=== PATIENT | male | born 1945 | race Caucasian/White ===

== ENCOUNTER → 2016-06-18 | Day surgery (SDC) | payer BC, MEDICARE, OTHER ==
[2016-05-22 08:33] VITALS: BMI 21.0
[~2016-06-18] VITALS: Ht 177.8 cm; Wt 65.9 kg
[~2016-06-18] MED LIST: ALBU0.08 INH; AMLO10TA2 PO; ASPI81TA28 PO; BCTROWC; BUSP5TAB59 PO; CARV6.252 PO; CHOL100010 PO; CYAN100074 INJ; FLUT0.0529 NAE; HYDC25 PO; LIDOCAINE HCL 2% 2 ML VIAL (20MG/ML) ONE; MIDAZOLAM HCL 1 MG/ML 2ML VIAL ONE; MULT-845 PO; OMEP20CA9 PO; OXGN; PHENYLEPHRINE 100MCG/ML 5ML SYR ONE; POTA20TA11 PO; PROPOFOL IV EMULSION 10 MG/ML 20 ML VIAL IV ONE; SODIUM CHLORIDE 0.9% 500ML 500 ML IV ONE; SYMIN INH; VNTHFA/IN INH; WLLSR/150 PO
[2016-06-18 09:02] VITALS: Ht 177.8 cm; Wt 65.9 kg
[2016-06-18 09:22] VITALS: TEMP 37
--- NOTE | 2016-06-18 09:45 | Endo History and Physical ---
History & Physical Date of Service: Jun 18, 2016. Chief Complaint: hx of polyps, tubular adenoma of colon Referring Physician: Dr. Arias History of Present Illness 70 yo CM who presents for colonoscopy secondary to history of colon polyps. Past Medical History Male Genitourinary Prob., Gastrointestinal Disorder, Anxiety, Heart Disease, Hypertension, COPD Past Surgical History Hx Cardiac Surgery: No Hx Internal Defibrillator: No Hx Pacemaker: No Hx Post-Op Nausea and Vomiting: No Hx Cancer Surgery: No Hx Orthopedic: Yes (RIGHT KNEE SURGERY) Hx Urinary Tract Surgery: No Family History None Social History Smoking Status: Former Smoker Hx Substance Use: No Hx Alcohol Use: Yes (QUIT 20 YEARS AGO) Allergies Coded Allergies: Animal Dander (Verified Allergy, Mild, CONGESTION, STUFFINESS, SNEEZING, ) Paroxetine (Verified Allergy, Mild, RASH, 05/22/16) Uncoded Allergies: ANTIBIOTI (Allergy, Unknown, NAUSEA/HOT FLASHES, 06/04/15) PATIENT SAYS HE IS ALLERGIC TO AN ANTIBIOTIC THAT HE WAS PRESCRIBED FOR A CHEST INFECTION BUT HAS NO IDEA THE NAME OF IT Current Medications Reported Home Medications Medications Dose Route/Sig Max Daily Dose Days Date Category Dose Instructions Oxygen Gas 3 Liters NA CONTINOUS 05/22/16 Reported Buspirone Hcl 5 Mg Tab 1 Tab PO BID 05/22/16 Reported Ventolin Hfa (Albuterol) 200 Puffs/86032 Mcg Aers 2-4 Puffs INH Q6H PRN 05/22/16 Reported Coreg (Carvedilol) 6.25 Mg Tab 6.25 Mg PO BID 05/22/16 Reported Vitamin Deficiency Inject (Cyanocobalamin) 1,000 Mcg/Ml Kit 1 Ml INJ MONTHLY 05/22/16 Reported Symbicort 160-4.5 Mcg/Act (Budesonide/Formoterol Fumarate) 60 Puffs/Inhaler Aero 2 Puffs INH BID 05/22/16 Reported Aspirin Ec (Aspirin) 81 Mg Tab 81 Mg PO QAM 10/11/15 Reported Vitamin D (Cholecalciferol) 1,000 Inter.unit Tab 1,000 Inter.unit PO QAM 10/31/14 Reported Bactroban 2% (Mupirocin) Oint UD 04/17/14 Reported APPLY A GENEROUS AMOUNT OF OINMENT 2-3 TIMES A DAY DIRECTED Flonase (Fluticasone Propionate (Nasal)) 50 Mcg/Act Spr 2 Sprays KAITLIN DAILY 04/17/14 Reported Centrum Silver Adult 50+ (Multiple Vitamins W/ Minerals) 1 Tab Tab 1 Tab PO QAM 04/17/14 Reported Proventil 0.083% 2.5MG/3ML (Albuterol Sulfate) Nebu 2.5 Mg INH Q4 04/17/14 Reported Potassium Chloride Cr (Potassium Chloride Microencaps) 20 Meq Tab 10 Meq PO QAM 01/26/14 Reported Prilosec (Omeprazole) 20 Mg Cap 20-40 Mg PO QAM 01/26/14 Reported Wellbutrin Sr (Bupropion Hcl) 150 Mg Tabcr 150 Mg PO QAM 01/26/14 Reported Norvasc (Amlodipine Besylate) 10 Mg Tab 10 Mg PO QAM 01/26/14 Reported Hctz * (Hydrochlorothiazide) 25 Mg Tab 25 Mg PO QAM 06/08/06 Reported Vital Signs Weight (Kilograms): 65.91 Height (Feet): 5 Height (Inches): 10 Date Time Temp Pulse Resp B/P Pulse Ox O2 Delivery O2 Flow Rate FiO2 06/18/16 09:22 37 82 20 129/74 100 Nasal Cannula 3 Physical Exam General Appearance: WD/WN, no apparent distress Respiratory/Chest: Auscultation: breath sounds normal Cardiovascular: Heart Auscultation: RRR Abdomen: Bowel Sounds: normal Inspection & Palpation: soft, non-distended, no tenderness, guarding & rebound Assessment and Plan Assessment: 70 yo CM who presents for colonoscopy secondary to history of colon polyps. Plan: Proceed with colonoscopy.
--- NOTE | 2016-06-18 10:26 | GI REPORT ---
Procedure Date: 06/18/2016 9:38 AM Procedure: Colonoscopy Indications: High risk colon cancer surveillance: Personal history of colonic polyps Medicines: Monitored Anesthesia Care Complications: No immediate complications. Estimated Blood Loss: Estimated blood loss: none. Procedure: Pre-Anesthesia Assessment: - Prior to the procedure, a History and Physical was performed, and patient medications and allergies were reviewed. The patient's tolerance of previous anesthesia was also reviewed. The risks and benefits of the procedure and the sedation options and risks were discussed with the patient. All questions were answered, and informed consent was obtained. Prior Anticoagulants: The patient has taken aspirin, last dose was 1 day prior to procedure. ASA Grade Assessment: IV - A patient with severe systemic disease that is a constant threat to life. After reviewing the risks and benefits, the patient was deemed in satisfactory condition to undergo the procedure. After I obtained informed consent, the scope was passed under direct vision. Throughout the procedure, the patient's blood pressure, pulse, and oxygen saturations were monitored continuously. The On-site loaner was introduced through the anus and advanced to the ileocolonic anastomosis. The colonoscopy was performed without difficulty. The patient tolerated the procedure well. The quality of the bowel preparation was good. The terminal ileum and the rectum were photographed. Findings: A 15 mm polyp was found in the ascending colon. The polyp was pedunculated. The polyp was removed with a hot snare. Resection and retrieval were complete. To prevent bleeding after the polypectomy, one hemostatic clip was successfully placed. There was no bleeding at the end of the procedure. Four sessile polyps were found in the transverse colon. The polyps were 5 to 8 mm in size. These polyps were removed with a hot snare. Resection and retrieval were complete. Impression: - One 15 mm polyp in the ascending colon, removed with a hot snare. Resected and retrieved. Clip was placed. - Four 5 to 8 mm polyps in the transverse colon, removed with a hot snare. Resected and retrieved. Recommendation: - Resume previous diet. - Continue present medications. - Repeat colonoscopy for surveillance based on pathology results. - Return to primary care physician as previously scheduled. Dilip Huizar DO 06/18/2016 10:26:16 AM This report has been signed electronically. Note Initiated On: 06/18/2016 9:38 AM I attest to the content of the Intraoperative Record and orders documented therein, exceptions below
--- NOTE | 2016-06-18 10:27 | Discharge Instructions ---
Endoscopy Patient Instructions Date / Procedure(s) Performed Jun 18, 2016. Colonoscopy Allergy Information Coded Allergies: Animal Dander (Verified Allergy, Mild, CONGESTION, STUFFINESS, SNEEZING, ) Paroxetine (Verified Allergy, Mild, RASH, 05/22/16) Uncoded Allergies: ANTIBIOTI (Allergy, Unknown, NAUSEA/HOT FLASHES, 06/04/15) PATIENT SAYS HE IS ALLERGIC TO AN ANTIBIOTIC THAT HE WAS PRESCRIBED FOR A CHEST INFECTION BUT HAS NO IDEA THE NAME OF IT Discharge Date / Findings Jun 18, 2016. Colon polyps Medication Instructions OK to resume all medications today as prescribed Reported Home Medications Medications Dose Route/Sig Max Daily Dose Days Date Category Dose Instructions Oxygen Gas 3 Liters NA CONTINOUS 05/22/16 Reported Buspirone Hcl 5 Mg Tab 1 Tab PO BID 05/22/16 Reported Ventolin Hfa (Albuterol) 200 Puffs/34269 Mcg Aers 2-4 Puffs INH Q6H PRN 05/22/16 Reported Coreg (Carvedilol) 6.25 Mg Tab 6.25 Mg PO BID 05/22/16 Reported Vitamin Deficiency Inject (Cyanocobalamin) 1,000 Mcg/Ml Kit 1 Ml INJ MONTHLY 05/22/16 Reported Symbicort 160-4.5 Mcg/Act (Budesonide/Formoterol Fumarate) 60 Puffs/Inhaler Aero 2 Puffs INH BID 05/22/16 Reported Aspirin Ec (Aspirin) 81 Mg Tab 81 Mg PO QAM 10/11/15 Reported Vitamin D (Cholecalciferol) 1,000 Inter.unit Tab 1,000 Inter.unit PO QAM 10/31/14 Reported Bactroban 2% (Mupirocin) Oint UD 04/17/14 Reported APPLY A GENEROUS AMOUNT OF OINMENT 2-3 TIMES A DAY DIRECTED Flonase (Fluticasone Propionate (Nasal)) 50 Mcg/Act Spr 2 Sprays KAITLIN DAILY 04/17/14 Reported Centrum Silver Adult 50+ (Multiple Vitamins W/ Minerals) 1 Tab Tab 1 Tab PO QAM 04/17/14 Reported Proventil 0.083% 2.5MG/3ML (Albuterol Sulfate) Nebu 2.5 Mg INH Q4 04/17/14 Reported Potassium Chloride Cr (Potassium Chloride Microencaps) 20 Meq Tab 10 Meq PO QAM 01/26/14 Reported Prilosec (Omeprazole) 20 Mg Cap 20-40 Mg PO QAM 01/26/14 Reported Wellbutrin Sr (Bupropion Hcl) 150 Mg Tabcr 150 Mg PO QAM 01/26/14 Reported Norvasc (Amlodipine Besylate) 10 Mg Tab 10 Mg PO QAM 01/26/14 Reported Hctz * (Hydrochlorothiazide) 25 Mg Tab 25 Mg PO QAM 06/08/06 Reported Provider Instructions Activity Restrictions - No exercising or heavy lifting for 24 hours. - Do not drink alcohol the day of the procedure. - Do not drive a car or operate machinery until the day after the procedure. - Do not make any important decisions or sign important papers in 24 hours after the procedure. Following Day: - Return to full activity which may include returning to work/school. Diet Start your diet with liquids and light foods (jello, soup, juice, toast). Then eat your usual diet if not nauseated. Treatment For Common After Affects For mild abdominal pain, bloating, or excessive gas: - Rest - Eat lightly - Lie on right side Follow-Up Information Follow-up with Dr. Arias as scheduled Anesthesia Information What You Should Know You have had a procedure that required some medicine to reduce anxiety and discomfort. This treatment is called moderate sedation. After receiving the treatment, you may be sleepy, but you will be able to breathe on your own. The effects of the treatment may last for several hours. Follow these instructions along with Activity/Diet recommendations noted above: * Do NOT do anything where dizziness or clumsiness would be dangerous. * Rest quietly at home today, then you can be up and about tomorrow. * Have a responsible person stay with you the rest of today. * You may have had an I.V. today. If so, you may take the dressing off later today. Recommendations Call your doctor if: * Trouble breathing * Continuous vomiting for more than 24 hours * Temperature above 101 degrees * Severe abdominal pain or bloating * Pain not relieved by pain medicine ordered * There is increased drainage or redness from any incision * A large amount of rectal bleeding greater than 2-3 tablespoons. (If you had a polyp/s removed or have hemorrhoids, a small amount of blood - from the rectum is to be expected.) * You have any unanswered questions or concerns. IN THE EVENT OF A SERIOUS EMERGENCY, GO TO THE NEAREST EMERGENCY ROOM Your discharge instructions were prepared by provider Dilip Huizar. Patient Instructions Signature Page Maxwell Ferrara Patient (or Guardian) Signature/Date: I have read and understand the instructions given to me by my caregivers. Caregiver/RN/Doctor Signature/Date: The above-named patient and/or guardian has received patient instructions on this date. + Original Patient Signature Page (only) stays with chart. Please make copy for patient.
[2016-06-18 10:45] VITALS: BP 124/71; PULSE 86; O2SAT 100
--- NOTE | 2016-06-18 10:47 | Anesthesiology Progress Note ---
Anesthesia Post Op Note Date & Time Jun 18, 2016 at 10:47 Vital Signs Pain Intensity: 0 Vital Signs Past 12 Hours Date Time Temp Pulse Resp B/P Pulse Ox O2 Delivery O2 Flow Rate FiO2 06/18/16 10:35 81 18 121/67 99 Nasal Cannula 3 06/18/16 10:25 81 16 98/48 100 Nasal Cannula 3 06/18/16 09:22 37 82 20 129/74 100 Nasal Cannula 3 Notes Mental Status: alert / awake / arousable, participated in evaluation Pt Amnestic to Procedure: Yes Nausea / Vomiting: adequately controlled Pain: adequately controlled Airway Patency, RR, SpO2: stable & adequate BP & HR: stable & adequate Hydration State: stable & adequate Anesthetic Complications: no major complications apparent
== END | disposition home or self-care (01) ==
LOC: C.GI 08:27
PROVIDERS: ATTEND Internal Medicine
DX: Z12.11 Encounter for screening for malignant neoplasm of colon (principal); D12.2 Benign neoplasm of ascending colon; D12.3 Benign neoplasm of transverse colon; K63.89 Other specified diseases of intestine; I10 Essential (primary) hypertension; J44.9 Chronic obstructive pulmonary disease, unspecified; Z87.891 Personal history of nicotine dependence

== ENCOUNTER 2018-07-18 13:26 | Inpatient (IN) ==
[2018-07-18] MEDS ORDERED: SODIUM CHLORIDE 0.9% 1000ML 500 ML IV ONE (13:58)
[2018-07-18] MEDS ORDERED: MoRPHine SULFATE 4 MG/ML 1 ML CARP\\VIAL IV STA (13:58)
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
[2018-07-18 14:42] LABS: Basophils # (auto) 0.02 K/uL (0-0.2); Basophils % (auto) 0.2 %; Eosinophils # (auto) 0.05 K/uL (0-0.5); Eosinophils % (auto) 0.5 %; Hematocrit (blood only) 38.8 % (42-52); Hemoglobin 12.4 g/dL (14.0-18.0); Immature Granulocytes # (auto) 0.01 K/uL (0.00-0.02); Immature Granulocytes % (auto) 0.1 %; Lymphocytes # (auto) 0.85 K/uL (1.2-3.4); Lymphocytes % (auto) 9.1 %; Mean Corpuscular Volume 89.4 fL (80-100); Mean Platelet Volume 9.6 fL (7.4-10.4); Monocytes # (auto) 0.98 K/uL (0.11-0.59); Monocytes % (auto) 10.5 %; Neutrophils # (auto) 7.43 K/uL (1.4-6.5); Neutrophils % (auto) 79.6 %; Platelet Count 352 K/uL (130-400); RDW Coefficient of Variation 14.5 % (11.5-14.5); RDW Standard Deviation 47.7 fL (36.4-46.3); Red Blood Count 4.34 M/uL (4.7-6.1); White Blood Count 9.34 K/uL (4.8-10.8)
[2018-07-18 14:54] LABS: Prothrombin Time 10.2 Seconds (9.0-12.0)
[2018-07-18 14:58] LABS: Alanine Aminotransferase 19 U/L (12-78); Albumin Level 2.7 gm/dl (3.4-5.0); Aspartate Aminotransferase 14 U/L (15-37); BUN Creatinine Ratio 14.7 (10-20); Blood Urea Nitrogen 9 mg/dl (7-18); Calcium 9.5 mg/dl (8.5-10.1); Carbon Dioxide 35 mmol/L (21-32); Chloride 101 mmol/L (98-107); Creatinine Clr Calc Pharmacy 90.9 ml/min; Est GFR (African American) 115.7; Est GFR (Non-African American) 99.8; Glucose 97 mg/dl (70-99); Potassium 3.7 mmol/L (3.5-5.1); Sodium 142 mmol/L (136-145)
[2018-07-18 15:03] LABS: Albumin Globulin Ratio 0.6 (0.9-2); Alkaline Phosphatase 165 U/L (45-117); Bilirubin,Total 0.3 mg/dl (0.2-1); Globulin 4.3 gm/dl (2.5-4.0); Troponin I < 0.015 ng/ml (0-0.045)
[2018-07-18] MEDS ORDERED: IOVERSOL 100ml IV PRN (15:35)
[2018-07-18 16:01] LABS: Appearance Urine Clear (Clear); Bacteria Urine Automated Negative (Negative); Bilirubin Urine Negative (Negative); Blood Urine 1+ (Negative); Cast Urine Automated 0 /lpf (0-5); Color Urine Yellow; Glucose Urine UA Negative (Negative); Ketones Urine Trace (Negative); Leukocyte Esterase Urine Trace (Negative); Nitrite Urine Negative (Negative); Protein Urine Negative (Negative); Specific Gravity Urine 1.016 (1.000-1.030); Urobilinogen Urine Negative (Negative); pH Urine 6.5 (4.5-7.5)
--- NOTE | 2018-07-18 16:11 | CT Scan Report ---
ABDOMEN AND PELVIS CT WITH IV CONTRAST CT DOSE: 326.14 mGy.cm HISTORY: Acute right lower quadrant abdominal pain with history of prior multiple surgeries. RLQ french n, h/o bowel obstruction and partial colect TECHNIQUE: Multiaxial CT images of the abdomen and pelvis were performed following the use of intrave nous contrast. A dose lowering technique was utilized adhering to the principles of ALARA. COMPARISON STUDY: Chest radiograph of same day, CT abdomen and pelvis 08/15/2015 FINDINGS: Chronic changes with volume loss and calcifications about the left hemithorax. Compensatory hyperinfl ation of the right lung. There are scattered tree-in-bud nodules noted about the right lung base. Emp hysema. No pneumatosis or pneumoperitoneum. Imaged inferior cardiac chambers are unremarkable with co ronary arterial calcifications noted. Cholelithiasis with gallstones noted extending into the gallbladder neck region. There is moderate in trahepatic and extrahepatic biliary ductal dilation which appears new from prior study. The common bi le duct measures up to 1.6 cm transversely. No obstructing biliary calculus or lesion identified. The pancreatic duct appears normal in caliber. Mild generalized pancreatic atrophy. There is mild coloni c wall thickening with pericholecystic edema. Liver is otherwise unremarkable. There is a 7 mm hypode nse lesion noted about the superior spleen which is new from prior, however statistically benign. Adr enal glands are unremarkable. The right kidney and ureter are unremarkable. There multiple large calculi noted about the left kidne y which includes a 1.9 x 1.2 cm left renal calculus. Mild dilation of the left renal pelvis with asso ciated urothelial thickening of the pelvis and proximal left ureter. The left proximal ureter is mild ly dilated. No obstructing distal ureteral calculus identified. Moderate bladder distention with mild prostamegaly. Extensive calcification of the abdominal aorta and proximal branches. No aneurysm. Mil dly prominent pericaval and periportal lymph nodes are present. Trace free pelvic fluid. Colonic diverticulosis without acute diverticulitis. Moderate formed stool t hroughout the colon is suggestive of constipation. Layering hyperdense material noted within several loops of bowel. Postoperative changes from prior partial small bowel resection. The right hemicolon i s mildly distended and fluid-filled. There is mild fluid distention noted about the enteroenteric carlton stomosis about the left midabdomen on image 364 series 3 without significant proximal dilation. There is a single loop of mildly dilated small bowel air-fluid level about the central abdomen measuring u p to 3.4 cm transversely. Additionally there are a few mildly prominent loops of air and fluid-filled small bowel about the central abdomen. Several fluid-filled loops of small bowel are noted. Postoper ative changes of the ventral abdominal wall. Pattern is nonobstructive. Bones appear to be intact. Degenerative changes of the spine, pelvis and h ips. Anterior endplate compression deformities at T12 and L1 without retropulsion, unchanged from com parison. IMPRESSION: 1. Cholelithiasis with mild gallbladder wall thickening and pericholecystic edema. Correlate clinical ly to exclude acute cholecystitis. 2. Moderate intrahepatic and extrahepatic biliary ductal dilation without obstructing biliary stone o r lesion. Correlate with LFTs to exclude obstructive process. 3. Extensive left nephrolithiasis includes a 1.9 cm calculus of the left renal pelvis. Additionally, there is mild pelviectasis with associated urothelial thickening about the renal collecting system an d proximal left ureter. Chronic with urinalysis to exclude pyelitis/ureteritis. 4. There are several air and fluid-filled loops of both small and large bowel with a few mildly dilat ed loops of small bowel suggesting enteritis with diarrheal illness. No high-grade small bowel obstru ction. A low-grade small bowel obstruction is considered less likely. Follow-up recommended. 5. Trace free fluid about the dependent pelvis. 6. Colonic diverticulosis without acute diverticulitis. 7. Additional findings as above. Electronically signed by: Leodan Barger M.D. 07/18/2018 4:08 PM
[2018-07-18] MEDS ORDERED: ALBUT/IPRATROP 3MG/0.5MG NEB 3 ML VIAL NEB STA (16:13)
--- NOTE | 2018-07-18 17:18 | Ultrasound Report ---
US gallbladder HISTORY: 72 years-old Male possible kyara acute right upper quadrant abdominal pain COMPARISON: CT abdomen and pelvis of same day TECHNIQUE: Multiple real-time sonographic images of the abdominal right upper quadrant were obtained assessing grayscale appearance and color flow FINDINGS: The pancreas is obscured by bowel gas. Moderate intrahepatic and extrahepatic biliary ductal dilation redemonstrated. Cyst versus biliary ductal dilation of the left hepatic lobe, 6 mm. No evidence of c irrhosis. Hepatopedal flow noted within the main portal vein. Trace right pleural effusion. Distended gallbladder with sludge and cholelithiasis. Gallbladder wall is thickened, 4 mm. Trace daphney cholecystic fluid. Sonographic Bentley sign reported as positive. Common bile duct measures up to 1.6 cm transversely. No choledocholithiasis identified. Imaged right kidney is unremarkable without hydronephrosis. IMPRESSION: 1. Cholelithiasis with sonographic findings compatible with acute cholecystitis. Surgical consultatio n recommended. 2. Moderate intrahepatic and extrahepatic biliary ductal dilation without choledocholithiasis or obst ructing biliary lesion identified on this exam. 3. Trace right pleural effusion. The above report was generated using voice recognition software. It may contain grammatical, syntax o r spelling errors. Electronically signed by: Leodan Barger M.D. 07/18/2018 5:17 PM
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
[2018-07-18] MEDS ORDERED: ONDANSETRON INJ 2 MG/ML 2 ML VIAL IV PRN (18:36)
[2018-07-18] MEDS ORDERED: MoRPHine SULFATE 2 MG/ML CARP IV PRN (18:36)
[2018-07-18] MEDS ORDERED: PIPERACILL/TAZOBAC CONSULT ACTIVE PRN (18:36)
--- NOTE | 2018-07-18 18:46 | Surgery Consultation ---
Date of Consultation July 18, 2018 Assessment & Plan (1) Abdominal pain: Most recent labwork, ED course, provider notes, imaging reviewed. Discussed patient's history and physical with Dr. Solorzano. Patient to be admitted to Med/Surg floor by Hospitalist service. Start IV abx- recommend IV Cipro and IV Flagyl. No emergent surgical intervention indicated. Repeat CBC, LFTs in AM. Patient NPO after midnight. Dr. Solorzano will discussed treatment plan with patient and patient's family. Patient is a higher than average surgical risk. Possibility that cholecystectomy would need to be done as an open procedure if cholecystectomy becomes needed during this hospital stay. History of Present Illness Reason for Consultation: Acute Cholecystitis Attending Physician: Clint Pappas DO History of Present Illness 72-year-old male with past medical history significant for GERD, aortic stenosis, Vit D and Vit B-12 deficiency, cardiomyopathy, HTN, COPD, s/p Pneumonectomy (approximately ) s/p Ex Lap with Resection of Ileum/Cecum due to internal herniation and necrotic bowel (May, with Dr. Marcelino Amaro), bowel obstruction x2 following bowel surgery, history of malabsorption. Patient presented to [facility] this afternoon for evaluation of right lower quadrant abdominal pain that began Thursday evening. He states that the pain is present with movement, especially with coughing. If he lays still and does not move, the pain does subside. He denies nausea or vomiting. Reports that he has never had this type of pain before. States that prior to the pain starting he had dinner- sardines and pork chops. He denies previous post-prandial pain. He denies fever or chills. Patient is on 3L of home oxygen. ED course- Bloodwork: WBC 9.34; Tot Bili 0.3; AST 14; ALT 19; Alk Phos 165; Albumin 2.7; Lipase 42 Most recent vital signs BP 120/69; Pulse 89; Resp 18; Temp 36.7; O2 98% on 3L NC. Imaging: CT abdomen/pelvis with IV contrast- IMPRESSION: 1. Cholelithiasis with mild gallbladder wall thickening and pericholecystic edema. Correlate clinically to exclude acute cholecystitis. 2. Moderate intrahepatic and extrahepatic biliary ductal dilation without obstructing biliary stone or lesion. Correlate with LFTs to exclude obstructive process. 3. Extensive left nephrolithiasis includes a 1.9 cm calculus of the left renal pelvis. Additionally, there is mild pelviectasis with associated urothelial thickening about the renal collecting system and proximal left ureter. Chronic with urinalysis to exclude pyelitis/ureteritis. 4. There are several air and fluid-filled loops of both small and large bowel with a few mildly dilated loops of small bowel suggesting enteritis with diarrheal illness. No high-grade small bowel obstruction. A low-grade small bowel obstruction is considered less likely. Follow-up recommended. 5. Trace free fluid about the dependent pelvis. 6. Colonic diverticulosis without acute diverticulitis. Ultrasound of GB reveals 1. Cholelithiasis with sonographic findings compatible with acute cholecystitis. Surgical consultation recommended. 2. Moderate intrahepatic and extrahepatic biliary ductal dilation without choledocholithiasis or obstructing biliary lesion identified on this exam. 3. Trace right pleural effusion. Allergies Allergy/AdvReac Type Severity Reaction Status Date / Time animal dander Allergy Mild CONGESTION, Verified 07/18/18 14:46 STUFFINESS, SNEEZING paroxetine Allergy Mild RASH Verified 07/18/18 14:46 ANTIBIOTI Allergy Unknown NAUSEA/HOT Uncoded 07/18/18 14:46 FLASHES Home Medications Home Medications Medication Instructions Recorded Confirmed Type albuterol sulfate 2 puff INHALATION QID 07/18/18 07/18/18 History amlodipine 10 mg PO DAILY 07/18/18 07/18/18 History aspirin [Aspirin Low Dose] 81 mg PO DAILY 07/18/18 07/18/18 History budesonide-formoterol [Symbicort] 2 puff INHALATION BID 07/18/18 07/18/18 History bupropion HCl 150 mg PO QAM 07/18/18 07/18/18 History buspirone 7.5 mg PO BID 07/18/18 07/18/18 History cholecalciferol (vitamin D3) 1,000 unit PO DAILY 07/18/18 07/18/18 History [Vitamin D3] fluticasone propionate 2 spray INTRANASAL DAILY 07/18/18 07/18/18 History guaifenesin 200 mg PO Q6H 07/18/18 07/18/18 History hydrochlorothiazide 25 mg PO DAILY 07/18/18 07/18/18 History hydrocodone-acetaminophen 1 tab PO DIRECTED PRN 07/18/18 07/18/18 History ipratropium-albuterol [Combivent 1 puff INHALATION QID 07/18/18 07/18/18 History Respimat] isosorbide mononitrate 30 mg PO DAILY 07/18/18 07/18/18 History magnesium 250 mg PO DAILY 07/18/18 07/18/18 History ansdebpkljut-twmr-okvxc acid 1 tab PO DAILY 07/18/18 07/18/18 History [Centrum] mupirocin 1 applic TOPICAL BID 07/18/18 07/18/18 History omeprazole 40 mg PO DAILY 07/18/18 07/18/18 History potassium chloride [Klor-Con] 20 meq PO DAILY 07/18/18 07/18/18 History psyllium husk [Fiber-Caps 0.52 g PO DAILY 07/18/18 07/18/18 History (psyllium husk)] Patient History Medical History Hx of malignant neoplasm of colon BPH (benign prostatic hyperplasia) GERD (gastroesophageal reflux disease) Vitamin D deficiency Vitamin B12 deficiency Aortic stenosis Bicuspid aortic valve Cardiomyopathy COPD (chronic obstructive pulmonary disease) (Chronic) Hypertension (Chronic) Surgical History Hx of pneumonectomy Left Social History Preferred Language: Uzbek Communication Ability: Effective 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 Eyes: + anicteric sclerae Respiratory: + cough; no respiratory distress Gastrointestinal (Abdomen): Inspection/Auscultation: abdomen not distended Percussion/Palpation: + abdomen tender (right lower quadrant- area marked with an X during examination. ) and abdomen soft Healed midline scar. Results & Data Vital Signs (Past 12 Hours) Vital Signs Temp Pulse Pulse Resp BP BP Pulse Ox 07/18/18 18:07 89 18 120/69 98 07/18/18 16:07 93 H 18 130/66 99 07/18/18 14:30 18 110/64 99 07/18/18 14:11 96 07/18/18 13:31 36.7 C 65 18 128/71 97 (1) Abdominal pain Abdominal location: right lower quadrant Qualified Code(s): R10.31 - Right lower quadrant pain
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
[2018-07-18] MEDS: NSS + 20MEQ KCL 20 MEQ/1,000 ML BAG IV SCH (19:31)
[2018-07-18] MEDS ORDERED: PIPERACILLIN/TAZOBACTAM 3.375 GM in DEXTROSE 5% 100 ML IV ONE (20:00)
[2018-07-18] MEDS: MUPIROCIN 2% OINT 22 GM TUBE TOP SCH (20:37)
[2018-07-18] MEDS: BUSPIRONE HCL 7.5 MG TAB PO SCH (20:40)
[2018-07-18] MEDS: BUDESONIDE/FORMOTEROL FUMARATE 160/4.5 60 PUFFS/INHALER INH SCH (20:41)
[2018-07-18] MEDS: ALBUTEROL HFA 8 GM INHALER INH SCH (20:43)
[2018-07-18] MEDS: IPRATROPIUM BROMIDE/ALBUTEROL respimat INH INH SCH (20:46)
[2018-07-18] MEDS: MoRPHine SULFATE 4 MG/ML 1 ML CARP\\VIAL IV PRN (21:42)
[2018-07-18] MEDS: HEPARIN SOD 5,000 UNIT/0.5 ML VIAL SQ SCH (21:46)
[2018-07-18] MEDS ORDERED: ALUMINUM/MAGNESIUM SUSP 30 ML UDC PO STA (22:47)
[2018-07-18] MEDS: MoRPHine SULFATE 2 MG/ML CARP IV PRN (23:34)
[2018-07-19] MEDS: LEVALBUTEROL HCL 0.63 MG/3 ML NEB NEB SCH ×2 (01:23→07:19)
[2018-07-19] MEDS: IPRATROPIUM BROMIDE NEB SOLN 0.02% 2.5 ML VIAL INH SCH ×2 (01:23→07:20)
[2018-07-19] MEDS: PIPERACILLIN/TAZOBACTAM 3.375 GM in DEXTROSE 5% 100 ML IV SCH ×2 (01:53→09:49)
[2018-07-19] MEDS: MoRPHine SULFATE 2 MG/ML CARP IV PRN ×2 (02:00→05:40)
[2018-07-19] MEDS ORDERED: XOPENEX/ATROVENT 0.63mg/0.5MG NEB COMBO NEB SCH (02:00)
[2018-07-19] MEDS: HEPARIN SOD 5,000 UNIT/0.5 ML VIAL SQ SCH ×2 (05:39→13:36)
--- NOTE | 2018-07-19 06:12 | Progress Note ---
Date of Service July 19, 2018 Subjective RN called around 23:44 regarding patient having significant abdominal pain Chart reviewed Pt evaluated: reported significant RLQ abdominal pain, pain in same location as admission, denies RUQ abdominal pain Exam: active BS, RLQ severe TTP, No RUQ TTP, no rebound tenderness Case discussed with Dr. Boyce Given hx of ischemic bowel lactate and amylase ordered which were wnl Pain location unchanged from admission and despite concern for acute cholecystitis pt having RLQ abdominal pain not RUQ abdominal pain Plan was to re-scan abdomen pt if continues to have severe uncontrolled pain Spoke to nurse around 2am - reported pain improved with ordered morphine pain r egimen and pt more comfortable Results & Data Vital Signs (Past 12 Hours) Vital Signs Temp Pulse Pulse Resp BP BP Pulse Ox 07/19/18 01:20 90 18 96 07/18/18 23:39 37.1 C 93 H 14 151/77 H 100 07/18/18 18:30 37.0 C 98 H 22 133/76 98 Resident Activity Tracking Resident Involvement: Resident Care Provided Care Provided: Adult Hospital Medicine
[2018-07-19 06:57] LABS: Basophils # (auto) 0.03 K/uL (0-0.2); Basophils % (auto) 0.4 %; Eosinophils # (auto) 0.06 K/uL (0-0.5); Eosinophils % (auto) 0.8 %; Hematocrit (blood only) 34.4 % (42-52); Hemoglobin 10.9 g/dL (14.0-18.0); Immature Granulocytes # (auto) 0.02 K/uL (0.00-0.02); Immature Granulocytes % (auto) 0.3 %; Lymphocytes # (auto) 0.53 K/uL (1.2-3.4); Lymphocytes % (auto) 7.1 %; Mean Corpuscular Hgb Conc 31.7 g/dL (32-36); Mean Corpuscular Volume 88.9 fL (80-100); Mean Platelet Volume 9.5 fL (7.4-10.4); Monocytes # (auto) 1.11 K/uL (0.11-0.59); Monocytes % (auto) 14.8 %; Neutrophils # (auto) 5.73 K/uL (1.4-6.5); Neutrophils % (auto) 76.6 %; Platelet Count 314 K/uL (130-400); RDW Coefficient of Variation 14.6 % (11.5-14.5); RDW Standard Deviation 47.5 fL (36.4-46.3); Red Blood Count 3.87 M/uL (4.7-6.1); White Blood Count 7.48 K/uL (4.8-10.8)
[2018-07-19] MEDS: IPRATROPIUM BROMIDE/ALBUTEROL respimat INH INH SCH ×2 (07:20→12:51)
[2018-07-19 07:29] LABS: Albumin Level 2.3 gm/dl (3.4-5.0); BUN Creatinine Ratio 12.8 (10-20); Bilirubin Direct 0.1 mg/dl (0-0.2); Calcium 8.7 mg/dl (8.5-10.1); Creatinine Clr Calc Pharmacy 102.3 ml/min; Est GFR (African American) 121.5; Est GFR (Non-African American) 104.8; Potassium 3.4 mmol/L (3.5-5.1)
[2018-07-19 07:32] LABS: Albumin Globulin Ratio 0.6 (0.9-2); Bilirubin,Total 0.4 mg/dl (0.2-1); Globulin 3.8 gm/dl (2.5-4.0); Total Protein 6.1 gm/dl (6.4-8.2)
[2018-07-19] MEDS: NSS + 20MEQ KCL 20 MEQ/1,000 ML BAG IV SCH (07:53)
[2018-07-19] MEDS: MUPIROCIN 2% OINT 22 GM TUBE TOP SCH (07:53)
[2018-07-19] MEDS: BUSPIRONE HCL 7.5 MG TAB PO SCH (07:57)
[2018-07-19] MEDS: FLUTICASONE PROPIONATE NA SPR 16 GM BTL SCH ×2 (07:57→14:10)
[2018-07-19] MEDS: BUDESONIDE/FORMOTEROL FUMARATE 160/4.5 60 PUFFS/INHALER INH SCH (07:58)
[2018-07-19] MEDS: ALBUTEROL HFA 8 GM INHALER INH SCH (07:59)
[2018-07-19] MEDS: MoRPHine SULFATE 4 MG/ML 1 ML CARP\\VIAL IV PRN ×2 (08:41→14:45)
--- NOTE | 2018-07-19 08:42 | Surgery Progress Note ---
Date of Service July 19, 2018 Assessment & Plan (1) Acute cholecystitis: pain is low but ct and US both confirm cholecystitis. he only has 4 feet of small bowel left . this coupled with his Oxygen dependent COPD makes him a high surgical risk. He would need an open subcostal incision most likely which would not help his respiratory issues and likely advanced adhesions could risk the small amount of remaining bowel. Rec trial of npo/antibiotics vs IR Perc kyara tube. Will obtain HIDA to to verify cholecystitis prior to transfer for kyara tube. D/w Dr. Pappas. Subjective pt feeling better than yesterday but still having tenderness/discomfort in RLQ. no nausea Physical Exam Physical Exam: alert. nad abd: soft. +tenderness in RLQ. +guarding. Results & Data Vital Signs (Past 12 Hours) Vital Signs Temp Pulse Pulse Pulse Resp BP Pulse Ox 07/19/18 07:45 36.9 C 87 19 132/68 99 07/19/18 07:20 91 H 18 97 07/19/18 01:20 90 18 96 07/18/18 23:39 37.1 C 93 H 14 151/77 H 100
[2018-07-19] MEDS ORDERED: PANTOprazole 40 MG TAB PO SCH (09:00)
[2018-07-19] MEDS ORDERED: AMLODIPINE BESYLATE 5 MG TAB PO SCH (09:00)
[2018-07-19] MEDS ORDERED: POTASSIUM CHLORIDE 20 MEQ TABCR PO SCH (09:00)
[2018-07-19] MEDS ORDERED: BuPROPion XL 150 MG TABCR PO SCH (09:00)
[2018-07-19] MEDS ORDERED: ISOSORBIDE MONO EXTENDED REL 30 MG TABCR PO SCH (09:00)
[2018-07-19] MEDS ORDERED: MAGNESIUM OXIDE 400 MG TAB PO SCH (09:00)
[2018-07-19] MEDS ORDERED: POTASSIUM CHLORIDE PWD 20 MEQ PACK PO SCH (09:00)
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
[2018-07-19] MEDS ORDERED: LEVALBUTEROL HCL 0.63 MG/3 ML NEB NEB PRN (11:30)
[2018-07-19] MEDS ORDERED: IPRATROPIUM BROMIDE NEB SOLN 0.02% 2.5 ML VIAL INH PRN (11:30)
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
[2018-07-19] MEDS ORDERED: SINCALIDE 1.2 MCG in 0.9 % SODIUM CHLORIDE 100 ML IV SCH (14:00)
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
--- NOTE | 2018-07-21 11:57 | Coding Query ---
BMI To promote full compliance with coding requirements relating to patient care, physician participation is requested in all cases of proposal coordinator uncertainty. Please assist us with the question(s) below: Please place an X within the parenthesis (x). If other, please document: BMI 18.6 was documented in this record for this patient. If the BMI is significant, please check the box that provides a more specific associated diagnosis: ( ) Overweight/Obese ( ) Obesity ( ) Morbid obesity ( ) Obesity Hypoventilation Syndrome (OHS) (x ) Heathy weight, not significant ( ) Underweight/Thin ( ) Other, please specify Thank you Merary SANTILLAN
== END 2018-07-19 15:25 | disposition short-term general hospital (02) | DRG 445 ==
LOC: ED 13:26 → 3E 17:51

== ENCOUNTER 2018-09-10 13:43 | Inpatient (IN) ==
[2018-09-10] MEDS ORDERED: SODIUM CHLORIDE 0.9% 1000ML 1,000 ML IV ONE (14:13)
[2018-09-10 15:03] LABS: Basophils # (auto) 0.02 K/uL (0-0.2); Basophils % (auto) 0.1 %; Eosinophils # (auto) 0.04 K/uL (0-0.5); Eosinophils % (auto) 0.2 %; Hematocrit (blood only) 37.3 % (42-52); Hemoglobin 11.4 g/dL (14.0-18.0); Immature Granulocytes # (auto) 0.04 K/uL (0.00-0.02); Immature Granulocytes % (auto) 0.2 %; Lymphocytes # (auto) 1.19 K/uL (1.2-3.4); Lymphocytes % (auto) 6.4 %; Mean Corpuscular Hgb Conc 30.6 g/dL (32-36); Mean Corpuscular Volume 87.8 fL (80-100); Mean Platelet Volume 9.6 fL (7.4-10.4); Monocytes # (auto) 0.92 K/uL (0.11-0.59); Neutrophils # (auto) 16.36 K/uL (1.4-6.5); Neutrophils % (auto) 88.1 %; Platelet Count 360 K/uL (130-400); RDW Standard Deviation 48.1 fL (36.4-46.3); Red Blood Count 4.25 M/uL (4.7-6.1); White Blood Count 18.57 K/uL (4.8-10.8)
[2018-09-10 15:05] LABS: Base Excess VBG 8.6 mEq/L; Oxygen Saturation VBG 64.3 %; pH VBG 7.41 (7.36-7.41)
[2018-09-10 15:15] LABS: Partial Thromboplastin Time 27.9 Seconds (21.0-31.0); Prothrombin Time 9.9 Seconds (9.0-12.0)
[2018-09-10] MEDS ORDERED: OPTIRAY 320 125ml IV PRN (15:20)
[2018-09-10 15:29] LABS: Alanine Aminotransferase 15 U/L (12-78); Albumin Level 2.5 gm/dl (3.4-5.0); Aspartate Aminotransferase 10 U/L (15-37); BUN Creatinine Ratio 17.2 (10-20); Blood Urea Nitrogen 11 mg/dl (7-18); C Reactive Protein 6.31 mg/dl (0-0.29); Calcium 9.4 mg/dl (8.5-10.1); Carbon Dioxide 36 mmol/L (21-32); Chloride 99 mmol/L (98-107); Creatinine Clr Calc Pharmacy 85.3 ml/min; Est GFR (African American) 114.2; Est GFR (Non-African American) 98.6; Glucose 101 mg/dl (70-99); Potassium 3.5 mmol/L (3.5-5.1); Sodium 140 mmol/L (136-145)
--- NOTE | 2018-09-10 15:31 | CT Scan Report ---
CT abd pelvis IV con only CT DOSE: 555.50 mGy.cm HISTORY: Pain. Nausea. RUQ pain TECHNIQUE: Multiaxial CT images of the abdomen and pelvis were performed following the use of intrave nous contrast. A dose lowering technique was utilized adhering to the principles of ALARA. COMPARISON STUDY: 07/18/2018 FINDINGS: Right lung bases are remarkable for focal linear atelectatic change versus the less likely possibility of nodular change. Liver enhances uniformly. There has been an interval cholecystectomy. Biliary ductal prominence is slightly diminished. Pancreas is uniform. The right kidney is considered negative for hydronephrosis. Left kidney demonstrates multiple calcifi cations within the left renal pelvis. Largest calcification measures 1.4 cm. Postoperative changes are noted in the right lower quadrant. Several minimally distended loops of sma ll bowel as well as colon demonstrating a considerable amount of fluid. This consistent with that of a nonspecific enteritis. Several small calcifications posterior aspect of the bladder to right. Inguinal regions are unremarka ble. The colonic bowel pattern again is considered nonobstructive. IMPRESSION: 1. Generalized small bowel as well as colonic ileus. 2. Possible nonspecific enteritis is considered. 3. Stable left renal nephrocalcinosis with no evidence for an obstructing urinary tract calculus. 4. Several small calcifications posterior aspect of the bladder on the right. 5. Interval cholecystectomy. Decreased prominence of the biliary ductal system compared to the prior study.. 6. Small nodular density versus atelectasis right base best seen image 31. A close 3-4 month follow-u p is suggested The above report was generated using voice recognition software. It may contain grammatical, syntax or spelling errors. Electronically signed by: Jonathan Bronson M.D. 09/10/2018 3:30 PM
[2018-09-10 15:34] LABS: Albumin Globulin Ratio 0.5 (0.9-2); Alkaline Phosphatase 153 U/L (45-117); Bilirubin,Total 0.3 mg/dl (0.2-1); Globulin 4.6 gm/dl (2.5-4.0); Total Protein 7.1 gm/dl (6.4-8.2); Troponin I < 0.015 ng/ml (0-0.045)
[2018-09-10] MEDS ORDERED: PIPERACILL/TAZOBAC CONSULT ACTIVE PRN ×2 (15:41→18:28)
[2018-09-10] MEDS ORDERED: PIPERACILLIN/TAZOBACTAM 4.5 GM/120 ML BAG IV ONE (15:41)
--- NOTE | 2018-09-10 15:52 | CT Scan Report ---
CT ANGIOGRAPHY OF THE CHEST, PULMONARY EMBOLUS PROTOCOL CLINICAL HISTORY: Severe shortness of breath and chest pain. COMPARISON STUDY: Chest CT August 25, 2013 and chest radiograph September 10, 2018. TECHNIQUE: Following IV administration of 118 mL of Optiray-320, helical axial images of the chest we re obtained utilizing the pulmonary embolus protocol. Maximal intensity projections and sagittal and coronal reformats were viewed on an independent 3D workstation. IV contrast was administered withou t complication. Automated exposure control was utilized for the study. A dose lowering technique wa s utilized adhering to the principles of ALARA. FINDINGS: No pulmonary emboli are identified. There are postoperative findings consistent with a lef t pneumonectomy. There has been interval development of an air-fluid level within the left pneumonect evangelist cavity since chest CT of August 25, 2013. Note is made of a fistula at the level of the left bronchi al stump. There is no right pleural effusion. Numerous BBs project over the left hemithorax. There is moderate emphysema within the right lung. There are are tree-in-bud nodules within the right lung wi th additional irregular opacities, including a 1.4 cm nodular irregular right lower lobe opacity on i mage 70 of 356. Old left chest wall deformity is noted. The heart is mildly enlarged. There is no per icardial effusion. There is mild dilatation of the ascending aorta. There is extensive coronary arter y calcification. Left renal calculi are better depicted on the CT of the abdomen and pelvis. IMPRESSION: 1. No pulmonary emboli identified. 2. 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 3. Tree-in-bud and irregular nodular opacities within the right lung which suggest an infectious proc ess or aspiration. Multiple irregular nodular opacities, including a 1.4 cm right lower lobe opacity. These are likely infectious/inflammatory however a chest CT in 3 months to ensure resolution is ludwin mmended. 4. Moderate right lung emphysema. Electronically signed by: Rodrick Moses M.D. 09/10/2018 3:51 PM
[2018-09-10 16:00] LABS: Appearance Urine Clear (Clear); Bacteria Urine Automated Negative (Negative); Bilirubin Urine Negative (Negative); Color Urine Yellow; Glucose Urine UA Negative (Negative); Ketones Urine Negative (Negative); Leukocyte Esterase Urine Negative (Negative); Nitrite Urine Negative (Negative); Protein Urine Negative (Negative); Specific Gravity Urine 1.034 (1.000-1.030); Urobilinogen Urine Negative (Negative); pH Urine 7.5 (4.5-7.5)
[2018-09-10] MEDS ORDERED: ALBUT/IPRATROP 3MG/0.5MG NEB 3 ML VIAL NEB STA (16:14)
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
[2018-09-10] MEDS ORDERED: ONDANSETRON INJ 2 MG/ML 2 ML VIAL IV PRN (18:28)
[2018-09-10] MEDS ORDERED: ALUMINUM/MAGNESIUM SUSP 30 ML UDC PO PRN (18:28)
[2018-09-10] MEDS ORDERED: ACETAMINOPHEN 325 MG TAB PO PRN (18:28)
[2018-09-10] MEDS: ARFORMOTEROL TART 15MCG/2ML VIAL INH SCH (19:00)
[2018-09-10] MEDS: BUDESONIDE 0.5 MG/2 ML VIAL (PULMICORT) NEB SCH (19:00)
[2018-09-10] MEDS: methylPREDNISolone 40 MG in SYRINGE 0 ML IV SCH (19:59)
[2018-09-10] MEDS: ENOXAPARIN INJ 40 MG/0.4 ML SYR SQ SCH (19:59)
[2018-09-10] MEDS: HYDROCODONE/ACETAMINOPHEN 10/325 TAB PO PRN (20:47)
[2018-09-10] MEDS: DICLOFENAC SOD 1% GEL 100 GM TUBE EXT SCH (23:01)
[2018-09-10] MEDS: PIPERACILLIN/TAZOBACTAM 3.375 GM in DEXTROSE 5% 100 ML IV SCH (23:01)
[2018-09-11] MEDS: methylPREDNISolone 40 MG in SYRINGE 0 ML IV SCH ×3 (03:02→18:08)
[2018-09-11] MEDS: PIPERACILLIN/TAZOBACTAM 3.375 GM in DEXTROSE 5% 100 ML IV SCH ×3 (06:07→22:24)
[2018-09-11 06:25] LABS: Basophils # (auto) 0.01 K/uL (0-0.2); Basophils % (auto) 0.1 %; Hematocrit (blood only) 34.6 % (42-52); Hemoglobin 10.8 g/dL (14.0-18.0); Immature Granulocytes # (auto) 0.04 K/uL (0.00-0.02); Immature Granulocytes % (auto) 0.3 %; Lymphocytes # (auto) 0.34 K/uL (1.2-3.4); Lymphocytes % (auto) 2.7 %; Mean Corpuscular Hgb Conc 31.2 g/dL (32-36); Mean Corpuscular Volume 86.9 fL (80-100); Mean Platelet Volume 9.6 fL (7.4-10.4); Monocytes # (auto) 0.06 K/uL (0.11-0.59); Monocytes % (auto) 0.5 %; Neutrophils # (auto) 12.29 K/uL (1.4-6.5); Neutrophils % (auto) 96.4 %; Platelet Count 320 K/uL (130-400); RDW Coefficient of Variation 14.9 % (11.5-14.5); RDW Standard Deviation 47.8 fL (36.4-46.3); Red Blood Count 3.98 M/uL (4.7-6.1); White Blood Count 12.74 K/uL (4.8-10.8)
[2018-09-11 06:55] LABS: BUN Creatinine Ratio 15.6 (10-20); Calcium 9.1 mg/dl (8.5-10.1); Creatinine Clr Calc Pharmacy 90.3 ml/min; Est GFR (African American) 119.7; Est GFR (Non-African American) 103.3; Potassium 3.6 mmol/L (3.5-5.1)
[2018-09-11] MEDS: ARFORMOTEROL TART 15MCG/2ML VIAL INH SCH ×2 (07:18→19:10)
[2018-09-11] MEDS: BUDESONIDE 0.5 MG/2 ML VIAL (PULMICORT) NEB SCH ×2 (07:18→19:10)
[2018-09-11] MEDS: HYDROCODONE/ACETAMINOPHEN 10/325 TAB PO PRN ×3 (09:08→20:00)
[2018-09-11] MEDS: ISOSORBIDE MONO EXTENDED REL 30 MG TABCR PO SCH (09:09)
[2018-09-11] MEDS: hydroCHLOROthiazide 25 MG TAB PO SCH (09:09)
[2018-09-11] MEDS: AMLODIPINE BESYLATE 5 MG TAB PO SCH (09:09)
[2018-09-11] MEDS: MAGNESIUM OXIDE 400 MG TAB PO SCH (09:09)
[2018-09-11] MEDS: PANTOprazole 40 MG TAB PO SCH (09:10)
[2018-09-11] MEDS: ASPIRIN 81 MG ECTAB PO SCH (09:10)
[2018-09-11] MEDS: CHOLECALCIFEROL 1,000 UNITS TAB PO SCH (09:10)
[2018-09-11] MEDS: BuPROPion XL 150 MG TABCR PO SCH (09:10)
[2018-09-11] MEDS: POTASSIUM CHLORIDE PWD 20 MEQ PACK PO SCH (09:10)
[2018-09-11] MEDS: CEROVITE ADV FORMULA TAB PO SCH (09:10)
[2018-09-11] MEDS: DICLOFENAC SOD 1% GEL 100 GM TUBE EXT SCH ×3 (12:29→20:57)
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
[2018-09-11] MEDS: ENOXAPARIN INJ 40 MG/0.4 ML SYR SQ SCH (20:57)
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
[2018-09-12] MEDS: HYDROCODONE/ACETAMINOPHEN 10/325 TAB PO PRN ×3 (02:40→22:00)
[2018-09-12] MEDS: methylPREDNISolone 40 MG in SYRINGE 0 ML IV SCH ×3 (02:40→18:17)
[2018-09-12] MEDS: PIPERACILLIN/TAZOBACTAM 3.375 GM in DEXTROSE 5% 100 ML IV SCH ×3 (06:05→21:51)
[2018-09-12 06:41] LABS: Hemoglobin 10.3 g/dL (14.0-18.0); Immature Granulocytes # (auto) 0.03 K/uL (0.00-0.02); Immature Granulocytes % (auto) 0.3 %; Lymphocytes # (auto) 0.38 K/uL (1.2-3.4); Lymphocytes % (auto) 3.4 %; Mean Corpuscular Hgb Conc 31.2 g/dL (32-36); Mean Corpuscular Volume 86.6 fL (80-100); Mean Platelet Volume 9.8 fL (7.4-10.4); Monocytes # (auto) 0.42 K/uL (0.11-0.59); Monocytes % (auto) 3.8 %; Neutrophils # (auto) 10.29 K/uL (1.4-6.5); Neutrophils % (auto) 92.5 %; Platelet Count 351 K/uL (130-400); RDW Coefficient of Variation 15.4 % (11.5-14.5); RDW Standard Deviation 48.8 fL (36.4-46.3); Red Blood Count 3.81 M/uL (4.7-6.1); White Blood Count 11.12 K/uL (4.8-10.8)
[2018-09-12] MEDS: BUDESONIDE 0.5 MG/2 ML VIAL (PULMICORT) NEB SCH ×2 (07:04→18:44)
[2018-09-12] MEDS: ARFORMOTEROL TART 15MCG/2ML VIAL INH SCH ×2 (07:04→18:44)
[2018-09-12 07:10] LABS: BUN Creatinine Ratio 29.9 (10-20); Calcium 9.5 mg/dl (8.5-10.1); Creatinine Clr Calc Pharmacy 89.5 ml/min; Est GFR (African American) 118.9; Est GFR (Non-African American) 102.6; Potassium 3.4 mmol/L (3.5-5.1)
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
[2018-09-12] MEDS: hydroCHLOROthiazide 25 MG TAB PO SCH (09:24)
[2018-09-12] MEDS: ASPIRIN 81 MG ECTAB PO SCH (09:24)
[2018-09-12] MEDS: POTASSIUM CHLORIDE PWD 20 MEQ PACK PO SCH (09:25)
[2018-09-12] MEDS: ISOSORBIDE MONO EXTENDED REL 30 MG TABCR PO SCH (09:25)
[2018-09-12] MEDS: CEROVITE ADV FORMULA TAB PO SCH (09:25)
[2018-09-12] MEDS: MAGNESIUM OXIDE 400 MG TAB PO SCH (09:25)
[2018-09-12] MEDS: AMLODIPINE BESYLATE 5 MG TAB PO SCH (09:26)
[2018-09-12] MEDS: BuPROPion XL 150 MG TABCR PO SCH (09:26)
[2018-09-12] MEDS: PANTOprazole 40 MG TAB PO SCH (09:26)
[2018-09-12] MEDS: CHOLECALCIFEROL 1,000 UNITS TAB PO SCH (09:26)
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
[2018-09-12] MEDS: DICLOFENAC SOD 1% GEL 100 GM TUBE EXT SCH ×4 (09:29→20:42)
[2018-09-12] MEDS: POTASSIUM CHLORIDE 20 MEQ TABCR PO SCH (10:27)
--- NOTE | 2018-09-12 10:43 | Progress Note ---
DATE: 09/12/2018 PULMONARY MEDICINE PROGRESS NOTE Chart reviewed, patient examined, assessment. SUBJECTIVE: The patient was sitting up having breakfast. He is quite anxious about future plans. Sputum is minimal. I spoke with Dr. Pettit yesterday. It is interesting since June, there has been a change in his radiograph with now air-fluid level involving that left hemithorax, which could only mean a probable bronchopleural fistula involving the left mainstem bronchus. It may very well be a suture or staple that has eroded through from his previous pneumonectomy and from the bronchial stump or could be a neoplasm. The plan was patient will require an Eloesser flap and I agree with Dr. Pettit that attempts in the past on other patients with similar issues for trying to occlude the area of fistula with devices have been uniformly unhelpful.Concommitant drainage of the remaining fluid on the ipsilateral side of the BP fistula will reqire drainageas well. I will schedule patient for bronchoscopy tomorrow to evaluate the anatomy and brush or biopsy if carcinoma is present. When I mentioned the possibility of carcinoma, patient became extremely agitated and upset. Apparently there is a meeting scheduled this morning with the family coming and which I will try to attend, with Dr. Pettit and if not able to do so, then we will speak to the family members later on. JACQUE
--- NOTE | 2018-09-12 12:13 | Progress Note ---
DATE: 09/12/2018 Mr. Ferrara was seen with his 2 children and other family members today. We had a long talk about the bronchoscopy, Dr. Tamez will perform in the morning. We had a long discussion about this. I do not feel that a malignancy is likely; however, he definitely needs a bronchoscopy. 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 I will be quite interested to see the results of the bronchoscopy tomorrow. I tentatively have him scheduled for a left Eloesser flap on 09/14/2018.
[2018-09-13] MEDS: LEVALBUTEROL HCL 1.25 MG/3 ML NEB NEB PRN (03:02)
[2018-09-13] MEDS: methylPREDNISolone 40 MG in SYRINGE 0 ML IV SCH ×3 (03:37→20:46)
[2018-09-13] MEDS: PIPERACILLIN/TAZOBACTAM 3.375 GM in DEXTROSE 5% 100 ML IV SCH ×3 (05:51→23:25)
[2018-09-13 06:22] LABS: Hematocrit (blood only) 33.6 % (42-52); Hemoglobin 10.5 g/dL (14.0-18.0); Immature Granulocytes # (auto) 0.03 K/uL (0.00-0.02); Immature Granulocytes % (auto) 0.2 %; Lymphocytes # (auto) 0.34 K/uL (1.2-3.4); Lymphocytes % (auto) 2.6 %; Mean Corpuscular Hgb Conc 31.3 g/dL (32-36); Mean Corpuscular Volume 88.7 fL (80-100); Mean Platelet Volume 9.6 fL (7.4-10.4); Monocytes # (auto) 0.78 K/uL (0.11-0.59); Neutrophils # (auto) 11.83 K/uL (1.4-6.5); Neutrophils % (auto) 91.2 %; Platelet Count 361 K/uL (130-400); RDW Coefficient of Variation 15.4 % (11.5-14.5); RDW Standard Deviation 49.5 fL (36.4-46.3); Red Blood Count 3.79 M/uL (4.7-6.1); White Blood Count 12.98 K/uL (4.8-10.8)
[2018-09-13 06:54] LABS: BUN Creatinine Ratio 30.3 (10-20); Calcium 8.9 mg/dl (8.5-10.1); Creatinine Clr Calc Pharmacy 78.6 ml/min; Est GFR (African American) 112.1; Est GFR (Non-African American) 96.8; Potassium 3.5 mmol/L (3.5-5.1)
[2018-09-13] MEDS: BUDESONIDE 0.5 MG/2 ML VIAL (PULMICORT) NEB SCH (07:11)
[2018-09-13] MEDS: ARFORMOTEROL TART 15MCG/2ML VIAL INH SCH ×2 (07:11→19:15)
--- NOTE | 2018-09-13 07:45 | History & Physical Bridge Note ---
Date of Service September 13, 2018 History & Physical Bridge Note I have examined the patient, reviewed the History & Physical and in the interval since the performance of the History & Physical I have noted the following changes of clinical significance: no changes noted
--- NOTE | 2018-09-13 07:46 | Pre Anesthesia Assessment ---
Date of Service September 13, 2018 Pre Sedation Assessment Vital Signs Temp Pulse Pulse Resp BP Pulse Ox 09/13/18 07:40 36.6 C 90 17 121/76 98 09/13/18 07:11 103 H 18 96 09/13/18 04:00 36.5 C 97 H 18 124/68 98 09/13/18 03:06 100 H 16 98 09/12/18 23:43 36.6 C 109 H 18 121/80 97 09/12/18 19:25 36.6 C 114 H 20 122/82 97 09/12/18 18:47 108 H 16 98 09/12/18 15:26 100 H 09/12/18 15:25 36.6 C 108 H 16 117/71 97 09/12/18 11:50 36.7 C 103 H 18 128/78 97 09/12/18 10:56 92 H 09/12/18 08:02 36.8 C 111 H 18 132/82 96 Cardiovascular RRR, no murmur, no edema + peripheral pulses normal Respiratory normal respiratory effort, lungs clear to auscultation Pre-Sedation Airway Assessment Smoking Status: Former smoker Hx Sleep Apnea: No Hx Difficult Intubation: No Short, Thick Neck: No Thyromental Distance: > or= 3.5 Finger Breadths Oral Cavity: + WNL Mallampati Class: II ASA: ASA3 Procedure Planning Contraindications for Sedation: none Current Medications Reviewed: Yes Notes The planned sedation has been discussed with the patient. Informed Consent was obtained. I have identified the patient, determined the appropriateness of se dation and have assessed the patient immediately prior to the procedure. All medicine(s) and interventions are by my order.
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
[2018-09-13] MEDS: AMLODIPINE BESYLATE 5 MG TAB PO SCH (08:00)
[2018-09-13] MEDS: ISOSORBIDE MONO EXTENDED REL 30 MG TABCR PO SCH (08:00)
[2018-09-13] MEDS: POTASSIUM CHLORIDE 20 MEQ TABCR PO SCH (08:01)
[2018-09-13] MEDS: BuPROPion XL 150 MG TABCR PO SCH (08:01)
[2018-09-13] MEDS: CEROVITE ADV FORMULA TAB PO SCH (08:01)
[2018-09-13] MEDS: hydroCHLOROthiazide 25 MG TAB PO SCH (08:01)
[2018-09-13] MEDS: CHOLECALCIFEROL 1,000 UNITS TAB PO SCH (08:01)
[2018-09-13] MEDS: MAGNESIUM OXIDE 400 MG TAB PO SCH (08:01)
[2018-09-13] MEDS: PANTOprazole 40 MG TAB PO SCH (08:01)
[2018-09-13] MEDS: ASPIRIN 81 MG ECTAB PO SCH (08:01)
[2018-09-13] MEDS: DICLOFENAC SOD 1% GEL 100 GM TUBE EXT SCH ×4 (08:02→20:46)
[2018-09-13] MEDS: HYDROCODONE/ACETAMINOPHEN 10/325 TAB PO PRN ×2 (08:05→18:49)
--- NOTE | 2018-09-13 08:50 | Anesthesiology Consultation ---
Date of Service September 13, 2018 Assessment & Plan Chart Review Chart Review: Acceptable Risk for Surgery and Patient NOT seen in Pre Admission Testing Consults Requested none ASA ASA4 Proposed Anesthesia Anesthesia Type: General Anesthesia Line Insertion: Arterial line History Surgery Operation Date: 09/13/18 10:00 Proposed Procedures p Bronchoscopy Radiology - Jose Cruz Tamez MD Operation Date: 09/14/18 13:00 Proposed Procedures p Eloesser Flap Left - Jose Antonio Pettit MD, FACS Height/Weight Height: 5 ft 10 in Weight: 55 kg Allergies Allergy/AdvReac Type Severity Reaction Status Date / Time animal dander Allergy Mild CONGESTION, Verified 09/10/18 17:32 STUFFINESS, SNEEZING paroxetine Allergy Mild RASH Verified 09/10/18 17:32 fluconazole [From Diflucan] AdvReac Intermediate Dizziness Verified 09/10/18 17:32 Medications Home Medications Medication Instructions Recorded Confirmed Last Taken Centrum 1 tab PO DAILY 07/18/18 09/10/18 09/10/18 06:00 Combivent Respimat 1 puff INHALATION BID 07/18/18 09/10/18 09/10/18 06:00 Symbicort 2 puff INHALATION BID 07/18/18 09/10/18 09/10/18 06:00 amlodipine 10 mg PO DAILY 07/18/18 09/10/18 09/10/18 06:00 aspirin [Aspirin Low Dose] 81 mg PO DAILY 07/18/18 09/10/18 09/10/18 06:00 bupropion HCl 150 mg PO QAM 07/18/18 09/10/18 09/10/18 06:00 buspirone 7.5 mg PO BID 07/18/18 09/10/18 09/10/18 06:00 cholecalciferol (vitamin D3) 1,000 unit PO DAILY 07/18/18 09/10/18 09/10/18 06:00 [Vitamin D3] fluticasone propionate 2 spray INTRANASAL DAILY 07/18/18 09/10/18 07/17/18 guaifenesin 200 mg PO Q6H 07/18/18 09/10/18 09/10/18 11:00 hydrochlorothiazide 25 mg PO DAILY 07/18/18 09/10/18 09/10/18 06:00 hydrocodone-acetaminophen 1 tab PO DIRECTED PRN 07/18/18 09/10/18 09/10/18 11:00 isosorbide mononitrate 30 mg PO DAILY 07/18/18 09/10/18 09/10/18 06:00 magnesium 250 mg PO DAILY 07/18/18 09/10/18 09/10/18 06:00 mupirocin 1 applic TOPICAL BID 07/18/18 09/10/18 09/10/18 06:00 omeprazole 40 mg PO DAILY 07/18/18 09/10/18 09/10/18 06:00 potassium chloride [Klor-Con] 20 meq PO DAILY 07/18/18 09/10/18 09/10/18 06:00 psyllium husk [Fiber-Caps 0.52 g PO DAILY 07/18/18 09/10/18 07/17/18 (psyllium husk)] albuterol sulfate HFA 90 2 puff INHALATION QID PRN #18 gm 08/30/18 09/10/18 09/10/18 11:00 mcg/actuation aerosol inhaler albuterol sulfate 0 mg INHALATION Q4 09/10/18 09/10/18 09/10/18 11:00 Active Medications Generic Name Dose Route Start Last Admin Trade Name Freq PRN Reason Stop Dose Admin Hydrocodone Bitart/Acetaminophen 1 tab 09/10/18 20:28 09/13/18 08:05 [place] 10/325 PO 09/24/18 20:27 1 tab Q6H PRN Administration Pain Amlodipine Besylate 10 mg 09/11/18 09:00 09/13/18 08:00 Norvasc PO 10/11/18 08:59 10 mg DAILY JOANN Administration Arformoterol Tartrate 15 mcg 09/10/18 20:00 09/13/18 07:11 Brovana Neb INH 10/10/18 19:59 15 mcg BIDR JOANN Administration Aspirin 81 mg 09/11/18 09:00 09/13/18 08:01 Ecotrin Ectab PO 10/11/18 08:59 81 mg DAILY JOANN Administration Budesonide 0.5 mg 09/10/18 20:00 09/13/18 07:11 Pulmicort Respules NEB 10/10/18 19:59 0.5 mg BIDR JOANN Administration Bupropion HCl 150 mg 09/11/18 09:00 09/13/18 08:01 Wellbutrin-Xl PO 10/11/18 08:59 150 mg QAM JOANN Administration Diclofenac Sodium 1 appln 09/11/18 09:00 09/13/18 08:02 Voltaren 1% Top EXT 10/11/18 08:59 1 appln QID JOANN Administration Hydrochlorothiazide 25 mg 09/11/18 09:00 09/13/18 08:01 Hctz PO 10/11/18 08:59 25 mg DAILY JOANN Administration Piperacillin Sod/Tazobactam 115 mls @ 28.75 mls/hr 09/10/18 22:00 09/13/18 0 5:51 Sod 3.375 gm/ Dextrose IV 09/17/18 21:59 28.8 mls/hr Q8H JOANN Administration Protocol Methylprednisolone 40 mg/ 0.64 mls @ 1.5 mls/min 09/13/18 08:00 09/13/18 08:00 Syringe IV 10/13/18 07:59 1.5 mls/min Q12H JOANN Administration Ioversol 118 ml 09/10/18 15:20 09/10/18 15:21 Optiray 320 125ml IV 09/14/18 15:19 118 ml ONCE PRN Administration Interaction Checking Isosorbide Mononitrate 30 mg 09/11/18 09:00 09/13/18 08:00 Imdur Extended Rel PO 10/11/18 08:59 30 mg DAILY JOANN Administration Levalbuterol HCl 1.25 mg 09/12/18 08:52 09/13/18 03:02 Xopenex 1.25mg/3ml Neb NEB 10/12/18 13:59 1.25 mg Q6R PRN Administration Shortness Of Breath Or Wheezing Magnesium Oxide 400 mg 09/11/18 09:00 09/13/18 08:01 Mag-Ox PO 10/11/18 08:59 400 mg DAILY JOANN Administration Multivitamins/Minerals 1 tab 09/11/18 09:00 09/13/18 08:01 Multivitamin W/ Minerals Tab PO 10/11/18 08:59 1 tab DAILY JOANN Administration Pantoprazole Sodium 40 mg 09/11/18 09:00 09/13/18 08:01 Protonix PO 10/11/18 08:59 40 mg DAILY JOANN Administration Potassium Chloride 20 meq 09/12/18 10:00 09/13/18 08:01 Klor-Con M20 PO 10/12/18 09:59 20 meq DAILY JOANN Administration Vitamin D 1,000 units 09/11/18 09:00 09/13/18 08:01 Vitamin D3 PO 10/11/18 08:59 1,000 units DAILY JOANN Administration Past Medical History Medical History Hypertension (Chronic) Chronic respiratory failure (Chronic) Pneumonia (Acute) Bronchopleural fistula (Acute) COPD exacerbation (Acute) Hx of malignant neoplasm of colon BPH (benign prostatic hyperplasia) GERD (gastroesophageal reflux disease) Vitamin D deficiency Vitamin B12 deficiency Aortic stenosis Bicuspid aortic valve Cardiomyopathy COPD (chronic obstructive pulmonary disease) (Chronic) Hypertension (Chronic) Exercise / Class Metabolic Activity III < 4 Walking/Shop/Light housework Past Family History Family History Other No significant family history Past Surgical History Surgical History Hx of pneumonectomy Left Past Anesthesia History No Hx of Anesthesia Complications and No Family Hx of Anesthesia Complications History of PONV No Hx of PONV and No Hx of Motion Sickness Social History Smoking Status: Former smoker Hx Alcohol Use: No Hx Substance Use: No Physical Exam Vital Signs Last Vital Signs Temp 36.6 C 09/13/18 07:40 Pulse 90 09/13/18 07:40 Resp 17 09/13/18 07:40 BP 121/76 09/13/18 07:40 Pulse Ox 98 09/13/18 07:40 Testing Laboratory Results 09/13/18 05:51 09/13/18 05:51 PT 9.9 Seconds (9.0-12.0) 09/10/18 14:43 INR 1.0 (0.9-1.1) 09/10/18 14:43 APTT 27.9 Seconds (21.0-31.0) 09/10/18 14:43 Urine Color Yellow 09/10/18 13:46 Urine Appearance Clear (Clear) 09/10/18 13:46 Urine pH 7.5 (4.5-7.5) 09/10/18 13:46 Ur Specific [place] 1.034 (1.000-1.030) H 09/10/18 13:46 Urine Protein Negative (Negative) 09/10/18 13:46 Urine Glucose (UA) Negative (Negative) 09/10/18 13:46 Urine Ketones Negative (Negative) 09/10/18 13:46 Urine Nitrite Negative (Negative) 09/10/18 13:46 Ur Leukocyte Esterase Negative (Negative) 09/10/18 13:46 Urine WBC (Auto) 5-10 /hpf (0-5) H 09/10/18 13:46 Urine RBC (Auto) >30 /hpf (0-4) H 09/10/18 13:46 U Hyaline Cast (Auto) 1-5 /lpf (0-5) 09/10/18 13:46 U Epithel Cells (Auto) 10-20 /lpf (0-5) H 09/10/18 13:46 Urine Bacteria (Auto) Negative (Negative) 09/10/18 13:46 09/10/18 14:35 Aerobic Blood Culture - Preliminary Blood No growth in Aerobic bottle after 48 hours. Anaerobic Blood Culture - Preliminary No growth in Anaerobic bottle after 48 hours. 09/10/18 14:44 Aerobic Blood Culture - Preliminary Blood No growth in Aerobic bottle after 48 hours. Anaerobic Blood Culture - Preliminary No growth in Anaerobic bottle after 48 hours. Electrocardiogram Date: 09/10/18 Findings: + ST @ (at 103;LAD,LAFB;IRBBB) Chest X-Ray Date: 09/10/18 post pneumonectomy changes on left w/secondary volume loss;small amount of air w/in left pneumonectomy space;right lung clear Echocardiogram Date: 05/21/17 EF: 50-55 LV Function: normal RWMA: + none Other Findings: + LVH Valvular Disease: + (mild ;CHECO-1.5 cm sq.) and + MR (mild) mild TR;borderline pulmonary HTN
--- NOTE | 2018-09-13 11:17 | Progress Note ---
DATE: 09/13/2018 PULMONARY MEDICINE PROGRESS NOTE TIME: 0900 hours. Assessment and plan. SUBJECTIVE: The patient was evaluated prior to bringing him downstairs to the bronchoscopy suite for bronchoscopic evaluation. The patient had coughed up some blood this morning that looked like blood streaking in the mucus and now tells me that for the past several months he has had similar episodes. He sounded more congested although his vital signs were stable. OBJECTIVE: VITAL SIGNS: Blood pressure was 121/76, pulse 90 and regular, respiratory rate 17, temperature 36.6, O2 sat 98% on 3 liters. SKIN: Without lesion. HEENT: Atraumatic. LUNGS: Coarse wheezes were audible throughout the right posterior lung field. CARDIAC: Sinus tachycardia. No S3. ABDOMEN: Soft, scaphoid. EXTREMITIES: No pedal edema, clubbing, cyanosis. NEUROLOGICAL: Intact. Review of the CT scanning of his chest really does not show a discernible mass at the bronchial stump, although there is some thickening on the posterior wall when compared to previous films which could represent a neoplasm. He also has an opacity at the right lower lobe and I felt the plan for him to undergo bronchoscopy today to visualize the anatomy and make sure we are not dealing with a neoplasm at the bronchial stump was prudent, but after consideration, I spoke with Dr. Pettit and the patient and I felt that the bronchoscopy should be done tomorrow in the OR with him intubated and with good control of the airway to evaluate the tracheobronchial tree, obtain additional culture, as well as check to see if a neoplastic process had indeed eroded through the bronchial stump. I believe patient will still require an Eloesser flap with drainage of that left hemithorax, but I thought it best that both the bronchoscopic evaluation and the surgical procedure be done in the OR under a more controlled environment. Dr. Pettit agreed and I informed the patient. JACQUE
[2018-09-13] MEDS ORDERED: METOPROLOL TARTRATE 1 MG/ML VIAL IV PRN (17:07)
--- NOTE | 2018-09-13 18:57 | Progress Note ---
DATE: 09/13/2018 Mr. Ferrara was seen today. He is ambulating in the hallway. He is a bit tachycardic at times getting up as high as 140, but currently in a sinus tachycardia about 110. He is wheezing a bit more and I discussed this case with Dr. Tamez as well as anesthesia. We have him scheduled for an Eloesser flap tomorrow as well as performing the bronchoscopy. We may also do an endobronchial ultrasound to make sure there is not a lymph node involvement; we will do a rapid onsite evaluation. The patient tells me he has had some mild hemoptysis for several months, which started before his cholecystectomy and gallbladder issues. He states he has found to be a little worse since he has been here in the hospital. I am a bit concerned about him continuing to contaminate his right lung. We are going to offer him a bronchoscopy tomorrow with an endobronchial ultrasound, would also do the Eloesser flap as I think this is going to be required even if he has a malignancy as he is a setup for pneumonia in an immunocompromised state and we will need to make sure that his right lung stays free of contamination from the left pleural cavity.
[2018-09-13] MEDS: METOPROLOL TARTRATE 25 MG TAB PO SCH (20:47)
[2018-09-14] MEDS: LEVALBUTEROL HCL 1.25 MG/3 ML NEB NEB PRN (01:29)
[2018-09-14] MEDS: HYDROCODONE/ACETAMINOPHEN 10/325 TAB PO PRN ×2 (01:52→08:05)
[2018-09-14] MEDS: PIPERACILLIN/TAZOBACTAM 3.375 GM in DEXTROSE 5% 100 ML IV SCH ×3 (06:03→20:34)
[2018-09-14] MEDS: ARFORMOTEROL TART 15MCG/2ML VIAL INH SCH ×2 (06:53→19:00)
[2018-09-14] MEDS: methylPREDNISolone 40 MG in SYRINGE 0 ML IV SCH ×2 (08:00→20:34)
[2018-09-14] MEDS: METOPROLOL TARTRATE 25 MG TAB PO SCH ×2 (08:00→20:35)
[2018-09-14] MEDS: PANTOprazole 40 MG TAB PO SCH (08:01)
[2018-09-14] MEDS: ISOSORBIDE MONO EXTENDED REL 30 MG TABCR PO SCH (08:01)
[2018-09-14] MEDS: POTASSIUM CHLORIDE 20 MEQ TABCR PO SCH (08:01)
[2018-09-14] MEDS: MAGNESIUM OXIDE 400 MG TAB PO SCH (08:01)
[2018-09-14] MEDS: AMLODIPINE BESYLATE 5 MG TAB PO SCH (08:01)
[2018-09-14] MEDS: CEROVITE ADV FORMULA TAB PO SCH (08:01)
[2018-09-14] MEDS: CHOLECALCIFEROL 1,000 UNITS TAB PO SCH (08:01)
[2018-09-14] MEDS: DICLOFENAC SOD 1% GEL 100 GM TUBE EXT SCH ×4 (08:02→20:35)
[2018-09-14] MEDS: ASPIRIN 81 MG ECTAB PO SCH (08:02)
[2018-09-14] MEDS: BuPROPion XL 150 MG TABCR PO SCH (08:02)
[2018-09-14] MEDS: hydroCHLOROthiazide 25 MG TAB PO SCH (08:02)
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
--- NOTE | 2018-09-14 08:33 | History & Physical Bridge Note ---
Date of Service September 14, 2018 History & Physical Bridge Note I have examined the patient, reviewed the History & Physical and in the interval since the performance of the History & Physical I have noted the following changes of clinical significance: no changes noted
[2018-09-14] MEDS: ALBUT/IPRATROP 3MG/0.5MG NEB 3 ML VIAL NEB SCH ×4 (11:03→23:05)
[2018-09-14] MEDS ORDERED: fentaNYL citrate 100 MCG/2 ML VIAL ONE (11:11)
[2018-09-14] MEDS ORDERED: MIDAZOLAM HCL 1 MG/ML 2ML VIAL ONE (11:11)
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
[2018-09-14] MEDS ORDERED: ONDANSETRON INJ 2 MG/ML 2 ML VIAL IV PRN (12:28)
[2018-09-14] MEDS ORDERED: LABETALOL HCL IV 5 MG/ML 20ML IV PRN (12:28)
[2018-09-14] MEDS ORDERED: ePHEDrine sulfate 50 MG/ML AMP IV PRN (12:28)
[2018-09-14] MEDS ORDERED: PHENYLEPHRINE 100MCG/ML 5ML SYR IV PRN (12:28)
[2018-09-14] MEDS ORDERED: MEPERIDINE HCL 25 MG/ML CARP IV PRN (12:28)
[2018-09-14] MEDS ORDERED: ATROPINE SULFATE 0.1 MG/ML 10ML SYR IV PRN (12:28)
[2018-09-14] MEDS ORDERED: DEXAMETHASONE SOD INJ 4 MG/ML VIAL ONE (13:10)
[2018-09-14] MEDS ORDERED: LIDOCAINE HCL 2% 2 ML VIAL/AMP(20MG/ML) INFIL ONE (13:16)
[2018-09-14] MEDS ORDERED: ONDANSETRON INJ 2 MG/ML 2 ML VIAL ONE (13:16)
[2018-09-14] MEDS ORDERED: ROCURONIUM BROMIDE 10 MG/ML 5 ML VIAL ONE (13:16)
[2018-09-14] MEDS ORDERED: PROPOFOL IV EMULSION 10 MG/ML 20 ML VIAL IV ONE (13:16)
[2018-09-14] MEDS ORDERED: CLINDAMYCIN PHOS 300 MG/2 ML VIAL ONE ×2 (13:18)
[2018-09-14] MEDS ORDERED: GENTAMICIN SULFATE 40 MG/ML 2 ML VIAL ONE (13:21)
[2018-09-14] MEDS ORDERED: VANCOMYCIN HCL 1000MG/20ML VIAL ONE (13:21)
[2018-09-14] MEDS ORDERED: GLYCOPYRROLATE 0.2 MG/ML VIAL ONE (13:24)
[2018-09-14] MEDS ORDERED: NEOSTIGMINE METHYLSULFATE 5 MG/5 ML SYR ONE (13:24)
[2018-09-14] MEDS ORDERED: SODIUM CHLORIDE 0.9% PF 50 ML VIAL ONE (13:29)
[2018-09-14] MEDS ORDERED: BUPIVACAINE 0.5 % 5 MG/1 ML MPF 30ML VIAL ONE (13:30)
[2018-09-14] MEDS ORDERED: BUPIVACAINE LIPOSOME 1.3% 266 MG/20 ML VIAL ONE (13:30)
[2018-09-14] MEDS ORDERED: PHENYLEPHRINE HCL 10 MG/ML VIAL ONE (14:12)
--- NOTE | 2018-09-14 15:31 | Post Operative Brief Note ---
Immediate Post Op Note v1 Date of Surgery September 14, 2018 Pre & Post Diagnosis Operation Date: 09/13/18 10:00 <No data on this case meets the specified criteria> Operation Date: 09/14/18 13:00 Pre-Op Diagnosis: bronchopleural fistula to his postpneumonectomy cavity Post-Op Diagnosis: bronchopleural fistula to his postpneumonectomy cavity Procedure Operation Date: 09/13/18 10:00 <No data on this case meets the specified criteria> Operation Date: 09/14/18 13:00 Actual Procedures p Eloesser Flap Left(Left) - Jose Antonio Pettit MD, FACS s Endobronchial Ultrasound(Not Applicable) - Jose Antonio Pettit MD, FACS s Bronchoscopy(Not Applicable) - Jose Antonio Pettit MD, FACS Surgeon Jose Antonio Pettit MD, FACS [employer] [facility]OL[place], [place] [facility] Estimated Blood Loss 100 Findings Consistent with Post-Op Diagnosis
[2018-09-14] MEDS ORDERED: METOCLOPRAMIDE HCL INJ 5 MG/ML 2 ML VIAL IV ONE (15:55)
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
[2018-09-14] MEDS: fentaNYL citrate 100 MCG/2 ML VIAL IV PRN ×4 (16:13→16:28)
--- NOTE | 2018-09-14 16:48 | Anesthesiology Progress Note ---
Date of Service September 14, 2018 Anesthesia Post Procedure Vital Signs Vital Signs: Temp Pulse Pulse Resp BP BP Pulse Ox 09/14/18 16:45 36.2 C L 91 H 18 122/72 99 09/14/18 16:35 95 H 18 135/80 99 09/14/18 16:25 96 H 18 131/81 99 09/14/18 16:15 95 H 18 127/73 98 09/14/18 16:05 96 H 18 132/73 100 09/14/18 15:56 36.2 C L 93 H 18 128/70 100 09/14/18 12:27 36.7 C 82 20 101/70 97 09/14/18 11:03 78 18 98 09/14/18 11:01 36.6 C 76 22 89/68 L 98 09/14/18 06:58 36.7 C 92 H 20 130/83 99 09/14/18 06:53 86 18 98 09/14/18 04:00 36.7 C 83 18 136/83 99 09/14/18 01:29 86 18 97 09/13/18 23:21 36.4 C L 75 18 109/76 98 09/13/18 19:16 90 16 98 09/13/18 19:11 36.5 C 82 16 129/81 96 Pain Intensity Medial Back: Pain Intensity: 3 Transfer of Care Handoff Completed per policy Notes Mental Status: alert / awake / arousable Patient Amnestic to Procedure: Yes Nausea / Vomiting: adequately controlled Pain: adequately controlled Airway Patency, RR, SpO2: stable & adequate BP & HR: stable & adequate Hydration State: stable & adequate Anesthetic Complications: no major complications apparent and Pt Satisfied with anesthetic care
[2018-09-14] MEDS: HYDROmorphone INJ 1 MG/ML SYRINGE IV PRN ×4 (16:50→17:05)
[2018-09-14] MEDS ORDERED: MoRPHine SULFATE 2 MG/ML CARP IV PRN (17:49)
[2018-09-14] MEDS: D5W AND 1/2NSS 1,000 ML IV SCH (18:09)
[2018-09-14] MEDS: ACETAMINOPHEN 1,000 MG/100 ML VIAL IV SCH (18:35)
[2018-09-14] MEDS: METOCLOPRAMIDE HCL INJ 5 MG/ML 2 ML VIAL IV SCH (18:35)
[2018-09-14] MEDS: QUETIAPINE FUMARATE 25 MG TABLET PO SCH (20:34)
[2018-09-14] MEDS: DOCUSATE SODIUM 100 MG CAP PO SCH (20:34)
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
[2018-09-15] MEDS: METOCLOPRAMIDE HCL INJ 5 MG/ML 2 ML VIAL IV SCH ×2 (02:30→11:11)
[2018-09-15] MEDS: ACETAMINOPHEN 1,000 MG/100 ML VIAL IV SCH ×3 (03:00→17:56)
[2018-09-15] MEDS: ALBUT/IPRATROP 3MG/0.5MG NEB 3 ML VIAL NEB SCH ×6 (03:28→23:03)
[2018-09-15] MEDS: PIPERACILLIN/TAZOBACTAM 3.375 GM in DEXTROSE 5% 100 ML IV SCH ×3 (05:54→21:07)
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
[2018-09-15] MEDS: ARFORMOTEROL TART 15MCG/2ML VIAL INH SCH ×2 (07:09→18:51)
[2018-09-15 07:26] LABS: Hematocrit (blood only) 33.3 % (42-52); Hemoglobin 10.4 g/dL (14.0-18.0); Mean Corpuscular Hgb Conc 31.2 g/dL (32-36); Mean Corpuscular Volume 88.8 fL (80-100); Mean Platelet Volume 9.1 fL (7.4-10.4); Platelet Count 299 K/uL (130-400); RDW Coefficient of Variation 15.3 % (11.5-14.5); RDW Standard Deviation 49.3 fL (36.4-46.3); Red Blood Count 3.75 M/uL (4.7-6.1); White Blood Count 21.19 K/uL (4.8-10.8)
[2018-09-15 08:01] LABS: BUN Creatinine Ratio 25.9 (10-20); Calcium 9.1 mg/dl (8.5-10.1); Creatinine Clr Calc Pharmacy 77.6 ml/min; Est GFR (African American) 112.1; Est GFR (Non-African American) 96.8; Potassium 2.9 mmol/L (3.5-5.1)
--- NOTE | 2018-09-15 08:14 | Anesthesiology Progress Note ---
Date of Service September 15, 2018 Anesthesia Post Procedure Vital Signs Vital Signs: Temp Pulse Pulse Pulse Pulse Resp BP 09/15/18 07:56 36.5 C 102 H 20 109/67 09/15/18 07:10 82 16 09/15/18 03:28 87 16 09/15/18 03:14 36.4 C L 77 19 09/14/18 23:36 74 09/14/18 23:22 36.5 C 88 19 114/67 09/14/18 23:05 79 16 09/14/18 19:39 36.6 C 99 H 20 125/81 09/14/18 19:00 103 H 18 09/14/18 17:49 36.6 C 100 H 100 H 100 H 20 126/82 09/14/18 17:23 36.2 C L 09/14/18 17:15 36.2 C L 93 H 16 09/14/18 17:05 94 H 16 09/14/18 16:55 96 H 18 09/14/18 16:45 36.2 C L 91 H 18 09/14/18 16:35 95 H 18 09/14/18 16:25 96 H 18 09/14/18 16:15 95 H 18 09/14/18 16:05 96 H 18 09/14/18 15:56 36.2 C L 93 H 18 09/14/18 12:27 36.7 C 82 20 101/70 09/14/18 11:03 78 18 09/14/18 11:01 36.6 C 76 22 89/68 L BP Pulse Ox 09/15/18 07:56 97 09/15/18 07:10 98 09/15/18 03:28 98 09/15/18 03:14 126/77 99 09/14/18 23:36 09/14/18 23:22 98 09/14/18 23:05 98 09/14/18 19:39 99 09/14/18 19:00 97 09/14/18 17:49 99 09/14/18 17:23 09/14/18 17:15 135/76 100 09/14/18 17:05 134/73 100 09/14/18 16:55 132/71 100 09/14/18 16:45 122/72 99 09/14/18 16:35 135/80 99 09/14/18 16:25 131/81 99 09/14/18 16:15 127/73 98 09/14/18 16:05 132/73 100 09/14/18 15:56 128/70 100 09/14/18 12:27 97 09/14/18 11:03 98 09/14/18 11:01 98 Pain Intensity Medial Back: Pain Intensity: 3 Notes Mental Status: alert / awake / arousable and participated in evaluation Patient Amnestic to Procedure: Yes Nausea / Vomiting: adequately controlled Pain: adequately controlled Airway Patency, RR, SpO2: stable & adequate BP & HR: stable & adequate Hydration State: stable & adequate Anesthetic Complications: no major complications apparent
[2018-09-15] MEDS: methylPREDNISolone 40 MG in SYRINGE 0 ML IV SCH ×2 (08:18→19:57)
[2018-09-15] MEDS: ASPIRIN 81 MG ECTAB PO SCH (08:19)
[2018-09-15] MEDS: POTASSIUM CHLORIDE 20 MEQ TABCR PO SCH ×3 (08:19→19:58)
[2018-09-15] MEDS: BuPROPion XL 150 MG TABCR PO SCH (08:19)
[2018-09-15] MEDS: METOPROLOL TARTRATE 25 MG TAB PO SCH ×2 (08:20→19:58)
[2018-09-15] MEDS: DOCUSATE SODIUM 100 MG CAP PO SCH ×2 (08:20→19:56)
[2018-09-15] MEDS: ISOSORBIDE MONO EXTENDED REL 30 MG TABCR PO SCH (08:20)
[2018-09-15] MEDS: MAGNESIUM OXIDE 400 MG TAB PO SCH (08:21)
[2018-09-15] MEDS: CEROVITE ADV FORMULA TAB PO SCH (08:21)
[2018-09-15] MEDS: hydroCHLOROthiazide 25 MG TAB PO SCH (08:21)
[2018-09-15] MEDS: PANTOprazole 40 MG TAB PO SCH (08:21)
[2018-09-15] MEDS: CHOLECALCIFEROL 1,000 UNITS TAB PO SCH (08:22)
[2018-09-15] MEDS: AMLODIPINE BESYLATE 5 MG TAB PO SCH (08:22)
[2018-09-15] MEDS: DICLOFENAC SOD 1% GEL 100 GM TUBE EXT SCH ×4 (08:23→19:57)
[2018-09-15] MEDS: D5W AND 1/2NSS 1,000 ML IV SCH ×2 (08:26→17:58)
[2018-09-15] MEDS ORDERED: MAGNESIUM SULFATE / D5W 1 GM/100 ML BAG IV ONE (09:00)
[2018-09-15] MEDS ORDERED: POTASSIUM CHLORIDE 10 MEQ / 100ML WTR IV SCH (09:15)
[2018-09-15] MEDS: OXYCODONE HCL IR 5 MG TAB (IMMEDIATE RELEASE) PO PRN ×2 (09:38→19:56)
[2018-09-15] MEDS: POTASSIUM CHLORIDE / WTR 10 MEQ/100 ML PLCT IV SCH ×3 (11:04→13:10)
[2018-09-15] MEDS ORDERED: COUGH DROP (SUGAR FREE) LOZ 24 LOZ/1 BOX BUCCAL ONE (11:09)
--- NOTE | 2018-09-15 12:28 | Progress Note ---
DATE: 09/15/2018 Mr. Ferrara was seen today on 09/15/2018 one day after we did an Eloesser flap on the left. I inspected that the wound is very clean. His antibiotic beads are in place. His cough is just about resolved. He feels "fine." He is not having much pain from this. I removed the Kerlix and under sterile conditions soaked another Kerlix with sterile saline and wrung it dry and then packed it, packed down into the wound again. There was some bleeding from the surgery, it is not surprising, was not very much. It should be noted that the purpose of the Kerlix now is to absorb any fluid to keep it from contaminating his airway. I will be very curious to see how this looks in the next several days. I discussed this with Dr. Dominguez. I believe this patient can be discharged home and have home care changed his dressing on a daily basis. My feeling is we will probably bring him back to close him in the not too distant future. I will be seeing him back regularly in the office.
[2018-09-15] MEDS: QUETIAPINE FUMARATE 25 MG TABLET PO SCH (19:58)
[2018-09-16] MEDS: OXYCODONE HCL IR 5 MG TAB (IMMEDIATE RELEASE) PO PRN (03:17)
[2018-09-16] MEDS: D5W AND 1/2NSS 1,000 ML IV SCH (03:17)
[2018-09-16] MEDS: ACETAMINOPHEN 1,000 MG/100 ML VIAL IV SCH (03:46)
[2018-09-16] MEDS: ALBUT/IPRATROP 3MG/0.5MG NEB 3 ML VIAL NEB SCH ×3 (04:01→11:13)
[2018-09-16] MEDS: PIPERACILLIN/TAZOBACTAM 3.375 GM in DEXTROSE 5% 100 ML IV SCH (05:57)
[2018-09-16] MEDS: ARFORMOTEROL TART 15MCG/2ML VIAL INH SCH (07:07)
[2018-09-16 07:10] LABS: BUN Creatinine Ratio 15.6 (10-20); Calcium 8.7 mg/dl (8.5-10.1); Creatinine Clr Calc Pharmacy 82.5 ml/min; Est GFR (Non-African American) 99.2; Magnesium 2.2 mg/dl (1.8-2.4); Potassium 3.4 mmol/L (3.5-5.1)
[2018-09-16] MEDS: PANTOprazole 40 MG TAB PO SCH (08:47)
[2018-09-16] MEDS: DOCUSATE SODIUM 100 MG CAP PO SCH (08:47)
[2018-09-16] MEDS: methylPREDNISolone 40 MG in SYRINGE 0 ML IV SCH (08:47)
[2018-09-16] MEDS: METOPROLOL TARTRATE 25 MG TAB PO SCH (08:48)
[2018-09-16] MEDS: ISOSORBIDE MONO EXTENDED REL 30 MG TABCR PO SCH (08:48)
[2018-09-16] MEDS: CHOLECALCIFEROL 1,000 UNITS TAB PO SCH (08:49)
[2018-09-16] MEDS: POTASSIUM CHLORIDE 20 MEQ TABCR PO SCH (08:49)
[2018-09-16] MEDS: AMLODIPINE BESYLATE 5 MG TAB PO SCH (08:49)
[2018-09-16] MEDS: hydroCHLOROthiazide 25 MG TAB PO SCH (08:50)
[2018-09-16] MEDS: CEROVITE ADV FORMULA TAB PO SCH (08:50)
[2018-09-16] MEDS: MAGNESIUM OXIDE 400 MG TAB PO SCH (08:50)
[2018-09-16] MEDS: DICLOFENAC SOD 1% GEL 100 GM TUBE EXT SCH (08:51)
[2018-09-16] MEDS: ASPIRIN 81 MG ECTAB PO SCH (08:51)
[2018-09-16] MEDS: BuPROPion XL 150 MG TABCR PO SCH (08:51)
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
[2018-09-18] MEDS ORDERED: POTASSIUM CHLORIDE 20 MEQ TABCR PO SCH (09:00)
== END 2018-09-16 11:37 | disposition home health service (06) | DRG 163 ==
LOC: ED 13:43 → 2E 17:25 → SUATTDRO 17:25 → 2E 17:50

== ENCOUNTER 2018-09-30 05:33 | Inpatient (IN) ==
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
[2018-09-30] MEDS ORDERED: LR 15ML/HR IV SCH (06:00)
--- NOTE | 2018-09-30 06:07 | History & Physical Bridge Note ---
Date of Service September 30, 2018 History & Physical Bridge Note I have examined the patient, reviewed the History & Physical and in the interval since the performance of the History & Physical I have noted the following changes of clinical significance: no changes noted
[2018-09-30] MEDS ORDERED: ROCURONIUM BROMIDE 10 MG/ML 5 ML VIAL ONE (06:38)
[2018-09-30] MEDS ORDERED: PROPOFOL IV EMULSION 10 MG/ML 20 ML VIAL IV ONE (06:38)
[2018-09-30] MEDS ORDERED: fentaNYL citrate 100 MCG/2 ML VIAL ONE (06:38)
[2018-09-30] MEDS ORDERED: DEXAMETHASONE SOD INJ 4 MG/ML VIAL ONE (06:38)
[2018-09-30] MEDS ORDERED: LIDOCAINE HCL 2% 2 ML VIAL/AMP(20MG/ML) INFIL ONE (06:38)
[2018-09-30] MEDS ORDERED: ONDANSETRON INJ 2 MG/ML 2 ML VIAL ONE ×2 (06:38→19:14)
[2018-09-30] MEDS ORDERED: BUPIVACAINE 0.5 % 5 MG/1 ML MPF 30ML VIAL ONE (07:12)
[2018-09-30] MEDS ORDERED: SODIUM CHLORIDE 0.9% PF 50 ML VIAL ONE (07:13)
[2018-09-30] MEDS ORDERED: BUPIVACAINE LIPOSOME 1.3% 266 MG/20 ML VIAL ONE (07:13)
[2018-09-30] MEDS ORDERED: ALBUTEROL HFA INHALER 8.5 GM ONE (07:22)
[2018-09-30] MEDS ORDERED: ACETIC ACID 0.25% IRRIG SOLN 1000 ML PLCT IR SCH (08:00)
[2018-09-30] MEDS ORDERED: ONDANSETRON INJ 2 MG/ML 2 ML VIAL IV PRN ×2 (08:53→19:09)
[2018-09-30] MEDS ORDERED: ATROPINE SULFATE 0.1 MG/ML 10ML SYR IV PRN (08:53)
[2018-09-30] MEDS ORDERED: ALBUTEROL 0.083% NEBU SOLN 3 ML VIAL INH PRN (08:54)
[2018-09-30] MEDS ORDERED: GLYCOPYRROLATE 0.2 MG/ML VIAL ONE ×2 (08:59)
[2018-09-30] MEDS ORDERED: NEOSTIGMINE METHYLSULFATE 5 MG/5 ML SYR ONE (08:59)
[2018-09-30] MEDS ORDERED: HYDROmorphone INJ 1 MG/ML SYRINGE ONE (09:19)
[2018-09-30] MEDS: HYDROmorphone INJ 1 MG/ML SYRINGE IV PRN ×6 (09:19→09:47)
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
--- NOTE | 2018-09-30 10:04 | Anesthesiology Progress Note ---
Date of Service September 30, 2018 Anesthesia Post Procedure Vital Signs Vital Signs: Temp Pulse Pulse Resp BP Pulse Ox 09/30/18 10:00 36.9 C 96 H 16 121/59 L 96 09/30/18 09:50 90 16 107/56 L 96 09/30/18 09:40 91 H 16 115/59 L 98 09/30/18 09:30 96 H 20 130/69 98 09/30/18 09:20 100 H 20 132/72 98 09/30/18 09:10 104 H 16 123/69 100 09/30/18 09:08 100 H 16 99 09/30/18 09:00 36.5 C 93 H 20 133/79 99 09/30/18 06:21 37.2 C 105 H 22 125/77 99 Pain Intensity Left Chest: Pain Intensity: 4 Transfer of Care Handoff Completed per policy Notes Mental Status: alert / awake / arousable Patient Amnestic to Procedure: Yes Nausea / Vomiting: adequately controlled Pain: adequately controlled Airway Patency, RR, SpO2: stable & adequate BP & HR: stable & adequate Hydration State: stable & adequate Anesthetic Complications: no major complications apparent
[2018-09-30] MEDS ORDERED: ALBUTEROL HFA 8 GM INHALER INH PRN (10:22)
[2018-09-30] MEDS: MoRPHine SULFATE 2 MG/ML CARP IV PRN ×5 (10:58→23:39)
[2018-09-30] MEDS: D5W AND 1/2NSS 1,000 ML IV SCH ×2 (10:59→23:39)
[2018-09-30] MEDS: BuPROPion SR 150 MG TABCR PO SCH (11:51)
[2018-09-30] MEDS: hydroCHLOROthiazide 25 MG TAB PO SCH (11:51)
[2018-09-30] MEDS: POTASSIUM CHLORIDE 20 MEQ TABCR PO SCH (11:51)
[2018-09-30] MEDS: CEROVITE ADV FORMULA TAB PO SCH (11:51)
[2018-09-30] MEDS: AMLODIPINE BESYLATE 5 MG TAB PO SCH (11:51)
[2018-09-30] MEDS: ASPIRIN 81 MG ECTAB PO SCH (11:51)
[2018-09-30] MEDS: MAGNESIUM OXIDE 400 MG TAB PO SCH (11:51)
[2018-09-30] MEDS: CARVEDILOL 6.25 MG TAB PO SCH ×2 (11:52→21:48)
[2018-09-30] MEDS: ENOXAPARIN INJ 30 MG/0.3 ML SYR SQ SCH (11:52)
[2018-09-30] MEDS: BUSPIRONE HCL 7.5 MG TAB PO SCH ×2 (11:52→21:48)
[2018-09-30] MEDS: ALBUTEROL 0.083% NEBU SOLN 3 ML VIAL INH PRN ×2 (15:40→23:34)
[2018-09-30] MEDS ORDERED: LORazepam 0.5 MG TAB PO PRN (21:39)
--- NOTE | 2018-10-01 01:24 | Operative Report ---
DATE OF OPERATION: 09/30/2018 PREOPERATIVE DIAGNOSIS: Left bronchopleural fistula status post pneumonectomy. POSTOPERATIVE DIAGNOSIS: Left bronchopleural fistula status post pneumonectomy. PROCEDURE: 1. Fiberoptic bronchoscopy with suctioning of scant amount of sputum from both bronchial trees. 2. Pierpont biopsies of the fistula. SURGEON: Jose Antonio Pettit MD. ANESTHESIA: General anesthesia with endotracheal intubation. INDICATION FOR PROCEDURE AND FINDINGS: The patient was brought to the operating room in preparation for his Eloesser flap revision. We placed an #8 endotracheal tube and using the fiberoptic scope, I went through this after appropriate timeout had been called and prophylactic antibiotics given. Going down he had scant amount of yellow sputum in the right bronchus intermedius, I suctioned all this clean and used some saline, but this cleared immediately. He had a bit more on the left side, but this suctioned easily and irrigated easily. I could see the fistula, but it was definitely better. I then used a brush and went down 3 separate times through the fistula into the cavity and took brushings. These were sent to the lab. We had no bleeding from this. He tolerated it well. We then turned him into a right lateral decubitus position for his Eloesser flap revision. I attest to the content of the Intraoperative Record and any orders documented therein. Any exception s are noted below.
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
[2018-10-01] MEDS ORDERED: CLINDAMYCIN 600 MG/54 ML BAG IV SCH (06:00)
[2018-10-01] MEDS: MoRPHine SULFATE 2 MG/ML CARP IV PRN ×2 (06:41→11:05)
[2018-10-01 06:45] LABS: Basophils # (auto) 0.01 K/uL (0-0.2); Basophils % (auto) 0.1 %; Eosinophils # (auto) 0.03 K/uL (0-0.5); Eosinophils % (auto) 0.2 %; Hematocrit (blood only) 30.6 % (42-52); Hemoglobin 9.3 g/dL (14.0-18.0); Immature Granulocytes # (auto) 0.05 K/uL (0.00-0.02); Immature Granulocytes % (auto) 0.3 %; Lymphocytes # (auto) 0.41 K/uL (1.2-3.4); Lymphocytes % (auto) 2.5 %; Mean Corpuscular Hgb Conc 30.4 g/dL (32-36); Mean Corpuscular Volume 87.7 fL (80-100); Mean Platelet Volume 9.2 fL (7.4-10.4); Monocytes # (auto) 1.62 K/uL (0.11-0.59); Neutrophils # (auto) 14.12 K/uL (1.4-6.5); Neutrophils % (auto) 86.9 %; Platelet Count 457 K/uL (130-400); RDW Coefficient of Variation 14.6 % (11.5-14.5); RDW Standard Deviation 46.7 fL (36.4-46.3); Red Blood Count 3.49 M/uL (4.7-6.1); White Blood Count 16.24 K/uL (4.8-10.8)
[2018-10-01] MEDS: ALBUTEROL 0.083% NEBU SOLN 3 ML VIAL INH PRN ×2 (06:58→11:07)
[2018-10-01 07:02] LABS: Albumin Level 1.8 gm/dl (3.4-5.0); BUN Creatinine Ratio 15.9 (10-20); Calcium 8.5 mg/dl (8.5-10.1); Creatinine Clr Calc Pharmacy 90.4 ml/min; Est GFR (African American) 120.6; Potassium 3.5 mmol/L (3.5-5.1)
[2018-10-01 07:08] LABS: Prealbumin 10.5 mg/dl (20-40)
[2018-10-01] MEDS: OXYCODONE HCL SOLN 5 MG/5 ML UDC PO PRN ×2 (07:56→12:55)
[2018-10-01] MEDS: AMLODIPINE BESYLATE 5 MG TAB PO SCH (08:58)
[2018-10-01] MEDS: CEROVITE ADV FORMULA TAB PO SCH (08:58)
[2018-10-01] MEDS: hydroCHLOROthiazide 25 MG TAB PO SCH (08:58)
[2018-10-01] MEDS: BuPROPion SR 150 MG TABCR PO SCH (08:59)
[2018-10-01] MEDS: MAGNESIUM OXIDE 400 MG TAB PO SCH (08:59)
[2018-10-01] MEDS: POTASSIUM CHLORIDE 20 MEQ TABCR PO SCH (08:59)
[2018-10-01] MEDS: ASPIRIN 81 MG ECTAB PO SCH (08:59)
[2018-10-01] MEDS: BUSPIRONE HCL 7.5 MG TAB PO SCH (08:59)
[2018-10-01] MEDS: CARVEDILOL 6.25 MG TAB PO SCH (09:00)
[2018-10-01] MEDS: ENOXAPARIN INJ 30 MG/0.3 ML SYR SQ SCH (11:09)
[2018-10-01] MEDS: D5W AND 1/2NSS 1,000 ML IV SCH (11:55)
--- NOTE | 2018-10-01 14:38 | Anesthesiology Progress Note ---
Date of Service October 01, 2018 Anesthesia Post Procedure Vital Signs Vital Signs: Temp Pulse Pulse Resp BP BP Pulse Ox 10/01/18 12:26 36.9 C 93 H 95 H 18 112/70 110/69 99 10/01/18 11:07 95 H 18 99 10/01/18 07:30 36.9 C 93 H 20 112/70 100 10/01/18 07:00 91 H 18 98 10/01/18 04:44 37.1 C 78 17 110/69 99 09/30/18 23:32 98 H 20 97 09/30/18 23:21 37.4 C 103 H 14 107/51 L 98 09/30/18 15:42 107 H 22 98 09/30/18 15:12 37.1 C 16 129/77 96 Notes Mental Status: alert / awake / arousable Patient Amnestic to Procedure: Yes Nausea / Vomiting: adequately controlled Pain: adequately controlled Airway Patency, RR, SpO2: stable & adequate BP & HR: stable & adequate Hydration State: stable & adequate Anesthetic Complications: no major complications apparent and Pt Satisfied with anesthetic care
--- NOTE | 2018-10-02 01:52 | Discharge Summary ---
Mr. Ferrara was seen today on 10/01/2018. Yesterday, I revised his Eloesser flap, making it a bit larger and also cleaned out the area quite nicely. He also had obvious pseudomonas which we not only cultured out, but also had a green musty odor. We used 0.25% acetic acid with Kerlix and the wound has no odor today. I think it looks very good. We repacked him today. His pain is acceptable. His cough persists, but we really did not see much in the way of purulent sputum at the time of our bronchoscopy. I am a bit concerned about the findings on pathology. Dr. Mana Ferrer from pathology feels that there may be some atypia and dysplasia. I am concerned about that, but we will see how he looks in the future. I am quite pleased with how much commercial or institutional cleaner the wound base is and I think with the enlargement of the flap, it is going to be easier for the home care nurses to perform the dressing changes. I am very unhappy with hie prealbumin and albumin, which are very low. Protein supplementation will be very important for healing of this fistula and wound. I will see him back in a week. JACQUE
== END 2018-10-01 13:54 | disposition home health service (06) | DRG 168 ==
LOC: ASU 05:33 → 3W 08:56

== ENCOUNTER 2018-10-11 21:50 | Inpatient (IN) ==
[2018-10-11] MEDS ORDERED: ONDANSETRON INJ 2 MG/ML 2 ML VIAL IV STA (21:59)
[2018-10-11] MEDS ORDERED: MoRPHine SULFATE 4 MG/ML 1 ML CARP\\VIAL IV PRN (21:59)
[2018-10-11] MEDS ORDERED: SODIUM CHLORIDE 0.9% 500 ML IV SCH (22:00)
[2018-10-11 22:27] LABS: Basophils # (auto) 0.02 K/uL (0-0.2); Basophils % (auto) 0.1 %; Eosinophils # (auto) 0.17 K/uL (0-0.5); Eosinophils % (auto) 1.3 %; Hematocrit (blood only) 33.3 % (42-52); Hemoglobin 10.3 g/dL (14.0-18.0); Immature Granulocytes # (auto) 0.07 K/uL (0.00-0.02); Immature Granulocytes % (auto) 0.5 %; Lymphocytes # (auto) 1.04 K/uL (1.2-3.4); Lymphocytes % (auto) 7.7 %; Mean Corpuscular Hgb Conc 30.9 g/dL (32-36); Mean Corpuscular Volume 87.2 fL (80-100); Mean Platelet Volume 8.4 fL (7.4-10.4); Monocytes # (auto) 1.82 K/uL (0.11-0.59); Monocytes % (auto) 13.4 %; Neutrophils # (auto) 10.44 K/uL (1.4-6.5); Platelet Count 904 K/uL (130-400); RDW Coefficient of Variation 15.1 % (11.5-14.5); RDW Standard Deviation 48.6 fL (36.4-46.3); Red Blood Count 3.82 M/uL (4.7-6.1); White Blood Count 13.56 K/uL (4.8-10.8)
[2018-10-11 22:34] LABS: Partial Thromboplastin Time 28.2 Seconds (21.0-31.0); Prothrombin Time 10.3 Seconds (9.0-12.0)
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
[2018-10-11 22:40] LABS: Albumin Level 1.9 gm/dl (3.4-5.0); BUN Creatinine Ratio 27.1 (10-20); Blood Urea Nitrogen 16 mg/dl (7-18); Carbon Dioxide 37 mmol/L (21-32); Chloride 97 mmol/L (98-107); Creatinine Clr Calc Pharmacy 82.4 ml/min; Est GFR (African American) 118.9; Est GFR (Non-African American) 102.6; Glucose 120 mg/dl (70-99); Potassium 3.2 mmol/L (3.5-5.1); Sodium 139 mmol/L (136-145)
[2018-10-11 22:45] LABS: Alanine Aminotransferase 16 U/L (12-78); Albumin Globulin Ratio 0.4 (0.9-2); Alkaline Phosphatase 168 U/L (45-117); Aspartate Aminotransferase 10 U/L (15-37); Bilirubin,Total 0.2 mg/dl (0.2-1); Total Protein 6.9 gm/dl (6.4-8.2); Troponin I < 0.015 ng/ml (0-0.045)
--- NOTE | 2018-10-11 23:32 | Emergency Department Note ---
Entered by Rosa Hayes acting as a scribe for Jose Cruz Agrawal DO History of Present Illness General Chief complaint: Chest Pain Stated complaint: CHEST PAIN Time Seen by Provider: 10/12/18 01:20 Source: patient Mode of arrival: ambulatory Limitations: no limitations History of Present Illness Onset (ago): hour(s) 4 Location: chest Pain Consistency: + other (episode ) Maximum Pain Intensity: 8 Quality: + sharp Relieved By: not by medication (oxycodone ) Associated symptoms: + cough and + headaches; no nausea/vomiting The patient is a year old who presents to the ED with complaints of an episode of chest pain that began 4 hours before arrival. The patient states that he feels sharp chest pain that doubles him over. The patient states that he coughs but it is not productive. He reports that he has a headache. He states that he had an empyema infection around the lungs recently and saw Dr. Pettit for drainage. He reports that he is no longer on antibiotics. The patient states that he takes oxycodone and he took it last 1 hour ago. The patient denies nausea and vomiting. Home Medications Home Medications Medication Instructions Recorded Confirmed Type Centrum 1 tab PO DAILY 07/18/18 10/11/18 History amlodipine 10 mg PO QAM 07/18/18 10/11/18 History aspirin [Aspirin Low Dose] 81 mg PO QAM 07/18/18 10/11/18 History buspirone 7.5 mg PO BID 07/18/18 10/11/18 History fluticasone propionate 2 spray INTRANASAL DAILY 07/18/18 10/11/18 History hydrochlorothiazide 25 mg PO DAILY 07/18/18 10/11/18 History magnesium 250 mg PO DAILY 07/18/18 10/11/18 History mupirocin 1 applic TOPICAL BID 07/18/18 10/11/18 History albuterol sulfate 2.5 mg INHALATION Q4H PRN 09/10/18 10/11/18 History Breo Ellipta 1 inh INHALATION DAILY 09/27/18 10/11/18 History albuterol sulfate 2 puff INHALATION QID PRN 09/27/18 10/11/18 History bupropion HCl [Wellbutrin SR] 150 mg PO DAILY 09/27/18 10/11/18 History carvedilol 6.25 mg PO BID 09/27/18 10/11/18 History cholecalciferol (vitamin D3) 1,000 unit PO DAILY 09/27/18 10/11/18 History [Vitamin D3] cyanocobalamin (vitamin B-12) 1,000 mcg SUBCUT MONTHLY 09/27/18 10/11/18 History potassium chloride 20 meq PO DAILY 09/27/18 10/11/18 History ondansetron 4 mg PO Q8H PRN 10/11/18 10/11/18 History Allergies Allergy/AdvReac Type Severity Reaction Status Date / Time vancomycin Allergy Severe Anaphylaxis Verified 10/12/18 09:17 animal dander Allergy Mild CONGESTION, Verified 09/30/18 06:14 STUFFINESS, SNEEZING paroxetine Allergy Mild RASH Verified 09/30/18 06:14 fluconazole [From Diflucan] AdvReac Intermediate Dizziness Verified 09/30/18 06:14 amoxicillin AdvReac Rash Verified 09/30/18 07:06 Past Med/Surg History Medical History Primary pulmonary hypertension (Acute) Malabsorption syndrome (Acute) Incisional hernia (Acute) Dilated aortic root (Acute) COPD with emphysema (Acute) Severe, on 3L O2 continuous. Admitted to [facility] 09/10-09/16 with exacerbation + pneumonia. 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 L Eloesser flap/EBUS/bronch by Dr. Pettit 09/14. Treated with IV ABX and discharged on Augmention On home oxygen therapy 3L VIA NC CONT. Osteoarthritis Surgical History History of abdominal surgery "TWISTED BOWEL/NECROTIC BOWEL REPAIR" History of bronchoscopy History of cholecystectomy History of colonoscopy History of colonoscopy with polypectomy History of endoscopic sinus surgery History of herniorrhaphy History of lung surgery LEFT LOBECTOMY History of resection of small bowel History of tooth extraction Family History Mother Breast cancer Cancer Hypertension Social History Preferred Language: Kiswahili Communication Ability: Effective Gaming Associate Required: No Beliefs That Will Affect Care: None marital status: Current Living Situation: Alone Current Living Situation Comment: one story house alone Other Information That Helps Us Care for You: No Feels Safe at Home: Yes Safety Concerns: Feels Safe At This Time Smoking Status: Former smoker Tobacco Type: cigarettes Second Hand Exposure: No Hx Alcohol Use: No Hx Substance Use: No Review of Systems See HPI for pertinent positives & negatives. and A total of 10 systems reviewed and were otherwise negative Physical Exam Vital Signs Vital Signs - 24 hr 10/11/18 23:50 10/11/18 23:56 Pulse Rate [Apical] 88 97 H Respiratory Rate 16 20 Respiratory Effort / Characteristics Non-Labored Spontaneous Blood Pressure [Right Arm] 120/67 Blood Pressure Mean [Right Arm] 84 Pulse Oximetry 98 95 Oxygen Delivery Method Nasal Cannula Nasal Cannula Oxygen Flow Rate 2 3 GENERAL: The patient is awake and alert. He is very cachectic appearing. He is somewhat anxious and appears uncomfortable. EYES: The conjunctivae are clear. The pupils are round and reactive. EARS, NOSE, MOUTH AND THROAT: The nose is without any evidence of any deformity. Mucous membranes are moist tongue is midline NECK: The neck is nontender and supple. RESPIRATORY: Diminished breath sounds are noted in the entire left lung field. There are rales at the right base. There was mild conversational dyspnea alexandro reciated. CARDIOVASCULAR: Tachycardic rate with regular rhythm was noted. There is no definite murmur. GASTROINTESTINAL: The abdomen is soft. Bowel sounds are present in all quadrants. Abdomen is nontender BACK: No midline tenderness or or step-off noted range of motion in flexion extension as well as rotation no signs of muscle spasm noted MUSCULOSKELETAL/EXTREMITIES: There is no evidence of gross deformity full range of motion is noted in the hips and shoulders SKIN: There is no obvious evidence of any rash. No significant pedal edema was noted. Skin was cool and pale. NEUROLOGIC: Patient is awake alert and oriented x3. Course 2157: Past medical records reviewed. The patient was evaluated in room B6. A complete history and physical exam was performed. 2300: I discussed the patients case with Shiraz Milner. He agreed with my decision that the patient should be admitted. 2310: I discussed the patients case with Shiraz Cruz. He agreed to admit the patient for further management. Consultations Consultation #1: I discussed the patients case with Shiraz Milner. He agreed with my decision that the patient should be admitted. Time: 23:00 Consultation #2: I discussed the patients case with Shiraz Cruz. He agreed to admit the patient for further management. Time: 23:10 Administered Medications Acetaminophen (Tylenol) 650 mg PO Q4H PRN PRN Reason: Pain or Fever Stop: 11/11/18 02:17 Last Admin: 10/12/18 20:08 Dose: 650 mg Documented by: [id number] Admin: 10/12/18 12:04 Dose: 650 mg Documented by: [id number] Albuterol (Duoneb) 3 ml NEB QIDR [facility] Stop: 11/11/18 07:59 Last Admin: 10/12/18 19:07 Dose: 3 ml Documented by: [id number] Admin: 10/12/18 15:29 Dose: 3 ml Documented by: [id number] Admin: 10/12/18 11:22 Dose: 3 ml Documented by: [id number] Admin: 10/12/18 07:04 Dose: 3 ml Documented by: [id number] Amlodipine Besylate (Norvasc) 10 mg PO QAM [facility] Stop: 11/11/18 08:59 Last Admin: 10/12/18 08:13 Dose: 10 mg Documented by: [id number] Aspirin (Ecotrin Ectab) 81 mg PO QAM [facility] Stop: 11/11/18 08:59 Last Admin: 10/12/18 08:13 Dose: 81 mg Documented by: [id number] Bupropion HCl (Wellbutrin-Sr) 150 mg PO DAILY [facility] Stop: 11/11/18 08:59 Last Admin: 10/12/18 08:13 Dose: 150 mg Documented by: [id number] Buspirone HCl (Buspar) 7.5 mg PO BID [facility] Stop: 11/11/18 02:17 Last Admin: 10/12/18 08:12 Dose: 7.5 mg Documented by: [id number] Admin: 10/12/18 04:54 Dose: Not Given Documented by: [id number] Carvedilol (Coreg) 6.25 mg PO BID JOANN Stop: 11/11/18 02:17 Last Admin: 10/12/18 20:09 Dose: 6.25 mg Documented by: [id number] Admin: 10/12/18 08:13 Dose: 6.25 mg Documented by: [id number] Admin: 10/12/18 04:54 Dose: Not Given Documented by: [id number] Guaifenesin (Mucinex) 600 mg PO Q12 JOANN Stop: 11/11/18 08:59 Last Admin: 10/12/18 20:10 Dose: 600 mg Documented by: [id number] Admin: 10/12/18 08:12 Dose: 600 mg Documented by: [id number] Hydrochlorothiazide (Hctz) 25 mg PO DAILY JOANN Stop: 11/11/18 08:59 Last Admin: 10/12/18 08:12 Dose: 25 mg Documented by: [id number] Cefepime HCl 2,000 mg/ Syringe 20 mls @ 5 mls/min IV Q8H JOANN; Protocol Stop: 10/19/18 09:59 Last Admin: 10/12/18 18:27 Dose: 5 mls/min Documented by: [id number] Admin: 10/12/18 11:06 Dose: 5 mls/min Documented by: [id number] Linezolid (Zyvox) 600 mg in 300 mls @ 200 mls/hr IV Q12H JOANN Stop: 10/19/18 10:59 Last Infusion: 10/12/18 13:07 Dose: 0 mls/hr Documented by: [id number] Admin: 10/12/18 11:07 Dose: 200 mls/hr Documented by: [id number] Potassium Chloride/Sodium Chloride (Normal Saline W/20 Meq Kcl) 20 meq in 1,000 mls @ 80 mls/hr IV .[id number] JOANN Stop: 11/11/18 10:44 Last Admin: 10/12/18 12:23 Dose: 80 mls/hr Documented by: [id number] Magnesium Oxide (Mag-Ox) 400 mg PO DAILY JOANN Stop: 11/11/18 08:59 Last Admin: 10/12/18 08:12 Dose: 400 mg Documented by: [id number] Miscellaneous (Order Awaiting Action) 1 ea N/A QS JOANN Stop: 11/11/18 07:59 Last Admin: 10/12/18 15:33 Dose: Not Given Documented by: [id number] Admin: 10/12/18 08:14 Dose: Not Given Documented by: [id number] Multivitamins/Minerals (Multivitamin W/ Minerals Tab) 1 tab PO DAILY JOANN Stop: 11/11/18 08:59 Last Admin: 10/12/18 08:12 Dose: 1 tab Documented by: [id number] Mupirocin (Bactroban 2%) 1 appln EXT BID JOANN Stop: 11/11/18 08:59 Last Admin: 10/12/18 20:10 Dose: 1 appln Documented by: [id number] Admin: 10/12/18 08:21 Dose: 1 appln Documented by: [id number] Potassium Chloride (Klor-Con M20) 20 meq PO DAILY JOANN Stop: 11/11/18 08:59 Last Admin: 10/12/18 08:13 Dose: 20 meq Documented by: [id number] Vitamin D (Vitamin D3) 1,000 units PO DAILY JOANN Stop: 11/11/18 08:59 Last Admin: 10/12/18 08:13 Dose: 1,000 units Documented by: [id number] Discontinued Medications Albuterol (Duoneb) 3 ml NEB NOW STA Stop: 10/11/18 23:36 Last Admin: 10/11/18 23:56 Dose: 3 ml Documented by: [id number] Diphenhydramine HCl (Benadryl) Confirm Administered Dose 50 mg .ROUTE .STK-MED ONE Stop: 10/12/18 01:15 Last Admin: 10/12/18 01:17 Dose: 25 mg Documented by: [id number] Sodium Chloride (Nss) 500 mls @ 999 mls/hr IV .Q31M JOANN Stop: 10/11/18 22:30 Last Infusion: 10/11/18 22:54 Dose: 0 mls/hr Documented by: [id number] Admin: 10/11/18 22:18 Dose: 999 mls/hr Documented by: [id number] Cefepime HCl (Maxipime) 2,000 mg in 20 mls @ 5 mls/min IV NOW STA; Protocol Stop: 10/11/18 23:41 Last Admin: 10/12/18 00:56 Dose: 5 mls/min Documented by: [id number] Sodium Chloride (Nss 1000ml) 500 mls @ 999 mls/hr IV .Q31M ONE Stop: 10/12/18 00:08 Last Infusion: 10/12/18 02:05 Dose: 0 mls/hr Documented by: [id number] Admin: 10/12/18 01:34 Dose: 999 mls/hr Documented by: [id number] Vancomycin HCl 1,000 mg/ (Sodium Chloride) 520 mls @ 200 mls/hr IV NOW ONE; Protocol Stop: 10/12/18 02:13 Last Infusion: 10/12/18 07:34 Dose: 0 mls/hr Documented by: [id number] Admin: 10/12/18 01:10 Dose: 200 mls/hr Documented by: [id number] Aztreonam 1,000 mg/ Dextrose 110 mls @ 100 mls/hr IV Q8H JOANN; Protocol Stop: 10/19/18 07:59 Last Infusion: 10/12/18 09:11 Dose: 0 mls/hr Documented by: [id number] Admin: 10/12/18 08:21 Dose: 100 mls/hr Documented by: [id number] Morphine Sulfate (Morphine Sulfate) 4 mg IV Q15M PRN PRN Reason: Pain Stop: 10/25/18 21:58 Last Admin: 10/11/18 22:19 Dose: 4 mg Documented by: [id number] Ondansetron HCl (Zofran) 4 mg IV NOW STA Stop: 10/11/18 22:00 Last Admin: 10/11/18 22:18 Dose: 4 mg Documented by: [id number] Medical Decision Making Differential Diagnosis Differential diagnosis: Etiologies such as shingles, musculoskeletal pain, pericarditis, myocarditis, cardiac ischemia, pericardial tamponade, pneumonia, pneumothorax, pleural effusion, hemothorax, pleurisy, aortic pathology, pulmonary embolism, intra- abdominal process, as well as others were considered. Medical Records Attestation: I reviewed the patient's medical records. Home Medications Current Medication List: was personally reviewed by me Laboratory Data Attestation: I reviewed the patient's lab results. Result diagrams: 10/12/18 08:05 10/12/18 08:05 Lab Results 10/11/18 10/11/18 10/11/18 Range/Units 22:00 22:00 22:21 WBC 13.56 H (4.8-10.8) K/uL RBC 3.82 L (4.7-6.1) M/uL Hgb 10.3 L (14.0-18.0) g/dL Hct 33.3 L (42-52) % MCV 87.2 (80-100) fL MCH 27.0 (25-34) pg MCHC 30.9 L (32-36) g/dL RDW Std Deviation 48.6 H (36.4-46.3) fL RDW Coeff of Eric 15.1 H (11.5-14.5) % Plt Count 904 H (130-400) K/uL MPV 8.4 (7.4-10.4) fL Immature Gran % (Auto) 0.5 % Neut % (Auto) 77.0 % Lymph % (Auto) 7.7 % Cloud % (Auto) 13.4 % Eos % (Auto) 1.3 % Baso % (Auto) 0.1 % Immature Gran # (Auto) 0.07 H (0.00-0.02) K/uL Neut # (Auto) 10.44 H (1.4-6.5) K/uL Lymph # (Auto) 1.04 L (1.2-3.4) K/uL Cloud # (Auto) 1.82 H (0.11-0.59) K/uL Eos # (Auto) 0.17 (0-0.5) K/uL Baso # (Auto) 0.02 (0-0.2) K/uL PT 10.3 (9.0-12.0) Seconds INR 1.0 (0.9-1.1) APTT 28.2 (21.0-31.0) Seconds PTT Ratio 1.0 Sodium 139 (136-145) mmol/L Potassium 3.2 L (3.5-5.1) mmol/L Chloride 97 L (98-107) mmol/L Carbon Dioxide 37 H (21-32) mmol/L Anion Gap 5.0 (3-11) BUN 16 (7-18) mg/dl Creatinine 0.59 L (0.6-1.4) mg/dl Est Cr Clr Drug Dosing 82.4 ml/min Est GFR ( Amer) 118.9 Est GFR (Non-Af Amer) 102.6 BUN/Creatinine Ratio 27.1 H (10-20) Glucose 120 H (70-99) mg/dl Calcium 9.0 (8.5-10.1) mg/dl Total Bilirubin 0.2 (0.2-1) mg/dl AST 10 L (15-37) U/L ALT 16 (12-78) U/L Alkaline Phosphatase 168 H (45-117) U/L Troponin I < 0.015 (0-0.045) ng/ml Total Protein 6.9 (6.4-8.2) gm/dl Albumin 1.9 L (3.4-5.0) gm/dl Globulin 5.0 H (2.5-4.0) gm/dl Albumin/Globulin Ratio 0.4 L (0.9-2) Lipase 44 L (73-393) U/L Imaging Data Radiologist's Impression: Radiology results as stated below per my review and the radiologist's interpretation: XR chest 1V portable HISTORY: Atypical Chest Pain COMPARISON: Chest 09/30/2018. 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 This remains unchanged. No change in the hyperexpanded right lung. No right-sided pneumothorax or right pleural effusions. The heart is stable in size. Small focal density within the right medial lung base which is new from the prior study. IMPRESSION: 1. A new small focal density within the right medial lung base. This could represent atelectasis or developing pneumonia. One-month chest x-ray follow-up recommended to ensure resolution. 2. 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 Electronically signed by: Guero Tapia M.D. 10/11/2018 10:33 PM ECG Data Attestation: I personally reviewed and interpreted this ECG as follows: Indication: chest pain Rate (beats per minute): 107 Rhythm: other (wandering atrial pacemaker) Findings: + PAC, + Q waves (lateral Q-wave inversions ) and + T-wave inversion (lateral) Comparison ECG Date: from (09/10/2018) Change: no significant change Blood Pressure Blood Pressure Findings: Normal blood pressure Blood Pressure Disposition: did not require urgent referral MDM Narrative The patient is a 72-year-old male who presented to the emergency department with left-sided chest pain. The patient has a history of an empyema that was evacuated by the thoracic surgeon. Patient presents emergency department today because of chest pain. The patient did not have a fever but there was a question where of pneumonia on chest x-ray. I discussed the patient's laboratory and radiographic studies with him. He was treated with pain medication in the emergency department. I also discussed his case with the on- call [facility] hospitalist as well as his primary thoracic surgeon. I will defer any antibiotic regimen to the inpatient team after discussion the patient was felt to be a good candidate for inpatient observation as his pain level is very significant and his course has been complicated with infection in the past. I discussed this plan with the patient and he was agreeable. Impression & Plan Chest pain, Pneumonia, Thrombocytopenia Discharge Plan Visit Data *Final* Discharge Date/Time: 10/12/18 01:43 Chief Complaint: Chest Pain Stated Complaint: CHEST PAIN ED Provider: Emma Lewis Discharge Problem: Chest pain, Pneumonia, Thrombocytopenia Patient Disposition: Admitted As Inpatient Discharge Instructions Interventions: ED Discharge Assessment Last Done: 10/12/18 01:43 Discharge Problem: Chest pain Qualifiers: Chest pain type: unspecified Qualified Code(s): R07.9 - Chest pain, unspecified Pneumonia Qualifiers: Pneumonia type: due to unspecified organism Laterality: unspecified laterality Lung location: unspecified part of lung Qualified Code(s): J18.9 - Pneumonia, unspecified organism The scribe's documentation has been prepared under my direction and personally reviewed by me in its entirety. I confirm that the note above accurately reflects all work, treatment, procedures, and medical decision making performed by me.
[2018-10-11] MEDS ORDERED: ALBUT/IPRATROP 3MG/0.5MG NEB 3 ML VIAL NEB STA (23:35)
[2018-10-11] MEDS ORDERED: VANCOMYCIN HCL 1,000 MG in SODIUM CHLORIDE 0.9% 500 ML IV ONE (23:38)
[2018-10-11] MEDS ORDERED: VANCOMYCIN CONSULT ACTIVE PRN (23:38)
[2018-10-11] MEDS ORDERED: SODIUM CHLORIDE 0.9% 1000ML 500 ML IV ONE (23:38)
[2018-10-11] MEDS ORDERED: CEFEPIME 2,000 MG/20 ML VIAL IV STA (23:38)
[2018-10-12] MEDS ORDERED: DiphenhydrAMINE HCL 50 MG/ML VIAL ONE (01:14)
--- NOTE | 2018-10-12 01:23 | Emergency Department Note ---
ED Visit Note Nursing staff called me to this patient's room for emergent evaluation of an allergic reaction. The patient was being prepared to move to his inpatient bed and was receiving vancomycin when he began to experience shortness of breath. The vancomycin was stopped. The admitting doctor was notified. The patient also described difficulty swallowing and a sore throat. The vancomycin have been running for approximately 10 minutes. He describes having a very similar event when taking oral antibiotics at home a couple of months ago. He could not remember the name of the antibiotic. I ordered 25 mg of IV Benadryl and an EKG. The EKG was unchanged except it was slightly more tachycardic. On physical exam, the patient had no wheezing in his lungs. He was not stridorous. He had no obvious rash or hives. His oropharynx was unremarkable and his uvula was of normal size. The patient appeared quite anxious. I spent some time talking to him coaxing him to slow his breathing. His heart rate came down to 109 prior to me leaving the room and he felt much better. . : Chest pain Qualifiers: Chest pain type: unspecified Qualified Code(s): R07.9 - Chest pain, unspecified Pneumonia Qualifiers: Pneumonia type: due to unspecified organism Laterality: unspecified laterality Lung location: unspecified part of lung Qualified Code(s): J18.9 - Pneumonia, unspecified organism
[2018-10-12] MEDS ORDERED: VANCOMYCIN CONSULT ACTIVE PRN (02:18)
[2018-10-12] MEDS ORDERED: POLYETHYLENE (MIRALAX) 17 GM PACK PO PRN (02:18)
[2018-10-12] MEDS ORDERED: ALUMINUM/MAGNESIUM SUSP 30 ML UDC PO PRN (02:18)
[2018-10-12] MEDS ORDERED: NITROGLYCERIN SL 0.4 MG/TAB TAB SL PRN (02:18)
[2018-10-12] MEDS ORDERED: ONDANSETRON 4 MG OD TAB PO PRN (02:18)
[2018-10-12] MEDS ORDERED: ONDANSETRON INJ 2 MG/ML 2 ML VIAL IV PRN (02:18)
[2018-10-12] MEDS ORDERED: MAGNESIUM HYDROXIDE SUSP 30 ML UDC PO PRN (02:18)
--- NOTE | 2018-10-12 04:45 | History & Physical Report ---
Date of Service October 12, 2018 Assessment & Plan (1) Pneumonia: Pneumonia/intermittent sharp left-sided chest pain- Status post surgical drainage of empyema in left lung with the development of recent sharp intermittent pain. New right middle lobe infiltrate on x-ray. Patient developed an allergic reaction to vancomycin as noted by ED staff and this was discontinued. He is also allergic to penicillins. Place on Zyvox IV and aztreonam IV. Duonebs every 4 hours while awake and every 2 hours when necessary. Guaifenesin extended release 600 mg p.o. twice daily. Sputum Gram stain and culture Consult thoracic surgery Dr. Pettit. Consult infectious disease Dr. Martinez. Present on Admission?: Yes (2) Chest pain: See above Present on Admission?: Yes (3) Thrombocythemia: Platelets have increased from 457 on 10/01/2018, to 904 on admission labs today. We will ask hematology their opinion regarding treatment with agents such as hydroxyurea. Repeat laboratories in a.m. Of note, the problem list has thrombocytopenia listed incorrectly as entered by the ED. Present on Admission?: Yes (4) COPD (chronic obstructive pulmonary disease): See above. Present on Admission?: Yes (5) Hypertension: Continue carvedilol and amlodipine with hold parameters. Hold hydrochlorothiazide. Present on Admission?: Yes History of Present Illness Chief Complaint: The patient presents to the emergency department with complaint of periodic severe left-sided chest pain over his recent surgical site. Primary Care Provider: Brown Arias MD The patient is a 72-year-old male who had recently been admitted from 09/10-09/16 for a left lung empyema, for which he underwent surgical drainage by Dr. Pettit. He reports that beginning 4 hours prior to arrival, he has developed severe stabbing chest pain over this area. He has a cough that is nonproductive, but feels like it should be productive. He has been taking oxycodone periodically for the pain. His work-up in the emergency department included a chest x-ray, which showed a new right middle lobe infiltrate. While in the emergency department, he was receiving vancomycin, and was noted by ED staff she had developed a allergic reaction to the vancomycin. Allergies Allergy/AdvReac Type Severity Reaction Status Date / Time animal dander Allergy Mild CONGESTION, Verified 09/30/18 06:14 STUFFINESS, SNEEZING paroxetine Allergy Mild RASH Verified 09/30/18 06:14 fluconazole [From Diflucan] AdvReac Intermediate Dizziness Verified 09/30/18 06:14 amoxicillin AdvReac Rash Verified 09/30/18 07:06 Home Medications Home Medications Medication Instructions Recorded Confirmed Type Centrum 1 tab PO DAILY 07/18/18 10/11/18 History amlodipine 10 mg PO QAM 07/18/18 10/11/18 History aspirin [Aspirin Low Dose] 81 mg PO QAM 07/18/18 10/11/18 History buspirone 7.5 mg PO BID 07/18/18 10/11/18 History fluticasone propionate 2 spray INTRANASAL DAILY 07/18/18 10/11/18 History hydrochlorothiazide 25 mg PO DAILY 07/18/18 10/11/18 History magnesium 250 mg PO DAILY 07/18/18 10/11/18 History mupirocin 1 applic TOPICAL BID 07/18/18 10/11/18 History albuterol sulfate 2.5 mg INHALATION Q4H PRN 09/10/18 10/11/18 History Breo Ellipta 1 inh INHALATION DAILY 09/27/18 10/11/18 History albuterol sulfate 2 puff INHALATION QID PRN 09/27/18 10/11/18 History bupropion HCl [Wellbutrin SR] 150 mg PO DAILY 09/27/18 10/11/18 History carvedilol 6.25 mg PO BID 09/27/18 10/11/18 History cholecalciferol (vitamin D3) 1,000 unit PO DAILY 09/27/18 10/11/18 History [Vitamin D3] cyanocobalamin (vitamin B-12) 1,000 mcg SUBCUT MONTHLY 09/27/18 10/11/18 History potassium chloride 20 meq PO DAILY 09/27/18 10/11/18 History ondansetron 4 mg PO Q8H PRN 10/11/18 10/11/18 History Past Med/Surg History Medical History Primary pulmonary hypertension (Acute) Malabsorption syndrome (Acute) Incisional hernia (Acute) Dilated aortic root (Acute) COPD with emphysema (Acute) Severe, on 3L O2 continuous. Admitted to [facility] 09/10-09/16 with exacerbation + pneumonia. 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 L Eloesser flap/EBUS/bronch by Dr. Pettit 09/14. Treated with IV ABX and discharged on Augmention On home oxygen therapy 3L VIA NC CONT. Osteoarthritis Surgical History History of abdominal surgery "TWISTED BOWEL/NECROTIC BOWEL REPAIR" History of bronchoscopy History of cholecystectomy History of colonoscopy History of colonoscopy with polypectomy History of endoscopic sinus surgery History of herniorrhaphy History of lung surgery LEFT LOBECTOMY History of resection of small bowel History of tooth extraction Family History Mother Breast cancer Cancer Hypertension Social History Preferred Language: Occitan Communication Ability: Effective Supervisor Of Communications Required: No Beliefs That Will Affect Care: None marital status: Current Living Situation: Alone Current Living Situation Comment: one story house alone Other Information That Helps Us Care for You: No Feels Safe at Home: Yes Safety Concerns: Feels Safe At This Time Smoking Status: Former smoker Tobacco Type: cigarettes Second Hand Exposure: No Hx Alcohol Use: No Hx Substance Use: No Review of Systems Review of Systems: The patient denies palpitations, lower extremity swelling, sore throat, fevers, chills, sweats, nausea, vomiting, diarrhea , constipation, abdominal pain, pelvic pain, blood in urine or stool, dysuria, urinary frequency or urgency, lightheadedness, dizziness, headache, memory loss, loss of consciousness, rash, abnormal bruising or bleeding, imbalance, focal or generalized weakness, numbness or tingling in arms or legs, generalized arthralgias or myalgias, neck pain, or night sweats. The review of systems is otherwise negative other than for that already noted above, and at least 10 systems have been reviewed. Physical Exam Physical Exam: The patient is awake, alert and oriented 3, normocephalic and atraumatic, lying in bed and in no acute distress. During the examination, the patient had an episode of severe left-sided chest pain, under his axilla, of duration 1 minute, where he gripped his side and winced. HEENT--PERRL, EOMI, mucous membranes and oropharynx normal. Neck--supple. No JVD. No bruits. Thyroid normal, trachea midline, no adenopathy. Heart--normal S1 and S2. No murmurs, rubs or gallops. Lungs--diminished throughout Abdomen--normal bowel sounds and soft. Nontender. Nondistended. Extremities--no cyanosis or clubbing. No edema. There are good distal pulses b/l. Dermatologic--normal skin turgor, normal color, no abnormal lymph nodes, no rash. Neurologic--cranial nerves II through XII grossly intact. Rheumatologic--normal range of motion. Psychiatric--normal affect. Results & Data Vital Signs (Past 12 Hours) Vital Signs Temp Pulse Pulse Resp BP BP Pulse Ox 10/12/18 02:05 98.2 F 109 H 20 139/72 97 10/11/18 23:56 97 H 20 95 10/11/18 23:50 88 16 120/67 98 10/11/18 21:59 98 10/11/18 21:52 98.1 F 119 H 23 138/84 96 Laboratory Results Laboratory Results WBC 13.56 K/uL (4.8-10.8) H 10/11/18 22:21 RBC 3.82 M/uL (4.7-6.1) L 10/11/18 22:21 Hgb 10.3 g/dL (14.0-18.0) L 10/11/18 22:21 Hct 33.3 % (42-52) L 10/11/18 22:21 MCV 87.2 fL (80-100) 10/11/18 22:21 MCH 27.0 pg (25-34) 10/11/18 22:21 MCHC 30.9 g/dL (32-36) L 10/11/18 22:21 RDW Std Deviation 48.6 fL (36.4-46.3) H 10/11/18 22:21 RDW Coeff of Eric 15.1 % (11.5-14.5) H 10/11/18 22:21 Plt Count 904 K/uL (130-400) H 10/11/18 22:21 MPV 8.4 fL (7.4-10.4) 10/11/18 22:21 Immature Gran % (Auto) 0.5 % 10/11/18 22:21 Neut % (Auto) 77.0 % 10/11/18 22:21 Lymph % (Auto) 7.7 % 10/11/18 22:21 [place] % (Auto) 13.4 % 10/11/18 22:21 Eos % (Auto) 1.3 % 10/11/18 22:21 Baso % (Auto) 0.1 % 10/11/18: Immature Gran # (Auto) 0.07 K/uL (0.00-0.02) H 10/11/18 22:21 Neut # (Auto) 10.44 K/uL (1.4-6.5) H 10/11/18 22:21 Lymph # (Auto) 1.04 K/uL (1.2-3.4) L 10/11/18 22:21 [place] # (Auto) 1.82 K/uL (0.11-0.59) H 10/11/18 22:21 Eos # (Auto) 0.17 K/uL (0-0.5) 10/11/18 22:21 Baso # (Auto) 0.02 K/uL (0-0.2) 10/11/18 22:21 PT 10.3 Seconds (9.0-12.0) 10/11/18 22:00 INR 1.0 (0.9-1.1) 10/11/18 22:00 APTT 28.2 Seconds (21.0-31.0) 10/11/18 22:00 PTT Ratio 1.0 10/11/18 22:00 Sodium 139 mmol/L (136-145) 10/11/18 22:00 Potassium 3.2 mmol/L (3.5-5.1) L 10/11/18 22:00 Chloride 97 mmol/L (98-107) L 10/11/18 22:00 Carbon Dioxide 37 mmol/L (21-32) H 10/11/18 22:00 Anion Gap 5.0 (3-11) 10/11/18 22:00 BUN 16 mg/dl (7-18) 10/11/18 22:00 Creatinine 0.59 mg/dl (0.6-1.4) L 10/11/18 22:00 Est Cr Clr Drug Dosing 82.4 ml/min 10/11/18 22:00 Est GFR ( Amer) 118.9 10/11/18 22:00 Est GFR (Non-Af Amer) 102.6 10/11/18 22:00 BUN/Creatinine Ratio 27.1 (10-20) H 10/11/18 22:00 Glucose 120 mg/dl (70-99) H 10/11/18 22:00 Calcium 9.0 mg/dl (8.5-10.1) 10/11/18 22:00 Total Bilirubin 0.2 mg/dl (0.2-1) 10/11/18 22:00 AST 10 U/L (15-37) L 10/11/18 22:00 ALT 16 U/L (12-78) 10/11/18 22:00 Alkaline Phosphatase 168 U/L (45-117) H 10/11/18 22:00 Troponin I < 0.015 ng/ml (0-0.045) 10/11/18 22:00 Total Protein 6.9 gm/dl (6.4-8.2) 10/11/18 22:00 Albumin 1.9 gm/dl (3.4-5.0) L 10/11/18 22:00 Globulin 5.0 gm/dl (2.5-4.0) H 10/11/18 22:00 Albumin/Globulin Ratio 0.4 (0.9-2) L 10/11/18 22:00 Lipase 44 U/L (73-393) L 10/11/18 22:00 Diagnostic Findings [facility], [place] [phone] XRay Report Patient: SANDOVAL DAMON Date: 10/11/18 MR#: [id number]: [address] Acct ID:[id number]: Date: [address] Zip: [place] [id number] Age: 72Location: ED Sex: M Room/Bed: Att Phy: Diagnosis: CHEST PAIN Ximena Phy: Brown Arias, MDService Date: 10/11/18 Fam Phy: Interpreting Phy: Guero Tapia MD Admit Phy: Ordering Phy: Jose Cruz Agrawal DO cc: ~ XR chest 1V portable HISTORY: Atypical Chest Pain COMPARISON: Chest 09/30/2018. 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 This remains unchanged. No change in the hyperexpanded right lung. No right-sided pneumothorax or right pleural effusions. The heart is stable in size. Small focal density within the right medial lung base which is new from the prior study. IMPRESSION: 1. A new small focal density within the right medial lung base. This could represent atelectasis or developing pneumonia. One-month chest x-ray follow-up recommended to ensure resolution. 2. 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 Electronically signed by: Guero Tapia M.D. 10/11/2018 10:33 PM Dictated: 10/11/182230 Transcribed: 10/11/18 223 Code Status & VTE Plan Code Status Full code VTE Prophylaxis Plan VTE Prophylaxis will be ordered: Yes PG Care Time/CCT Total # of Minutes Spent Total Time Spent with Patient: Total time spent is greater than 50% in coordination of care (as documented) at patient's floor/unit and/or counseling patient: (1) Pneumonia Laterality: unspecified laterality Lung location: unspecified part of lung Pneumonia type: due to unspecified organism Qualified Code(s): J18.9 - Pneumonia, unspecified organism
[2018-10-12] MEDS: BUSPIRONE HCL 7.5 MG TAB PO SCH ×2 (04:54→08:12)
[2018-10-12] MEDS: CARVEDILOL 6.25 MG TAB PO SCH ×3 (04:54→20:09)
[2018-10-12] MEDS: ALBUT/IPRATROP 3MG/0.5MG NEB 3 ML VIAL NEB SCH ×4 (07:04→19:07)
[2018-10-12] MEDS ORDERED: AZTREONAM 1,000 MG in DEXTROSE 5% 100 ML IV SCH (08:00)
[2018-10-12] MEDS: hydroCHLOROthiazide 25 MG TAB PO SCH (08:12)
[2018-10-12] MEDS: guaiFENesin 600 MG TABCR PO SCH ×2 (08:12→20:10)
[2018-10-12] MEDS: MAGNESIUM OXIDE 400 MG TAB PO SCH (08:12)
[2018-10-12] MEDS: CEROVITE ADV FORMULA TAB PO SCH (08:12)
[2018-10-12] MEDS: ASPIRIN 81 MG ECTAB PO SCH (08:13)
[2018-10-12] MEDS: CHOLECALCIFEROL 1,000 UNITS TAB PO SCH (08:13)
[2018-10-12] MEDS: POTASSIUM CHLORIDE 20 MEQ TABCR PO SCH (08:13)
[2018-10-12] MEDS: AMLODIPINE BESYLATE 5 MG TAB PO SCH (08:13)
[2018-10-12] MEDS: MUPIROCIN 2% OINT 22 GM TUBE EXT SCH ×2 (08:21→20:10)
[2018-10-12 08:25] LABS: Hematocrit (blood only) 31.3 % (42-52); Hemoglobin 9.5 g/dL (14.0-18.0); Mean Corpuscular Hgb Conc 30.4 g/dL (32-36); Mean Corpuscular Volume 87.7 fL (80-100); Mean Platelet Volume 8.6 fL (7.4-10.4); Platelet Count 1031 K/uL (130-400); RDW Coefficient of Variation 15.1 % (11.5-14.5); RDW Standard Deviation 48.7 fL (36.4-46.3); Red Blood Count 3.57 M/uL (4.7-6.1); White Blood Count 14.64 K/uL (4.8-10.8)
[2018-10-12 08:46] LABS: Alanine Aminotransferase 14 U/L (12-78); Albumin Level 1.8 gm/dl (3.4-5.0); Aspartate Aminotransferase 11 U/L (15-37); BUN Creatinine Ratio 24.6 (10-20); Blood Urea Nitrogen 14 mg/dl (7-18); Calcium 8.5 mg/dl (8.5-10.1); Carbon Dioxide 38 mmol/L (21-32); Chloride 96 mmol/L (98-107); Creatinine Clr Calc Pharmacy 84.1 ml/min; Est GFR (African American) 119.7; Est GFR (Non-African American) 103.3; Glucose 107 mg/dl (70-99); Potassium 3.6 mmol/L (3.5-5.1); Sodium 139 mmol/L (136-145)
[2018-10-12 08:47] LABS: Basophils # (auto) 0.02 K/uL (0-0.2); Basophils % (auto) 0.1 %; Eosinophils # (auto) 0.09 K/uL (0-0.5); Eosinophils % (auto) 0.6 %; Immature Granulocytes # (auto) 0.05 K/uL (0.00-0.02); Immature Granulocytes % (auto) 0.3 %; Lymphocytes # (auto) 0.91 K/uL (1.2-3.4); Lymphocytes % (auto) 6.2 %; Monocytes # (auto) 1.69 K/uL (0.11-0.59); Monocytes % (auto) 11.5 %; Neutrophils # (auto) 11.88 K/uL (1.4-6.5); Neutrophils % (auto) 81.3 %
[2018-10-12 08:51] LABS: Albumin Globulin Ratio 0.4 (0.9-2); Alkaline Phosphatase 160 U/L (45-117); Bilirubin,Total 0.2 mg/dl (0.2-1); Globulin 4.7 gm/dl (2.5-4.0); Total Protein 6.5 gm/dl (6.4-8.2); Troponin I < 0.015 ng/ml (0-0.045)
[2018-10-12] MEDS ORDERED: BuPROPion SR 150 MG TABCR PO SCH (09:00)
[2018-10-12] MEDS ORDERED: LINEZOLID 600 MG/300 ML D5W IV SCH (09:00)
[2018-10-12] MEDS: CEFEPIME 2,000 MG in SYRINGE 7.5 ML IV SCH ×2 (11:06→18:27)
[2018-10-12] MEDS: LINEZOLID 600 MG/300 ML BAG IV SCH ×2 (11:07→22:55)
--- NOTE | 2018-10-12 11:22 | Infectious Disease Consult ---
Date of Consultation October 12, 2018 Assessment & Plan (1) Pneumonia: Patient with possible new right-sided pneumonia, although all his symptoms are related to his left side. For now, would continue present antibiotics pending further culture results. Await reevaluation by Dr. Pettit. Will follow. History of Present Illness Reason for Consultation: Left empyema, new right middle lobe infiltrate, reaction to vancomycin, Zyvox and aztreonam. Attending Physician: Clint Pappas DO History of Present Illness 72-year-old male with history of COPD, hypertension, BPH, primary pulmonary hypertension who was hospitalized last month with left-sided empyema ultimately requiring surgical drainage. Cultures at that time grew pseudomonas aeruginosa. Treated successfully with antibiotics and discharged, but over the last several days developed progressively worsening left-sided chest pain, worse with any movement, associated with cough without hemoptysis or significant sputum production. No reported fever or chills. Came to the emergency department where he was found to have possible new right-sided pneumonia. He was given vancomycin but developed acute reaction and this was discontinued. Now being treated with Zyvox and aztreonam. Cultures are pending. Still complaining of left-sided chest pain, denies any right-sided pain or symptoms. Allergies Allergy/AdvReac Type Severity Reaction Status Date / Time vancomycin Allergy Severe Anaphylaxis Verified 10/12/18 09:17 animal dander Allergy Mild CONGESTION, Verified 09/30/18 06:14 STUFFINESS, SNEEZING paroxetine Allergy Mild RASH Verified 09/30/18 06:14 fluconazole [From Diflucan] AdvReac Intermediate Dizziness Verified 09/30/18 06:14 amoxicillin AdvReac Rash Verified 09/30/18 07:06 Home Medications Home Medications Medication Instructions Recorded Confirmed Type Centrum 1 tab PO DAILY 07/18/18 10/11/18 History amlodipine 10 mg PO QAM 07/18/18 10/11/18 History aspirin [Aspirin Low Dose] 81 mg PO QAM 07/18/18 10/11/18 History buspirone 7.5 mg PO BID 07/18/18 10/11/18 History fluticasone propionate 2 spray INTRANASAL DAILY 07/18/18 10/11/18 History hydrochlorothiazide 25 mg PO DAILY 07/18/18 10/11/18 History magnesium 250 mg PO DAILY 07/18/18 10/11/18 History mupirocin 1 applic TOPICAL BID 07/18/18 10/11/18 History albuterol sulfate 2.5 mg INHALATION Q4H PRN 09/10/18 10/11/18 History Breo Ellipta 1 inh INHALATION DAILY 09/27/18 10/11/18 History albuterol sulfate 2 puff INHALATION QID PRN 09/27/18 10/11/18 History bupropion HCl [Wellbutrin SR] 150 mg PO DAILY 09/27/18 10/11/18 History carvedilol 6.25 mg PO BID 09/27/18 10/11/18 History cholecalciferol (vitamin D3) 1,000 unit PO DAILY 09/27/18 10/11/18 History [Vitamin D3] cyanocobalamin (vitamin B-12) 1,000 mcg SUBCUT MONTHLY 09/27/18 10/11/18 History potassium chloride 20 meq PO DAILY 09/27/18 10/11/18 History ondansetron 4 mg PO Q8H PRN 10/11/18 10/11/18 History Patient History Medical History Primary pulmonary hypertension (Acute) Malabsorption syndrome (Acute) Incisional hernia (Acute) Dilated aortic root (Acute) COPD with emphysema (Acute) Severe, on 3L O2 continuous. Admitted to [facility] 09/10-09/16 with exacerbation + pneumonia. 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 L Eloesser flap/EBUS/bronch by Dr. Pettit 09/14. Treated with IV ABX and discharged on Augmention On home oxygen therapy 3L VIA NC CONT. Osteoarthritis Surgical History History of abdominal surgery "TWISTED BOWEL/NECROTIC BOWEL REPAIR" History of bronchoscopy History of cholecystectomy History of colonoscopy History of colonoscopy with polypectomy History of endoscopic sinus surgery History of herniorrhaphy History of lung surgery LEFT LOBECTOMY History of resection of small bowel History of tooth extraction Family History Mother Breast cancer Cancer Hypertension Social History Preferred Language: S[place] Communication Ability: Effective Black Pickler Required: No Beliefs That Will Affect Care: None marital status: Current Living Situation: Alone Current Living Situation Comment: one story house alone Other Information That Helps Us Care for You: No Feels Safe at Home: Yes Safety Concerns: Feels Safe At This Time Smoking Status: Former smoker Tobacco Type: cigarettes Second Hand Exposure: No Hx Alcohol Use: No Hx Substance Use: No Review of Systems Review of Systems: All systems reviewed & are unremarkable except as noted in HPI & below Physical Exam Constitutional: WD/WN, vitals as above comfortable; no acute distress Eyes: PERRL, conjunctivae normal, anicteric sclerae ENMT: external ear and nose normal, oropharynx normal Neck: trachea midline, no thyromegaly neck nontender Respiratory: normal respiratory effort and + dullness to percussion (Left base); does not use accessory muscles Auscultation: + diminished lung sounds (Left-sided) and + crackles (Right-sided) Cardiovascular: Rate/Rhythm: regular rate and regular rhythm Heart Sounds: normal S1 and normal S2; no gallop, no murmur and no cardiac rub Vessels: normal peripheral pulses; no JVD Gastrointestinal (Abdomen): normal bowel sounds, soft, nontender, no hepatosplenomegaly Musculoskeletal: no cyanosis or clubbing, extremities motor strength 5/5 Spine: thoracic spine normal to inspection and lumbar spine normal to inspection; no cervical spinal tenderness Skin: no rashes, warm and dry normal turgor Neurologic: patellar DTR's 2+ bilat, sensation intact no focal motor deficits Psychiatric: A+Ox3, euthymic affect Orientation: cooperative Lymphatic: no cervical or axillary lymphadenopathy no inguinal lymphadenopathy Results & Data Vital Signs (Past 12 Hours) Vital Signs Temp Pulse Pulse Resp BP Pulse Ox 10/12/18 09:31 97 H 10/12/18 07:12 36.9 C 92 H 18 121/74 98 10/12/18 07:04 104 H 18 94 10/12/18 04:00 36.7 C 98 H 18 137/80 99 10/12/18 02:05 36.8 C 109 H 20 139/72 97 10/11/18 23:56 97 H 20 95 10/11/18 23:50 88 16 120/67 98 Laboratory Results Short CBC 10/11/18 10/12/18 Range/Units 22:21 08:05 WBC 13.56 H 14.64 H (4.8-10.8) K/uL Hgb 10.3 L 9.5 L (14.0-18.0) g/dL Hct 33.3 L 31.3 L (42-52) % Plt Count 904 H 1031 H* (130-400) K/uL BMP 10/11/18 10/12/18 22:00 08:05 Sodium 139 139 Potassium 3.2 L 3.6 Chloride 97 L 96 L Carbon Dioxide 37 H 38 H BUN 16 14 Creatinine 0.59 L 0.58 L Glucose 120 H 107 H Calcium 9.0 8.5 Cardiac Enzymes 10/11/18 10/12/18 Range/Units 22:00 08:05 Troponin I < 0.015 < 0.015 (0-0.045) ng/ml Liver Function 10/11/18 10/12/18 Range/Units 22:00 08:05 Total Bilirubin 0.2 0.2 (0.2-1) mg/dl AST 10 L 11 L (15-37) U/L ALT 16 14 (12-78) U/L Alkaline Phosphatase 168 H 160 H (45-117) U/L Albumin 1.9 L 1.8 L (3.4-5.0) gm/dl Diagnostic Findings XR chest 1V portable HISTORY: Atypical Chest Pain COMPARISON: Chest 09/30/2018. 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 This remains unchanged. No change in the hyperexpanded right lung. No right-sided pneumothorax or right pleural effusions. The heart is stable in size. Small focal density within the right medial lung base which is new from the prior study. IMPRESSION: 1. A new small focal density within the right medial lung base. This could represent atelectasis or developing pneumonia. One-month chest x-ray follow-up recommended to ensure resolution. 2. 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 Electronically signed by: Guero Tapia M.D. 10/11/2018 10:33 PM Dictated: 10/11/18 2231 (1) Pneumonia Laterality: unspecified laterality Lung location: unspecified part of lung Pneumonia type: due to unspecified organism Qualified Code(s): J18.9 - Pneumonia, unspecified organism
[2018-10-12] MEDS ORDERED: VANCOMYCIN HCL 750 MG in SODIUM CHLORIDE 0.9% 250 ML IV SCH (12:00)
[2018-10-12] MEDS: ACETAMINOPHEN 325 MG TAB PO PRN ×2 (12:04→20:08)
--- NOTE | 2018-10-12 12:20 | History & Physical Bridge Note ---
Date of Service October 12, 2018 History & Physical Bridge Note I have examined the patient, reviewed the History & Physical and in the interval since the performance of the History & Physical I have noted the following changes of clinical significance: patient doing reasonably well, breathing better, no left sided chest pain admitted to cough, poor appetite, never had fever or chills or sweats admits to difficulty swallowing, throat constantly dry, chokes/coughs when swallowing discussed case with Dr. Pettit, he will see for dressing change reviewed labs, Plts up to 1000, will ask hematology to see, routine consult discussed abx with pharmacy, will continue Linezolid and change Aztreonam to Cefepime hold Well butrin due to interaction with Linezolid Plan: - pneumonia: cover with Linezolid and Cefepime, Dr. Martinez consulted get speech/swallow evaluation due to coughing, difficulty swallowing start on NSS + 20 KCl at 80cc/hr - thrombocytosis: consult hematology for recs - s/p thoracotomy for empyema on left side, consult Dr. Pettit for dressing change - severe protein malnutrition: poor appetite, albumin 1.8 continue to encourage PO intake
[2018-10-12] MEDS: NSS + 20MEQ KCL 20 MEQ/1,000 ML BAG IV SCH ×2 (12:23→22:55)
--- NOTE | 2018-10-13 00:17 | Consultation Report ---
DATE OF CONSULTATION: 10/12/2018 REASON FOR CONSULTATION: Followup of left Eloesser flap. HISTORY OF PRESENT ILLNESS: A 72-year-old male who had a pneumonectomy secondary to trauma 30 years ago and developed a bronchopleural fistula. I performed an Eloesser flap and take him back into the operating room twice to keep this clean. He has pseudomonas growing out of this. We will change him over to / acetic acid dressing. This has helped the obvious smelling and it cleaned the wound up and he still has a small hole in the bronchus. In addition, he is presented with signs and symptoms of an upper respiratory infection on the right side. For this reason, I was asked to see him after he was admitted. I inspected his wound, it is not cleaning up as well as I would like and the skin around it is excoriated quite a bit from the moisture and the tape. I discussed this with our wound care team and we are going to protect the skin. His saturation is 99%. We are going to have to do something different with Mr. Ferrara. I am not happy with the way the wound looks with our dressing changes. It is simply not cleaning up. Some of this has to do with his malnutrition. We may have to consider enteral feeds. MTDD
[2018-10-13] MEDS: ALBUT/IPRATROP 3MG/0.5MG NEB 3 ML VIAL NEB SCH ×7 (03:00→23:39)
[2018-10-13] MEDS: CEFEPIME 2,000 MG in SYRINGE 7.5 ML IV SCH ×3 (03:07→18:38)
[2018-10-13 06:15] LABS: Basophilic Stippling 1+; Basophils # (auto) 0.02 K/uL (0-0.2); Basophils % (auto) 0.2 %; Eosinophils # (auto) 0.13 K/uL (0-0.5); Eosinophils % (auto) 1.2 %; Hematocrit (blood only) 25.7 % (42-52); Hemoglobin 7.8 g/dL (14.0-18.0); Hypochromasia Present; Immature Granulocytes # (auto) 0.05 K/uL (0.00-0.02); Immature Granulocytes % (auto) 0.5 %; Lymphocytes # (auto) 0.53 K/uL (1.2-3.4); Lymphocytes % (auto) 5.1 %; Mean Corpuscular Hgb Conc 30.4 g/dL (32-36); Mean Corpuscular Volume 85.7 fL (80-100); Mean Platelet Volume 8.6 fL (7.4-10.4); Monocytes # (auto) 1.12 K/uL (0.11-0.59); Monocytes % (auto) 10.7 %; Neutrophils # (auto) 8.62 K/uL (1.4-6.5); Neutrophils % (auto) 82.3 %; Platelet Count 730 K/uL (130-400); RDW Coefficient of Variation 15.2 % (11.5-14.5); RDW Standard Deviation 47.9 fL (36.4-46.3); White Blood Count 10.47 K/uL (4.8-10.8)
[2018-10-13 06:20] LABS: BUN Creatinine Ratio 26.2 (10-20); Creatinine Clr Calc Pharmacy 120.5 ml/min; Est GFR (African American) 138.1; Est GFR (Non-African American) 119.1; Potassium 3.9 mmol/L (3.5-5.1)
[2018-10-13] MEDS ORDERED: ACETIC ACID 0.25% IRRIG SOLN 1000 ML PLCT IR SCH (08:00)
[2018-10-13] MEDS ORDERED: ALBUT/IPRATROP 3MG/0.5MG NEB 3 ML VIAL NEB SCH (08:00)
[2018-10-13] MEDS: hydroCHLOROthiazide 25 MG TAB PO SCH (08:26)
[2018-10-13] MEDS: ASPIRIN 81 MG ECTAB PO SCH (08:26)
[2018-10-13] MEDS: MAGNESIUM OXIDE 400 MG TAB PO SCH (08:26)
[2018-10-13] MEDS: CARVEDILOL 6.25 MG TAB PO SCH ×2 (08:26→20:48)
[2018-10-13] MEDS: CEROVITE ADV FORMULA TAB PO SCH (08:26)
[2018-10-13] MEDS: POTASSIUM CHLORIDE 20 MEQ TABCR PO SCH (08:26)
[2018-10-13] MEDS: guaiFENesin 600 MG TABCR PO SCH ×2 (08:26→20:49)
[2018-10-13] MEDS: CHOLECALCIFEROL 1,000 UNITS TAB PO SCH (08:26)
[2018-10-13] MEDS: AMLODIPINE BESYLATE 5 MG TAB PO SCH (08:27)
[2018-10-13] MEDS: MUPIROCIN 2% OINT 22 GM TUBE EXT SCH ×2 (08:27→20:48)
[2018-10-13] MEDS ORDERED: LIDOCAINE HCL VISCOUS SOLN 2% 15 ML UDC MT PRN (10:15)
[2018-10-13] MEDS ORDERED: TPN/PPN CONSULT PHARMACY STA ×2 (10:19→12:34)
[2018-10-13] MEDS: MEGESTROL ACETATE SUSP 400 MG/10 ML UDC PO SCH ×2 (10:19→20:48)
[2018-10-13] MEDS ORDERED: TPN/PPN CONSULT PHARMACY PRN (10:35)
[2018-10-13] MEDS ORDERED: FLUCONAZOLE 100 MG/50 ML BAG IV SCH (10:45)
[2018-10-13] MEDS ORDERED: FLUCONAZOLE 200 MG/100 ML BAG IV ONE (11:00)
--- NOTE | 2018-10-13 11:13 | Progress Note ---
DATE: 10/13/2018 Mr. Ferrara's wound was inspected today. His skin surrounding the wound was better, but I was still quite concerned about the fact that we are not seeing healing here. I do not think this is infection causing this. I think hypoalbuminemia/malnutrition plays a big role. His albumin is only 1.8. He has a short gut with only 120 cm or so left of his small bowel. He and I have discussed this in detail and I discussed this with Dr. Clint Pappas today. I would consider starting hyperalimentation in an attempt to supplement his nutrition. In addition, any type of enteral supplement should be very good. He may require a stay in a rehab facility for this. If we do not improve this patient's nutrition and protein stores, I do not believe he is going to ever heal this. Eventually, he is going to get sick and not recover. I explained this quite frankly to the patient, he understands.
[2018-10-13 11:17] LABS: Magnesium 2.1 mg/dl (1.8-2.4); Phosphorus 2.2 mg/dl (2.5-4.9)
[2018-10-13] MEDS: HYDROCODONE/ACETAMINOPHEN 7.5/325MG TAB PO PRN ×3 (11:30→23:23)
[2018-10-13] MEDS: NSS + 20MEQ KCL 20 MEQ/1,000 ML BAG IV SCH (11:32)
[2018-10-13] MEDS: LINEZOLID 600 MG/300 ML BAG IV SCH ×2 (11:33→22:17)
[2018-10-13] MEDS: NYSTATIN SUSP 500,000 U/5 ML UDC PO SCH ×3 (11:35→20:48)
[2018-10-13] MEDS ORDERED: DEXTROSE 10% 1,000 ML IV SCH (12:45)
--- NOTE | 2018-10-13 12:51 | Pharmacy Report ---
Pharmacy PN Initial Consult - Date of Service October 13, 2018 - Scope Pharmacy has been consulted to manage parenteral nutrition orders and order appropriate labs. As part of the Nutrition Support Team guidelines, pharmacy will work in conjunction with dietary when determining the patients caloric needs. - Subjective The patient is a 72 year old M admitted on 10/13/18 10:08 for HYPOXIA, CHEST PAIN. Patient is to receive parenteral nutrition for poor PO intake, concurrent poor wound healing. - Objective Height: 5 ft 10 in Weight: 50.8 kg Diet: Regular Intake & Output (Last 24Hrs): Intake & Output 10/11/18 10/12/18 10/13/18 10/14/18 06:59 06:59 06:59 06:59 Intake Total 1000 / 1000 2591.000 / 2591.000 1086.667 / 1086.667 Output Total 400 / 400 651 / 651 Balance 600 / 600 1940.000 / 2050.367 0662.667 / 1086.667 Weight 50.2 kg 50.8 kg Laboratory Data (Last 24 Hrs):: 10/13/18 10/13/18 05:31 10:43 Sodium 140 Potassium 3.9 Chloride 102 Carbon Dioxide 36 H BUN 11 Creatinine 0.41 L Glucose 95 Calcium 8.0 L Phosphorus 2.2 L Magnesium 2.1 Nutrition Assessment:: Please refer to the Notes section of the EMR for the most recent test rider note. - Plan For day 1 of PN administration, the following will be ordered: Macronutrients Amino acids 50 grams/day Dextrose 100 grams/day Lipids 50 grams/day Micronutrients Combined electrolytes 0 mL - contains 35 mEq Na, 20 meq K, 4.5 mEq Ca, 5 mEq Mg, 35 mEq Cl, 29.5 mEq acetate per 20 mL Sodium phosphate 0 MMol Sodium chloride 60 mEq Sodium acetate 20 mEq Potassium phosphate 15 mMol Potassium chloride 40 mEq Potassium acetate 0 mEq Magnesium sulfate 4.06 mEq Calcium gluconate 4.65 mEq Multivitamins 10 mL Trace Elements 10 mL Additional additives: thiamine and folic acid Total volume 2000 mL to be infused over 24 hrs will provide 1040 kcal/day Labs to be ordered per PN order protocol Pharmacy will follow and adjust parenteral nutrition orders on a daily basis. Thank you.
--- NOTE | 2018-10-13 13:36 | Fluoroscopy Report ---
FL video swallow HISTORY: r/o aspiration TECHNIQUE: Video fluoroscopic evaluation of swallowing was performed in the AP and lateral projection s by the speech pathology staff. The patient is fed nectar-thick and thin liquid barium, a barium coa cory wafer, and barium pudding. FLUOROSCOPY TIME: 1.9 minutes. A cine loop submitted. COMPARISON STUDY: None. FINDINGS: There is normal hyoid excursion and epiglottic deflection. No significant penetration or as piration identified. Swallowing function is within normal limits. Mild esophageal dysmotility. IMPRESSION: 1. No aspiration identified. Mild esophageal dysmotility. 2. Please see the speech pathologist report for detailed findings and recommendations. Electronically signed by: Guero Tapia M.D. 10/13/2018 1:35 PM
[2018-10-13 13:42] LABS: Hematocrit (blood only) 28.2 % (42-52); Hemoglobin 8.4 g/dL (14.0-18.0)
--- NOTE | 2018-10-13 14:14 | Hospitalist Progress Note ---
Date of Service October 13, 2018 Assessment & Plan (1) Pneumonia: will continue on Cefepime and Zyvox afebrile, WBC is normal, coughing less and breathing easier complete 7 days total will defer to ID on final antibiotics eating a little better but not great (2) Chest pain: no evidence of ACS due to pneumonia and recent left thoracotomy certainly a degree of pain associated with poorly healing wound on left chest (3) Thrombocythemia: reactive in setting of infection peaked at 1000 yesterday, down to 700's today, continue to monitor daily (4) Anemia: down to 7.8 this morning, certainly a degree of anemia of chronic disease is likely repeat Hb up to 8.4 this afternoon no signs of blood loss, continue to monitor (5) COPD (chronic obstructive pulmonary disease): no wheezing on exam, no signs of exacerbation continue nebulizers (6) Hypertension: Continue carvedilol and amlodipine with hold parameters. Hold hydrochlorothiazide. 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 Pettit, he is not pleased with how the wound is healing likely due to poor nutritional status, wants to start artificial nutrition not a candidate for PEG feedings due to h/o multiple small bowel resections patient agrees to TPN, will consult pharmacy and get PICC line breathing and cough is better on antibiotics, no fever still with very poor appetite Review of Systems Review of Systems: All systems reviewed & are unremarkable except as noted in HPI & below Constitutional: + fatigue, + weakness, + anorexia and + weight loss (20 lbs in past few weeks); no fever and no sweats Ear, Nose, Mouth, Throat: + dry mouth, + sore throat and + dysphagia Respiratory: + cough, + dyspnea on exertion and + sputum production; no dyspnea Cardiovascular: no chest pain and no edema Gastrointestinal: no abdominal pain, no nausea, no vomiting, no constipation and no diarrhea/loose stools Physical Exam Constitutional: well developed, + thin and + frail appearing; no acute distress Eyes: PERRL, conjunctivae normal, anicteric sclerae ENMT: external ear and nose normal, oropharynx normal Neck: trachea midline, no thyromegaly Respiratory: normal respiratory effort; no respiratory distress Auscultation: + breath sounds absent (left side) and + crackles (right side); no rales, no rhonchi and no wheezes Cardiovascular: RRR, no murmur, no edema Gastrointestinal (Abdomen): normal bowel sounds, soft, nontender, no hepatosplenomegaly Musculoskeletal: no cyanosis or clubbing, extremities motor strength 5/5 Skin: + wound (left chest wound, open, redness, poor healing) Neurologic: patellar DTR's 2+ bilat, sensation intact and PERRL, EOMI, accommodation nl, no face palsy, no dysarthria Psychiatric: A+Ox3, euthymic affect Lymphatic: no cervical or axillary lymphadenopathy Results & Data Vital Signs (Past 12 Hours) Vital Signs Temp Pulse Pulse Resp BP BP Pulse Ox 10/13/18 13:57 81 18 98 10/13/18 12:06 37 C 88 20 95/59 L 97 10/13/18 07:16 80 10/13/18 07:11 36.5 C 86 24 130/66 95 10/13/18 06:57 83 18 97 10/13/18 04:04 36.5 C 86 19 101/59 L 100 10/13/18 03:01 80 20 95 Laboratory Results Laboratory Results - last 24 hr 10/13/18 10/13/18 10/13/18 05:31 05:31 10:43 WBC 10.47 RBC 3.00 L Hgb 7.8 L Hct 25.7 L MCV 85.7 MCH 26.0 MCHC 30.4 L RDW Std Deviation 47.9 H RDW Coeff of Eric 15.2 H Plt Count 730 H MPV 8.6 Immature Gran % (Auto) 0.5 Neut % (Auto) 82.3 Lymph % (Auto) 5.1 [place] % (Auto) 10.7 Eos % (Auto) 1.2 Baso % (Auto) 0.2 Immature Gran # (Auto) 0.05 H Neut # (Auto) 8.62 H Lymph # (Auto) 0.53 L [place] # (Auto) 1.12 H Eos # (Auto) 0.13 Baso # (Auto) 0.02 Hypochromasia Present Basophilic Stippling 1+ Sodium 140 Potassium 3.9 Chloride 102 Carbon Dioxide 36 H Anion Gap 2.0 L BUN 11 Creatinine 0.41 L Est Cr Clr Drug Dosing 120.5 Est GFR ( Amer) 138.1 Est GFR (Non-Af Amer) 119.1 BUN/Creatinine Ratio 26.2 H Glucose 95 Calcium 8.0 L Phosphorus 2.2 L Magnesium 2.1 10/13/18 13:31 WBC RBC Hgb 8.4 L Hct 28.2 L MCV MCH MCHC RDW Std Deviation RDW Coeff of Eric Plt Count MPV Immature Gran % (Auto) Neut % (Auto) Lymph % (Auto) [place] % (Auto) Eos % (Auto) Baso % (Auto) Immature Gran # (Auto) Neut # (Auto) Lymph # (Auto) [place] # (Auto) Eos # (Auto) Baso # (Auto) Hypochromasia Basophilic Stippling Sodium Potassium Chloride Carbon Dioxide Anion Gap BUN Creatinine Est Cr Clr Drug Dosing Est GFR ( Amer) Est GFR (Non-Af Amer) BUN/Creatinine Ratio Glucose Calcium Phosphorus Magnesium Medications Administered Current Inpatient Medications Acetaminophen (Tylenol) 650 mg PO Q4H PRN PRN Reason: Pain or Fever Stop: 11/11/18 02:17 Last Admin: 10/12/18 20:08 Dose: 650 mg Documented by: Hydrocodone Bitart/Acetaminophen ([place] 7.5/325mg) 1 tab PO QID PRN PRN Reason: Pain Stop: 10/26/18 22:40 Last Admin: 10/13/18 11:30 Dose: 1 tab Documented by: Acetic Acid (Acetic Acid 0.25%) 1 appln IR UD JOANN Stop: 11/12/18 07:59 Al Hydrox/Mg Hydrox/Simethicone (Maalox) 15 ml PO Q4H PRN PRN Reason: Dyspepsia Stop: 11/11/18 02:17 Albuterol (Duoneb) 3 ml NEB QIDR JOANN Stop: 11/11/18 07:59 Last Admin: 10/13/18 13:57 Dose: 3 ml Documented by: Amlodipine Besylate (Norvasc) 10 mg PO QAM [facility] Stop: 11/11/18 08:59 Last Admin: 10/13/18 08:27 Dose: 10 mg Documented by: Aspirin (Ecotrin Ectab) 81 mg PO QAM [facility] Stop: 11/11/18 08:59 Last Admin: 10/13/18 08:26 Dose: 81 mg Documented by: Bupropion HCl (Wellbutrin-Sr) 150 mg PO DAILY JOANN Stop: 11/11/18 08:59 Last Admin: 10/12/18 08:13 Dose: 150 mg Documented by: Buspirone HCl (Buspar) 7.5 mg PO BID [facility] Stop: 11/11/18 02:17 Last Admin: 10/12/18 08:12 Dose: 7.5 mg Documented by: Carvedilol (Coreg) 6.25 mg PO BID [facility] Stop: 11/11/18 02:17 Last Admin: 10/13/18 08:26 Dose: 6.25 mg Documented by: Guaifenesin (Mucinex) 600 mg PO Q12 JOANN Stop: 11/11/18 08:59 Last Admin: 10/13/18 08:26 Dose: 600 mg Documented by: Hydrochlorothiazide (Hctz) 25 mg PO DAILY [facility] Stop: 11/11/18 08:59 Last Admin: 10/13/18 08:26 Dose: 25 mg Documented by: Cefepime HCl 2,000 mg/ Syringe 20 mls @ 5 mls/min IV Q8H JOANN; Protocol Stop: 10/19/18 09:59 Last Admin: 10/13/18 10:19 Dose: 5 mls/min Documented by: Linezolid (Zyvox) 600 mg in 300 mls @ 200 mls/hr IV Q12H JOANN Stop: 10/19/18 10:59 Last Infusion: 10/13/18 13:13 Dose: Infused Documented by: Potassium Chloride/Sodium Chloride (Normal Saline W/20 Meq Kcl) 20 meq in 1,000 mls @ 80 mls/hr IV .[id number] [facility] Stop: 10/13/18 15:59 Last Admin: 10/13/18 11:32 Dose: 80 mls/hr Documented by: Fluconazole (Diflucan) 100 mg in 50 mls @ 100 mls/hr IV DAILY [facility]; Protocol Stop: 10/24/18 08:59 Dextrose (D10w) 1,000 mls @ 0 mls/hr IV .Q0M [facility] Stop: 11/12/18 12:44 Lidocaine HCl (Viscous Lidocaine 2%) 15 ml MT Q6H PRN PRN Reason: Pain Stop: 11/12/18 10:14 Magnesium Hydroxide (Milk Of Magnesia) 30 ml PO Q12H PRN PRN Reason: Constipation Stop: 11/11/18 02:17 Magnesium Oxide (Mag-Ox) 400 mg PO DAILY [facility] Stop: 11/11/18 08:59 Last Admin: 10/13/18 08:26 Dose: 400 mg Documented by: Megestrol Acetate (Megace) 400 mg PO BID [facility] Stop: 11/12/18 09:44 Last Admin: 10/13/18 10:19 Dose: 400 mg Documented by: Miscellaneous (Order Awaiting Action) 1 ea N/A QS [facility] Stop: 11/11/18 07:59 Last Admin: 10/13/18 07:26 Dose: Not Given Documented by: Miscellaneous Information (Pharmacy Tpn/Ppn Consult Active) 1 ea N/A UD PRN PRN Reason: Consult Stop: 11/12/18 10:34 Multivitamins/Minerals (Multivitamin W/ Minerals Tab) 1 tab PO DAILY [facility] Stop: 11/11/18 08:59 Last Admin: 10/13/18 08:26 Dose: 1 tab Documented by: Mupirocin (Bactroban 2%) 1 appln EXT BID [facility] Stop: 11/11/18 08:59 Last Admin: 10/13/18 08:27 Dose: 1 appln Documented by: Nitroglycerin (Nitrostat) 0.4 mg SL UD PRN PRN Reason: Chest Pain Stop: 11/11/18 02:17 Nutrition (Parenteral) (Custom Central Pn) 1 bag IV TODAY@1600 [facility]; Protocol Stop: 10/14/18 15:59 Nystatin (Mycostatin) 10 ml PO QID [facility]; Protocol Stop: 10/23/18 12:59 Last Admin: 10/13/18 11:35 Dose: 10 ml Documented by: Ondansetron HCl (Zofran) 4 mg IV Q6H PRN PRN Reason: Nausea Stop: 11/11/18 02:17 Ondansetron HCl (Zofran Odt) 4 mg PO Q8H PRN PRN Reason: Nausea Stop: 11/11/18 02:17 Polyethylene Glycol (Miralax Powder Packet) 17 gm PO DAILY PRN PRN Reason: Constipation Stop: 11/11/18 02:17 Potassium Chloride (Klor-Con M20) 20 meq PO DAILY JOANN Stop: 11/11/18 08:59 Last Admin: 10/13/18 08:26 Dose: 20 meq Documented by: Vitamin D (Vitamin D3) 1,000 units PO DAILY JOANN Stop: 11/11/18 08:59 Last Admin: 10/13/18 08:26 Dose: 1,000 units Documented by: PG Care Time/CCT Total # of Minutes Spent Total Time Spent with Patient: Total time spent is greater than 50% in coordination of care (as documented) at patient's floor/unit and/or counseling patient: (1) Pneumonia Laterality: unspecified laterality Lung location: unspecified part of lung Pneumonia type: due to unspecified organism Qualified Code(s): J18.9 - Pneumonia, unspecified organism
[2018-10-13] MEDS: ACETAMINOPHEN 325 MG TAB PO PRN (14:26)
[2018-10-13] MEDS ORDERED: CUSTOM CENTRAL PN IV SCH (16:00)
--- NOTE | 2018-10-13 16:12 | Oncology Consultation ---
Date of Consultation October 13, 2018 Assessment & Plan (1) Thrombocythemia: His thrombocytosis is almost certainly reactive to his infectious process. It would be very unlikely to see sudden onset of a myeloproliferative neoplasm in this way. Infections very often cause thromobcytosis that can sometimes reach over a million. He has his spleen. The fact that his platelets are trending down along with his WBCs and his heart rate suggest that he is responding to antibiotics and further supports the idea of this being a reactive process. I would continue to trend his counts daily for now. Present on Admission?: Yes (2) Anemia: His anemia is likely multifactorial, with elements of anemia of chronic inflammation and blood loss from his recent surgery. However, even in February of last year he was mildly anemic, with a baseline around 11-12. He may have an underlying chronic issue that we could evaluate at a later date. His MCV is normal, arguing against vitamin or iron deficiency, but checking levels would be reasonable given his history of abnormal digestive anatomy. I would order a ferritin, transferrin, iron, B12, and folate. Present on Admission?: Yes History of Present Illness Reason for Consultation: Thrombocytosis Attending Physician: Clint Pappas, DO History of Present Illness Mr. Ferrara is a 72 year old man with a history of COPD, HTN, multiple abdominal surgeries that have led to malabsorption and chronic diarrhea, colon cancer, and a pneumonectomy secondary to trauma 30 years ago. He developed a bronchopleural fistula and Dr. Huitron performed an Eloesser flap in late August to help manage it. Unfortunately, he has developed a number of infectious complications with it, including a pseudomonal infection. He was admitted earlier this month for a bronchoscopy and antibiotics. He returned to the hospital yesterday with chest pain, a cough, and shortness of breath. A chest x- ray revealed a new small focal density within the right medial lung base, likely representing atelectasis or developing pneumonia. He was tachycardic but afebrile and was started on broad-spectrum antibiotics. He was noted on admission to have a leukocytosis with neutrophilic predominance and a marked thrombocytosis. However, since starting antibiotics, both have trended down. He is feeling a bit better today but is still uncomfortable. Allergies Allergy/AdvReac Type Severity Reaction Status Date / Time vancomycin Allergy Severe Anaphylaxis Verified 10/12/18 09:17 animal dander Allergy Mild CONGESTION, Verified 09/30/18 06:14 STUFFINESS, SNEEZING paroxetine Allergy Mild RASH Verified 09/30/18 06:14 fluconazole [From Diflucan] AdvReac Intermediate Dizziness Verified 09/30/18 06:14 amoxicillin AdvReac Rash Verified 09/30/18 07:06 Home Medications Home Medications Medication Instructions Recorded Confirmed Type Centrum 1 tab PO DAILY 07/18/18 10/11/18 History amlodipine 10 mg PO QAM 07/18/18 10/11/18 History aspirin [Aspirin Low Dose] 81 mg PO QAM 07/18/18 10/11/18 History buspirone 7.5 mg PO BID 07/18/18 10/11/18 History fluticasone propionate 2 spray INTRANASAL DAILY 07/18/18 10/11/18 History hydrochlorothiazide 25 mg PO DAILY 07/18/18 10/11/18 History magnesium 250 mg PO DAILY 07/18/18 10/11/18 History mupirocin 1 applic TOPICAL BID 07/18/18 10/11/18 History albuterol sulfate 2.5 mg INHALATION Q4H PRN 09/10/18 10/11/18 History Breo Ellipta 1 inh INHALATION DAILY 09/27/18 10/11/18 History albuterol sulfate 2 puff INHALATION QID PRN 09/27/18 10/11/18 History bupropion HCl [Wellbutrin SR] 150 mg PO DAILY 09/27/18 10/11/18 History carvedilol 6.25 mg PO BID 09/27/18 10/11/18 History cholecalciferol (vitamin D3) 1,000 unit PO DAILY 09/27/18 10/11/18 History [Vitamin D3] cyanocobalamin (vitamin B-12) 1,000 mcg SUBCUT MONTHLY 09/27/18 10/11/18 History potassium chloride 20 meq PO DAILY 09/27/18 10/11/18 History ondansetron 4 mg PO Q8H PRN 10/11/18 10/11/18 History Patient History Medical History Primary pulmonary hypertension (Acute) Malabsorption syndrome (Acute) Incisional hernia (Acute) Dilated aortic root (Acute) COPD with emphysema (Acute) Severe, on 3L O2 continuous. Admitted to [facility] 09/10-09/16 with exacerbation + pneumonia. Anxiety (Acute) Acquired deviated nasal septum (Acute) BPH (benign prostatic hyperplasia) GERD (gastroesophageal reflux disease) Aortic stenosis Mild by 2018 echo Bicuspid aortic valve Hypertension (Chronic) Anemia Exposure to Agent [place] History of recent hospitalization Admitted [facility] 09/10-09/18 for hemoptysis 2/2 L bronchopleural fistula, pneumonia, COPD exacerbation. L Eloesser flap/EBUS/bronch by Dr. Pettit 09/14. Treated with IV ABX and discharged on Augmention On home oxygen therapy 3L VIA NC CONT. Osteoarthritis Surgical History History of abdominal surgery "TWISTED BOWEL/NECROTIC BOWEL REPAIR" History of bronchoscopy History of cholecystectomy History of colonoscopy History of colonoscopy with polypectomy History of endoscopic sinus surgery History of herniorrhaphy History of lung surgery LEFT LOBECTOMY History of resection of small bowel History of tooth extraction Family History Mother Breast cancer Cancer Hypertension Social History Preferred Language: Lao Communication Ability: Effective Rn Surgical Pcu Required: No Beliefs That Will Affect Care: None marital status: Current Living Situation: Alone Current Living Situation Comment: one story house alone Other Information That Helps Us Care for You: No Feels Safe at Home: Yes Safety Concerns: Feels Safe At This Time Smoking Status: Former smoker Tobacco Type: cigarettes Second Hand Exposure: No Hx Alcohol Use: No Hx Substance Use: No Review of Systems Constitutional: + fatigue and + weakness; no fever Respiratory: + cough and + dyspnea Cardiovascular: + chest pain; no palpitations and no edema Gastrointestinal: no abdominal pain and no nausea Musculoskeletal: no back pain and no joint pain Integumentary: no rash Neurologic: no localized weakness and no headache(s) Hematologic / Lymphatic: no easy bleeding and no easy bruising Physical Exam Constitutional: + ill appearing (chronically) and + thin; no acute distress Eyes: + anicteric sclerae and EOM intact bilaterally Respiratory: no respiratory distress Auscultation: + diminished lung sounds (on the left) Cardiovascular: RRR, no murmur, no edema Gastrointestinal (Abdomen): Inspection/Auscultation: normal bowel sounds; abdomen not distended Percussion/Palpation: abdomen soft; abdomen nontender Skin: no rashes, warm and dry Psychiatric: A+Ox3, euthymic affect Results & Data Vital Signs (Past 12 Hours) Vital Signs Temp Pulse Pulse Resp BP BP Pulse Ox 10/13/18 15:34 80 18 96 10/13/18 15:21 36.4 C L 81 18 105/66 99 10/13/18 13:57 81 18 98 10/13/18 12:06 37 C 88 20 95/59 L 97 10/13/18 07:16 80 10/13/18 07:11 36.5 C 86 24 130/66 95 10/13/18 06:57 83 18 97 Laboratory Results Laboratory Tests 09/15/18 10/01/18 10/11/18 07:10 06:28 22:21 WBC 13.56 H Hgb Plt Count 299 457 H 904 H 10/12/18 10/13/18 10/13/18 08:05 05:31 13:31 WBC 14.64 H 10.47 Hgb 7.8 L 8.4 L Plt Count 1031 H* 730 H
--- NOTE | 2018-10-13 23:05 | Infectious Disease Progress Nt ---
Date of Service October 13, 2018 Assessment & Plan (1) Pneumonia: Patient with possible new right-sided pneumonia, although all his symptoms are related to his left side. For now, would continue present antibiotics pending further culture results. Await reevaluation by Dr. Pettit. Harish guajardo. Subjective Patient seen in follow-up for pneumonia. Complaining of mouth pain, difficulty swallowing. No increase in shortness of breath. Remains afebrile. Review of Systems Review of Systems: All systems reviewed & are unremarkable except as noted in HPI & below Physical Exam Constitutional: WD/WN, vitals as above comfortable; no acute distress Eyes: PERRL, conjunctivae normal, anicteric sclerae ENMT: external ear and nose normal, oropharynx normal Neck: trachea midline, no thyromegaly neck nontender Respiratory: no respiratory distress Auscultation: + diminished lung sounds (Left-sided) and + rhonchi ( right-sided) Cardiovascular: Rate/Rhythm: regular rate and regular rhythm Heart Sounds: normal S1 and normal S2; no gallop, no murmur and no cardiac rub Gastrointestinal (Abdomen): normal bowel sounds, soft, nontender, no hepatosplenomegaly Musculoskeletal: no cyanosis or clubbing, extremities motor strength 5/5 No spinal tenderness, no joint swelling or erythema Skin: no rashes, warm and dry no lesions Neurologic: moves all extremities and awake; no focal motor deficits Motor/Sensory: no sensory deficit Psychiatric: A+Ox3, euthymic affect Lymphatic: no cervical or axillary lymphadenopathy no inguinal lymphadenopathy Results & Data Vital Signs (Past 12 Hours) Vital Signs Temp Pulse Resp BP Pulse Ox 10/13/18 19:32 36.6 C 86 20 99/66 L 99 10/13/18 18:56 67 18 97 10/13/18 15:34 80 18 96 10/13/18 15:21 36.4 C L 81 18 105/66 99 10/13/18 13:57 81 18 98 10/13/18 12:06 37 C 88 20 95/59 L 97 Laboratory Results Short CBC 10/13/18 10/13/18 Range/Units 05:31 13:31 WBC 10.47 (4.8-10.8) K/uL Hgb 7.8 L 8.4 L (14.0-18.0) g/dL Hct 25.7 L 28.2 L (42-52) % Plt Count 730 H (130-400) K/uL BMP 10/13/18 05:31 Sodium 140 Potassium 3.9 Chloride 102 Carbon Dioxide 36 H BUN 11 Creatinine 0.41 L Glucose 95 Calcium 8.0 L Diagnostic Findings Microbiology 10/12/18 00:15 Blood Aerobic Blood Culture - Preliminary No growth in Aerobic bottle after 24 hours. 10/12/18 00:15 Blood Anaerobic Blood Culture - Preliminary No growth in Anaerobic bottle after 24 hours. 10/12/18 00:27 Blood Aerobic Blood Culture - Preliminary No growth in Aerobic bottle after 24 hours. 10/12/18 00:27 Blood Anaerobic Blood Culture - Preliminary No growth in Anaerobic bottle after 24 hours. (1) Pneumonia Laterality: unspecified laterality Lung location: unspecified part of lung Pneumonia type: due to unspecified organism Qualified Code(s): J18.9 - Pneumonia, unspecified organism
[2018-10-14] MEDS: CEFEPIME 2,000 MG in SYRINGE 7.5 ML IV SCH ×3 (01:40→18:04)
[2018-10-14 06:54] LABS: BUN Creatinine Ratio 27.7 (10-20); Calcium 8.4 mg/dl (8.5-10.1); Creatinine Clr Calc Pharmacy 126.1 ml/min; Est GFR (African American) 140.9; Est GFR (Non-African American) 121.6; Magnesium 2.1 mg/dl (1.8-2.4); Phosphorus 2.3 mg/dl (2.5-4.9); Potassium 4.4 mmol/L (3.5-5.1)
[2018-10-14] MEDS: ALBUT/IPRATROP 3MG/0.5MG NEB 3 ML VIAL NEB SCH ×4 (07:12→20:14)
[2018-10-14] MEDS: guaiFENesin 600 MG TABCR PO SCH ×2 (08:43→20:04)
[2018-10-14] MEDS: CEROVITE ADV FORMULA TAB PO SCH (08:43)
[2018-10-14] MEDS: NYSTATIN SUSP 500,000 U/5 ML UDC PO SCH ×4 (08:43→19:57)
[2018-10-14] MEDS: CARVEDILOL 6.25 MG TAB PO SCH ×2 (08:43→20:04)
[2018-10-14] MEDS: AMLODIPINE BESYLATE 5 MG TAB PO SCH (08:43)
[2018-10-14] MEDS: CHOLECALCIFEROL 1,000 UNITS TAB PO SCH (08:44)
[2018-10-14] MEDS: ASPIRIN 81 MG ECTAB PO SCH (08:44)
[2018-10-14] MEDS: POTASSIUM CHLORIDE 20 MEQ TABCR PO SCH (08:44)
[2018-10-14] MEDS: hydroCHLOROthiazide 25 MG TAB PO SCH (08:44)
[2018-10-14] MEDS: MUPIROCIN 2% OINT 22 GM TUBE EXT SCH ×2 (08:44→20:04)
[2018-10-14] MEDS: FLUCONAZOLE 100 MG/50 ML BAG IV SCH (08:45)
[2018-10-14] MEDS: MAGNESIUM OXIDE 400 MG TAB PO SCH (08:45)
[2018-10-14] MEDS: MEGESTROL ACETATE SUSP 400 MG/10 ML UDC PO SCH ×2 (08:45→20:04)
--- NOTE | 2018-10-14 11:04 | Pharmacy Report ---
PHA: Parenteral Nutrition Con - Date of Service October 14, 2018 - Scope Pharmacy was consulted on 10/13/18 to manage parenteral nutrition orders for this patient. - Objective Height: 5 ft 10 in Weight: 50.6 kg Diet: Regular Intake & Output (24hrs):: Intake & Output 10/12/18 10/13/18 10/14/18 10/15/18 06:59 06:59 06:59 06:59 Intake Total 1000 / 1000 2591.000 / 2591.000 4080.000 / 4080.000 50 / 50 Output Total 400 / 400 651 / 651 2034 / 2034 300 / 300 Balance 600 / 600 1940.000 / 7748.211 9086.000 / 2045.000 -250 / -250 Weight 50.2 kg 50.8 kg 50.6 kg 50.6 kg Laboratory Data (Last 24 Hr):: 10/13/18 10/14/18 10:43 05:37 Sodium 138 Potassium 4.4 Chloride 99 Carbon Dioxide 36 H BUN 11 Creatinine 0.39 L Glucose 99 Calcium 8.4 L Phosphorus 2.2 L 2.3 L Magnesium 2.1 2.1 Triglycerides 98 Nutrition Assessment:: Please refer to the Notes section of the EMR for the most recent auto service advisor 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 - Assessment Day #2 of TPN for severe protein-calorie malnutrition, weight loss. Adequate nutrition needed for wound healing. Pt also receiving Megace 400mg PO BID Labs unremarkable today, electrolytes need slight adjustment in TPN- * K+ trending upwards; will decrease slightly in TPN * Phos still low at 2.3mg/dl; will increase in TPN Additional interventions to promote wound healing: Zinc: 50 mg elemental zinc (e.g., 220 mg zinc sulfate) PO three times per day until wound healed. Vitamin C: 500-3000mg/day depending on whether it causes soft stool, then back off Protein: titrating up to max protein in TPN Glycemic control: BSGs all WNL - Plan For day #2 of PN administration, the following will be ordered: Macronutrients Amino acids 75 grams/day Dextrose 150 grams/day Lipids 50 grams/day Micronutrients Sodium chloride 70 mEq Sodium acetate 20 mEq Potassium phosphate 30 mMol Potassium chloride 20 mEq (pt also receiving 20meq PO daily) Magnesium sulfate 4.06 mEq Calcium gluconate 4.65 mEq Multivitamins 10 mL Trace Elements 1 mL Additional additives: Folic Acid 1mg & Thiamine 100mg Total volume 1,295.5mL to be infused over 24 hrs will provide 1310 kcal/day Final osmolarity 1375 mOsm/L (for central administration only) Labs, as indicated, will be ordered per protocol PO Supplements: Zinc 220mg PO TIDM Ascorbic Acid 500mg PO TIDM Pharmacy will continue to follow and adjust parenteral nutrition orders on a daily basis. Thank you for allowing us to participate in the care of this patient.
[2018-10-14] MEDS: ZINC SULFATE 220 MG CAPSULE PO SCH ×2 (11:39→17:22)
[2018-10-14] MEDS: LINEZOLID 600 MG/300 ML BAG IV SCH ×2 (11:39→23:08)
[2018-10-14] MEDS: ASCORBIC ACID 500 MG TAB PO SCH ×2 (11:39→17:22)
--- NOTE | 2018-10-14 14:28 | Progress Note ---
DATE: 10/14/2018 Mr. Ferrara was seen today. His wound actually looks better. I have some grave concerns about him though. His malnutrition is playing a baxter role in him to not healing this wound. In addition, he is really not a candidate for any type of muscle flap or omental flap. He still has an air leak. This particular part of his flap is looking better though. His skin looks better. I am quite concerned because this wound is around some major vessels too. It is possible this could erode into the main pulmonary artery or aorta. It will be difficult to prevent that if this wound does not heal. My hope is that he will get enough calories and to start granulating tissue which he really has not done at this point. I would continue to be very aggressive in our wound care. JACQUE
[2018-10-14] MEDS: HYDROCODONE/ACETAMINOPHEN 7.5/325MG TAB PO PRN ×2 (15:11→23:07)
--- NOTE | 2018-10-14 15:29 | Hospitalist Progress Note ---
Date of Service October 14, 2018 Assessment & Plan (1) Pneumonia: will continue on Cefepime and Zyvox afebrile, WBC is normal, coughing less and breathing easier complete 7 days total will defer to ID on final antibiotics hopeful to change to PO antibiotics in next 1-2 days (2) Chest pain: no evidence of ACS due to pneumonia and recent left thoracotomy certainly a degree of pain associated with poorly healing wound on left chest reports less pain today (3) Thrombocythemia: reactive in setting of infection peaked at 1000, down to 700's yesterday will repeat tomorrow (4) Anemia: down to 7.8 yesterday morning, certainly a degree of anemia of chronic disease is likely repeat Hb up to 8.4 yesterday afternoon no signs of blood loss, continue to monitor, repeat CBC in the morning (5) COPD (chronic obstructive pulmonary disease): no wheezing on exam, no signs of exacerbation continue nebulizers (6) Hypertension: Continue carvedilol and amlodipine with hold parameters. Hold hydrochlorothiazide. 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 cannot get PEG tube (9) Abnormal weight loss: see above, still not eating well hopeful that TPN will improve nutritional status (10) Oral thrush: less pain and redness in mouth and throat today continue on Nystatin S/S and Diflucan complete 10-14 day course Plan: transfer to medical floor today check labs in AM PT/OT consults Subjective patient says that his mouth and throat are feeling better he was able to eat and drink a little easier this morning still had some issues with swallowing pills this morning breathing a little easier he was started on TPN, labs reviewed, electrolytes stable d/w pharmacy, they will add some Zinc appreciate notes from thoracic surgery and infectious disease Review of Systems Review of Systems: All systems reviewed & are unremarkable except as noted in HPI & below Constitutional: + fatigue, + weakness and + weight loss; no fever, no chills and no sweats Ear, Nose, Mouth, Throat: + dry mouth and + sore throat Respiratory: + cough and + sputum production Cardiovascular: no chest pain and no edema Gastrointestinal: no abdominal pain, no nausea, no vomiting, no constipation and no diarrhea/loose stools Physical Exam Constitutional: well developed, + thin and + frail appearing; no acute distress Eyes: PERRL, conjunctivae normal, anicteric sclerae ENMT: external ear and nose normal, oropharynx normal Neck: trachea midline, no thyromegaly Respiratory: normal respiratory effort; no respiratory distress Auscultation: + breath sounds absent (left side) and + crackles (right side); no rales, no rhonchi and no wheezes Cardiovascular: RRR, no murmur, no edema Gastrointestinal (Abdomen): normal bowel sounds, soft, nontender, no hepatosplenomegaly Musculoskeletal: no cyanosis or clubbing, extremities motor strength 5/5 Skin: + wound (left chest wound, open, redness, poor healing) Neurologic: patellar DTR's 2+ bilat, sensation intact and PERRL, EOMI, accommodation nl, no face palsy, no dysarthria Psychiatric: A+Ox3, euthymic affect Lymphatic: no cervical or axillary lymphadenopathy Results & Data Vital Signs (Past 12 Hours) Vital Signs Temp Pulse Pulse Resp BP Pulse Ox 10/14/18 12:58 36.5 C 89 20 111/71 97 10/14/18 11:20 83 16 97 10/14/18 11:00 36.8 C 82 21 115/74 99 10/14/18 07:58 36.9 C 98 H 18 132/69 96 10/14/18 07:14 100 H 16 96 10/14/18 03:49 36.5 C 77 18 115/73 99 Laboratory Results Laboratory Results - last 24 hr 10/14/18 05:37 Sodium 138 Potassium 4.4 Chloride 99 Carbon Dioxide 36 H Anion Gap 3.0 BUN 11 Creatinine 0.39 L Est Cr Clr Drug Dosing 126.1 Est GFR ( Amer) 140.9 Est GFR (Non-Af Amer) 121.6 BUN/Creatinine Ratio 27.7 H Glucose 99 Calcium 8.4 L Phosphorus 2.3 L Magnesium 2.1 Triglycerides 98 Medications Administered Current Inpatient Medications Acetaminophen (Tylenol) 650 mg PO Q4H PRN PRN Reason: Pain or Fever Stop: 11/11/18 02:17 Last Admin: 10/13/18 14:26 Dose: 650 mg Documented by: Hydrocodone Bitart/Acetaminophen (Waddy 7.5/325mg) 1 tab PO QID PRN PRN Reason: Pain Stop: 10/26/18 22:40 Last Admin: 10/14/18 15:11 Dose: 1 tab Documented by: Acetic Acid (Acetic Acid 0.25%) 1 appln IR UD [facility] Stop: 11/12/18 07:59 Al Hydrox/Mg Hydrox/Simethicone (Maalox) 15 ml PO Q4H PRN PRN Reason: Dyspepsia Stop: 11/11/18 02:17 Albuterol (Duoneb) 3 ml NEB QIDR [facility] Stop: 11/11/18 07:59 Last Admin: 10/14/18 15:20 Dose: 3 ml Documented by: Amlodipine Besylate (Norvasc) 10 mg PO QAM [facility] Stop: 11/11/18 08:59 Last Admin: 10/14/18 08:43 Dose: 10 mg Documented by: Ascorbic Acid (Vitamin C) 500 mg PO TIDM [facility] Stop: 11/13/18 11:59 Last Admin: 10/14/18 11:39 Dose: 500 mg Documented by: Aspirin (Ecotrin Ectab) 81 mg PO QAM [facility] Stop: 11/11/18 08:59 Last Admin: 10/14/18 08:44 Dose: 81 mg Documented by: Bupropion HCl (Wellbutrin-Sr) 150 mg PO DAILY [facility] Stop: 11/11/18 08:59 Last Admin: 10/12/18 08:13 Dose: 150 mg Documented by: Buspirone HCl (Buspar) 7.5 mg PO BID [facility] Stop: 11/11/18 02:17 Last Admin: 10/12/18 08:12 Dose: 7.5 mg Documented by: Carvedilol (Coreg) 6.25 mg PO BID [facility] Stop: 11/11/18 02:17 Last Admin: 10/14/18 08:43 Dose: 6.25 mg Documented by: Diphenhydramine HCl (Benadryl Capsule) 25 mg PO HSZ PRN PRN Reason: Anxiety/Insomnia Stop: 11/13/18 02:14 Guaifenesin (Mucinex) 600 mg PO Q12 [facility] Stop: 11/11/18 08:59 Last Admin: 10/14/18 08:43 Dose: 600 mg Documented by: Hydrochlorothiazide (Hctz) 25 mg PO DAILY [facility] Stop: 11/11/18 08:59 Last Admin: 10/14/18 08:44 Dose: 25 mg Documented by: Cefepime HCl 2,000 mg/ Syringe 20 mls @ 5 mls/min IV Q8H [facility]; Protocol Stop: 10/19/18 09:59 Last Admin: 10/14/18 10:00 Dose: 5 mls/min Documented by: Linezolid (Zyvox) 600 mg in 300 mls @ 200 mls/hr IV Q12H [facility] Stop: 10/19/18 10:59 Last Infusion: 10/14/18 13:15 Dose: Infused Documented by: Fluconazole (Diflucan) 100 mg in 50 mls @ 100 mls/hr IV DAILY [facility]; Protocol Stop: 10/24/18 08:59 Last Infusion: 10/14/18 09:15 Dose: Infused Documented by: Dextrose (D10w) 1,000 mls @ 0 mls/hr IV .Q0M [facility] Stop: 11/12/18 12:44 Lidocaine HCl (Viscous Lidocaine 2%) 15 ml MT Q6H PRN PRN Reason: Pain Stop: 11/12/18 10:14 Lorazepam (Ativan) 0.5 mg PO HS PRN PRN Reason: Insomnia Stop: 11/13/18 12:56 Magnesium Hydroxide (Milk Of Magnesia) 30 ml PO Q12H PRN PRN Reason: Constipation Stop: 11/11/18 02:17 Magnesium Oxide (Mag-Ox) 400 mg PO DAILY [facility] Stop: 11/11/18 08:59 Last Admin: 10/14/18 08:45 Dose: 400 mg Documented by: Megestrol Acetate (Megace) 400 mg PO BID [facility] Stop: 11/12/18 09:44 Last Admin: 10/14/18 08:45 Dose: 400 mg Documented by: Miscellaneous (Order Awaiting Action) 1 ea N/A QS [facility] Stop: 11/11/18 07:59 Last Admin: 10/14/18 15:08 Dose: Not Given Documented by: Miscellaneous Information (Pharmacy Tpn/Ppn Consult Active) 1 ea N/A UD PRN PRN Reason: Consult Stop: 11/12/18 10:34 Multivitamins/Minerals (Multivitamin W/ Minerals Tab) 1 tab PO DAILY [facility] Stop: 11/11/18 08:59 Last Admin: 10/14/18 08:43 Dose: 1 tab Documented by: Mupirocin (Bactroban 2%) 1 appln EXT BID [facility] Stop: 11/11/18 08:59 Last Admin: 10/14/18 08:44 Dose: 1 appln Documented by: Nitroglycerin (Nitrostat) 0.4 mg SL UD PRN PRN Reason: Chest Pain Stop: 11/11/18 02:17 Nutrition (Parenteral) (Custom Central Pn) 1 bag IV TODAY@1600 [facility]; Protocol Stop: 10/14/18 15:59 Last Admin: 10/13/18 16:38 Dose: 1 bag Documented by: Nutrition (Parenteral) (Custom Central Pn) 1 bag IV TODAY@1600 [facility]; Protocol Stop: 10/15/18 15:59 Nystatin (Mycostatin) 10 ml PO QID [facility]; Protocol Stop: 10/23/18 12:59 Last Admin: 10/14/18 12:50 Dose: 10 ml Documented by: Ondansetron HCl (Zofran) 4 mg IV Q6H PRN PRN Reason: Nausea Stop: 11/11/18 02:17 Ondansetron HCl (Zofran Odt) 4 mg PO Q8H PRN PRN Reason: Nausea Stop: 11/11/18 02:17 Polyethylene Glycol (Miralax Powder Packet) 17 gm PO DAILY PRN PRN Reason: Constipation Stop: 11/11/18 02:17 Potassium Chloride (Klor-Con M20) 20 meq PO DAILY [facility] Stop: 11/11/18 08:59 Last Admin: 10/14/18 08:44 Dose: 20 meq Documented by: Vitamin D (Vitamin D3) 1,000 units PO DAILY [facility] Stop: 11/11/18 08:59 Last Admin: 10/14/18 08:44 Dose: 1,000 units Documented by: Zinc Sulfate (Zinc Sulfate) 220 mg PO TIDM [facility] Stop: 11/13/18 11:59 Last Admin: 10/14/18 11:39 Dose: 220 mg Documented by: PG Care Time/CCT Total # of Minutes Spent Total Time Spent with Patient: Total time spent is greater than 50% in coordination of care (as documented) at patient's floor/unit and/or counseling patient: (1) Pneumonia Laterality: unspecified laterality Lung location: unspecified part of lung Pneumonia type: due to unspecified organism Qualified Code(s): J18.9 - Pneumonia, unspecified organism
[2018-10-14] MEDS ORDERED: CUSTOM CENTRAL PN IV SCH (16:00)
[2018-10-14] MEDS: ACETAMINOPHEN 325 MG TAB PO PRN (19:57)
[2018-10-14] MEDS ORDERED: ALBUT/IPRATROP 3MG/0.5MG NEB 3 ML VIAL NEB PRN (23:47)
[2018-10-15] MEDS: CEFEPIME 2,000 MG in SYRINGE 7.5 ML IV SCH ×3 (02:19→17:28)
[2018-10-15 06:37] LABS: Hematocrit (blood only) 27.4 % (42-52); Hemoglobin 8.1 g/dL (14.0-18.0); Mean Corpuscular Hgb Conc 29.6 g/dL (32-36); Mean Platelet Volume 8.8 fL (7.4-10.4); Platelet Count 706 K/uL (130-400); RDW Coefficient of Variation 15.5 % (11.5-14.5); RDW Standard Deviation 49.5 fL (36.4-46.3); Red Blood Count 3.15 M/uL (4.7-6.1); White Blood Count 11.64 K/uL (4.8-10.8)
[2018-10-15] MEDS: ALBUT/IPRATROP 3MG/0.5MG NEB 3 ML VIAL NEB SCH ×5 (07:16→23:15)
[2018-10-15 07:25] LABS: BUN Creatinine Ratio 45.2 (10-20); Calcium 8.4 mg/dl (8.5-10.1); Creatinine Clr Calc Pharmacy 140.6 ml/min; Est GFR (African American) 147.4; Est GFR (Non-African American) 127.1; Magnesium 2.6 mg/dl (1.8-2.4); Phosphorus 2.8 mg/dl (2.5-4.9); Potassium 4.5 mmol/L (3.5-5.1)
[2018-10-15] MEDS: ACETAMINOPHEN 325 MG TAB PO PRN ×2 (07:57→19:52)
[2018-10-15] MEDS: ASCORBIC ACID 500 MG TAB PO SCH ×3 (07:58→16:10)
[2018-10-15] MEDS: ZINC SULFATE 220 MG CAPSULE PO SCH ×3 (07:58→16:09)
[2018-10-15] MEDS: AMLODIPINE BESYLATE 5 MG TAB PO SCH (09:00)
[2018-10-15] MEDS: CHOLECALCIFEROL 1,000 UNITS TAB PO SCH (09:00)
[2018-10-15] MEDS: CARVEDILOL 6.25 MG TAB PO SCH ×2 (09:01→20:05)
[2018-10-15] MEDS: guaiFENesin 600 MG TABCR PO SCH ×2 (09:01→20:05)
[2018-10-15] MEDS: CEROVITE ADV FORMULA TAB PO SCH (09:01)
[2018-10-15] MEDS: ASPIRIN 81 MG ECTAB PO SCH (09:01)
[2018-10-15] MEDS: POTASSIUM CHLORIDE 20 MEQ TABCR PO SCH (09:02)
[2018-10-15] MEDS: hydroCHLOROthiazide 25 MG TAB PO SCH (09:02)
[2018-10-15] MEDS: MAGNESIUM OXIDE 400 MG TAB PO SCH (09:02)
--- NOTE | 2018-10-15 09:02 | Pharmacy Report ---
PHA: Parenteral Nutrition Con - Date of Service October 15, 2018 - Scope Pharmacy was consulted on 10/13/18 to manage parenteral nutrition orders for this patient. - Subjective The patient is currently on day # 3 of central parenteral nutrition for malnutrition. - Objective Height: 5 ft 10 in Weight: 50.6 kg Diet: Regular Intake & Output (24hrs):: Intake & Output 10/13/18 10/14/18 10/15/18 10/16/18 06:59 06:59 06:59 06:59 Intake Total 2591.000 / 2591.000 4080.000 / 4080.000 1350 / 1350 Output Total 651 / 651 2035 / 2035 2250 / 2250 Balance 1940.000 / 2490.185 0418.000 / 204.000 -900 / -900 Weight 50.8 kg 50.6 kg 50.6 kg Laboratory Data (Last 24 Hr):: 10/15/18 05:48 Sodium 139 Potassium 4.5 Chloride 97 L Carbon Dioxide 40 H BUN 16 Creatinine 0.35 L Glucose 95 Calcium 8.4 L Phosphorus 2.8 Magnesium 2.6 H Nutrition Assessment:: Please refer to the Notes section of the EMR for the most recent systems 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 - Assessment Day #3 of TPN for severe protein-calorie malnutrition, weight loss. Adequate nutrition needed for wound healing. Have titrated up to goal macros over the past 3 days Pt also receiving Megace 400mg PO BID Labs indicate metabolic alkalosis: * Increase chloride and decrease acetate in the TPN Additional electrolytes need slight adjustment in TPN * Magnesium trending upwards; will remove TPN * Phos WNL but trending upwards from aggressive increase yesterday; will decrease slightly in TPN Additional interventions to promote wound healing: Zinc: 50 mg elemental zinc (e.g., 220 mg zinc sulfate) PO three times per day until wound healed. Vitamin C: 500-3000mg/day depending on whether it causes soft stool, then back off Protein: titrating up to max protein in TPN Glycemic control: BSGs all WNL - Plan For day # 3 of PN administration, the following will be ordered: Macronutrients (at goal) Amino acids 75 grams/day Dextrose 175 grams/day Lipids 50 grams/day Micronutrients Sodium chloride 100 mEq Potassium phosphate 24 mMol Potassium chloride 30 mEq Calcium gluconate 4.65 mEq Multivitamins 10 mL Trace Elements 1 mL Additional additives: Folic Acid 1mg, Thiamine 100mg Total volume 1,335 mL to be infused over 24 hrs will provide 1,395 kcal/day to be infused via central access only Labs, as indicated, will be ordered per protocol PO Supplements: Zinc 220mg PO TIDM Ascorbic Acid 500mg PO TIDM Pharmacy will continue to follow and adjust parenteral nutrition orders on a daily basis. Thank you for allowing us to participate in the care of this patient.
[2018-10-15] MEDS: MEGESTROL ACETATE SUSP 400 MG/10 ML UDC PO SCH ×2 (09:03→20:05)
[2018-10-15] MEDS: NYSTATIN SUSP 500,000 U/5 ML UDC PO SCH ×4 (09:03→20:05)
[2018-10-15] MEDS: MUPIROCIN 2% OINT 22 GM TUBE EXT SCH ×2 (09:12→20:05)
[2018-10-15] MEDS: FLUCONAZOLE 100 MG/50 ML BAG IV SCH (09:13)
[2018-10-15] MEDS: LINEZOLID 600 MG/300 ML BAG IV SCH ×2 (11:22→22:54)
--- NOTE | 2018-10-15 13:21 | Surgery Progress Note ---
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 denies SOB and states "I am all right." Discussed with RN and no acute issues noted. Physical Exam Physical Exam: Eloesser flap examined. There is erythema along wound/flap edges, however there is some improvement noted from a few days ago. Wound packing removed and was noted to have some green drainage. Wound bed was overall clean. Wound repacked with 1 kerlix soaked in 0.25% acetic acid. Erythematous wound edges covered with Aquacel and ABD pad placed on top of wound which was then secured with medipore tape. Results & Data Vital Signs (Past 12 Hours) Vital Signs Temp Pulse Resp BP Pulse Ox 10/15/18 11:18 93 H 20 98 10/15/18 07:47 36.8 C 92 H 18 118/76 100 10/15/18 07:16 89 18 98 10/15/18 01:41 91 H 18 95
[2018-10-15] MEDS ORDERED: CUSTOM CENTRAL PN IV SCH (16:00)
--- NOTE | 2018-10-15 16:12 | Hospitalist Progress Note ---
Date of Service October 15, 2018 Assessment & Plan (1) Pneumonia: will continue on Cefepime and Zyvox afebrile, WBC is normal, coughing less and breathing easier complete 7 days total plan to change to PO Zyvox and Levaquin but he will be here over the weekend since he is having difficult time with PO antibiotics will just keep on IV for now may end up completing all 7 days here (2) Chest pain: no evidence of ACS due to pneumonia and recent left thoracotomy certainly a degree of pain associated with poorly healing wound on left chest pain is better (3) Thrombocythemia: reactive in setting of infection peaked at 1000, down to 706 today repeat tomorrow (4) Anemia: Hb low but stable at 8.1, certainly a degree of anemia of chronic disease is likely no signs of blood loss, continue to monitor, repeat CBC in the morning (5) COPD (chronic obstructive pulmonary disease): no wheezing on exam, no signs of exacerbation continue nebulizers (6) Hypertension: Continue carvedilol and amlodipine with hold parameters. Hold hydrochlorothiazide. 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 cannot get PEG tube (9) Abnormal weight loss: see above, still not eating well hopeful that TPN will improve nutritional status (10) Oral thrush: less pain and redness in mouth and throat today continue on Nystatin S/S and Diflucan complete 10-14 day course, today is day 3 of treatment Plan: will ultimately need SNF for wound care, TPN and therapy check labs in AM PT/OT consults has a guarded prognosis going forward as his nutritional status will make for poor wound healing and make him prone to infection Subjective patient says his throat continues to improve but very slowly has difficulty swallowing pills this AM, they had to be crushed but then he got them down mouth is sore and still feels "hot" breathing is stable, at baseline according to him he is coughing less appreciate ID note, will consider changing to oral Zyvox and Levaquin reviewed labs, Hb low but stable, WBC normal, electrolytes and Cr stable continues with TPN discussed with CM, they are looking into SNF but won't have answer until next week Review of Systems Review of Systems: All systems reviewed & are unremarkable except as noted in HPI & below Constitutional: + fatigue and + weakness; no fever, no chills and no sweats Respiratory: + cough and + dyspnea on exertion; no dyspnea, no pain with cough and no sputum production Cardiovascular: no chest pain and no edema Gastrointestinal: no abdominal pain, no nausea, no vomiting, no constipation and no diarrhea/loose stools Physical Exam Constitutional: well developed, + thin and + frail appearing; no acute distress Eyes: PERRL, conjunctivae normal, anicteric sclerae ENMT: external ear and nose normal, oropharynx normal Neck: trachea midline, no thyromegaly Respiratory: normal respiratory effort; no respiratory distress Auscultat ion: + breath sounds absent (left side); no rales, no rhonchi and no wheezes Cardiovascular: RRR, no murmur, no edema Gastrointestinal (Abdomen): normal bowel sounds, soft, nontender, no hepatosplenomegaly Musculoskeletal: no cyanosis or clubbing, extremities motor strength 5/5 Skin: + wound (left chest wound, open, redness, poor healing) Neurologic: patellar DTR's 2+ bilat, sensation intact and PERRL, EOMI, ac commodation nl, no face palsy, no dysarthria Psychiatric: A+Ox3, euthymic affect Lymphatic: no cervical or axillary lymphadenopathy Results & Data Vital Signs (Past 12 Hours) Vital Signs Temp Pulse Resp BP Pulse Ox 10/15/18 15:29 86 18 99 10/15/18 15:06 36.5 C 85 18 117/70 99 10/15/18 11:18 93 H 20 98 10/15/18 07:47 36.8 C 92 H 18 118/76 100 10/15/18 07:16 89 18 98 Laboratory Results Laboratory Results - last 24 hr 10/15/18 10/15/18 05:48 05:48 WBC 11.64 H RBC 3.15 L Hgb 8.1 L Hct 27.4 L MCV 87.0 MCH 25.7 MCHC 29.6 L RDW Std Deviation 49.5 H RDW Coeff of Eric 15.5 H Plt Count 706 H MPV 8.8 Sodium 139 Potassium 4.5 Chloride 97 L Carbon Dioxide 40 H Anion Gap 2.0 L BUN 16 Creatinine 0.35 L Est Cr Clr Drug Dosing 140.6 Est GFR ( Amer) 147.4 Est GFR (Non-Af Amer) 127.1 BUN/Creatinine Ratio 45.2 H Glucose 95 Calcium 8.4 L Phosphorus 2.8 Magnesium 2.6 H Medications Administered Current Inpatient Medications Acetaminophen (Tylenol) 650 mg PO Q4H PRN PRN Reason: Pain or Fever Stop: 11/11/18 02:17 Last Admin: 10/15/18 07:57 Dose: 650 mg Documented by: Hydrocodone Bitart/Acetaminophen (Otto 7.5/325mg) 1 tab PO QID PRN PRN Reason: Pain Stop: 10/26/18 22:40 Last Admin: 10/14/18 23:07 Dose: 1 tab Documented by: Acetic Acid (Acetic Acid 0.25%) 1 appln IR UD [facility] Stop: 11/12/18 07:59 Al Hydrox/Mg Hydrox/Simethicone (Maalox) 15 ml PO Q4H PRN PRN Reason: Dyspepsia Stop: 11/11/18 02:17 Albuterol (Duoneb) 3 ml NEB Q4RWA [facility] Stop: 11/14/18 07:59 Last Admin: 10/15/18 15:26 Dose: 3 ml Documented by: Amlodipine Besylate (Norvasc) 10 mg PO QAM [facility] Stop: 11/11/18 08:59 Last Admin: 10/15/18 09:00 Dose: Not Given Documented by: Ascorbic Acid (Vitamin C) 500 mg PO TIDM [facility] Stop: 11/13/18 11:59 Last Admin: 10/15/18 16:10 Dose: 500 mg Documented by: Aspirin (Ecotrin Ectab) 81 mg PO QAM [facility] Stop: 11/11/18 08:59 Last Admin: 10/15/18 09:01 Dose: 81 mg Documented by: Bupropion HCl (Wellbutrin-Sr) 150 mg PO DAILY [facility] Stop: 11/11/18 08:59 Last Admin: 10/12/18 08:13 Dose: 150 mg Documented by: Buspirone HCl (Buspar) 7.5 mg PO BID [facility] Stop: 11/11/18 02:17 Last Admin: 10/12/18 08:12 Dose: 7.5 mg Documented by: Carvedilol (Coreg) 6.25 mg PO BID [facility] Stop: 11/11/18 02:17 Last Admin: 10/15/18 09:01 Dose: 6.25 mg Documented by: Diphenhydramine HCl (Benadryl Capsule) 25 mg PO HSZ PRN PRN Reason: Anxiety/Insomnia Stop: 11/13/18 02:14 Last Admin: 10/15/18 00:33 Dose: 25 mg Documented by: Guaifenesin (Mucinex) 600 mg PO Q12 [facility] Stop: 11/11/18 08:59 Last Admin: 10/15/18 09:01 Dose: 600 mg Documented by: Heparin Sodium (Beef Lung) (Heparin Sod 10 Unit/Ml Flush) 5 ml FLUSH PRN PRN PRN Reason: Flush Stop: 11/13/18 23:14 Last Admin: 10/15/18 10:47 Dose: 5 ml Documented by: Hydrochlorothiazide (Hctz) 25 mg PO DAILY [facility] Stop: 11/11/18 08:59 Last Admin: 10/15/18 09:02 Dose: 25 mg Documented by: Cefepime HCl 2,000 mg/ Syringe 20 mls @ 5 mls/min IV Q8H [facility]; Protocol Stop: 10/19/18 09:59 Last Admin: 10/15/18 11:21 Dose: 5 mls/min Documented by: Linezolid (Zyvox) 600 mg in 300 mls @ 200 mls/hr IV Q12H [facility] Stop: 10/19/18 10:59 Last Infusion: 10/15/18 12:52 Dose: Infused Documented by: Fluconazole (Diflucan) 100 mg in 50 mls @ 100 mls/hr IV DAILY [facility]; Protocol Stop: 10/24/18 08:59 Last Infusion: 10/15/18 10:47 Dose: Infused Documented by: Dextrose (D10w) 1,000 mls @ 0 mls/hr IV .Q0M [facility] Stop: 11/12/18 12:44 Lidocaine HCl (Viscous Lidocaine 2%) 15 ml MT Q6H PRN PRN Reason: Pain Stop: 11/12/18 10:14 Lorazepam (Ativan) 0.5 mg PO HS PRN PRN Reason: Insomnia Stop: 11/13/18 12:56 Magnesium Hydroxide (Milk Of Magnesia) 30 ml PO Q12H PRN PRN Reason: Constipation Stop: 11/11/18 02:17 Magnesium Oxide (Mag-Ox) 400 mg PO DAILY [facility] Stop: 11/11/18 08:59 Last Admin: 10/15/18 09:02 Dose: 400 mg Documented by: Megestrol Acetate (Megace) 400 mg PO BID [facility] Stop: 11/12/18 09:44 Last Admin: 10/15/18 09:03 Dose: 400 mg Documented by: Miscellaneous (Order Awaiting Action) 1 ea N/A QS [facility] Stop: 11/11/18 07:59 Last Admin: 10/15/18 15:44 Dose: Not Given Documented by: Miscellaneous Information (Pharmacy Tpn/Ppn Consult Active) 1 ea N/A UD PRN PRN Reason: Consult Stop: 11/12/18 10:34 Multivitamins/Minerals (Multivitamin W/ Minerals Tab) 1 tab PO DAILY [facility] Stop: 11/11/18 08:59 Last Admin: 10/15/18 09:01 Dose: 1 tab Documented by: Mupirocin (Bactroban 2%) 1 appln EXT BID [facility] Stop: 11/11/18 08:59 Last Admin: 10/15/18 09:12 Dose: 1 appln Documented by: Nitroglycerin (Nitrostat) 0.4 mg SL UD PRN PRN Reason: Chest Pain Stop: 11/11/18 02:17 Nutrition (Parenteral) (Custom Central Pn) 1 bag IV TODAY@1600 [facility]; Protocol Stop: 10/16/18 15:59 Last Admin: 10/15/18 16:00 Dose: 1 bag Documented by: Nystatin (Mycostatin) 10 ml PO QID [facility]; Protocol Stop: 10/23/18 12:59 Last Admin: 10/15/18 16:09 Dose: 10 ml Documented by: Ondansetron HCl (Zofran) 4 mg IV Q6H PRN PRN Reason: Nausea Stop: 11/11/18 02:17 Ondansetron HCl (Zofran Odt) 4 mg PO Q8H PRN PRN Reason: Nausea Stop: 11/11/18 02:17 Polyethylene Glycol (Miralax Powder Packet) 17 gm PO DAILY PRN PRN Reason: Constipation Stop: 11/11/18 02:17 Potassium Chloride (Klor-Con M20) 20 meq PO DAILY [facility] Stop: 11/11/18 08:59 Last Admin: 10/15/18 09:02 Dose: 20 meq Documented by: Vitamin D (Vitamin D3) 1,000 units PO DAILY [facility] Stop: 11/11/18 08:59 Last Admin: 10/15/18 09:00 Dose: 1,000 units Documented by: Zinc Sulfate (Zinc Sulfate) 220 mg PO TIDM [facility] Stop: 11/13/18 11:59 Last Admin: 10/15/18 16:09 Dose: 220 mg Documented by: PG Care Time/CCT Total # of Minutes Spent Total Time Spent with Patient: Total time spent is greater than 50% in coordination of care (as documented) at patient's floor/unit and/or counseling patient: (1) Pneumonia Laterality: unspecified laterality Lung location: unspecified part of lung Pneumonia type: due to unspecified organism Qualified Code(s): J18.9 - Pneumonia, unspecified organism
--- NOTE | 2018-10-15 18:11 | Infectious Disease Progress Nt ---
Date of Service October 15, 2018 Assessment & Plan (1) Pneumonia: Patient with possible new right-sided pneumonia, although all his symptoms are related to his left side. For now, would continue present antibiotics , could cosider use of oral Zvox plus levofloxacin. Will discuss. Subjective Pt. denies SOB and states "I am all right." Discussed with RN and no acute issues noted. Review of Systems Review of Systems: All systems reviewed & are unremarkable except as noted in HPI & below Physical Exam Constitutional: WD/WN, vitals as above comfortable; no acute distress Eyes: PERRL, conjunctivae normal, anicteric sclerae ENMT: external ear and nose normal, oropharynx normal Neck: trachea midline, no thyromegaly neck nontender Respiratory: normal respiratory effort and + dullness to percussion (Left base); no respiratory distress and does not use accessory muscles Auscultation: + diminished lung sounds (Left-sided), + crackles (Right-sided) and + rhonchi ( right-sided) Cardiovascular: Rate/Rhythm: regular rate and regular rhythm Heart Sounds: normal S1 and normal S2; no gallop, no murmur and no cardiac rub Vessels: normal peripheral pulses; no JVD Gastrointestinal (Abdomen): normal bowel sounds, soft, nontender, no hepatosplenomegaly Musculoskeletal: no cyanosis or clubbing, extremities motor strength 5/5 Spine: thoracic spine normal to inspection and lumbar spine normal to inspection; no cervical spinal tenderness Skin: no rashes, warm and dry normal turgor Neurologic: patellar DTR's 2+ bilat, sensation intact moves all extremities and awake; no focal motor deficits Motor/Sensory: no sensory deficit Psychiatric: A+Ox3, euthymic affect Orientation: cooperative Lymphatic: no cervical or axillary lymphadenopathy no inguinal lymphadenopathy Results & Data Vital Signs (Past 12 Hours) Vital Signs Temp Pulse Resp BP Pulse Ox 10/15/18 15:29 86 18 99 10/15/18 15:06 36.5 C 85 18 117/70 99 10/15/18 11:18 93 H 20 98 10/15/18 07:47 36.8 C 92 H 18 118/76 100 10/15/18 07:16 89 18 98 (1) Pneumonia Laterality: unspecified laterality Lung location: unspecified part of lung Pneumonia type: due to unspecified organism Qualified Code(s): J18.9 - Pneumonia, unspecified organism
[2018-10-15] MEDS: HYDROCODONE/ACETAMINOPHEN 7.5/325MG TAB PO PRN (23:46)
[2018-10-16] MEDS: CEFEPIME 2,000 MG in SYRINGE 7.5 ML IV SCH ×3 (02:21→17:43)
[2018-10-16] MEDS: ALBUT/IPRATROP 3MG/0.5MG NEB 3 ML VIAL NEB SCH ×6 (05:49→22:46)
[2018-10-16 06:50] LABS: Hematocrit (blood only) 28.3 % (42-52); Hemoglobin 8.4 g/dL (14.0-18.0); Mean Corpuscular Hgb Conc 29.7 g/dL (32-36); Mean Corpuscular Volume 86.8 fL (80-100); Platelet Count 699 K/uL (130-400); RDW Coefficient of Variation 15.5 % (11.5-14.5); RDW Standard Deviation 49.7 fL (36.4-46.3); Red Blood Count 3.26 M/uL (4.7-6.1); White Blood Count 10.49 K/uL (4.8-10.8)
[2018-10-16 07:18] LABS: BUN Creatinine Ratio 40.9 (10-20); Calcium 8.8 mg/dl (8.5-10.1); Est GFR (African American) 138.1; Est GFR (Non-African American) 119.1; Magnesium 2.2 mg/dl (1.8-2.4); Phosphorus 3.3 mg/dl (2.5-4.9); Potassium 4.5 mmol/L (3.5-5.1)
[2018-10-16] MEDS: CEROVITE ADV FORMULA TAB PO SCH (09:05)
[2018-10-16] MEDS: MAGNESIUM OXIDE 400 MG TAB PO SCH (09:05)
[2018-10-16] MEDS: ASCORBIC ACID 500 MG TAB PO SCH ×3 (09:05→17:44)
[2018-10-16] MEDS: CARVEDILOL 6.25 MG TAB PO SCH ×2 (09:05→20:59)
[2018-10-16] MEDS: guaiFENesin 600 MG TABCR PO SCH ×2 (09:05→21:01)
[2018-10-16] MEDS: POTASSIUM CHLORIDE 20 MEQ TABCR PO SCH (09:06)
[2018-10-16] MEDS: CHOLECALCIFEROL 1,000 UNITS TAB PO SCH (09:06)
[2018-10-16] MEDS: ZINC SULFATE 220 MG CAPSULE PO SCH ×3 (09:06→17:43)
[2018-10-16] MEDS: FLUCONAZOLE 100 MG/50 ML BAG IV SCH (09:07)
[2018-10-16] MEDS: hydroCHLOROthiazide 25 MG TAB PO SCH (09:07)
[2018-10-16] MEDS: ASPIRIN 81 MG ECTAB PO SCH (09:07)
[2018-10-16] MEDS: MEGESTROL ACETATE SUSP 400 MG/10 ML UDC PO SCH ×2 (09:08→21:00)
[2018-10-16] MEDS: AMLODIPINE BESYLATE 5 MG TAB PO SCH (09:09)
[2018-10-16] MEDS: NYSTATIN SUSP 500,000 U/5 ML UDC PO SCH ×4 (09:09→21:01)
--- NOTE | 2018-10-16 09:27 | Surgery Progress Note ---
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 the importance of ambulation (2) Severe protein-calorie malnutrition: -contiue TPN as pt, has short gut and protein status needs to be improved prior to any consideration of wound closure -pt. should be d/c to SNF or rehab Subjective Pt. denies SOB. He denies significant pain at wound site. Physical Exam Physical Exam: Wound unpack--kerlix did not have any green drainage. Wound bed is clean. Erythema along wound edges continues to improve. Results & Data Vital Signs (Past 12 Hours) Vital Signs Temp Pulse Resp BP Pulse Ox 10/16/18 07:53 36.7 C 97 H 16 113/66 100 10/16/18 07:13 91 H 18 98 10/16/18 05:49 106 H 18 98 10/15/18 23:15 91 H 16 99 10/15/18 23:00 36.8 C 79 20 117/69 98
--- NOTE | 2018-10-16 11:53 | Pharmacy Report ---
PHA: Parenteral Nutrition Con - Date of Service October 16, 2018 - Scope Pharmacy was consulted on 10/13/18 to manage parenteral nutrition orders for this patient. - Subjective The patient is currently on day [#] of [peripheral or central] parenteral nutrition for [INDICATION]. - Objective Height: 5 ft 10 in Weight: 50.6 kg Diet: Regular Intake & Output (24hrs):: Intake & Output 10/14/18 10/15/18 10/16/18 10/17/18 06:59 06:59 06:59 06:59 Intake Total 4080.000 / 4080.000 1350 / 1350 1795 / 1795 50 / 50 Output Total 203 / 2035 2250 / 2250 2551 / 2551 Balance 2045.000 / 2045.000 -900 / -900 -756 / -756 50 / 50 Weight 50.6 kg 50.6 kg Laboratory Data (Last 24 Hr):: 10/16/18 06:10 Sodium 140 Potassium 4.5 Chloride 99 Carbon Dioxide 40 H BUN 17 Creatinine 0.41 L Glucose 103 H Calcium 8.8 Phosphorus 3.3 Magnesium 2.2 Nutrition Assessment:: Please refer to the Notes section of the EMR for the most recent job counselor note. - Assessment Day #4 of TPN for severe protein-calorie malnutrition, weight loss. Adequate nutrition needed for wound healing. Currently at goal macros Pt also receiving Megace 400mg PO BID Labs indicate metabolic alkalosis: * Increase chloride and decrease acetate in the TPN Additional electrolytes need slight adjustment in TPN * Corrected calcium for low albumin is slightly elevated - will remove from TPN * Phos WNL but trending upwards from despite decrease yesterday; will again decrease slightly in TPN Additional interventions to promote wound healing: Zinc: 50 mg elemental zinc (e.g., 220 mg zinc sulfate) PO three times per day until wound healed. Vitamin C: 500-3000mg/day depending on whether it causes soft stool, then back off Protein: titrating up to max protein in TPN Glycemic control: BSGs all WNL - Plan For day # 4 of PN administration, the following will be ordered: Macronutrients (at goal) Amino acids 75 grams/day Dextrose 175 grams/day Lipids 50 grams/day Micronutrients Sodium chloride 100 mEq Potassium phosphate 21 mMol Potassium chloride 30 mEq Multivitamins 10 mL Trace Elements 1 mL Additional additives: Folic Acid 1mg, Thiamine 100mg Total volume 1,324 mL to be infused over 24 hrs will provide 1,395 kcal/day to be infused via central access only Labs, as indicated, will be ordered per protocol PO Supplements: Zinc 220mg PO TIDM Ascorbic Acid 500mg PO TIDM Pharmacy will continue to follow and adjust parenteral nutrition orders on a daily basis. Thank you for allowing us to participate in the care of this patient.
[2018-10-16] MEDS: MUPIROCIN 2% OINT 22 GM TUBE EXT SCH ×2 (11:57→20:55)
[2018-10-16] MEDS: LINEZOLID 600 MG/300 ML BAG IV SCH ×2 (11:58→23:47)
[2018-10-16] MEDS ORDERED: CUSTOM CENTRAL PN IV SCH (16:00)
[2018-10-16] MEDS: HYDROCODONE/ACETAMINOPHEN 7.5/325MG TAB PO PRN (19:57)
[2018-10-16] MEDS: FLUTICASONE/SALMETEROL 250/50 (ADVAIR) 14 PUFF/1 INHALER INH SCH (20:52)
--- NOTE | 2018-10-16 21:22 | Hospitalist Progress Note ---
Date of Service October 16, 2018 Assessment & Plan (1) Pneumonia: Patient appears to be close to baseline. will continue on Cefepime and Zyvox afebrile, WBC is normal, coughing less and breathing easier complete 7 days total plan to change to PO Zyvox and Levaquin but he will be here over the weekend since he is having difficult time with PO antibiotics will just keep on IV for now may end up completing all 7 days here Will continue to monitor. (2) Chest pain: no evidence of ACS due to pneumonia and recent left thoracotomy certainly a degree of pain associated with poorly healing wound on left chest pain is better (3) Thrombocythemia: reactive in setting of infection peaked at 1000, down to 699 today repeat tomorrow (4) Anemia: Hb low but stable at 8.4, certainly a degree of anemia of chronic disease is likely no signs of blood loss, continue to monitor, repeat CBC in the morning (5) COPD (chronic obstructive pulmonary disease): no wheezing on exam, no signs of exacerbation continue nebulizers (6) Hypertension: Continue carvedilol and amlodipine with hold parameters. Hold hydrochlorothiazide. 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 Subjective patient reports no improvement from yesterday. his main concern at this time is that his left elbow is swollen. Patient reports no changes inn regards to his breathing. Review of Systems Review of Systems: The patient denies palpitations, lower extremity swelling, sore throat, fevers, chills, sweats, nausea, vomiting, diarrhea , constipation, abdominal pain, pelvic pain, blood in urine or stool, dysuria, urinary frequency or urgency, lightheadedness, dizziness, headache, memory loss, loss of consciousness, rash, abnormal bruising or bleeding, imbalance, focal or generalized weakness, numbness or tingling in arms or legs, generalized arthralgias or myalgias, neck pain, or night sweats. The review of systems is otherwise negative other than for that already noted above, and at least 10 systems have been reviewed. Physical Exam Physical Exam: Constitutional: well developed, + thin and + frail appearing; no acute distress Eyes: PERRL, conjunctivae normal, anicteric sclerae ENMT: external ear and nose normal, oropharynx normal Neck: trachea midline, no thyromegaly Respiratory: normal respiratory effort; no respiratory distress Auscultation: + breath sounds absent (left side); no rales, no rhonchi and no wheezes Cardiovascular: RRR, no murmur, no edema Gastrointestinal (Abdomen): normal bowel sounds, soft, nontender, no hepatosplenomegaly Musculoskeletal: no cyanosis or clubbing, extremities motor strength 5/5 Neurologic: patellar DTR's 2+ bilat, sensation intact and PERRL, EOMI, accommodation nl, no face palsy, no dysarthria Psychiatric: A+Ox3, euthymic affect Lymphatic: no cervical or axillary lymphadenopathy Results & Data Vital Signs (Past 12 Hours) Vital Signs Temp Pulse Pulse Resp BP Pulse Ox 10/16/18 18:41 103 H 16 98 10/16/18 15:35 95 H 18 98 10/16/18 15:33 36.5 C 100 H 18 132/77 98 10/16/18 11:43 80 16 98 PG Care Time/CCT Total # of Minutes Spent Total Time Spent with Patient: Total time spent is greater than 50% in coordination of care (as documented) at patient's floor/unit and/or counseling patient: (1) Pneumonia Laterality: unspecified laterality Lung location: unspecified part of lung Pneumonia type: due to unspecified organism Qualified Code(s): J18.9 - Pneumonia, unspecified organism
[2018-10-16] MEDS ORDERED: MoRPHine SULFATE 2 MG/ML CARP IV STA (22:58)
[2018-10-17] MEDS: CEFEPIME 2,000 MG in SYRINGE 7.5 ML IV SCH ×3 (01:18→17:01)
[2018-10-17] MEDS: LORazepam 0.5 MG TAB PO PRN ×2 (02:44→22:25)
[2018-10-17 06:48] LABS: Hematocrit (blood only) 26.7 % (42-52); Hemoglobin 7.8 g/dL (14.0-18.0); Mean Corpuscular Hgb Conc 29.2 g/dL (32-36); Platelet Count 616 K/uL (130-400); RDW Coefficient of Variation 15.6 % (11.5-14.5); Red Blood Count 3.07 M/uL (4.7-6.1); White Blood Count 11.17 K/uL (4.8-10.8)
[2018-10-17 07:23] LABS: BUN Creatinine Ratio 41.5 (10-20); Calcium 8.4 mg/dl (8.5-10.1); Est GFR (African American) 139.5; Est GFR (Non-African American) 120.3; Phosphorus 2.8 mg/dl (2.5-4.9); Potassium 4.2 mmol/L (3.5-5.1)
[2018-10-17] MEDS: ALBUT/IPRATROP 3MG/0.5MG NEB 3 ML VIAL NEB SCH ×4 (07:41→19:49)
[2018-10-17] MEDS: FLUTICASONE/SALMETEROL 250/50 (ADVAIR) 14 PUFF/1 INHALER INH SCH ×2 (08:45→21:18)
[2018-10-17] MEDS: CHOLECALCIFEROL 1,000 UNITS TAB PO SCH (08:46)
[2018-10-17] MEDS: NYSTATIN SUSP 500,000 U/5 ML UDC PO SCH ×4 (08:46→21:22)
[2018-10-17] MEDS: AMLODIPINE BESYLATE 5 MG TAB PO SCH (08:46)
[2018-10-17] MEDS: ZINC SULFATE 220 MG CAPSULE PO SCH ×3 (08:47→16:01)
[2018-10-17] MEDS: MEGESTROL ACETATE SUSP 400 MG/10 ML UDC PO SCH ×2 (08:47→21:22)
[2018-10-17] MEDS: CEROVITE ADV FORMULA TAB PO SCH (08:47)
[2018-10-17] MEDS: hydroCHLOROthiazide 25 MG TAB PO SCH (08:48)
[2018-10-17] MEDS: MAGNESIUM OXIDE 400 MG TAB PO SCH (08:48)
[2018-10-17] MEDS: CARVEDILOL 6.25 MG TAB PO SCH ×2 (08:48→21:21)
[2018-10-17] MEDS: ASPIRIN 81 MG ECTAB PO SCH (08:49)
[2018-10-17] MEDS: ASCORBIC ACID 500 MG TAB PO SCH ×3 (08:49→16:02)
[2018-10-17] MEDS: POTASSIUM CHLORIDE 20 MEQ TABCR PO SCH (08:49)
[2018-10-17] MEDS: MUPIROCIN 2% OINT 22 GM TUBE EXT SCH ×2 (08:50→21:18)
[2018-10-17] MEDS: FLUCONAZOLE 100 MG/50 ML BAG IV SCH (08:50)
[2018-10-17] MEDS: guaiFENesin 600 MG TABCR PO SCH ×2 (09:43→21:24)
--- NOTE | 2018-10-17 09:53 | Surgery Progress Note ---
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 the importance of ambulation (she confirmed that pt. did ambulate short distances yesterday) (2) Severe protein-calorie malnutrition: -continue TPN as pt. has short gut and protein status needs to be improved prior to any consideration of wound closure -pt. should be d/c to SNF or rehab for ongoing nutritional management and wound care Subjective Pt. denies SOB at rest. He notes he ambulated a short distance in hallway and had some SOB with walking. No reported pain at flap. Physical Exam Physical Exam: Left sided wound examined--the erythema along flap edges continues to improve. Kerlix removed and only a small amount of green/yellow discharge noted. Air leak not audible. The wound bed is noted to be clean. The wound was repacked with 1 kerlix soaked with 0.25% acetic acid. Aquacel placed over erythematous skin and ABD applied and secured with medipore tape. Results & Data Vital Signs (Past 12 Hours) Vital Signs Temp Pulse Resp BP Pulse Ox 10/17/18 07:43 98 H 18 98 10/17/18 07:25 36.9 C 94 H 22 122/70 98 10/16/18 23:40 36.7 C 79 18 106/66 97 10/16/18 22:47 106 H 18 98
--- NOTE | 2018-10-17 10:28 | Hematology/Oncology Prog Note ---
Date of Service October 17, 2018 Assessment & Plan (1) Thrombocythemia: As anticipated, his platelets have steadily fallen as his infection has improved. I do not think this issue requires further evaluation at this time. Present on Admission?: Yes (2) Anemia: His anemia is likely multifactorial, with elements of anemia of chronic inflammation, malnutrition, and blood loss from his recent surgery. However, even in February of last year he was mildly anemic, with a baseline around 11- 12. He may have an underlying chronic issue that we could evaluate at a later date. He continues to fall periodically and would probably benefit from a blood transfusion today. As noted previously, I would also check vitamin levels and iron studies to evaluate for more easily reversible causes of anemia. Subjective Mr. Ferrara is comfortable in bed. He reports some shortness of breath that is stable. He denies any significant bleeding anywhere, though he occasionally notes hemorrhoidal bleeding on his toilet tissue. Review of Systems Constitutional: + fatigue and + weakness; no fever Ear, Nose, Mouth, Throat: no epistaxis and no bleeding gums Respiratory: + cough and + dyspnea; no hemoptysis Cardiovascular: no chest pain and no palpitations Gastrointestinal: + blood in stools (hemorrhoidal bleeding, scanty); no abdominal pain Genitourinary: no dysuria and no hematuria Integumentary: no rash Neurologic: no dizziness and no headache(s) Physical Exam Constitutional: + ill appearing (chronically) and + thin; no acute distress Eyes: + anicteric sclerae and EOM intact bilaterally Respiratory: no respiratory distress Auscultation: + diminished lung sounds (on the left) Cardiovascular: RRR, no murmur, no edema Gastrointestinal (Abdomen): Inspection/Auscultation: normal bowel sounds; abdomen not distended Percussion/Palpation: abdomen soft; abdomen nontender Skin: no rashes, warm and dry Psychiatric: A+Ox3, euthymic affect Results & Data Vital Signs (Past 12 Hours) Vital Signs Temp Pulse Resp BP Pulse Ox 10/17/18 07:43 98 H 18 98 10/17/18 07:25 36.9 C 94 H 22 122/70 98 10/16/18 23:40 36.7 C 79 18 106/66 97 10/16/18 22:47 106 H 18 98 Laboratory Results Laboratory Tests 10/15/18 10/16/1819 05:48 06:10 06:04 WBC 11.64 H 10.49 11.17 H Hgb 8.1 L 8.4 L 7.8 L Plt Count 706 H 699 H 616 H
[2018-10-17] MEDS: LINEZOLID 600 MG/300 ML BAG IV SCH ×2 (10:57→22:58)
--- NOTE | 2018-10-17 14:09 | XRay Report ---
SINGLE VIEW CHEST CLINICAL HISTORY: Atypical chest pain. FINDINGS: 2 AP, portable, upright chest radiographs are compared to study dated 09/30/2018 and correla cory with chest CT dated 09/10/2018. The examination is degraded by portable technique and patient rota tion. A right PICC line is new from previous. The tip of the catheter projects over the SVC. The card iac silhouette is not well evaluated. The left lung is surgically absent, and there is extensive pleu ral calcification and fluid within the left thoracic space with leftward shift of the mediastinum and hyperinflation of the right lung. Advanced emphysematous change is noted in the right lung which alexandro ears clear. There is no right-sided pneumothorax. Minimal right apical scarring is observed. Extensiv e post-traumatic deformity is seen involving the left chest wall. Numerous metallic foreign bodies ar e present in the left chest wall. The skeletal structures are osteopenic. The right bony thorax appea rs intact. IMPRESSION: 1. Extensive chronic parenchymal changes as above with no acute cardiopulmonary abnormality identifie d. There has been no significant change from 10/09/2018. 2. A right PICC line is new from previous. Electronically signed by: Duy Blount M.D. 10/17/2018 2:08 PM
[2018-10-17] MEDS ORDERED: CUSTOM CENTRAL PN IV SCH (16:00)
--- NOTE | 2018-10-17 17:01 | Infectious Disease Progress Nt ---
Date of Service October 17, 2018 Assessment & Plan (1) Pneumonia: Patient with possible new right-sided pneumonia, although all his symptoms are related to his left side. For now, would continue present antibiotics , could cosider use of oral Zvox plus levofloxacin. Will discuss. Subjective Pt. denies SOB at rest. He notes he ambulated a short distance in hallway and had some SOB with walking. No reported pain at flap. Review of Systems Review of Systems: All systems reviewed & are unremarkable except as noted in HPI & below Physical Exam Constitutional: WD/WN, vitals as above comfortable; no acute distress Eyes: PERRL, conjunctivae normal, anicteric sclerae ENMT: external ear and nose normal, oropharynx normal Neck: trachea midline, no thyromegaly neck nontender Respiratory: normal respiratory effort and + dullness to percussion (Left base); no respiratory distress and does not use accessory muscles Auscultati on: + diminished lung sounds (Left-sided), + crackles (Right-sided) and + rhonchi ( right-sided) Cardiovascular: Rate/Rhythm: regular rate and regular rhythm Heart Sounds: normal S1 and normal S2; no gallop, no murmur and no cardiac rub Vessels: normal peripheral pulses; no JVD Gastrointestinal (Abdomen): normal bowel sounds, soft, nontender, no hepatosplenomegaly Musculoskeletal: no cyanosis or clubbing, extremities motor strength 5/5 Spine: thoracic spine normal to inspection and lumbar spine normal to inspection; no cervical spinal tenderness Skin: no rashes, warm and dry normal turgor Neurologic: patellar DTR's 2+ bilat, sensation intact moves all extremities and awake; no focal motor deficits Motor/Sensory: no sensory deficit Psychiatric: A+Ox3, euthymic affect Orientation: cooperative Lymphatic: no cervical or axillary lymphadenopathy no inguinal lymphadenopathy Results & Data Vital Signs (Past 12 Hours) Vital Signs Temp Pulse Resp BP Pulse Ox 10/17/18 15:23 36.6 C 90 22 103/66 97 10/17/18 15:12 99 H 18 98 10/17/18 11:13 96 H 18 98 10/17/18 07:43 98 H 18 98 10/17/18 07:25 36.9 C 94 H 22 122/70 98 Laboratory Results Short CBC 10/17/18 Range/Units 06:04 WBC 11.17 H (4.8-10.8) K/uL Hgb 7.8 L (14.0-18.0) g/dL Hct 26.7 L (42-52) % Plt Count 616 H (130-400) K/uL BMP 10/17/18 06:04 Sodium 139 Potassium 4.2 Chloride 99 Carbon Dioxide 37 H BUN 16 Creatinine 0.40 L Glucose 104 H Calcium 8.4 L Diagnostic Findings Microbiology 10/12/18 00:15 Blood Aerobic Blood Culture - Final No growth in Aerobic bottle after 5 days. 10/12/18 00:15 Blood Anaerobic Blood Culture - Final No growth in Anaerobic bottle after 5 days. 10/12/18 00:27 Blood Aerobic Blood Culture - Final No growth in Aerobic bottle after 5 days. 10/12/18 00:27 Blood Anaerobic Blood Culture - Final No growth in Anaerobic bottle after 5 days. (1) Pneumonia Laterality: unspecified laterality Lung location: unspecified part of lung Pneumonia type: due to unspecified organism Qualified Code(s): J18.9 - Pneumonia, unspecified organism
[2018-10-17] MEDS: HYDROCODONE/ACETAMINOPHEN 7.5/325MG TAB PO PRN (20:56)
--- NOTE | 2018-10-17 22:38 | Hospitalist Progress Note ---
Date of Service October 17, 2018 Assessment & Plan (1) Pneumonia: Patient appears to be close to baseline, but has not reported improvement in past 48 hours. will continue on Cefepime and Zyvox afebrile, WBC has trended up mildly, coughing less and breathing easier complete 7 days total Alos ordered flutter valve which has not helped. Due to possibilitly of c. diff, will check for it in stools. Patient has short gut which would explain his diarrhea, however, patient feels like it is worse and WBC slightly increased. plan to change to PO Zyvox and Levaquin but since he is having difficult time with PO antibiotics will just keep on IV for now may end up completing all 7 days here Will continue to monitor. Also consulted pulmonary for frther discharge recommnedations given how sick and frail patient is. (2) Chest pain: no evidence of ACS due to pneumonia and recent left thoracotomy certainly a degree of pain associated with poorly healing wound on left chest pain is better (3) Thrombocythemia: reactive in setting of infection peaked at 1000, down to 616 today repeat tomorrow (4) Anemia: Hb low at 7.8, certainly a degree of anemia of chronic disease is likely no signs of blood loss, continue to monitor, repeat CBC in the morning (5) COPD (chronic obstructive pulmonary disease): no wheezing on exam, no signs of exacerbation continue nebulizers (6) Hypertension: Continue carvedilol and amlodipine with hold parameters. Hold hydrochlorothiazide. 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 Subjective Patient reports he has not had signifcant improvement over course of the hospital staty. He still feel fatigued at rest. He also states that whatever he eats goes right trough him. He has been having loose stools, which he feels has worsened since yesterday. He reports intermittent cough with small amount of productive sputum, smaller than a teaspoon. It is clear however. Review of Systems Review of Systems: The patient denies palpitations, lower extremity swelling, sore throat, fevers, chills, sweats, nausea, vomiting, diarrhea , constipation, abdominal pain, pelvic pain, blood in urine or stool, dysuria, urinary frequency or urgency, lightheadedness, dizziness, headache, memory loss, loss of consciousness, rash, abnormal bruising or bleeding, imbalance, focal or generalized weakness, numbness or tingling in arms or legs, generalized arthralgias or myalgias, neck pain, or night sweats. The review of systems is otherwise negative other than for that already noted above, and at least 10 systems have been reviewed. Physical Exam Physical Exam: Constitutional: well developed, + thin and + frail appearing; no acute distress Eyes: PERRL, conjunctivae normal, anicteric sclerae ENMT: external ear and nose normal, oropharynx normal Neck: trachea midline, no thyromegaly Respiratory: normal respiratory effort; no respiratory distress Auscultation: + breath sounds improved on left; no rales, no rhonchi and no wheezes Cardiovascular: RRR, no murmur, no edema Gastrointestinal (Abdomen): normal bowel sounds, soft, nontender, no hepatosplenomegaly Musculoskeletal: no cyanosis or clubbing, extremities motor strength 5/5 Neurologic: patellar DTR's 2+ bilat, sensation intact and PERRL, EOMI, accommodation nl, no face palsy, no dysarthria Psychiatric: A+Ox3, euthymic affect Lymphatic: no cervical or axillary lymphadenopathy Results & Data Vital Signs (Past 12 Hours) Vital Signs Temp Pulse Resp BP Pulse Ox 10/17/18 19:51 105 H 18 99 10/17/18 15:23 36.6 C 90 22 103/66 97 10/17/18 15:12 99 H 18 98 10/17/18 11:13 96 H 18 98 PG Care Time/CCT Total # of Minutes Spent Total Time Spent with Patient: Total time spent is greater than 50% in coordination of care (as documented) at patient's floor/unit and/or counseling patient: (1) Pneumonia Laterality: unspecified laterality Lung location: unspecified part of lung Pneumonia type: due to unspecified organism Qualified Code(s): J18.9 - Pneumonia, unspecified organism
[2018-10-18] MEDS: CEFEPIME 2,000 MG in SYRINGE 7.5 ML IV SCH ×3 (02:17→17:00)
[2018-10-18] MEDS: ALBUT/IPRATROP 3MG/0.5MG NEB 3 ML VIAL NEB SCH ×5 (07:19→23:17)
[2018-10-18 07:41] LABS: Basophils # (auto) 0.04 K/uL (0-0.2); Basophils % (auto) 0.3 %; Eosinophils # (auto) 0.13 K/uL (0-0.5); Eosinophils % (auto) 1.1 %; Hemoglobin 8.1 g/dL (14.0-18.0); Immature Granulocytes # (auto) 0.07 K/uL (0.00-0.02); Immature Granulocytes % (auto) 0.6 %; Lymphocytes # (auto) 0.95 K/uL (1.2-3.4); Lymphocytes % (auto) 8.2 %; Mean Corpuscular Volume 87.7 fL (80-100); Mean Platelet Volume 8.6 fL (7.4-10.4); Monocytes # (auto) 1.06 K/uL (0.11-0.59); Monocytes % (auto) 9.2 %; Neutrophils # (auto) 9.29 K/uL (1.4-6.5); Neutrophils % (auto) 80.6 %; Platelet Count 534 K/uL (130-400); RDW Coefficient of Variation 15.6 % (11.5-14.5); RDW Standard Deviation 50.4 fL (36.4-46.3); Red Blood Count 3.08 M/uL (4.7-6.1); White Blood Count 11.54 K/uL (4.8-10.8)
[2018-10-18] MEDS: FLUTICASONE/SALMETEROL 250/50 (ADVAIR) 14 PUFF/1 INHALER INH SCH ×2 (07:53→21:15)
[2018-10-18] MEDS: MUPIROCIN 2% OINT 22 GM TUBE EXT SCH ×2 (07:53→21:15)
[2018-10-18] MEDS: hydroCHLOROthiazide 25 MG TAB PO SCH (07:54)
[2018-10-18] MEDS: ASPIRIN 81 MG ECTAB PO SCH (07:54)
[2018-10-18] MEDS: guaiFENesin 600 MG TABCR PO SCH ×2 (07:54→21:17)
[2018-10-18] MEDS: ZINC SULFATE 220 MG CAPSULE PO SCH ×2 (07:55→12:24)
[2018-10-18] MEDS: MAGNESIUM OXIDE 400 MG TAB PO SCH (07:55)
[2018-10-18] MEDS: CARVEDILOL 6.25 MG TAB PO SCH ×2 (07:56→21:17)
[2018-10-18] MEDS: AMLODIPINE BESYLATE 5 MG TAB PO SCH (07:56)
[2018-10-18] MEDS: ASCORBIC ACID 500 MG TAB PO SCH ×3 (07:57→16:11)
[2018-10-18] MEDS: POTASSIUM CHLORIDE 20 MEQ TABCR PO SCH (07:57)
[2018-10-18] MEDS: CEROVITE ADV FORMULA TAB PO SCH (07:57)
[2018-10-18] MEDS: CHOLECALCIFEROL 1,000 UNITS TAB PO SCH (07:57)
[2018-10-18] MEDS: MEGESTROL ACETATE SUSP 400 MG/10 ML UDC PO SCH ×2 (07:58→21:18)
[2018-10-18] MEDS: NYSTATIN SUSP 500,000 U/5 ML UDC PO SCH ×4 (07:59→21:16)
[2018-10-18] MEDS: FLUCONAZOLE 100 MG/50 ML BAG IV SCH (08:00)
[2018-10-18 08:20] LABS: Albumin Level 1.6 gm/dl (3.4-5.0); BUN Creatinine Ratio 41.5 (10-20); Calcium 8.9 mg/dl (8.5-10.1); Creatinine Clr Calc Pharmacy 126.1 ml/min; Est GFR (African American) 140.9; Est GFR (Non-African American) 121.6; Potassium 4.3 mmol/L (3.5-5.1)
[2018-10-18 08:23] LABS: Albumin Globulin Ratio 0.4 (0.9-2); Bilirubin,Total 0.1 mg/dl (0.2-1); Globulin 4.3 gm/dl (2.5-4.0); Total Protein 5.9 gm/dl (6.4-8.2)
--- NOTE | 2018-10-18 09:13 | Surgery Progress Note ---
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 the importance of continued ambulation (2) Severe protein-calorie malnutrition: -continue TPN as pt. has short gut and protein status needs to be improved prior to any consideration of wound closure -pt. should be d/c to SNF or rehab for ongoing nutritional management and wound care (3) Anemia: -discussed with hospitalist service; they will assess today for consideration of transfusion Subjective Pt. denies SOB at rest. He notes he ambulated a short distance in hallway again yesterday and had some SOB/weakness with walking. No reported pain at flap. No shakes, chills, fevers. Discussed with RN-- no issues for thoracic surgery identified. Physical Exam Physical Exam: Wound examined--erythema log wound edges continues to improved. Little yellowish drainage noted whrn packing removed today. Wound bed is overall clean. Wound repacked as yesterday with 1 kerlix soaked in acetic acid (0.25%), aquacel placed along wound edges and ABD placed which was secured with medipore tape. Constitutional: + thin and + cachectic; no acute distress Results & Data Vital Signs (Past 12 Hours) Vital Signs Temp Pulse Resp BP Pulse Ox 10/18/18 07:48 36.5 C 92 H 16 121/74 99 10/18/18 07:20 98 H 18 98 10/17/18 22:53 36.6 C 93 H 18 106/68 93
[2018-10-18] MEDS: HEPARIN SOD 5,000 UNIT/0.5 ML VIAL SQ SCH ×2 (09:52→21:17)
[2018-10-18] MEDS: LINEZOLID 600 MG/300 ML BAG IV SCH ×2 (09:53→22:36)
[2018-10-18 12:17] LABS: Magnesium 2.1 mg/dl (1.8-2.4); Phosphorus 3.1 mg/dl (2.5-4.9)
[2018-10-18] MEDS ORDERED: CUSTOM CENTRAL PN IV SCH (16:00)
[2018-10-18] MEDS: LIDOCAINE 5% 1 PATCH TD SCH (16:10)
[2018-10-18] MEDS: HYDROCODONE/ACETAMINOPHEN 7.5/325MG TAB PO PRN (20:50)
[2018-10-18] MEDS: COLESTIPOL HCL 1 GM TAB PO SCH (21:18)
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
[2018-10-19] MEDS: LORazepam 0.5 MG TAB PO PRN ×2 (00:03→23:45)
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
[2018-10-19] MEDS: CEFEPIME 2,000 MG in SYRINGE 7.5 ML IV SCH (03:30)
[2018-10-19 06:40] LABS: Calcium 8.6 mg/dl (8.5-10.1); Creatinine Clr Calc Pharmacy 132.8 ml/min; Est GFR (African American) 142.4; Est GFR (Non-African American) 122.9; Potassium 4.2 mmol/L (3.5-5.1)
[2018-10-19 06:45] LABS: Ferritin 58.8 ng/ml (8-388)
[2018-10-19] MEDS: ALBUT/IPRATROP 3MG/0.5MG NEB 3 ML VIAL NEB SCH ×4 (06:50→19:21)
[2018-10-19 07:40] LABS: Folate (Folic Acid) 23.86 ng/ml (>5.38)
[2018-10-19 08:58] LABS: Magnesium 2.1 mg/dl (1.8-2.4)
--- NOTE | 2018-10-19 09:01 | Surgery Progress Note ---
Date of Service October 19, 2018 Assessment & Plan (1) Bronchopleural fistula: -continue daily wound re-packing with kerlix soaked in acetic acid, covering wound edges with aquacel, ABD pad and medipore tape as noted -encourage ambulation (discussed thsi with RN) (2) Severe protein-calorie malnutrition: -continue TPN as pt. has short gut and protein status needs to be improved prior to any consideration of wound closure -pt. should be d/c to SNF or rehab for ongoing nutritional management and wound care (3) Anemia: -discussed with hospitalist service; they will continually assess for consideration of transfusion Subjective Pt. denies CP. He notes he gets SOB with activity, but this is no wore than it has shaheen. No fevers, shakes, chills. He denies pain at surgical wound. No abdominal pain. He notes he has been tolerating diet. Physical Exam Physical Exam: Wound examined---erythematous wound edges continue to improve. Wound packing removed and very little in the way of purulent drainage noted. Wound bed appears clean. Wound re-packed, again with 1 kerix soaked in 0.25% acetic acid. Wound edges covered with aquacel and then wound covered with ABD pad and secured with medipore tape. Results & Data Vital Signs (Past 12 Hours) Vital Signs Temp Pulse Resp BP Pulse Ox 10/19/18 07:53 36.8 C 93 H 15 114/68 98 10/19/18 06:50 96 H 18 99 10/18/18 23:18 87 20 98 10/18/18 22:45 36.8 C 87 16 105/67 100 10/18/18 22:05 36.8 C 97 H 20 118/69 98 (1) Anemia Anemia type: other cause Other causes of anemia: other cause, not classified Qualified Code(s): D64.89 - Other specified anemias
[2018-10-19] MEDS: FLUCONAZOLE 100 MG/50 ML BAG IV SCH (09:12)
[2018-10-19] MEDS: FLUTICASONE/SALMETEROL 250/50 (ADVAIR) 14 PUFF/1 INHALER INH SCH ×2 (09:12→20:57)
[2018-10-19] MEDS: ASPIRIN 81 MG ECTAB PO SCH (09:13)
[2018-10-19] MEDS: ASCORBIC ACID 500 MG TAB PO SCH ×3 (09:13→15:55)
[2018-10-19] MEDS: CARVEDILOL 6.25 MG TAB PO SCH ×2 (09:14→20:59)
[2018-10-19] MEDS: hydroCHLOROthiazide 25 MG TAB PO SCH (09:14)
[2018-10-19] MEDS: CHOLECALCIFEROL 1,000 UNITS TAB PO SCH (09:14)
[2018-10-19] MEDS: MAGNESIUM OXIDE 400 MG TAB PO SCH (09:14)
[2018-10-19] MEDS: guaiFENesin 600 MG TABCR PO SCH ×2 (09:14→20:59)
[2018-10-19] MEDS: POTASSIUM CHLORIDE 20 MEQ TABCR PO SCH (09:14)
[2018-10-19] MEDS: ZINC SULFATE 220 MG CAPSULE PO SCH (09:14)
[2018-10-19] MEDS: NYSTATIN SUSP 500,000 U/5 ML UDC PO SCH ×4 (09:15→20:58)
[2018-10-19] MEDS: CEROVITE ADV FORMULA TAB PO SCH (09:15)
[2018-10-19] MEDS: AMLODIPINE BESYLATE 5 MG TAB PO SCH (09:15)
[2018-10-19] MEDS: MEGESTROL ACETATE SUSP 400 MG/10 ML UDC PO SCH ×2 (09:15→20:59)
[2018-10-19] MEDS: HEPARIN SOD 5,000 UNIT/0.5 ML VIAL SQ SCH ×2 (09:16→21:12)
[2018-10-19] MEDS: MUPIROCIN 2% OINT 22 GM TUBE EXT SCH ×2 (09:16→20:58)
[2018-10-19] MEDS: LIDOCAINE 5% 1 PATCH TD SCH (10:51)
[2018-10-19] MEDS: COLESTIPOL HCL 1 GM TAB PO SCH ×2 (10:52→22:27)
[2018-10-19] MEDS: HYDROCODONE/ACETAMINOPHEN 7.5/325MG TAB PO PRN ×2 (15:52→21:42)
[2018-10-19] MEDS ORDERED: CUSTOM CENTRAL PN IV SCH (16:00)
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
[2018-10-19] MEDS: LOPERAMIDE HCL 2 MG CAP PO SCH (21:13)
[2018-10-20 06:17] LABS: Hematocrit (blood only) 26.6 % (42-52); Hemoglobin 7.8 g/dL (14.0-18.0); Mean Corpuscular Hgb Conc 29.3 g/dL (32-36); Mean Corpuscular Volume 87.2 fL (80-100); Mean Platelet Volume 9.1 fL (7.4-10.4); Platelet Count 497 K/uL (130-400); RDW Coefficient of Variation 15.9 % (11.5-14.5); RDW Standard Deviation 50.7 fL (36.4-46.3); Red Blood Count 3.05 M/uL (4.7-6.1); White Blood Count 8.67 K/uL (4.8-10.8)
[2018-10-20 06:53] LABS: BUN Creatinine Ratio 48.4 (10-20); Calcium 8.8 mg/dl (8.5-10.1); Creatinine Clr Calc Pharmacy 120.4 ml/min; Est GFR (African American) 136.7; Magnesium 2.1 mg/dl (1.8-2.4); Potassium 4.1 mmol/L (3.5-5.1)
[2018-10-20 07:01] LABS: Phosphorus 2.9 mg/dl (2.5-4.9)
[2018-10-20] MEDS: ALBUT/IPRATROP 3MG/0.5MG NEB 3 ML VIAL NEB SCH ×5 (07:04→23:14)
[2018-10-20] MEDS: HYDROCODONE/ACETAMINOPHEN 7.5/325MG TAB PO PRN ×3 (08:05→21:20)
--- NOTE | 2018-10-20 08:45 | Surgery Progress Note ---
Date of Service October 20, 2018 Assessment & Plan (1) Bronchopleural fistula: -continue daily wound re-packing with kerlix soaked in acetic acid, covering wound edges with aquacel, ABD pad and medipore tape as noted in previous notes -encourage ambulation/activity as able (2) Severe protein-calorie malnutrition: -continue TPN as pt. has short gut and protein status needs to be improved prior to any consideration of wound closure -pt. should be d/c to SNF or rehab for ongoing nutritional management and wound care (3) Anemia: -discussed with hospitalist service; they will continually assess for consideration of transfusion Subjective Pt. notes no changes from yesterday. No worsening SOB. No shakes, chills, fevers. Physical Exam Physical Exam: Wound examined--skin erythema along flap edges has greatly improved. Wound packing removed and noted to have minimal yellowish drainage. Wound bed noted to be clean with some granulation tissue. Wound packed with 1 kerlix soaked in acetic acid (0.25%) with wound edges covered with aquacel as before. Results & Data Vital Signs (Past 12 Hours) Vital Signs Temp Pulse Pulse Resp BP Pulse Ox 10/20/18 07:50 36.9 C 90 16 116/72 99 10/20/18 07:04 86 16 99 10/19/18 22:51 36.6 C 88 18 114/64 99 10/19/18 21:01 89 129/75 (1) Anemia Anemia type: other cause Other causes of anemia: other cause, not classified Qualified Code(s): D64.89 - Other specified anemias
[2018-10-20] MEDS ORDERED: IRON SUCROSE 100 MG in 0.9 % SODIUM CHLORIDE 100 ML IV SCH (09:00)
[2018-10-20] MEDS: hydroCHLOROthiazide 25 MG TAB PO SCH (09:23)
[2018-10-20] MEDS: FLUTICASONE/SALMETEROL 250/50 (ADVAIR) 14 PUFF/1 INHALER INH SCH ×2 (09:23→21:21)
[2018-10-20] MEDS: MUPIROCIN 2% OINT 22 GM TUBE EXT SCH ×2 (09:23→21:15)
[2018-10-20] MEDS: ASPIRIN 81 MG ECTAB PO SCH (09:24)
[2018-10-20] MEDS: MEGESTROL ACETATE SUSP 400 MG/10 ML UDC PO SCH ×2 (09:24→21:21)
[2018-10-20] MEDS: CEROVITE ADV FORMULA TAB PO SCH (09:24)
[2018-10-20] MEDS: ASCORBIC ACID 500 MG TAB PO SCH ×3 (09:24→17:25)
[2018-10-20] MEDS: AMLODIPINE BESYLATE 5 MG TAB PO SCH (09:24)
[2018-10-20] MEDS: ZINC SULFATE 220 MG CAPSULE PO SCH (09:24)
[2018-10-20] MEDS: CHOLECALCIFEROL 1,000 UNITS TAB PO SCH (09:24)
[2018-10-20] MEDS: guaiFENesin 600 MG TABCR PO SCH ×2 (09:24→21:22)
[2018-10-20] MEDS: NYSTATIN SUSP 500,000 U/5 ML UDC PO SCH ×4 (09:25→21:21)
[2018-10-20] MEDS: LIDOCAINE 5% 1 PATCH TD SCH (09:25)
[2018-10-20] MEDS: HEPARIN SOD 5,000 UNIT/0.5 ML VIAL SQ SCH ×2 (09:25→21:22)
[2018-10-20] MEDS: POTASSIUM CHLORIDE 20 MEQ TABCR PO SCH (09:25)
[2018-10-20] MEDS: MAGNESIUM OXIDE 400 MG TAB PO SCH (09:25)
[2018-10-20] MEDS: COLESTIPOL HCL 1 GM TAB PO SCH ×2 (09:25→21:22)
[2018-10-20] MEDS: CARVEDILOL 6.25 MG TAB PO SCH ×2 (09:30→21:21)
[2018-10-20] MEDS: LOPERAMIDE HCL 2 MG CAP PO SCH ×2 (10:48→21:21)
--- NOTE | 2018-10-20 14:39 | Progress Note ---
DATE: 10/20/2018 PULMONARY MEDICINE PROGRESS NOTE Chart reviewed, the patient examined. SUBJECTIVE: The patient feels somewhat better today, apparently hyperalimentation will be tapered off today. His p.o. intake has improved over the past several days and he understands the need for maintaining ones nutrition while fighting infection. He is ambulating in the hallway with assistance. OBJECTIVE: CURRENT VITAL SIGNS: Blood pressure 116/72, pulse 79 and regular, respiratory rate 20, temperature 36.9, O2 sat 95% on 3.5 liters. SKIN: Daily repacking with Kerlix soaked in acetic acid covering the wound edges with Aquacel, ABD pad and Medipore tape. HEENT: Atraumatic, normocephalic. PERRLA. LUNGS: Right lung clear to P and A. CARDIAC: Regular rate and rhythm. I do not appreciate a gallop. ABDOMEN: Soft, scaphoid. EXTREMITIES: No pedal edema, clubbing or cyanosis. NEUROLOGICAL: Intact. LABORATORY DATA: White count normal at 8600, H and H 7.8 and 26.6. Chest x-ray on the showing chronic parenchymal changes, perhaps some improvement from 10/09/2018. Video swallow showed no aspiration identified with mild esophageal dysmotility on admission. Calculated CO2 40, BUN 20, creatinine 0.42. OVERALL ASSESSMENT: A 72-year-old with chronic obstructive pulmonary disease status post pneumonectomy for trauma, following a traumatic injury with resultant bronchopleural fistula and a right lower lobe pneumonitis associated with anemia and thrombocytosis. The patient appears to be responding to current therapy and apparently enteral intake has improved as well. Would hold on transfusion unless the patient's H and H were to drop further at this juncture.
--- NOTE | 2018-10-20 19:41 | Infectious Disease Progress Nt ---
Date of Service October 20, 2018 Assessment & Plan (1) Pneumonia: Patient with possible new right-sided pneumonia, although all his symptoms are related to his left side. Appears to have responded to antibiotics, to follow carefully off antibiotic therapy. Subjective Pt. notes no changes from yesterday. No worsening SOB. No shakes, chills, fevers. Review of Systems Review of Systems: All systems reviewed & are unremarkable except as noted in HPI & below Physical Exam Constitutional: WD/WN, vitals as above comfortable; no acute distress Eyes: PERRL, conjunctivae normal, anicteric sclerae ENMT: external ear and nose normal, oropharynx normal Neck: trachea midline, no thyromegaly neck nontender Respiratory: normal respiratory effort and + dullness to percussion (Left base); no respiratory distress and does not use accessory muscles Auscultation: + diminished lung sounds (Left-sided), + crackles (Right-sided) and + rhonchi ( right-sided) Cardiovascular: Rate/Rhythm: regular rate and regular rhythm Heart Sounds: normal S1 and normal S2; no gallop, no murmur and no cardiac rub Vessels: normal peripheral pulses; no JVD Gastrointestinal (Abdomen): normal bowel sounds, soft, nontender, no hepatosplenomegaly Musculoskeletal: no cyanosis or clubbing, extremities motor strength 5/5 Spine: thoracic spine normal to inspection and lumbar spine normal to inspection; no cervical spinal tenderness Skin: no rashes, warm and dry normal turgor Neurologic: patellar DTR's 2+ bilat, sensation intact moves all extremities and awake; no focal motor deficits Motor/Sensory: no sensory deficit Psychiatric: A+Ox3, euthymic affect Orientation: cooperative Lymphatic: no cervical or axillary lymphadenopathy no inguinal lymphadenopathy Results & Data Vital Signs (Past 12 Hours) Vital Signs Temp Pulse Pulse Resp BP Pulse Ox 10/20/18 19:07 97 H 16 95 10/20/18 15:50 36.9 C 85 16 135/74 95 10/20/18 15:44 90 16 99 10/20/18 11:12 79 20 95 10/20/18 07:50 36.9 C 90 16 116/72 99 Laboratory Results Short CBC 10/20/18 Range/Units 05:34 WBC 8.67 (4.8-10.8) K/uL Hgb 7.8 L (14.0-18.0) g/dL Hct 26.6 L (42-52) % Plt Count 497 H (130-400) K/uL BMP 10/20/18 05:34 Sodium 141 Potassium 4.1 Chloride 100 Carbon Dioxide 40 H BUN 20 H Creatinine 0.42 L Glucose 116 H Calcium 8.8 Diagnostic Findings Microbiology 10/12/18 00:15 Blood Aerobic Blood Culture - Final No growth in Aerobic bottle after 5 days. 10/12/18 00:15 Blood Anaerobic Blood Culture - Final No growth in Anaerobic bottle after 5 days. 10/12/18 00:27 Blood Aerobic Blood Culture - Final No growth in Aerobic bottle after 5 days. 10/12/18 00:27 Blood Anaerobic Blood Culture - Final No growth in Anaerobic bottle after 5 days. (1) Pneumonia Laterality: unspecified laterality Lung location: unspecified part of lung Pneumonia type: due to unspecified organism Qualified Code(s): J18.9 - Pneumonia, unspecified organism
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
[2018-10-21] MEDS: LORazepam 0.5 MG TAB PO PRN ×2 (00:57→23:31)
[2018-10-21 05:56] LABS: Hematocrit (blood only) 26.6 % (42-52); Hemoglobin 7.9 g/dL (14.0-18.0); Mean Corpuscular Hgb Conc 29.7 g/dL (32-36); Mean Corpuscular Volume 87.8 fL (80-100); Mean Platelet Volume 8.7 fL (7.4-10.4); Platelet Count 433 K/uL (130-400); RDW Coefficient of Variation 16.2 % (11.5-14.5); RDW Standard Deviation 51.9 fL (36.4-46.3); Red Blood Count 3.03 M/uL (4.7-6.1); White Blood Count 10.27 K/uL (4.8-10.8)
[2018-10-21 06:41] LABS: BUN Creatinine Ratio 43.5 (10-20); Calcium 8.9 mg/dl (8.5-10.1); Creatinine Clr Calc Pharmacy 130.1 ml/min; Est GFR (African American) 140.9; Est GFR (Non-African American) 121.6; Potassium 4.3 mmol/L (3.5-5.1)
[2018-10-21] MEDS: ALBUT/IPRATROP 3MG/0.5MG NEB 3 ML VIAL NEB SCH ×5 (07:25→23:05)
[2018-10-21] MEDS: HYDROCODONE/ACETAMINOPHEN 7.5/325MG TAB PO PRN ×3 (07:51→20:49)
[2018-10-21] MEDS: AMLODIPINE BESYLATE 5 MG TAB PO SCH (08:27)
[2018-10-21] MEDS: CHOLECALCIFEROL 1,000 UNITS TAB PO SCH (08:28)
[2018-10-21] MEDS: LOPERAMIDE HCL 2 MG CAP PO SCH ×2 (08:28→20:53)
[2018-10-21] MEDS: ASPIRIN 81 MG ECTAB PO SCH (08:28)
[2018-10-21] MEDS: CEROVITE ADV FORMULA TAB PO SCH (08:28)
[2018-10-21] MEDS: guaiFENesin 600 MG TABCR PO SCH ×2 (08:28→20:53)
[2018-10-21] MEDS: POTASSIUM CHLORIDE 20 MEQ TABCR PO SCH (08:28)
[2018-10-21] MEDS: hydroCHLOROthiazide 25 MG TAB PO SCH (08:28)
[2018-10-21] MEDS: ZINC SULFATE 220 MG CAPSULE PO SCH (08:28)
[2018-10-21] MEDS: MAGNESIUM OXIDE 400 MG TAB PO SCH (08:28)
[2018-10-21] MEDS: CARVEDILOL 6.25 MG TAB PO SCH ×2 (08:28→20:53)
[2018-10-21] MEDS: ASCORBIC ACID 500 MG TAB PO SCH ×3 (08:28→17:55)
[2018-10-21] MEDS: HEPARIN SOD 5,000 UNIT/0.5 ML VIAL SQ SCH ×2 (08:29→20:53)
[2018-10-21] MEDS: MEGESTROL ACETATE SUSP 400 MG/10 ML UDC PO SCH ×2 (08:29→20:53)
[2018-10-21] MEDS: LIDOCAINE 5% 1 PATCH TD SCH (08:29)
[2018-10-21] MEDS: FLUTICASONE/SALMETEROL 250/50 (ADVAIR) 14 PUFF/1 INHALER INH SCH ×2 (08:30→20:52)
[2018-10-21] MEDS: MUPIROCIN 2% OINT 22 GM TUBE EXT SCH ×2 (08:30→20:43)
[2018-10-21] MEDS: NYSTATIN SUSP 500,000 U/5 ML UDC PO SCH ×4 (08:31→20:53)
[2018-10-21] MEDS ORDERED: IRON SUCROSE 100 MG in 0.9 % SODIUM CHLORIDE 100 ML IV SCH (10:00)
[2018-10-21] MEDS: COLESTIPOL HCL 1 GM TAB PO SCH ×2 (10:41→20:53)
--- NOTE | 2018-10-21 11:15 | Surgery Progress Note ---
Date of Service October 21, 2018 Assessment & Plan (1) Bronchopleural fistula: -continue daily wound care-- re-packing with kerlix soaked in acetic acid, covering wound edges with aquacel, ABD pad and medipore tape as noted in previously -encourage ambulation/activity as able (2) Severe protein-calorie malnutrition: -8 days of TPN completed as pt. has short gut syndrome and low albumin levels -pre-albumiin noted to be normal on yesterday's labs -repeat labs in am -pt. should be d/c to SNF or rehab for ongoing nutritional management and wound care (3) Anemia: -plan noted by hospitalist service for IV iron and holding on transfsion for now Subjective Pt. denies worsening SOB or CP. He notes he ambulated in hallway without worsening SOB. No fevers, shakes, chills. Physical Exam Physical Exam: Left chest wound examined--skin erythema has markedly improved from what was noted at time of admission. Wound packing had small amount of yellow drainage. Wound bed appears clean. Wound repacked as before with kerlix soaked in 0.25% acetic acid. Wound edges covered with aquacel. ABD placed and secured with medipore tape. Constitutional: + thin; no acute distress Results & Data Vital Signs (Past 12 Hours) Vital Signs Temp Pulse Resp BP Pulse Ox 10/21/18 11:03 72 18 99 10/21/18 07:44 36.8 C 92 H 20 122/69 100 10/21/18 07:27 87 18 99 10/20/18 23:39 36.6 C 84 17 124/76 99 10/20/18 23:14 94 H 20 99 (1) Anemia Anemia type: other cause Other causes of anemia: other cause, not classified Qualified Code(s): D64.89 - Other specified anemias
--- NOTE | 2018-10-21 17:31 | Infectious Disease Progress Nt ---
Date of Service October 21, 2018 Assessment & Plan (1) Pneumonia: Patient with possible new right-sided pneumonia, although all his symptoms are related to his left side. Appears to have responded to antibiotics, to follow carefully off antibiotic therapy. Discussed with all involved. Harish lópez. Subjective Pt. denies worsening SOB or CP. He notes he ambulated in hallway without worsening SOB. No fevers, shakes, chills. Review of Systems Review of Systems: All systems reviewed & are unremarkable except as noted in HPI & below Physical Exam Constitutional: WD/WN, vitals as above comfortable; no acute distress Eyes: PERRL, conjunctivae normal, anicteric sclerae ENMT: external ear and nose normal, oropharynx normal Neck: trachea midline, no thyromegaly neck nontender Respiratory: normal respiratory effort and + dullness to percussion (Left base); no respiratory distress and does not use accessory muscles Auscult ation: + diminished lung sounds (Left-sided), + crackles (Right-sided) and + rhonchi ( right-sided) Cardiovascular: Rate/Rhythm: regular rate and regular rhythm Heart Sounds: normal S1 and normal S2; no gallop, no murmur and no cardiac rub Vessels: normal peripheral pulses; no JVD Gastrointestinal (Abdomen): normal bowel sounds, soft, nontender, no hepatosplenomegaly Musculoskeletal: no cyanosis or clubbing, extremities motor strength 5/5 Spine: thoracic spine normal to inspection and lumbar spine normal to inspection; no cervical spinal tenderness Skin: no rashes, warm and dry normal turgor Neurologic: patellar DTR's 2+ bilat, sensation intact moves all extremities and awake; no focal motor deficits Motor/Sensory: no sensory deficit Psychiatric: A+Ox3, euthymic affect Orientation: cooperative Lymphatic: no cervical or axillary lymphadenopathy no inguinal lymphadenopathy Results & Data Vital Signs (Past 12 Hours) Vital Signs Temp Pulse Resp BP Pulse Ox 10/21/18 15:38 36.6 C 84 16 148/79 H 100 10/21/18 14:59 92 H 19 100 10/21/18 11:03 72 18 99 10/21/18 07:44 36.8 C 92 H 20 122/69 100 10/21/18 07:27 87 18 99 Laboratory Results Short CBC 10/21/18 Range/Units 05:36 WBC 10.27 (4.8-10.8) K/uL Hgb 7.9 L (14.0-18.0) g/dL Hct 26.6 L (42-52) % Plt Count 433 H (130-400) K/uL BMP 10/21/18 05:36 Sodium 139 Potassium 4.3 Chloride 97 L Carbon Dioxide 41 H* BUN 17 Creatinine 0.39 L Glucose 84 Calcium 8.9 Diagnostic Findings Microbiology 10/12/18 00:15 Blood Aerobic Blood Culture - Final No growth in Aerobic bottle after 5 days. 10/12/18 00:15 Blood Anaerobic Blood Culture - Final No growth in Anaerobic bottle after 5 days. 10/12/18 00:27 Blood Aerobic Blood Culture - Final No growth in Aerobic bottle after 5 days. 10/12/18 00:27 Blood Anaerobic Blood Culture - Final No growth in Anaerobic bottle after 5 days. PG Care Time/CCT Total # of Minutes Spent Total Time Spent with Patient: Total time spent is greater than 50% in coordination of care (as documented) at patient's floor/unit and/or counseling patient: (1) Pneumonia Laterality: unspecified laterality Lung location: unspecified part of lung Pneumonia type: due to unspecified organism Qualified Code(s): J18.9 - Pneumonia, unspecified organism
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
[2018-10-22] MEDS: ALBUT/IPRATROP 3MG/0.5MG NEB 3 ML VIAL NEB SCH ×4 (07:45→19:28)
[2018-10-22] MEDS: HEPARIN SOD 5,000 UNIT/0.5 ML VIAL SQ SCH (08:24)
[2018-10-22] MEDS: HYDROCODONE/ACETAMINOPHEN 7.5/325MG TAB PO PRN ×2 (08:25→17:03)
[2018-10-22] MEDS: MUPIROCIN 2% OINT 22 GM TUBE EXT SCH (08:25)
[2018-10-22] MEDS: FLUTICASONE/SALMETEROL 250/50 (ADVAIR) 14 PUFF/1 INHALER INH SCH (08:25)
[2018-10-22] MEDS: LIDOCAINE 5% 1 PATCH TD SCH (08:26)
[2018-10-22] MEDS: MEGESTROL ACETATE SUSP 400 MG/10 ML UDC PO SCH (08:27)
[2018-10-22] MEDS: AMLODIPINE BESYLATE 5 MG TAB PO SCH (08:27)
[2018-10-22] MEDS: CHOLECALCIFEROL 1,000 UNITS TAB PO SCH (08:27)
[2018-10-22] MEDS: NYSTATIN SUSP 500,000 U/5 ML UDC PO SCH ×3 (08:27→16:20)
[2018-10-22] MEDS: POTASSIUM CHLORIDE 20 MEQ TABCR PO SCH (08:28)
[2018-10-22] MEDS: ASCORBIC ACID 500 MG TAB PO SCH ×3 (08:28→16:21)
[2018-10-22] MEDS: ASPIRIN 81 MG ECTAB PO SCH (08:28)
[2018-10-22] MEDS: LOPERAMIDE HCL 2 MG CAP PO SCH (08:28)
[2018-10-22] MEDS: CARVEDILOL 6.25 MG TAB PO SCH (08:28)
[2018-10-22] MEDS: MAGNESIUM OXIDE 400 MG TAB PO SCH (08:28)
[2018-10-22] MEDS: ZINC SULFATE 220 MG CAPSULE PO SCH (08:28)
[2018-10-22] MEDS: guaiFENesin 600 MG TABCR PO SCH (08:28)
[2018-10-22] MEDS: CEROVITE ADV FORMULA TAB PO SCH (08:28)
[2018-10-22] MEDS: hydroCHLOROthiazide 25 MG TAB PO SCH (08:28)
[2018-10-22 08:57] LABS: BUN Creatinine Ratio 39.4 (10-20); Calcium 9.3 mg/dl (8.5-10.1); Creatinine Clr Calc Pharmacy 134.5 ml/min; Est GFR (Non-African American) 124.3; Ferritin 192.1 ng/ml (8-388); Potassium 3.7 mmol/L (3.5-5.1)
[2018-10-22] MEDS: COLESTIPOL HCL 1 GM TAB PO SCH (09:23)
--- NOTE | 2018-10-22 09:59 | Surgery Progress Note ---
Date of Service October 22, 2018 Assessment & Plan (1) Bronchopleural fistula: -continue daily wound care-- re-packing with kerlix soaked in acetic acid, covering wound edges with aquacel, ABD pad and medipore tape as noted -encourage ambulation/activity as able (2) Severe protein-calorie malnutrition: -8 days of TPN completed on10/20/18 as pt. has short gut syndrome and low albumin levels -pre-albumiin noted to be normal on labs from 10/20/18 -check CMP today to assess albumin and protein levels -pt. should be d/c to SNF or rehab for ongoing nutritional management and wound care (3) Anemia: -plan noted by hospitalist service for IV iron and holding on transfusion for now Subjective Pt. denies worsening SOB or CP. He notes he continues to ambulate in hallway without worsening SOB. No fevers, shakes, chills. No abdominal pain. Physical Exam Physical Exam: Wound examined--skin erythema markedly improved' wound bed has some granulation tissue but has some yellow discharge in wound bed. Wound packing had yellowish drainage (more than what was previously noted) Wound repacked with 1 kerlix soaked in acetic acid (0.25%) and wound edges covered with aquacel. Wound dressing secured with ABD pad and medipore tape. Constitutional: + thin and + cachectic; no acute distress Results & Data Vital Signs (Past 12 Hours) Vital Signs Temp Pulse Pulse Resp BP Pulse Ox 10/22/18 07:50 36.9 C 88 20 110/58 L 99 10/22/18 07:46 93 H 16 99 10/21/18 23:05 92 H 20 98 10/21/18 22:36 36.5 C 96 H 16 130/71 100 (1) Anemia Anemia type: other cause Other causes of anemia: other cause, not classified Qualified Code(s): D64.89 - Other specified anemias
[2018-10-22 10:47] LABS: Albumin Level 2.1 gm/dl (3.4-5.0); BUN Creatinine Ratio 39.3 (10-20); Calcium 9.4 mg/dl (8.5-10.1); Creatinine Clr Calc Pharmacy 134.5 ml/min; Est GFR (Non-African American) 124.3; Potassium 3.8 mmol/L (3.5-5.1)
[2018-10-22 10:52] LABS: Albumin Globulin Ratio 0.5 (0.9-2); Bilirubin,Total 0.2 mg/dl (0.2-1); Globulin 4.2 gm/dl (2.5-4.0); Total Protein 6.3 gm/dl (6.4-8.2)
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
== END 2018-10-22 20:42 | DRG 193 ==
LOC: 2S 21:50 → ED 21:50 → SUATTDRO 10-12 00:57 → 2S 10-12 01:43 → SUATTDRO 10-13 10:08 → 2N 10-14 12:50 → 3W 10-18 22:02

== ENCOUNTER 2018-12-10 09:16 | Inpatient (IN) ==
[2018-12-10] MEDS ORDERED: ONDANSETRON INJ 2 MG/ML 2 ML VIAL IV PRN (10:08)
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
[2018-12-10] MEDS ORDERED: ALBUTEROL HFA 8 GM INHALER INH PRN (10:50)
[2018-12-10] MEDS ORDERED: ONDANSETRON 4 MG OD TAB PO PRN (10:50)
[2018-12-10] MEDS ORDERED: ACETIC ACID 0.25% IRRIG SOLN 1000 ML PLCT IR SCH (11:00)
[2018-12-10] MEDS ORDERED: LIDOCAINE 5% 1 PATCH TD STA (11:17)
[2018-12-10 11:18] LABS: Hematocrit (blood only) 35.4 % (42-52); Hemoglobin 9.9 g/dL (14.0-18.0); Mean Corpuscular Hemoglobin 25.9 pg (25-34); Mean Corpuscular Volume 92.7 fL (80-100); Platelet Count 349 K/uL (130-400); RDW Coefficient of Variation 17.3 % (11.5-14.5); Red Blood Count 3.82 M/uL (4.7-6.1); White Blood Count 7.41 K/uL (4.8-10.8)
[2018-12-10 11:28] LABS: Base Excess VBG 10.3 mEq/L; Oxygen Saturation VBG 90.2 %; pH VBG 7.37 (7.36-7.41)
[2018-12-10 11:29] LABS: Basophils # (auto) 0.02 K/uL (0-0.2); Basophils % (auto) 0.3 %; Eosinophils # (auto) 0.23 K/uL (0-0.5); Eosinophils % (auto) 3.1 %; Immature Granulocytes # (auto) 0.02 K/uL (0.00-0.02); Immature Granulocytes % (auto) 0.3 %; Lymphocytes # (auto) 0.54 K/uL (1.2-3.4); Lymphocytes % (auto) 7.3 %; Monocytes # (auto) 1.09 K/uL (0.11-0.59); Monocytes % (auto) 14.7 %; Neutrophils # (auto) 5.51 K/uL (1.4-6.5); Neutrophils % (auto) 74.3 %
[2018-12-10 11:34] LABS: D Dimer 500 ug/L FEU (0-500)
[2018-12-10 11:40] LABS: INR 2.7 (0.9-1.1); Partial Thromboplastin Ratio 1.4; Partial Thromboplastin Time 37.6 Seconds (21.0-31.0); Prothrombin Time 25.5 Seconds (9.0-12.0)
[2018-12-10 11:44] LABS: Creatine Kinase MB 2.2 ng/ml (0.5-3.6); NT Pro B Type Natriuretic Pept 303 pg/ml (0-900); Troponin I < 0.015 ng/ml (0-0.045)
[2018-12-10 11:46] LABS: Albumin Globulin Ratio 0.5 (0.9-2); Albumin Level 2.2 gm/dl (3.4-5.0); BUN Creatinine Ratio 40.9 (10-20); Bilirubin,Total 0.2 mg/dl (0.2-1); C Reactive Protein 1.99 mg/dl (0-0.29); Calcium 8.8 mg/dl (8.5-10.1); Est GFR (African American) 126.4; Globulin 4.4 gm/dl (2.5-4.0); Magnesium 1.9 mg/dl (1.8-2.4); Potassium 3.5 mmol/L (3.5-5.1); Prealbumin 25.5 mg/dl (20-40); Total Protein 6.6 gm/dl (6.4-8.2)
[2018-12-10] MEDS: ALBUT/IPRATROP 3MG/0.5MG NEB 3 ML VIAL NEB SCH ×4 (11:59→23:32)
[2018-12-10] MEDS ORDERED: ALBUT/IPRATROP 3MG/0.5MG NEB 3 ML VIAL NEB SCH (12:00)
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
[2018-12-10 12:36] LABS: Appearance Urine Cloudy (Clear); Bacteria Urine Automated Negative (Negative); Bilirubin Urine Negative (Negative); Blood Urine 2+ (Negative); Color Urine Yellow; Epithelial Cell Urine Auto 20-30 /lpf (0-5); Glucose Urine UA Negative (Negative); Ketones Urine Negative (Negative); Leukocyte Esterase Urine Negative (Negative); Nitrite Urine Negative (Negative); Protein Urine Negative (Negative); Specific Gravity Urine 1.021 (1.000-1.030); Urobilinogen Urine Negative (Negative); pH Urine 5.5 (4.5-7.5)
[2018-12-10 12:56] LABS: Calcium Oxalate Crystals Urine Present (None Prsent); RBC Urine Automated >30 /hpf (0-4)
[2018-12-10] MEDS ORDERED: OPTIRAY 320 125ml IV PRN (13:19)
--- NOTE | 2018-12-10 13:35 | CT Scan Report ---
CT ANGIOGRAM OF THE CHEST CLINICAL HISTORY: Shortness of breath. Possible pulmonary embolism. COMPARISON STUDY: 09/10/2018, chest x-ray dated 12/10/2018 TECHNIQUE: Following the IV administration of 120 mL of Optiray-320, CT angiogram of the thorax was p erformed from the thoracic inlet to the lung bases utilizing the pulmonary embolus protocol. Images a re reviewed in the axial, sagittal, and coronal planes. IV contrast was administered without complica tion. MIP imaging was performed. A dose lowering technique was utilized adhering to the principles o f ALARA. CT DOSE: 428.69 mGycm FINDINGS: The upper abdomen there is a stable 9 mm splenic hypodensity. Atheromatous changes are present within the aorta at the thoracoabdominal junction. No pathologically enlarged axillary mediastinal or hilar lymph nodes were visualized. The ascending thoracic aorta measures 36 mm. There were no pulmonary artery filling defects to indicate acute pulmonary embolism. There are post pneumonectomy changes on the left. Since the prior study, the patient has undergone a chest wall resection and the pneumonectomy space is open. There is basilar and apical pleural thicken ing. There are multiple calculi projectile fragments projecting over the left hemithorax. There is pa cking material within the opening the left hemithorax. There are right lower lobe opacities likely atelectatic. There is respiratory motion artifact. There is a stable 12 mm nonspecific nodule at the right lung base. There is pulmonary emphysema. IMPRESSION: 1. No evidence of acute pulmonary embolism. 2. Postsurgical changes of a left pneumonectomy with interval chest wall resection opening the neck a cavity to the air. There is packing material within the pneumonectomy space 3. Severe emphysema 4. Multiple pelvic projectile fragments within the left hemithorax 5. Persistent nonspecific 12 mm nodule at the right lung base. 6. Interval development of right lower lobe opacities, likely atelectatic Electronically signed by: Davi Blanco M.D. 12/10/2018 1:34 PM
[2018-12-10] MEDS ORDERED: HEPARIN SOD 5,000 UNIT/0.5 ML VIAL SQ SCH (14:00)
[2018-12-10] MEDS: HYDROCODONE/ACETAMINOPHEN 7.5/325MG TAB PO PRN (16:18)
[2018-12-10] MEDS ORDERED: Nursing to Pharmacy Communication ONE (16:35)
--- NOTE | 2018-12-10 20:05 | Progress Note ---
DATE: 12/10/2018 Mr. Ferrara was seen today 1 day after he was seen in the office. He has multiple issues including an infected pneumonectomy space on the left with a bronchopleural fistula and a short gut syndrome. He also has terrible lung function. At any rate, the patient did not feel well and was admitted to the hospital. Saturations are pretty good at 99% on 3.5 liters. His white count is not elevated. Hemoglobin is pretty stable at 9.9. He runs a bit anemic and his last hemoglobin was 3 weeks ago, was 10.4; however, it was 8.3 two months ago. He had some interesting labs. His ESR is over 90. His INR is over 2.7. He does not take anticoagulants to my knowledge. He is eating better and has gained some weight. I inspected his stump and I think his fistula has sealed. I think the wound actually looks pretty good, but he does have some greenish exudate. We are going to continue the acetic acid, wet to dries. His wound still has areas which have some slough; however, I am pretty pleased with him currently. His problem is he occasionally has right chest pain but he denies a cough and he has not had a pneumonic process since we performed our Eloesser flap. We will continue to follow along.
[2018-12-10] MEDS: HEPARIN SOD 5,000 UNIT/0.5 ML VIAL SQ SCH (20:21)
[2018-12-10] MEDS: ACETAMINOPHEN 325 MG TAB PO PRN (20:26)
[2018-12-10] MEDS: MEGESTROL ACETATE SUSP 400 MG/10 ML UDC PO SCH (21:08)
[2018-12-10] MEDS: CARVEDILOL 6.25 MG TAB PO SCH (21:09)
[2018-12-10] MEDS: guaiFENesin 600 MG TABCR PO SCH (21:09)
[2018-12-10] MEDS: BUSPIRONE HCL 7.5 MG TAB PO SCH (21:12)
[2018-12-10] MEDS: MUPIROCIN 2% OINT 22 GM TUBE TOP SCH (21:12)
[2018-12-10] MEDS: COLESTIPOL HCL 1 GM TAB PO SCH (22:30)
[2018-12-11] MEDS: ALBUT/IPRATROP 3MG/0.5MG NEB 3 ML VIAL NEB SCH ×6 (03:06→23:28)
[2018-12-11] MEDS: ACETAMINOPHEN 325 MG TAB PO PRN (03:33)
[2018-12-11] MEDS: HYDROCODONE/ACETAMINOPHEN 7.5/325MG TAB PO PRN ×2 (05:19→19:25)
[2018-12-11] MEDS: HEPARIN SOD 5,000 UNIT/0.5 ML VIAL SQ SCH ×2 (05:21→13:55)
[2018-12-11] MEDS: CEROVITE ADV FORMULA TAB PO SCH (08:08)
--- NOTE | 2018-12-11 08:32 | Progress Note ---
DATE: 12/11/2018 Mr. Ferrara was seen today. He looks better. He states he really is not having a cough. The right-sided chest pain has resolved. I inspected his wound and it is clean. He still does have a small leak when I place some saline over this area of his bronchus. Be that as it may, the wound itself is aircraft cabin cleaner, although there are still some areas of slough. The patient's prealbumin is over 25. His weight is up. I am pleased that he has been able to gain weight. The Megace has helped him quite a bit. He has just finished a breakfast and I am quite pleased with that. At this point, I would continue doing as we are and we will continue our current therapy with his Eloesser flap. I explained today to Mr. Ferrara while I was repacking his wound that this could take quite a while. He understands.
[2018-12-11] MEDS ORDERED: ENOXAPARIN INJ 40 MG/0.4 ML SYR SQ SCH (09:00)
[2018-12-11] MEDS: BuPROPion SR 150 MG TABCR PO SCH (09:06)
[2018-12-11] MEDS: ZINC SULFATE 220 MG CAPSULE PO SCH (09:07)
[2018-12-11] MEDS: ASPIRIN 81 MG ECTAB PO SCH (09:07)
[2018-12-11] MEDS: CARVEDILOL 6.25 MG TAB PO SCH ×2 (09:07→20:22)
[2018-12-11] MEDS: POTASSIUM CHLORIDE 20 MEQ TABCR PO SCH (09:07)
[2018-12-11] MEDS: CHOLECALCIFEROL 1,000 UNITS TAB PO SCH (09:07)
[2018-12-11] MEDS: AMLODIPINE BESYLATE 5 MG TAB PO SCH (09:08)
[2018-12-11] MEDS: MAGNESIUM OXIDE 400 MG TAB PO SCH (09:08)
[2018-12-11] MEDS: BUSPIRONE HCL 7.5 MG TAB PO SCH ×2 (09:09→20:20)
[2018-12-11] MEDS: MUPIROCIN 2% OINT 22 GM TUBE TOP SCH ×2 (09:09→20:21)
[2018-12-11] MEDS: LIDOCAINE 5% 1 PATCH TD SCH (09:10)
[2018-12-11] MEDS: FLUTICASONE PROPIONATE NA SPR 16 GM BTL SCH (09:11)
[2018-12-11] MEDS: LOPERAMIDE HCL 2 MG CAP PO SCH (09:17)
[2018-12-11 09:41] LABS: Basophils # (auto) 0.02 K/uL (0-0.2); Basophils % (auto) 0.2 %; Eosinophils # (auto) 0.19 K/uL (0-0.5); Eosinophils % (auto) 2.4 %; Hematocrit (blood only) 37.8 % (42-52); Hemoglobin 10.8 g/dL (14.0-18.0); Immature Granulocytes # (auto) 0.02 K/uL (0.00-0.02); Immature Granulocytes % (auto) 0.2 %; Lymphocytes # (auto) 0.55 K/uL (1.2-3.4); Lymphocytes % (auto) 6.9 %; Mean Corpuscular Hemoglobin 26.5 pg (25-34); Mean Corpuscular Hgb Conc 28.6 g/dL (32-36); Mean Corpuscular Volume 92.9 fL (80-100); Mean Platelet Volume 9.1 fL (7.4-10.4); Monocytes % (auto) 12.5 %; Neutrophils # (auto) 6.23 K/uL (1.4-6.5); Neutrophils % (auto) 77.8 %; Platelet Count 356 K/uL (130-400); RDW Coefficient of Variation 17.3 % (11.5-14.5); RDW Standard Deviation 58.5 fL (36.4-46.3); Red Blood Count 4.07 M/uL (4.7-6.1); White Blood Count 8.01 K/uL (4.8-10.8)
[2018-12-11] MEDS: guaiFENesin 600 MG TABCR PO SCH ×2 (09:50→20:24)
[2018-12-11] MEDS: MEGESTROL ACETATE SUSP 400 MG/10 ML UDC PO SCH ×2 (09:50→20:19)
[2018-12-11] MEDS: COLESTIPOL HCL 1 GM TAB PO SCH ×2 (09:51→22:29)
[2018-12-11 10:28] LABS: BUN Creatinine Ratio 26.1 (10-20); Calcium 9.6 mg/dl (8.5-10.1); Creatinine Clr Calc Pharmacy 90.3 ml/min; Est GFR (African American) 118.1; Est GFR (Non-African American) 101.9; Potassium 3.7 mmol/L (3.5-5.1)
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
[2018-12-12] MEDS: ALBUT/IPRATROP 3MG/0.5MG NEB 3 ML VIAL NEB SCH ×4 (03:07→15:32)
[2018-12-12] MEDS: HYDROCODONE/ACETAMINOPHEN 7.5/325MG TAB PO PRN (03:11)
[2018-12-12 07:54] LABS: INR 1.5 (0.9-1.1); Prothrombin Time 14.9 Seconds (9.0-12.0)
[2018-12-12 08:44] LABS: BUN Creatinine Ratio 37.6 (10-20); Calcium 9.3 mg/dl (8.5-10.1); Creatinine Clr Calc Pharmacy 124.6 ml/min; Est GFR (African American) 134.5; Potassium 4.1 mmol/L (3.5-5.1)
[2018-12-12] MEDS: BuPROPion SR 150 MG TABCR PO SCH (10:34)
[2018-12-12] MEDS: ZINC SULFATE 220 MG CAPSULE PO SCH (10:34)
[2018-12-12] MEDS: COLESTIPOL HCL 1 GM TAB PO SCH (10:34)
[2018-12-12] MEDS: MEGESTROL ACETATE SUSP 400 MG/10 ML UDC PO SCH (10:35)
[2018-12-12] MEDS: guaiFENesin 600 MG TABCR PO SCH (10:35)
[2018-12-12] MEDS: AMLODIPINE BESYLATE 5 MG TAB PO SCH (10:35)
[2018-12-12] MEDS: LIDOCAINE 5% 1 PATCH TD SCH (10:35)
[2018-12-12] MEDS: FLUTICASONE PROPIONATE NA SPR 16 GM BTL SCH (10:35)
[2018-12-12] MEDS: CEROVITE ADV FORMULA TAB PO SCH (10:35)
[2018-12-12] MEDS: POTASSIUM CHLORIDE 20 MEQ TABCR PO SCH (10:35)
[2018-12-12] MEDS: MAGNESIUM OXIDE 400 MG TAB PO SCH (10:35)
[2018-12-12] MEDS: LOPERAMIDE HCL 2 MG CAP PO SCH (10:35)
[2018-12-12] MEDS: CHOLECALCIFEROL 1,000 UNITS TAB PO SCH (10:35)
[2018-12-12] MEDS: ASPIRIN 81 MG ECTAB PO SCH (10:36)
[2018-12-12] MEDS: CARVEDILOL 6.25 MG TAB PO SCH (10:36)
[2018-12-12] MEDS: BUSPIRONE HCL 7.5 MG TAB PO SCH (10:36)
[2018-12-12] MEDS: MUPIROCIN 2% OINT 22 GM TUBE TOP SCH (10:36)
--- NOTE | 2018-12-12 10:53 | Progress Note ---
DATE: 12/12/2018 Mr. Ferrara was seen today. He is in good spirits. He feels better. It turns out he actually is on Coumadin, which would account for his INR. It makes me feel a bit better. This was not on his initial med list. He has been found to have atrial fibrillation and is being treated for this. His wound is clean and I repacked it with acetic acid, wet to dries again today. Unfortunately, it is slow going, but he feels better. He has gained weight. He is stronger. I told him that right now we are simply going to continue the dressing changes daily and I will see him back in the office in a couple of weeks to assess his wound. His wound is definitely better, but he still has a small leak at his bronchus. I just do not think this man is in shape for any type of major flap. We will see how he looks in the next couple of weeks. From my standpoint, he can be discharged. I do agree with Dr. Clint Pappas about weaning his O2, but the patient is extremely sensitive about this as he has been on 3 liters of O2 for 10 years that was [facility]. He does not want to stop that and in fact became very, very angry and anxious about it. I will leave that in Dr. Pappas' capable hands.
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
[2018-12-24] MEDS ORDERED: CYANOCOBALAMIN 1000 MCG/ML VIAL IM SCH (11:00)
== END 2018-12-12 16:25 | disposition home health service (06) | DRG 204 ==
LOC: 4W 09:55 → 3W 10:03 → 2W 14:14

== ENCOUNTER 2018-12-26 19:40 | Inpatient (IN) ==
[2018-12-26] MEDS ORDERED: ONDANSETRON INJ 2 MG/ML 2 ML VIAL IV STA (19:47)
[2018-12-26] MEDS ORDERED: fentaNYL citrate 100 MCG/2 ML VIAL IV PRN (19:47)
[2018-12-26] MEDS ORDERED: ALBUT/IPRATROP 3MG/0.5MG NEB 3 ML VIAL NEB STA (19:47)
--- NOTE | 2018-12-26 19:53 | Emergency Department Note ---
Entered by Yolande Roberto acting as a scribe for Jose Cruz Agrawal DO History of Present Illness General Chief complaint: Shortness of Breath/Dyspnea Stated complaint: SOB, WEAKNESS, AMS, EDEMA Source: patient Mode of arrival: ambulatory History of Present Illness Provider complaint: Shortness of Breath Onset (ago): hour(s) 3 Location: chest Radiation: non-radiation Severity: moderate Pain Consistency: + other (Worsening) Relieved By: + none Exacerbated By: + none Associated symptoms: + chest pain, + shortness of breath, + syncope and + weakness The patient is a 73 year old male who presents to the Emergency Department with chest pain and shortness of breath. Per the patient, his daughter called an ambulance for him today because she did not like the way he was breathing. He was given pain medication before arriving, the patient has no recollection of coming to the ED today. The patient is experiencing moderate chest pain and is on oxygen. The patient has past medical history of respiratory failure. Home Medications Home Medications Medication Instructions Recorded Confirmed Type Centrum 1 tab PO DAILY 07/18/18 12/26/18 History aspirin [Aspirin Low Dose] 81 mg PO QAM 07/18/18 12/26/18 History fluticasone propionate 2 spray INTRANASAL DAILY 07/18/18 12/26/18 History magnesium 250 mg PO DAILY 07/18/18 12/26/18 History mupirocin 1 applic TOPICAL BID 07/18/18 12/26/18 History albuterol sulfate 2 puff INHALATION Q4H PRN 09/27/18 12/26/18 History bupropion HCl [Wellbutrin SR] 150 mg PO QAM 09/27/18 12/26/18 History cholecalciferol (vitamin D3) 6,000 unit PO DAILY 09/27/18 12/26/18 History [Vitamin D3] cyanocobalamin (vitamin B-12) 1,000 mcg IM MONTHLY 09/27/18 12/26/18 History zinc sulfate 220 mg (50 mg) capsule 220 mg PO DAILY #30 cap 11/18/18 12/26/18 Rx hydrocodone 7.5 mg-acetaminophen 1 tab PO Q4H PRN 12/21/18 12/26/18 History 325 mg tablet acetic acid 100 ml IRRIGATION DIRECTED 12/26/18 12/26/18 History albuterol sulfate 2.5 mg INHALATION Q4H PRN 12/26/18 12/26/18 History budesonide-formoterol 2 puff INHALATION BID 12/26/18 12/26/18 History guaifenesin 400 mg PO Q6H PRN 12/26/18 12/26/18 History hydrochlorothiazide 25 mg PO DAILY 12/26/18 12/26/18 History megestrol 400 mg PO BID 12/26/18 12/26/18 History omeprazole 20 mg PO QAM 12/26/18 12/26/18 History potassium chloride 20 meq PO BID 12/26/18 12/26/18 History tiotropium bromide 1 cap INHALATION DAILY 12/26/18 12/26/18 History warfarin See Rx Instructions .ROUTE .COMPLEX 12/26/18 12/26/18 History Allergies Allergy/AdvReac Type Severity Reaction Status Date / Time vancomycin Allergy Severe Anaphylaxis Verified 12/23/18 11:26 animal dander Allergy Mild CONGESTION, Verified 12/23/18 11:26 STUFFINESS, SNEEZING paroxetine Allergy Mild RASH Verified 12/23/18 11:26 fluconazole [From Diflucan] AdvReac Intermediate Dizziness Verified 12/23/18 11:26 amoxicillin AdvReac Rash Verified 12/23/18 11:26 Past Med/Surg History Medical History Primary pulmonary hypertension (Acute) Malabsorption syndrome (Acute) Incisional hernia (Acute) Dilated aortic root (Acute) COPD with emphysema (Chronic) Severe, on 3L O2 continuous. Admitted to [facility] 09/10-09/16 with exacerbation + pneumonia. 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 L Eloesser flap/EBUS/bronch by Dr. Pettit 09/14. Treated with IV ABX and discharged on Augmention On home oxygen therapy 3L VIA NC CONT. Osteoarthritis Surgical History History of abdominal surgery "TWISTED BOWEL/NECROTIC BOWEL REPAIR" History of bronchoscopy History of cholecystectomy History of colonoscopy History of colonoscopy with polypectomy History of endoscopic sinus surgery History of herniorrhaphy History of lung surgery LEFT LOBECTOMY History of resection of small bowel History of tooth extraction Family History Mother Breast cancer Cancer Hypertension Social History Preferred Language: Frisian Communication Ability: Effective Lime Slaker Required: No Beliefs That Will Affect Care: None marital status: Current Living Situation: Alone Current Living Situation Comment: one story house alone Feels Safe at Home: Yes Smoking Status: Never smoker Tobacco Type: cigarettes ; Second Hand Exposure: No ; Hx Alcohol Use: No Hx Substance Use: No Review of Systems See HPI for pertinent positives & negatives. and A total of 10 systems reviewed and were otherwise negative Physical Exam Vital Signs Vital Signs - 24 hr 12/26/18 19:51 12/26/18 20:22 12/26/18 20:31 Temperature 36.7 C Temperature Source Oral Sepsis Recent Fever Within 48 Hours Yes Sepsis Action Taken by Nursing No Action Required Oxygen Flow Rate - Titration 3 Pulse Oximetry Post Tiitration 97 Pulse Rate 135 H Pulse Rate [Right Finger] 118 H 140 H Pulse Rhythm Irregular Pulse Rhythm [Right Finger] Irregular Respiratory Rate 24 28 H 24 Respiratory Effort / Characteristics SOB on Exertion Spontaneous Spontaneous Respiratory Pattern Blood Pressure 127/85 Blood Pressure [Right Arm] 125/74 Blood Pressure Mean 99 Blood Pressure Mean [Right Arm] 91 Pulse Oximetry 98 98 98 Oxygen Delivery Method Nasal Cannula Nasal Cannula Nasal Cannula Oxygen Flow Rate 3 3.5 3.5 Fraction of Inspired Oxygen 12/26/18 21:10 Temperature Temperature Source Sepsis Recent Fever Within 48 Hours Sepsis Action Taken by Nursing Oxygen Flow Rate - Titration Pulse Oximetry Post Tiitration Pulse Rate 120 H Pulse Rate [Right Finger] Pulse Rhythm Pulse Rhythm [Right Finger] Respiratory Rate 23 Respiratory Effort / Characteristics Spontaneous Respiratory Pattern Irregular Tachypnea Blood Pressure Blood Pressure [Right Arm] Blood Pressure Mean Blood Pressure Mean [Right Arm] Pulse Oximetry 97 Oxygen Delivery Method Oxygen Flow Rate Fraction of Inspired Oxygen 40 GENERAL: Patient is awake to verbal commands. He appears to fall asleep easily. He does appear to be somewhat anxious when he is verbally aroused. EYES: The conjunctivae are clear. The pupils are round and reactive. EARS, NOSE, MOUTH AND THROAT: The nose is without any evidence of any deformity. Mucous membranes are moist.Tongue is midline NECK: The neck is nontender and supple. RESPIRATORY: Absent breath sounds were noted in the left lung field. There are diminished breath sounds at both bases with rales in the right base. CARDIOVASCULAR: Tachycardic rate with irregular rhythm was noted. GASTROINTESTINAL: The abdomen is soft. Bowel sounds are present in all quadrants. Abdomen is nontender. MUSCULOSKELETAL/EXTREMITIES: There is no evidence of gross deformity. Full range of motion is noted in the hips and shoulders. SKIN: There is no obvious evidence of any rash. There is a large defect on the left lateral chest wall. This is consistent with the patient's previous surgical history. This area has no acute drainage but there is a wound packing in place. It does have the smell of an infection which is consistent with the patient's history. Significant pedal edema was noted bilaterally. Skin is warm and dry. NEUROLOGIC: Patient is awake to verbal commands. He does move all extremities w ell. Course 1943: Medical records reviewed. The patient was seen in room B3B, a physical examination was performed. B3B: The patient woke up and is requesting coffee. 2100: Dr. Das, [facility] Hospitalist, was notified. 2114: The patient was admitted for further evaluation. Administered Medications Fentanyl Citrate (Fentanyl Citrate) 50 mcg IV Q15M PRN PRN Reason: Pain Stop: 01/09/19 19:46 Last Admin: 12/26/18 20:27 Dose: 50 mcg Documented by: [id number] Discontinued Medications Albuterol (Duoneb) 3 ml NEB NOW STA Stop: 12/26/18 19:48 Last Admin: 12/26/18 20:22 Dose: 3 ml Documented by: [id number] Ciprofloxacin (Cipro) 400 mg in 200 mls @ 200 mls/hr IV NOW STA Stop: 12/26/18 21:54 Last Infusion: 12/26/18 21:46 Dose: 0 mls/hr Documented by: [id number] Admin: 12/26/18 21:02 Dose: 200 mls/hr Documented by: [id number] Sodium Chloride (Nss 1000ml) 500 mls @ 999 mls/hr IV .Q31M ONE Stop: 12/26/18 21:25 Last Infusion: 12/26/18 21:54 Dose: 0 mls/hr Documented by: [id number] Admin: 12/26/18 21:02 Dose: 999 mls/hr Documented by: [id number] Ondansetron HCl (Zofran) 4 mg IV NOW STA Stop: 12/26/18 19:48 Last Admin: 12/26/18 20:27 Dose: 4 mg Documented by: [id number] Medical Decision Making Differential Diagnosis Differential diagnosis: Etiologies such as infections, reactive airway disease, pneumonia, pneumothorax, COPD, CHF, cardiac ischemia, pulmonary embolism, musculoskeletal, gastrointestinal, as well as others were entertained. Medical Records Attestation: I reviewed the patient's medical records. Home Medications Current Medication List: was personally reviewed by me Laboratory Data Attestation: I reviewed the patient's lab results. Result diagrams: 12/26/18 19:30 12/26/18 19:30 Lab Results 12/26/18 12/26/18 12/26/18 Range/Units 19:30 19:30 19:30 WBC 9.89 (4.8-10.8) K/uL RBC 3.99 L (4.7-6.1) M/uL Hgb 10.8 L (14.0-18.0) g/dL POC Hgb (14.0-18.0) g/dl Hct 40.0 L (42-52) % POC Hct (42-52) % MCV 100.3 H (80-100) fL MCH 27.1 (25-34) pg MCHC 27.0 L (32-36) g/dL Plt Count 393 (130-400) K/uL Immature Gran % (Auto) 0.3 % Neut % (Auto) 84.9 % Lymph % (Auto) 4.0 % [place] % (Auto) 10.4 % Eos % (Auto) 0.2 % Baso % (Auto) 0.2 % Immature Gran # (Auto) 0.03 H (0.00-0.02) K/uL Neut # (Auto) 8.39 H (1.4-6.5) K/uL Lymph # (Auto) 0.40 L (1.2-3.4) K/uL [place] # (Auto) 1.03 H (0.11-0.59) K/uL Eos # (Auto) 0.02 (0-0.5) K/uL Baso # (Auto) 0.02 (0-0.2) K/uL ESR > 90 H (0-14) mm/hr PT (9.0-12.0) Seconds INR (0.9-1.1) APTT (21.0-31.0) Seconds PTT Ratio VBG pH (7.36-7.41) VBG pCO2 (38-50) mmHg VBG pO2 mmHg VBG HCO3 mmol/L VBG O2 Saturation % VBG Base Excess mEq/L Barometric Pressure mm/Hg POC Sodium (135-144) mEq/L Sodium (136-145) mmol/L POC Potassium (3.3-5.0) mEq/L Potassium (3.5-5.1) mmol/L POC Chloride (101-112) mEq/L Chloride (98-107) mmol/L Carbon Dioxide (21-32) mmol/L POC Total CO2 (24-31) mEq/l Anion Gap (3-11) POC Anion Gap (16-25) mmol/L POC BUN (7-18) mg/dl BUN (7-18) mg/dl Creatinine (0.6-1.4) mg/dl POC Creatinine (0.6-1.3) mg/dl Est Cr Clr Drug Dosing ml/min Est GFR ( Amer) Est GFR (Non-Af Amer) BUN/Creatinine Ratio (10-20) Glucose (70-99) mg/dl POC Glucose (other) (70-99) mg/dl Lactate (0.4-2.0) mmol/L Calcium (8.5-10.1) mg/dl POC Ioniz Calcium Sergio (1.12-1.32) mmol/l Magnesium (1.8-2.4) mg/dl Total Bilirubin (0.2-1) mg/dl AST (15-37) U/L ALT (12-78) U/L Alkaline Phosphatase (45-117) U/L Troponin I (0-0.045) ng/ml C-Reactive Protein (0-0.29) mg/dl NT-Pro-B Natriuret Pep (0-900) pg/ml Total Protein (6.4-8.2) gm/dl Albumin (3.4-5.0) gm/dl Globulin (2.5-4.0) gm/dl Albumin/Globulin Ratio (0.9-2) Procalcitonin < 0.05 (0-0.5) ng/ml 12/26/18 12/26/18 12/26/18 Range/Units 19:30 19:30 20:32 WBC (4.8-10.8) K/uL RBC (4.7-6.1) M/uL Hgb (14.0-18.0) g/dL POC Hgb (14.0-18.0) g/dl Hct (42-52) % POC Hct (42-52) % MCV (80-100) fL MCH (25-34) pg MCHC (32-36) g/dL Plt Count (130-400) K/uL Immature Gran % (Auto) % Neut % (Auto) % Lymph % (Auto) % [place] % (Auto) % Eos % (Auto) % Baso % (Auto) % Immature Gran # (Auto) (0.00-0.02) K/uL Neut # (Auto) (1.4-6.5) K/uL Lymph # (Auto) (1.2-3.4) K/uL [place] # (Auto) (0.11-0.59) K/uL Eos # (Auto) (0-0.5) K/uL Baso # (Auto) (0-0.2) K/uL ESR (0-14) mm/hr PT 11.4 (9.0-12.0) Seconds INR 1.1 (0.9-1.1) APTT 22.9 (21.0-31.0) Seconds PTT Ratio 0.8 VBG pH (7.36-7.41) VBG pCO2 (38-50) mmHg VBG pO2 mmHg VBG HCO3 mmol/L VBG O2 Saturation % VBG Base Excess mEq/L Barometric Pressure mm/Hg POC Sodium (135-144) mEq/L Sodium 141 (136-145) mmol/L POC Potassium (3.3-5.0) mEq/L Potassium 3.8 (3.5-5.1) mmol/L POC Chloride (101-112) mEq/L Chloride 95 L (98-107) mmol/L Carbon Dioxide 52 H* (21-32) mmol/L POC Total CO2 (24-31) mEq/l Anion Gap -5.0 L (3-11) POC Anion Gap (16-25) mmol/L POC BUN (7-18) mg/dl BUN 27 H (7-18) mg/dl Creatinine 0.60 (0.6-1.4) mg/dl POC Creatinine (0.6-1.3) mg/dl Est Cr Clr Drug Dosing 75.9 ml/min Est GFR ( Amer) 117.2 Est GFR (Non-Af Amer) 101.2 BUN/Creatinine Ratio 45.6 H (10-20) Glucose 161 H (70-99) mg/dl POC Glucose (other) (70-99) mg/dl Lactate 1.2 (0.4-2.0) mmol/L Calcium 9.6 (8.5-10.1) mg/dl POC Ioniz Calcium Sergio (1.12-1.32) mmol/l Magnesium 2.2 (1.8-2.4) mg/dl Total Bilirubin 0.2 (0.2-1) mg/dl AST 22 (15-37) U/L ALT 34 (12-78) U/L Alkaline Phosphatase 153 H (45-117) U/L Troponin I < 0.015 (0-0.045) ng/ml C-Reactive Protein 1.41 H (0-0.29) mg/dl NT-Pro-B Natriuret Pep 953 H (0-900) pg/ml Total Protein 7.5 (6.4-8.2) gm/dl Albumin 2.6 L (3.4-5.0) gm/dl Globulin 4.9 H (2.5-4.0) gm/dl Albumin/Globulin Ratio 0.5 L (0.9-2) Procalcitonin (0-0.5) ng/ml 12/26/18 12/26/18 Range/Units 20:32 20:41 WBC (4.8-10.8) K/uL RBC (4.7-6.1) M/uL Hgb (14.0-18.0) g/dL POC Hgb 11.9 L (14.0-18.0) g/dl Hct (42-52) % POC Hct 35 L (42-52) % MCV (80-100) fL MCH (25-34) pg MCHC (32-36) g/dL Plt Count (130-400) K/uL Immature Gran % (Auto) % Neut % (Auto) % Lymph % (Auto) % [place] % (Auto) % Eos % (Auto) % Baso % (Auto) % Immature Gran # (Auto) (0.00-0.02) K/uL Neut # (Auto) (1.4-6.5) K/uL Lymph # (Auto) (1.2-3.4) K/uL [place] # (Auto) (0.11-0.59) K/uL Eos # (Auto) (0-0.5) K/uL Baso # (Auto) (0-0.2) K/uL ESR (0-14) mm/hr PT (9.0-12.0) Seconds INR (0.9-1.1) APTT (21.0-31.0) Seconds PTT Ratio VBG pH 7.22 L (7.36-7.41) VBG pCO2 123 H (38-50) mmHg VBG pO2 53 mmHg VBG HCO3 49 mmol/L VBG O2 Saturation 85.6 % VBG Base Excess 17.2 mEq/L Barometric Pressure 735.7 mm/Hg POC Sodium 143 (135-144) mEq/L Sodium (136-145) mmol/L POC Potassium 3.9 (3.3-5.0) mEq/L Potassium (3.5-5.1) mmol/L POC Chloride 89 L (101-112) mEq/L Chloride (98-107) mmol/L Carbon Dioxide (21-32) mmol/L POC Total CO2 > 40 H* (24-31) mEq/l Anion Gap (3-11) POC Anion Gap 9.0 L (16-25) mmol/L POC BUN 32 H (7-18) mg/dl BUN (7-18) mg/dl Creatinine (0.6-1.4) mg/dl POC Creatinine 0.6 (0.6-1.3) mg/dl Est Cr Clr Drug Dosing ml/min Est GFR ( Amer) Est GFR (Non-Af Amer) BUN/Creatinine Ratio (10-20) Glucose (70-99) mg/dl POC Glucose (other) 129 H (70-99) mg/dl Lactate (0.4-2.0) mmol/L Calcium (8.5-10.1) mg/dl POC Ioniz Calcium Sergio 1.22 (1.12-1.32) mmol/l Magnesium (1.8-2.4) mg/dl Total Bilirubin (0.2-1) mg/dl AST (15-37) U/L ALT (12-78) U/L Alkaline Phosphatase (45-117) U/L Troponin I (0-0.045) ng/ml C-Reactive Protein (0-0.29) mg/dl NT-Pro-B Natriuret Pep (0-900) pg/ml Total Protein (6.4-8.2) gm/dl Albumin (3.4-5.0) gm/dl Globulin (2.5-4.0) gm/dl Albumin/Globulin Ratio (0.9-2) Procalcitonin (0-0.5) ng/ml Imaging Data Radiologist's Impression: Radiology results as stated below per my review and the radiologist's interpretation: XR chest 1V portable HISTORY: Sepsis COMPARISON: Chest 12/23/2018. FINDINGS: No change in the large left chest wall defect. There is persistent volume loss and near complete opacification of the left hemithorax. Multiple metallic pellets are again noted at the left hemithorax. This is consistent with chronic posttraumatic/postoperative change. The right lung remains clear. The cardiomediastinal silhouette is stable. No pleural effusions. No pneumothorax. IMPRESSION: Overall no significant change compared to prior study. Post traumatic and postoperative changes within the left hemithorax are again noted. Electronically signed by: Guero Tapia M.D. 12/26/2018 8:54 PM ECG Data Attestation: I personally reviewed and interpreted this ECG as follows: Indication: SOB/dyspnea Rate (beats per minute): 131 Rhythm: atrial fibrillation Findings: + other (No acute ST segments); no PVC Comparison ECG Date: from (12/10/18) Change: no significant change Blood Pressure Blood Pressure Findings: Elevated blood pressure Blood Pressure Disposition: further management by hospitalist VALERIA Orona The patient is a 73-year-old male who has a history of lung surgery. Patient the patient has a history of lung pain which was postoperative. He also has a history of postoperative infection. The patient has a wound dressing in place. The patient was treated with BiPAP as well as IV fluids in the emergency department. Blood cultures were obtained. The patient was also treated with pain medication. On subsequent reevaluation he was feeling much better. He continued to have tachycardia. I discussed the patient's laboratory and radiographic studies with him and his family member. Given the degree of respiratory acidosis he was placed on BiPAP and continued to improve. The [facility] hospitalist group was notified about the patient's condition. They will evaluate the patient in the emergency department for further management disposition. Impression & Plan Respiratory failure, PNA (pneumonia), CO2 retention, Edema, peripheral Critical Care Time Critical Care Time: Yes Total Critical Care Time: 40 I have personally spent 40 minutes of critical care time in the direct management of this patient. This includes bedside care, interpretation of diagnostic studies, and testing, discussion with consultants, patient, and family members, and other required patient management activities. This 40 minutes is in excess of all separately billable procedures. Discharge Plan Visit Data Chief Complaint: Shortness of Breath/Dyspnea Stated Complaint: SOB, WEAKNESS, AMS, EDEMA ED Provider: Jose Cruz Agrawal Discharge Problem: Respiratory failure, PNA (pneumonia), CO2 retention, Edema, peripheral Patient Disposition: Being Evaluated by Hospitalist Forms Stand Alone Forms: My [facility] Prescriptions Prescriptions: No Action zinc sulfate 220 (50) mg capsule 220 mg PO DAILY Qty: 30 RF: 0 hydrocodone-acetaminophen 7.5-325 mg tablet 1 tab PO Q4H PRN (Reason: Pain) RF: 0 bupropion HCl [Wellbutrin SR] 150 mg Tablet Sustained-Release 12 Hr 150 mg PO QAM RF: 0 cholecalciferol (vitamin D3) [Vitamin D3] 1,000 unit Tablet 6,000 unit PO DAILY RF: 0 cyanocobalamin (vitamin B-12) 1,000 mcg/mL Kit 1,000 mcg IM MONTHLY RF: 0 albuterol sulfate 90 mcg/actuation HFA aerosol inhaler 2 puff inhalation Q4H PRN (Reason: Shortness Of Breath) RF: 0 megestrol 400 mg/10 mL (40 mg/mL) suspension 400 mg PO BID RF: 0 guaifenesin 200 mg Tablet 400 mg PO Q6H PRN (Reason: Mucous) RF: 0 potassium chloride 20 mEq/15 mL Liquid 20 meq PO BID RF: 0 omeprazole 20 mg Capsule,Delayed Release(Dr/Ec) 20 mg PO QAM RF: 0 hydrochlorothiazide 25 mg Tablet 25 mg PO DAILY RF: 0 tiotropium bromide 18 mcg Capsule, W/Inhalation Device 1 cap INHALATION DAILY RF: 0 budesonide-formoterol 160-4.5 mcg/actuation Hfa Aerosol Inhaler 2 puff INHALATION BID RF: 0 albuterol sulfate 2.5 mg /3 mL (0.083 %) solution for nebulization 2.5 mg INHALATION Q4H PRN (Reason: Shortness Of Breath) RF: 0 warfarin 2.5 mg tablet See Rx Instructions .ROUTE .COMPLEX RF: 0 acetic acid 0.25 % solution 100 ml irrigation DIRECTED RF: 0 aspirin [Aspirin Low Dose] 81 mg Tablet,Delayed Release (Dr/Ec) 81 mg PO QAM RF: 0 magnesium 250 mg Tablet 250 mg PO DAILY RF: 0 mupirocin 2 % Ointment 1 applic TOPICAL BID RF: 0 fluticasone propionate 50 mcg/actuation [place],Suspension 2 spray INTRANASAL DAILY RF: 0 Centrum 18-400 mg-mcg Tablet 1 tab PO DAILY RF: 0 Referrals Referrals: Kristopher Arias MD [Primary Care Provider] - Discharge Problem: Respiratory failure Qualifiers: Chronicity: unspecified Respiratory failure complication: unspecified whether with hypoxia or hypercapnia Qualified Code(s): J96.90 - Respiratory failure, unspecified, unspecified whether with hypoxia or hypercapnia PNA (pneumonia) Qualifiers: Pneumonia type: due to unspecified organism Laterality: unspecified laterality Lung location: unspecified part of lung Qualified Code(s): J18.9 - Pneumonia, unspecified organism The scribe's documentation has been prepared under my direction and personally reviewed by me in its entirety. I confirm that the note above accurately reflects all work, treatment, procedures, and medical decision making performed by me.
[2018-12-26 20:14] LABS: Basophils # (auto) 0.02 K/uL (0-0.2); Basophils % (auto) 0.2 %; Eosinophils # (auto) 0.02 K/uL (0-0.5); Eosinophils % (auto) 0.2 %; Hemoglobin 10.8 g/dL (14.0-18.0); Immature Granulocytes # (auto) 0.03 K/uL (0.00-0.02); Immature Granulocytes % (auto) 0.3 %; Mean Corpuscular Hemoglobin 27.1 pg (25-34); Mean Corpuscular Volume 100.3 fL (80-100); Monocytes # (auto) 1.03 K/uL (0.11-0.59); Monocytes % (auto) 10.4 %; Neutrophils # (auto) 8.39 K/uL (1.4-6.5); Neutrophils % (auto) 84.9 %; Platelet Count 393 K/uL (130-400); Red Blood Count 3.99 M/uL (4.7-6.1); White Blood Count 9.89 K/uL (4.8-10.8)
[2018-12-26 20:16] LABS: INR 1.1 (0.9-1.1); Partial Thromboplastin Ratio 0.8; Partial Thromboplastin Time 22.9 Seconds (21.0-31.0); Prothrombin Time 11.4 Seconds (9.0-12.0)
[2018-12-26 20:25] LABS: NT Pro B Type Natriuretic Pept 953 pg/ml (0-900)
[2018-12-26 20:26] LABS: Alanine Aminotransferase 34 U/L (12-78); Albumin Globulin Ratio 0.5 (0.9-2); Albumin Level 2.6 gm/dl (3.4-5.0); Alkaline Phosphatase 153 U/L (45-117); Aspartate Aminotransferase 22 U/L (15-37); BUN Creatinine Ratio 45.6 (10-20); Bilirubin,Total 0.2 mg/dl (0.2-1); Blood Urea Nitrogen 27 mg/dl (7-18); C Reactive Protein 1.41 mg/dl (0-0.29); Calcium 9.6 mg/dl (8.5-10.1); Chloride 95 mmol/L (98-107); Creatinine Clr Calc Pharmacy 75.9 ml/min; Est GFR (African American) 117.2; Est GFR (Non-African American) 101.2; Globulin 4.9 gm/dl (2.5-4.0); Glucose 161 mg/dl (70-99); Magnesium 2.2 mg/dl (1.8-2.4); Potassium 3.8 mmol/L (3.5-5.1); Sodium 141 mmol/L (136-145); Total Protein 7.5 gm/dl (6.4-8.2); Troponin I < 0.015 ng/ml (0-0.045)
[2018-12-26 20:33] LABS: Carbon Dioxide 52 mmol/L (21-32)
[2018-12-26 20:51] LABS: Base Excess VBG 17.2 mEq/L; Oxygen Saturation VBG 85.6 %; pH VBG 7.22 (7.36-7.41)
[2018-12-26] MEDS ORDERED: CIPROFLOXACIN 400 MG/200 ML BAG IV STA (20:55)
[2018-12-26] MEDS ORDERED: SODIUM CHLORIDE 0.9% 1000ML 500 ML IV ONE (20:55)
--- NOTE | 2018-12-26 20:55 | XRay Report ---
XR chest 1V portable HISTORY: Sepsis COMPARISON: Chest 12/23/2018. FINDINGS: No change in the large left chest wall defect. There is persistent volume loss and near com plete opacification of the left hemithorax. Multiple metallic pellets are again noted at the left hem ithorax. This is consistent with chronic posttraumatic/postoperative change. The right lung remains c lear. The cardiomediastinal silhouette is stable. No pleural effusions. No pneumothorax. IMPRESSION: Overall no significant change compared to prior study. Post traumatic and postoperative changes withi n the left hemithorax are again noted. Electronically signed by: Guero Tapia M.D. 12/26/2018 8:54 PM
[2018-12-26 20:56] LABS: iSTAT Blood Urea Nitrogen 32 mg/dl (7-18); iSTAT Carbon Dioxide > 40 mEq/l (24-31); iSTAT Chloride 89 mEq/L (101-112); iSTAT Creatinine 0.6 mg/dl (0.6-1.3); iSTAT Glucose 129 mg/dl (70-99); iSTAT Hematocrit 35 % (42-52); iSTAT Hemoglobin 11.9 g/dl (14.0-18.0); iSTAT Ionized Calcium 1.22 mmol/l (1.12-1.32); iSTAT Potassium 3.9 mEq/L (3.3-5.0); iSTAT Sodium 143 mEq/L (135-144)
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
[2018-12-27] MEDS ORDERED: HYDROCODONE/ACETAMINOPHEN 7.5/325MG TAB PO PRN (00:01)
[2018-12-27] MEDS ORDERED: WARFARIN SOD 2.5 MG TAB PO SCH (00:01)
[2018-12-27] MEDS ORDERED: HYDROmorphone INJ 1 MG/ML SYRINGE IV PRN (00:01)
[2018-12-27] MEDS ORDERED: ONDANSETRON INJ 2 MG/ML 2 ML VIAL IV PRN (00:01)
[2018-12-27] MEDS ORDERED: FAMOTIDINE 200 MG/20 ML VIAL IV ONE (00:01)
[2018-12-27] MEDS ORDERED: ALBUTEROL HFA 8 GM INHALER INH PRN (00:01)
[2018-12-27] MEDS ORDERED: ACETAMINOPHEN IV PRN (00:01)
[2018-12-27] MEDS ORDERED: FAMOTIDINE 20 MG in SYRINGE 3 ML IV ONE (01:00)
[2018-12-27] MEDS: ACETIC ACID 0.25% IRRIG SOLN 1000 ML PLCT IR SCH (01:11)
[2018-12-27] MEDS: ALBUTEROL 0.083% NEBU SOLN 3 ML VIAL INH PRN (04:14)
[2018-12-27 06:04] LABS: Base Excess VBG 16.6 mEq/L; Oxygen Saturation VBG 67.3 %; pH VBG 7.24 (7.36-7.41)
[2018-12-27 06:22] LABS: INR 1.1 (0.9-1.1); Prothrombin Time 11.4 Seconds (9.0-12.0)
[2018-12-27 06:25] LABS: Basophils # (auto) 0.01 K/uL (0-0.2); Basophils % (auto) 0.1 %; Eosinophils # (auto) 0.02 K/uL (0-0.5); Eosinophils % (auto) 0.2 %; Hematocrit (blood only) 38.4 % (42-52); Hemoglobin 10.3 g/dL (14.0-18.0); Immature Granulocytes # (auto) 0.02 K/uL (0.00-0.02); Immature Granulocytes % (auto) 0.2 %; Lymphocytes # (auto) 0.53 K/uL (1.2-3.4); Lymphocytes % (auto) 5.8 %; Mean Corpuscular Hemoglobin 26.4 pg (25-34); Mean Corpuscular Hgb Conc 26.8 g/dL (32-36); Mean Corpuscular Volume 98.5 fL (80-100); Monocytes # (auto) 0.67 K/uL (0.11-0.59); Monocytes % (auto) 7.4 %; Neutrophils # (auto) 7.82 K/uL (1.4-6.5); Neutrophils % (auto) 86.3 %; Platelet Count 292 K/uL (130-400); RDW Coefficient of Variation 16.9 % (11.5-14.5); RDW Standard Deviation 60.5 fL (36.4-46.3); White Blood Count 9.07 K/uL (4.8-10.8)
[2018-12-27 06:34] LABS: Calcium 9.2 mg/dl (8.5-10.1); Creatinine Clr Calc Pharmacy 135.5 ml/min; Est GFR (African American) 134.5; Potassium 3.8 mmol/L (3.5-5.1)
[2018-12-27 06:50] LABS: Appearance Urine Cloudy (Clear); Bacteria Urine Automated Negative (Negative); Bilirubin Urine Negative (Negative); Blood Urine 2+ (Negative); Color Urine Dark Yellow; Epithelial Cell Urine Auto 20-30 /lpf (0-5); Glucose Urine UA Negative (Negative); Ketones Urine 1+ (Negative); Leukocyte Esterase Urine Negative (Negative); Nitrite Urine Negative (Negative); Protein Urine Trace (Negative); Specific Gravity Urine 1.022 (1.000-1.030); Urobilinogen Urine Negative (Negative); pH Urine 5.5 (4.5-7.5)
[2018-12-27 07:06] LABS: Anion Gap 3.3 (3-11)
[2018-12-27] MEDS: ALBUT/IPRATROP 3MG/0.5MG NEB 3 ML VIAL NEB SCH ×4 (07:07→18:47)
[2018-12-27] MEDS ORDERED: MEGESTROL ACETATE SUSP 400 MG/10 ML UDC PO SCH (09:00)
[2018-12-27] MEDS ORDERED: ASPIRIN 81 MG ECTAB PO SCH (09:00)
[2018-12-27] MEDS ORDERED: hydroCHLOROthiazide 25 MG TAB PO SCH (09:00)
[2018-12-27] MEDS ORDERED: INFLUENZA VACCINE HIGH DOSE 65+ 0.5 ML SYR IM ONE (09:00)
[2018-12-27] MEDS ORDERED: BuPROPion SR 150 MG TABCR PO SCH (09:00)
[2018-12-27] MEDS ORDERED: INFLUENZA ADMINISTRATION CHARGE ONE (09:00)
[2018-12-27] MEDS ORDERED: PANTOprazole 40 MG TAB PO SCH (09:00)
[2018-12-27] MEDS ORDERED: MAGNESIUM OXIDE 400 MG TAB PO SCH (09:00)
[2018-12-27] MEDS ORDERED: POTASSIUM CHLORIDE 20 MEQ/15 ML UDC PO SCH (09:00)
[2018-12-27] MEDS ORDERED: ZINC SULFATE 220 MG CAPSULE PO SCH (09:00)
[2018-12-27] MEDS ORDERED: SODIUM CHLORIDE 0.9% 1000ML 1,000 ML IV SCH (09:30)
[2018-12-27] MEDS: CIPROFLOXACIN 400 MG/200 ML BAG IV SCH ×2 (09:41→21:34)
[2018-12-27] MEDS ORDERED: RAPID SEQUENCE INDUCTION BAG ONE (10:04)
[2018-12-27] MEDS ORDERED: PROPOFOL IV EMULSION 10 MG/ML 100 ML VIAL IV ONE (10:18)
[2018-12-27 10:20] LABS: Base Excess ABG 18.6 mEq/L (-9-1.8); HCO3 ABG 48 mmol/L (19-24); Oxygen Saturation ABG 95.4 % (90-95); PCO2 ABG 90 mmHg (35-46); PO2 ABG 86 mm/Hg (80-95); pH ABG 7.35 (7.35-7.45)
[2018-12-27 10:21] LABS: Allen Test Pos (Pos)
[2018-12-27] MEDS ORDERED: ENOXAPARIN INJ 40 MG/0.4 ML SYR SQ SCH (10:30)
[2018-12-27] MEDS: propofoL 1,000 MG/100 ML VIAL IV SCH ×3 (10:30→21:35)
[2018-12-27] MEDS ORDERED: OPTIRAY 320 125ml IV PRN (10:46)
--- NOTE | 2018-12-27 10:58 | Consultation Report ---
DATE OF CONSULTATION: 12/27/2018 Mr. Ferrara was seen today. He is very lethargic. There has been an acute change. I saw this patient 5 days ago in my office and he looked much improved. He is retaining carbon dioxide, but I would search for another etiology of this sudden change. He may have had a pulmonary embolism. His x-ray does not appear to show a pneumonia. His wound is very clean. He has a pinpoint opening at his left mainstem bronchus. I discussed this case with Dr. Zarate who is going to intubate the patient for his high pCO2 which has not responded to BiPAP overnight. I told him keep the tidal volumes extremely low as this is not going to help the healing of the bronchopleural fistula. We will continue managing the wound. It is very clean. I would also search for a neurologic reason for his change. For complete details of this patient's past history and physical exam, please refer to Nabor Pierce's note. MTDD
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
--- NOTE | 2018-12-27 11:15 | CT Scan Report ---
CT head/brain wo con CLINICAL HISTORY: Acute change in mental status. SUSPECTED STROKE COMPARISON STUDY: 03/08/2018 TECHNIQUE: Axial CT of the brain is performed from the vertex to the skull base. IV contrast was not administered for this examination. A dose lowering technique was utilized adhering to the principles of ALARA. CT DOSE: FINDINGS: No intra or extra-axial mass lesions are visualized. There is no CT evidence of acute cortical infarc tion. There is no evidence of midline shift. There is no acute hemorrhage. No calvarial fractures ar e visualized. There are minor white matter hypodensities likely on a small vessel basis. There is no evidence of pathologic ventricular dilatation. There is ethmoid sinus mucosal thickening. IMPRESSION: No acute intracranial findings Electronically signed by: Davi Blanco M.D. 12/27/2018 11:14 AM
--- NOTE | 2018-12-27 11:15 | CT Scan Report ---
CT angio head w con CLINICAL HISTORY: 73 years-old Male with r/o thrombus. Acutely altered mental status with sepsis. COMPARISON STUDY: CT head of same day and also 03/08/2018, chest radiograph 12/26/2018 TECHNIQUE: Ongoing the IV administration of 120 cc of Optiray 320, CT angiogram of the brain was perf ormed from the skull base to the vertex. Images are reviewed in the axial, sagittal, and coronal plan es. 3-D MIPS images are created and assessed. IV contrast was administered without complication. All measurements were obtained according to NASCET criteria. A dose lowering technique was utilized adher ing to the principles of ALARA. CT DOSE: 1570.05 mGy.cm FINDINGS: Chronic findings of the left hemithorax redemonstrated. Endotracheal tube terminates above the level of the julieta. Study is limited secondary to positioning and patient motion. Secretions are noted abo ut the nasopharynx. Emphysema. CT ANGIOGRAM OF THE BRAIN: Age-related involutional changes. Calcified plaque about the bilateral cavernous and supraclinoid seg ments of the internal carotid arteries without high-grade stenosis. There is suggestion of mild lumin al narrowing about the proximal left M1 segment of the middle cerebral artery without high-grade narr owing. Bilateral anterior and middle cerebral arteries appear patent. There is no aneurysm, dissectio n, high-grade stenosis or proximal branch occlusion identified. Dominant left vertebral artery. The i rama vertebral arteries appear patent. origin of the patent bilateral posterior cerebral arter ies. Diminutive patent basilar artery. Dural sinuses appear patent. IMPRESSION: Motion degraded exam with unremarkable CTA of the head. The above report was generated using voice recognition software. It may contain grammatical, syntax o r spelling errors. Electronically signed by: Leodan Barger M.D. 12/27/2018 11:13 AM
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
--- NOTE | 2018-12-27 11:21 | CT Scan Report ---
CT angio neck with con CLINICAL HISTORY: Strokelike symptoms COMPARISON STUDY: No previous studies for comparison. TECHNIQUE: CT angiography was performed from the aortic arch to the skull base. MIP imaging was perfo rmed. The patient was scanned in a dynamic helical fashion during intravenous administration of 120 c c of Optiray 320. A dose lowering technique was utilized adhering to the principles of ALARA. CT DOSE: Technique: CT angiogram of the carotid and vertebral arteries was obtained using intravenous contrast and 3-D reconstruction. NASCET criteria was utilized. Findings: The right carotid revealed no evidence of aneurysm and no evidence of dissection. There is no evidenc e of hemodynamic significant stenosis. There are mild atheromatous changes of the right carotid bulb. The left carotid revealed no evidence of hemodynamic significant stenosis. There is no evidence of an eurysm. There is no evidence of dissection. There are mild atheromatous changes present at the left c arotid bulb. There is no evidence of hemodynamically significant vertebral stenosis. There is no evidence of verte bral dissection. The examination is mild to moderately compromised due to motion artifact. IMPRESSION: No evidence of hemodynamically significant carotid or vertebral artery stenosis. No evidence of disse ction. Electronically signed by: Davi Blanco M.D. 12/27/2018 11:19 AM
[2018-12-27] MEDS ORDERED: dilTIAZem HCl 5 MG/ML 5 ML VIAL IV STA ×3 (11:24→16:28)
[2018-12-27] MEDS: BUDESONIDE/FORMOTEROL FUMARATE 160/4.5 60 PUFFS/INHALER INH SCH ×2 (11:33→22:44)
[2018-12-27] MEDS: FLUTICASONE PROPIONATE NA SPR 16 GM BTL SCH (11:34)
[2018-12-27] MEDS: MUPIROCIN 2% OINT 22 GM TUBE EXT SCH ×2 (11:34→22:43)
[2018-12-27] MEDS ORDERED: CALCIUM CHLORIDE 10% 1,000 MG in SODIUM CHLORIDE 0.9% 50 ML IV ONE (12:30)
[2018-12-27] MEDS: dilTIAZem HCL 125 MG in DEXTROSE 5% 100 ML IV SCH (12:55)
[2018-12-27] MEDS ORDERED: dilTIAZem HCL 125 MG in DEXTROSE 5% 100 ML IV STA (12:57)
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
[2018-12-27] MEDS: fentaNYL citrate 100 MCG/2 ML VIAL IV PRN (14:01)
[2018-12-27] MEDS ORDERED: dilTIAZem HCl 5 MG/ML 5 ML VIAL IV ONE (14:15)
[2018-12-27] MEDS ORDERED: Heparin IV Low Dose WITH Bolus IV STA (14:18)
[2018-12-27] MEDS ORDERED: HEPARIN SOD (PORCINE) 1000 UNIT/ML 10 ML VIAL IV STA (14:20)
[2018-12-27] MEDS: HEPARIN SODIUM/DEXTROSE 25,000 UNITS/500 ML BAG IV SCH (14:32)
[2018-12-27] MEDS ORDERED: NORMOSOL-R 1,000 ML IV ONE (16:20)
[2018-12-27 16:30] LABS: Base Excess VBG 18.8 mEq/L; Oxygen Saturation VBG 93.5 %; pH VBG 7.59 (7.36-7.41)
[2018-12-27] MEDS ORDERED: ETOMIDATE 2 MG/ML 20 ML VIAL IV ONE (19:44)
[2018-12-27 20:47] LABS: Partial Thromboplastin Ratio 1.7
[2018-12-27 20:50] LABS: Partial Thromboplastin Time 46.7 Seconds (21.0-31.0)
[2018-12-28 05:17] LABS: Base Excess VBG 11.8 mEq/L; HCO3 VBG 37 mmol/L; Oxygen Saturation VBG 71.1 %; PCO2 VBG 52 mmHg (38-50); PO2 VBG 44 mmHg; pH VBG 7.47 (7.36-7.41)
[2018-12-28 05:23] LABS: INR 1.2 (0.9-1.1)
[2018-12-28 05:32] LABS: Basophils # (auto) 0.01 K/uL (0-0.2); Basophils % (auto) 0.1 %; Eosinophils # (auto) 0.04 K/uL (0-0.5); Eosinophils % (auto) 0.4 %; Hematocrit (blood only) 33.6 % (42-52); Hemoglobin 9.3 g/dL (14.0-18.0); Immature Granulocytes # (auto) 0.03 K/uL (0.00-0.02); Immature Granulocytes % (auto) 0.3 %; Lymphocytes # (auto) 0.98 K/uL (1.2-3.4); Lymphocytes % (auto) 10.9 %; Mean Corpuscular Hemoglobin 25.8 pg (25-34); Mean Corpuscular Hgb Conc 27.7 g/dL (32-36); Mean Corpuscular Volume 93.1 fL (80-100); Monocytes # (auto) 1.01 K/uL (0.11-0.59); Monocytes % (auto) 11.2 %; Neutrophils # (auto) 6.95 K/uL (1.4-6.5); Neutrophils % (auto) 77.1 %; Platelet Count 320 K/uL (130-400); RDW Coefficient of Variation 17.5 % (11.5-14.5); RDW Standard Deviation 60.1 fL (36.4-46.3); Red Blood Count 3.61 M/uL (4.7-6.1); White Blood Count 9.02 K/uL (4.8-10.8)
[2018-12-28 05:44] LABS: iSTAT Allen Test Pass; iSTAT Art Bld Gas pCO2 Correct 56 mmHg (35-46); iSTAT Art Bld Gas pH Corrected 7.516 (7.35-7.45); iSTAT Arterial Blood Gas HCO3 45 meg/L (19-24); iSTAT Arterial Blood Gas pCO2 55 mmHg (35-46); iSTAT Arterial Blood Gas pH 7.52 (7.35-7.45); iSTAT Arterial Blood Gas pO2 71 mmHg (80-95); iSTAT Arterial Blood Gas pO2 C 73; iSTAT Carbon Dioxide > 40 mEq/l (24-31); iSTAT Site R Radial
[2018-12-28] MEDS: propofoL 1,000 MG/100 ML VIAL IV SCH ×3 (05:44→23:23)
[2018-12-28] MEDS: dilTIAZem HCL 125 MG in DEXTROSE 5% 100 ML IV SCH ×2 (05:44→13:40)
[2018-12-28 05:59] LABS: Partial Thromboplastin Ratio 1.3; Partial Thromboplastin Time 36.4 Seconds (21.0-31.0)
[2018-12-28 06:00] LABS: BUN Creatinine Ratio 35.8 (10-20); Calcium 8.8 mg/dl (8.5-10.1); Creatinine Clr Calc Pharmacy 84.4 ml/min; Est GFR (African American) 110.7; Est GFR (Non-African American) 95.5; Magnesium 1.9 mg/dl (1.8-2.4); Phosphorus 1.9 mg/dl (2.5-4.9); Potassium 3.4 mmol/L (3.5-5.1)
[2018-12-28] MEDS ORDERED: POTASSIUM PHOS 3 MMOL/1 ML INFUSION IV STA (06:06)
[2018-12-28] MEDS ORDERED: POTASSIUM PHOSPHATE 9 MMOL in SODIUM CHLORIDE 0.9% 250 ML IV ONE (06:30)
[2018-12-28] MEDS: POTASSIUM CHLORIDE / WTR 10 MEQ/100 ML PLCT IV SCH ×3 (06:39→08:45)
[2018-12-28] MEDS ORDERED: HEPARIN IV BOLUS 4,000 UNITS in SYRINGE 0 ML IV ONE (06:45)
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
[2018-12-28] MEDS: fentaNYL citrate 100 MCG/2 ML VIAL IV PRN ×4 (07:31→14:52)
[2018-12-28] MEDS: ALBUT/IPRATROP 3MG/0.5MG NEB 3 ML VIAL NEB SCH ×4 (07:35→19:54)
[2018-12-28] MEDS: MUPIROCIN 2% OINT 22 GM TUBE EXT SCH ×2 (08:45→21:33)
[2018-12-28] MEDS: FLUTICASONE PROPIONATE NA SPR 16 GM BTL SCH (08:46)
[2018-12-28] MEDS ORDERED: SODIUM CHLORIDE 0.9% 1000ML 1,000 ML IV ONE (09:46)
[2018-12-28] MEDS: ACETIC ACID 0.25% IRRIG SOLN 1000 ML PLCT IR SCH (09:51)
[2018-12-28] MEDS: BUDESONIDE/FORMOTEROL FUMARATE 160/4.5 60 PUFFS/INHALER INH SCH ×2 (09:51→20:49)
[2018-12-28] MEDS ORDERED: MAGNESIUM SULFATE / D5W 1 GM/100 ML BAG IV SCH (10:00)
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
[2018-12-28] MEDS: LEVOFLOXACIN/D5W 750 MG/150 ML BAG IV SCH (11:43)
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
[2018-12-28 13:50] LABS: Partial Thromboplastin Ratio 1.9
[2018-12-28 13:51] LABS: Partial Thromboplastin Time 51.5 Seconds (21.0-31.0)
[2018-12-28] MEDS: HEPARIN SODIUM/DEXTROSE 25,000 UNITS/500 ML BAG IV SCH (14:52)
[2018-12-28] MEDS ORDERED: WARFARIN SOD 2.5 MG TAB PO SCH (16:00)
[2018-12-28] MEDS ORDERED: HYDROmorphone INJ 0.5 MG/0.5 ML SYR IV PRN (16:08)
--- NOTE | 2018-12-28 17:00 | Progress Note ---
DATE: 12/28/2018 Mr. Ferrara was seen today. I discussed his case with Dr. Chavarria as well as Dr. Zarate and Dr. Pemberton. The patient will be extubated today. His procalcitonin level was normal. He is much more awake and alert. I had a long discussion about this with the physicians involved in his case. Something acute has happened over the last few days; however, I think the patient looks better. His wound is clean. His bronchopulmonary fistula has healed quite a bit and it is tiny at this point. We are going to continue his pulmonary supplementation.
[2018-12-28] MEDS: CIPROFLOXACIN 400 MG/200 ML BAG IV SCH (23:25)
[2018-12-29] MEDS: fentaNYL citrate 100 MCG/2 ML VIAL IV PRN (00:10)
[2018-12-29 04:37] LABS: Basophils # (auto) 0.01 K/uL (0-0.2); Basophils % (auto) 0.1 %; Eosinophils # (auto) 0.11 K/uL (0-0.5); Eosinophils % (auto) 1.2 %; Hematocrit (blood only) 29.5 % (42-52); Hemoglobin 8.6 g/dL (14.0-18.0); Immature Granulocytes # (auto) 0.04 K/uL (0.00-0.02); Immature Granulocytes % (auto) 0.4 %; Lymphocytes # (auto) 0.59 K/uL (1.2-3.4); Lymphocytes % (auto) 6.5 %; Mean Corpuscular Hemoglobin 26.3 pg (25-34); Mean Corpuscular Hgb Conc 29.2 g/dL (32-36); Mean Corpuscular Volume 90.2 fL (80-100); Mean Platelet Volume 9.2 fL (7.4-10.4); Monocytes # (auto) 1.11 K/uL (0.11-0.59); Monocytes % (auto) 12.3 %; Neutrophils # (auto) 7.16 K/uL (1.4-6.5); Neutrophils % (auto) 79.5 %; Platelet Count 245 K/uL (130-400); RDW Coefficient of Variation 17.5 % (11.5-14.5); RDW Standard Deviation 57.4 fL (36.4-46.3); Red Blood Count 3.27 M/uL (4.7-6.1); White Blood Count 9.02 K/uL (4.8-10.8)
[2018-12-29 04:47] LABS: Partial Thromboplastin Ratio 1.5; Partial Thromboplastin Time 39.6 Seconds (21.0-31.0); Prothrombin Time 10.7 Seconds (9.0-12.0)
[2018-12-29 05:00] LABS: BUN Creatinine Ratio 53.7 (10-20); Base Excess VBG 12.3 mEq/L; Calcium 7.9 mg/dl (8.5-10.1); Creatinine Clr Calc Pharmacy 171.4 ml/min; Est GFR (African American) 148.1; Est GFR (Non-African American) 127.8; Magnesium 2.1 mg/dl (1.8-2.4); Oxygen Saturation VBG 94.2 %; Phosphorus 2.9 mg/dl (2.5-4.9); Potassium 3.4 mmol/L (3.5-5.1); pH VBG 7.34 (7.36-7.41)
[2018-12-29] MEDS: dilTIAZem HCL 125 MG in DEXTROSE 5% 100 ML IV SCH (05:28)
[2018-12-29] MEDS ORDERED: HEPARIN IV BOLUS 4,000 UNITS in SYRINGE 0 ML IV ONE (05:45)
[2018-12-29 06:24] LABS: iSTAT Allen Test Pass; iSTAT Art Bld Gas pCO2 Correct 80 mmHg (35-46); iSTAT Art Bld Gas pH Corrected 7.339 (7.35-7.45); iSTAT Arterial Blood Gas HCO3 43 meg/L (19-24); iSTAT Arterial Blood Gas pCO2 82 mmHg (35-46); iSTAT Arterial Blood Gas pH 7.33 (7.35-7.45); iSTAT Arterial Blood Gas pO2 142 mmHg (80-95); iSTAT Arterial Blood Gas pO2 C 140; iSTAT Carbon Dioxide > 40 mEq/l (24-31); iSTAT Site R Radial
[2018-12-29] MEDS: POTASSIUM CHLORIDE / WTR 10 MEQ/100 ML PLCT IV SCH ×6 (06:36→14:12)
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
[2018-12-29] MEDS: ALBUT/IPRATROP 3MG/0.5MG NEB 3 ML VIAL NEB SCH ×4 (07:10→19:12)
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
[2018-12-29] MEDS: BUDESONIDE/FORMOTEROL FUMARATE 160/4.5 60 PUFFS/INHALER INH SCH ×2 (08:21→20:35)
[2018-12-29] MEDS: FLUTICASONE PROPIONATE NA SPR 16 GM BTL SCH (08:22)
[2018-12-29] MEDS: MUPIROCIN 2% OINT 22 GM TUBE EXT SCH ×2 (08:22→20:35)
[2018-12-29] MEDS: ACETIC ACID 0.25% IRRIG SOLN 1000 ML PLCT IR SCH (08:22)
[2018-12-29] MEDS ORDERED: METOPROLOL TARTRATE 1 MG/ML VIAL IV SCH (10:00)
[2018-12-29] MEDS: NORMOSOL-R 1,000 ML IV SCH ×2 (10:13→22:43)
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
[2018-12-29 11:41] LABS: Partial Thromboplastin Ratio 1.6; Partial Thromboplastin Time 43.9 Seconds (21.0-31.0)
[2018-12-29] MEDS ORDERED: guaiFENesin 200 MG TAB PO PRN (12:11)
[2018-12-29] MEDS ORDERED: HYDROCODONE/ACETAMINOPHEN 7.5/325MG TAB PO PRN (12:15)
[2018-12-29] MEDS ORDERED: CYANOCOBALAMIN 1000 MCG/ML VIAL IM SCH (12:30)
[2018-12-29] MEDS: LEVOFLOXACIN/D5W 750 MG/150 ML BAG IV SCH (12:52)
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
[2018-12-29] MEDS: ENOXAPARIN INJ 60 MG/0.6 ML SYR SQ SCH (14:00)
[2018-12-29] MEDS ORDERED: INFLUENZA VACCINE HIGH DOSE 65+ 0.5 ML SYR IM ONE (14:30)
[2018-12-29] MEDS: HYDROCODONE/ACETAMINOPHEN 7.5/325MG TAB PO SCH ×2 (14:30→16:26)
[2018-12-29] MEDS ORDERED: WARFARIN SOD 1.25 MG TAB PO SCH (16:00)
[2018-12-29 16:41] LABS: BUN Creatinine Ratio 36.7 (10-20); Calcium 7.9 mg/dl (8.5-10.1); Creatinine Clr Calc Pharmacy 132.2 ml/min; Est GFR (African American) 134.5; Magnesium 2.1 mg/dl (1.8-2.4); Phosphorus 2.3 mg/dl (2.5-4.9); Potassium 4.1 mmol/L (3.5-5.1)
[2018-12-29] MEDS: METOPROLOL TARTRATE 25 MG TAB PO SCH (20:35)
[2018-12-29] MEDS: HYDROCODONE/ACETAMINOPHEN 7.5/325MG TAB PO PRN (20:50)
--- NOTE | 2018-12-29 22:05 | Progress Note ---
DATE: 12/29/2018 Mr. Ferrara was seen today. He is extubated, although he appears to be very weak still. He is able to tolerate some p.o. His wound is inspected and it is fairly clean. I am not too concerned about the pseudomonas which is growing out of this wound as I expect this, given the musty odor and the greenish drainage. We will continue the acetic acid as he is improved with this. He remains quite ill; however, at this point we had very little else to offer him except caring for this wound. I am still not quite clear on why he had such an acute change, but he does appear to be better.
[2018-12-30] MEDS: ENOXAPARIN INJ 60 MG/0.6 ML SYR SQ SCH ×2 (03:11→14:01)
[2018-12-30 06:44] LABS: INR 1.1 (0.9-1.1); Prothrombin Time 11.1 Seconds (9.0-12.0)
[2018-12-30] MEDS: ALBUT/IPRATROP 3MG/0.5MG NEB 3 ML VIAL NEB SCH ×4 (07:02→19:08)
[2018-12-30] MEDS: CHOLECALCIFEROL 1,000 UNITS 25 MCG TAB PO SCH (08:29)
[2018-12-30] MEDS: BUDESONIDE/FORMOTEROL FUMARATE 160/4.5 60 PUFFS/INHALER INH SCH ×2 (08:29→20:20)
[2018-12-30] MEDS: MUPIROCIN 2% OINT 22 GM TUBE EXT SCH ×2 (08:30→20:20)
[2018-12-30] MEDS: FLUTICASONE PROPIONATE NA SPR 16 GM BTL SCH (08:31)
[2018-12-30] MEDS: METOPROLOL TARTRATE 25 MG TAB PO SCH ×2 (08:32→17:43)
[2018-12-30] MEDS: CEROVITE ADV FORMULA TAB PO SCH (08:33)
[2018-12-30] MEDS: ACETIC ACID 0.25% IRRIG SOLN 1000 ML PLCT IR SCH (08:45)
[2018-12-30] MEDS ORDERED: POT PHOSPHATE MONOBASIC W/ SOD TAB PO STA (08:56)
[2018-12-30] MEDS: TIOTROPIUM BROMIDE 5 PUFF/90 MCG INH INH SCH (10:01)
[2018-12-30] MEDS: NORMOSOL-R 1,000 ML IV SCH ×2 (11:50→22:57)
[2018-12-30] MEDS: LEVOFLOXACIN/D5W 750 MG/150 ML BAG IV SCH (11:51)
--- NOTE | 2018-12-30 12:23 | Palliative Care Progress Note ---
Date of Service December 30, 2018 Assessment & Plan (1) Goals of care, counseling/discussion: -Patient doing about the same today. VS stable. AA&O x4. -On IV abx for pseudomonas growth in chest wound Blood cultures negative to date. -Hypoxemia 2/2 COPD, pneumonectomy, hypoventilation 2/2 opioid use, and failure to thrive-- resolved for now on 3LNC. -Eloesser flap packed and being watched by thoracic surgeon. -Passed swallow eval-- tolerating diet. -Patient's daughter Qiana, son-in-law, son Charly, and Charly's all at bedside. Discussed medical condition, goals of care, and code status in detail. -Patient became angry and said, "I said I wanted everything done. I don't know why you're still standing here talking about it." Patient also said he has "pure fear," about what is going to happen to him. He is afraid to and also afraid of what will happen if he goes back on the ventilator. He would not want to live long-term on a ventilator or on other life support-- his family agrees. He does however want to remain a FULL CODE at this time. -Spoke with family outside of patient's room. Daughter Qiana is frustrated, as she wants patient to do a living will and discuss what his wishes are. She said patient has been declining and is tired of "watching him struggle," yet he does not want to discuss the difficult topics. -Palliative care will follow peripherally at this time and be available if there is any change in patient condition or if family requests our assistance. -PPS: 30% (2) Chronic respiratory failure with hypoxia and hypercapnia: (3) Atrial fibrillation with RVR: (4) Severe protein-energy malnutrition: (5) Bronchopleural fistula: (6) Anxiety: Subjective Family meet at 1100 to discuss code status and goals of care. Patient AA&O x4 and c/o SOB intermittently. Patient not happy about discussing these issues yet again, and made that known. First met in patient's room, then stepped out with his daughter Qiana, son-in-law, and [id number]. Review of Systems Review of Systems: C/o SOB with activity. Denies pain, N/V. Physical Exam Constitutional: + ill appearing and + thin ENMT: external ear and nose normal, oropharynx normal Neck: normal visual inspection Respiratory: normal respiratory effort; no respiratory distress Cardiovascular: Rate/Rhythm: regular rate and regular rhythm Neurologic: moves all extremities and awake Psychiatric: Orientation: alert and oriented x 3 Affect: + blunted affect and + angry affect Insight: + limited insight Results & Data Vital Signs (Past 12 Hours) Vital Signs Temp Pulse Pulse Pulse Resp BP BP 12/30/18 11:05 36.4 C L 103 H 20 103/69 12/30/18 10:59 103 H 20 12/30/18 08:39 121 H 91/62 L 110/68 12/30/18 07:59 130 H 12/30/18 07:18 36.8 C 97 H 20 89/65 L 12/30/18 07:05 119 H 20 12/30/18 03:29 36.7 C 107 H 20 119/75 Pulse Ox 12/30/18 11:05 100 12/30/18 10:59 95 12/30/18 08:39 12/30/18 07:59 12/30/18 07:18 100 12/30/18 07:05 97 12/30/18 03:29 99 PG Care Time/CCT Prolonged Care Time Prolonged Care Time: Yes Total Prolonged Care Time: 70 Time Spent Midlevel 70 minutes with >50% of the time spent at bedside with patient and family discussing condition and GOC.
[2018-12-30] MEDS: HYDROCODONE/ACETAMINOPHEN 7.5/325MG TAB PO PRN (13:50)
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
--- NOTE | 2018-12-30 15:22 | Surgery Progress Note ---
Date of Service December 30, 2018 Assessment & Plan (1) Bronchopleural fistula: -wound repacked with kerlix soaked in 0.25% acetic acid, covered with abd pad and secured with medipore tape -will continue daily wound packing Subjective Pt. notes his breathing is comfortable and he feels better than tie of admission. Physical Exam Physical Exam: wound unpacked--dressing has some yellow drainage; no audible air leak noted. Skin edges noted to have small amount of erythema. granulation tissue was present in wound bed. Constitutional: no acute distress Neck: trachea midline Respiratory: BS absent on left, few rhonchi on right Psychiatric: Orientation: alert and oriented x 3 Affect: + flat affect Results & Data Vital Signs (Past 12 Hours) Vital Signs Temp Pulse Pulse Pulse Resp BP BP 12/30/18 11:05 36.4 C L 103 H 20 103/69 12/30/18 10:59 103 H 20 12/30/18 08:39 121 H 91/62 L 110/68 12/30/18 07:59 130 H 12/30/18 07:18 36.8 C 97 H 20 89/65 L 12/30/18 07:05 119 H 20 12/30/18 03:29 36.7 C 107 H 20 119/75 Pulse Ox 12/30/18 11:05 100 12/30/18 10:59 95 12/30/18 08:39 12/30/18 07:59 12/30/18 07:18 100 12/30/18 07:05 97 12/30/18 03:29 99 PG Care Time/CCT Total # of Minutes Spent Total Time Spent with Patient: Total time spent is greater than 50% in coordination of care (as documented) at patient's floor/unit and/or counseling patient:
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
--- NOTE | 2018-12-30 16:27 | Procedure Note ---
Procedure Note Date of Service December 27, 2018 Procedure Date: Noted above Procedure: Endotracheal intubation Pre-procedure Diagnosis: Acute on chronic hypercapnic respiratory failure Post-procedure Diagnosis: same as above Prior to Procedure: Informed Consent: emergent Attending Staff: Alex Zarate DO The identity of the patient was confirmed and a bedside time out was performed. Description of Procedure: Patient was evaluated and required intubation for impending respiratory failure. The patient was prepared in the usual fashion. A Amaro to laryngoscope was used. A 8 mm inner diameter endotrachial tube was placed endotracheally to 23 cm at the teeth. A grade 1 view was obtained. The endotracheal tube was noted to pass through the vocal cords. Chest rise was bilateral. Bilateral breath sounds were heard without air sounds in the abdomen. Mist was noted in the endotracheal tube. End-tidal CO2 measurement was positive. Chest x-ray shows proper endotracheal tube placement. Complications: None Findings: Not applicable Specimens: Not applicable Estimated blood loss: Zero Coding CPT Codes Resuscitation - Resuscitation: Endotracheal Intubation, emergency ([id number])
[2018-12-30] MEDS: BuPROPion SR 150 MG TABCR PO SCH (16:52)
[2018-12-30] MEDS: LOPERAMIDE HCL 2 MG CAP PO SCH (16:52)
[2018-12-30] MEDS ORDERED: DIGOXIN 0.25 MG TAB PO ONE ×2 (17:00→23:00)
[2018-12-31] MEDS: METOPROLOL TARTRATE 25 MG TAB PO SCH ×5 (00:22→23:37)
[2018-12-31] MEDS: ENOXAPARIN INJ 60 MG/0.6 ML SYR SQ SCH ×2 (05:55→19:59)
[2018-12-31] MEDS: ALBUT/IPRATROP 3MG/0.5MG NEB 3 ML VIAL NEB SCH ×4 (07:11→18:54)
[2018-12-31 07:32] LABS: Basophils # (auto) 0.01 K/uL (0-0.2); Basophils % (auto) 0.1 %; Eosinophils # (auto) 0.16 K/uL (0-0.5); Eosinophils % (auto) 2.4 %; Hematocrit (blood only) 31.4 % (42-52); Hemoglobin 8.7 g/dL (14.0-18.0); Immature Granulocytes # (auto) 0.03 K/uL (0.00-0.02); Immature Granulocytes % (auto) 0.4 %; Lymphocytes # (auto) 0.58 K/uL (1.2-3.4); Lymphocytes % (auto) 8.6 %; Mean Corpuscular Hemoglobin 26.4 pg (25-34); Mean Corpuscular Hgb Conc 27.7 g/dL (32-36); Mean Corpuscular Volume 95.2 fL (80-100); Mean Platelet Volume 9.4 fL (7.4-10.4); Monocytes # (auto) 0.91 K/uL (0.11-0.59); Monocytes % (auto) 13.5 %; Neutrophils # (auto) 5.04 K/uL (1.4-6.5); Platelet Count 232 K/uL (130-400); RDW Coefficient of Variation 17.3 % (11.5-14.5); RDW Standard Deviation 60.1 fL (36.4-46.3); White Blood Count 6.73 K/uL (4.8-10.8)
[2018-12-31 07:41] LABS: Anion Gap 0 (3-11); BUN Creatinine Ratio 41.1 (10-20); Blood Urea Nitrogen 13 mg/dl (7-18); Calcium 8.8 mg/dl (8.5-10.1); Carbon Dioxide 42 mmol/L (21-32); Chloride 100 mmol/L (98-107); Creatinine Clr Calc Pharmacy 195.9 ml/min; Est GFR (African American) > 150.0; Glucose 81 mg/dl (70-99); Magnesium 2.2 mg/dl (1.8-2.4); Potassium 3.8 mmol/L (3.5-5.1); Sodium 141 mmol/L (136-145)
[2018-12-31] MEDS: BuPROPion SR 150 MG TABCR PO SCH (08:06)
[2018-12-31] MEDS: FLUTICASONE PROPIONATE NA SPR 16 GM BTL SCH (08:07)
[2018-12-31] MEDS: LOPERAMIDE HCL 2 MG CAP PO SCH ×3 (08:07→18:52)
[2018-12-31] MEDS: BUDESONIDE/FORMOTEROL FUMARATE 160/4.5 60 PUFFS/INHALER INH SCH ×2 (08:07→20:00)
[2018-12-31] MEDS: TIOTROPIUM BROMIDE 5 PUFF/90 MCG INH INH SCH (08:07)
[2018-12-31] MEDS: ACETIC ACID 0.25% IRRIG SOLN 1000 ML PLCT IR SCH (08:08)
[2018-12-31] MEDS: MUPIROCIN 2% OINT 22 GM TUBE EXT SCH ×2 (08:08→20:00)
[2018-12-31] MEDS: CHOLECALCIFEROL 1,000 UNITS 25 MCG TAB PO SCH (08:10)
[2018-12-31] MEDS: CEROVITE ADV FORMULA TAB PO SCH (08:11)
[2018-12-31] MEDS ORDERED: FUROSEMIDE 20 MG in SYRINGE 0 ML IV ONE (09:11)
--- NOTE | 2018-12-31 09:22 | Cardiology Progress Note ---
Date of Service December 31, 2018 Assessment & Plan (1) Atrial fibrillation with RVR: (2) Aortic stenosis: (3) Edema, peripheral: (4) Chronic respiratory failure with hypoxia and hypercapnia: (5) SOB (shortness of breath): (6) Cardiomyopathy: ASSESSMENT/PLAN: 1. Acute on Chronic respiratory failure/shortness of breath: He is being followed by other services for his pulmonary issues. He also has COPD. He is hypervolemic, but not necessarily intravascularly. He has received IV fluids throughout his hospital stay and is positive 6.4L. Recommend gentle diuresis. Would aim for a goal of around 1 L negative or more if tolerated throughout the day. Other respiratory issues as per primary service and other providers. 2. Atrial fibrillation with rapid ventricular response: Will continue digoxin with 0.125 mg p.o. daily. He did not receive his morning metoprolol and did alexandro ear to have some heart rate improvement yesterday with digoxin loading. Will change parameters of metoprolol to hold For systolic blood pressure less than 95. Hopefully with improvement of his breathing, his heart rate will improve. Recommend anticoagulation if no contraindications. Consider novel agent. 3. Aortic stenosis: Non severe. Can follow as an outpatient. 4. Cardiomyopathy: Has had a history of mildly reduced LV systolic function to low-normal systolic function. No changes. He does not carry a history of heart failure. His edema occurred while hospitalized and is likely iatrogenic and also due to hypoalbuminemia. 5. Edema: He has received IV fluids and is positive 6.4 L. he is also hypoalbuminemic. He appears to be third spacing. Gentle diuresis as above. Would try to keep I&Os negative. 6. Disposition: Lb weight in the hospital for the next 2 days. For any questions or concerns, please do not hesitate to contact Dr. Webb who will be covering. Dr. Webb has been informed about plan of care. Dr. Pizano of the primary hospitalist service was also called and patient care discussed with her. Subjective He continues to have shortness of breath. Breathing is worse while laying down (orthopnea). He has occasional chest discomfort when his breathing worsens he will feel a heaviness. He was unable to eat breakfast due to worsening dyspnea while chewing his food. He states that throughout this hospitalization he has developed edema both in his arms and his legs. He denies bleeding or palpitations. He denies syncope. Review of systems: As above. He was alone in his hospital room. Physical Exam Physical Exam: Gen.: No acute distress. Alert. HEENT: Anicteric sclera. Neck: No JVD. No hepatic jugular reflux noted. Cardiac: PMI was nondisplaced. No ventricular heave. Irregularly irregular. Normal S1-S2. 2/6 early peaking systolic ejection murmur. No rubs, or gallops. Pulmonary: Very little lung sounds noted bilaterally. Abdomen: Soft, mildly tender (no rebound), nondistended, with normoactive bowel sounds. No bruits noted. Extremities: 2+ radial pulses bilaterally. 2+ posterior tibialis pulses bilaterally. 2+ bilateral lower extremity edema to the knees with 1+ edema above the knees. 1+ left upper extremity edema. 1+ distal right upper extremity edema. No cyanosis. Psychiatric: Affect appears appropriate. Results & Data Vital Signs (Past 12 Hours) Vital Signs Temp Pulse Pulse Pulse Resp BP BP 12/31/18 08:00 36.6 C 105 H 20 108/70 12/31/18 07:55 113 H 12/31/18 07:11 103 H 18 12/31/18 05:55 89 98/67 L 12/31/18 03:03 36.8 C 102 H 20 108/69 12/30/18 23:34 36.7 C 112 H 20 111/69 12/30/18 23:07 119 H Pulse Ox 12/31/18 08:00 96 12/31/18 07:55 12/31/18 07:11 100 12/31/18 05:55 12/31/18 03:03 98 12/30/18 23:34 100 12/30/18 23:07 Intake & Output 12/29/18 12/30/18 12/31/18 01/01/19 06:59 06:59 06:59 06:59 Intake Total 2554.505 / 2554.505 2110.183 / 2110.183 2969.333 / 2969.333 772 / 772 Output Total 687 / 687 1145 / 1145 1726 / 1726 Balance 1867.505 / 1867.505 965.183 / 670.855 1135.333 / 1243.333 772 / 772 Weight 60.4 kg 65.4 kg Laboratory Results Laboratory Results - last 24 hr 12/31/18 12/31/18 06:44 06:44 WBC 6.73 RBC 3.30 L Hgb 8.7 L Hct 31.4 L MCV 95.2 MCH 26.4 MCHC 27.7 L RDW Std Deviation 60.1 H RDW Coeff of Eric 17.3 H Plt Count 232 MPV 9.4 Immature Gran % (Auto) 0.4 Neut % (Auto) 75.0 Lymph % (Auto) 8.6 [place] % (Auto) 13.5 Eos % (Auto) 2.4 Baso % (Auto) 0.1 Immature Gran # (Auto) 0.03 H Neut # (Auto) 5.04 Lymph # (Auto) 0.58 L [place] # (Auto) 0.91 H Eos # (Auto) 0.16 Baso # (Auto) 0.01 Sodium 141 Potassium 3.8 Chloride 100 Carbon Dioxide 42 H* Anion Gap 0 L BUN 13 Creatinine 0.32 L Est Cr Clr Drug Dosing 195.9 Est GFR ( Amer) > 150.0 Est GFR (Non-Af Amer) 131.0 BUN/Creatinine Ratio 41.1 H Glucose 81 Calcium 8.8 Magnesium 2.2 Diagnostic Findings Telemetry personally reviewed: Atrial fibrillation with rapid rates at times. Medications Administered Current Inpatient Medications Hydrocodone Bitart/Acetaminophen ([place] 7.5/325mg) 1 tab PO Q4H PRN PRN Reason: Pain Stop: 01/12/19 20:41 Last Admin: 12/30/18 13:50 Dose: 1 tab Documented by: Acetic Acid (Acetic Acid 0.25%) 1 appln IR DAILY JOANN Stop: 01/26/19 08:59 Last Admin: 12/31/18 08:08 Dose: 1 appln Documented by: Albuterol (Ventolin Hfa) 2 puffs INH Q4H PRN PRN Reason: Shortness Of Breath Stop: 01/26/19 00:00 Albuterol (Duoneb) 3 ml NEB QIDR JOANN Stop: 01/26/19 06:59 Last Admin: 12/31/18 07:11 Dose: 3 ml Documented by: Albuterol (Ventolin 0.083% 2.5mg/3ml) 2.5 mg INH Q4H PRN PRN Reason: Shortness Of Breath Stop: 01/26/19 00:00 Last Admin: 12/27/18 04:14 Dose: 2.5 mg Documented by: Budesonide/Formoterol Fumarate (Symbicort 160mcg/4.5mcg) 2 puffs INH BID [facility] Stop: 01/26/19 08:59 Last Admin: 12/31/18 08:07 Dose: 2 puffs Documented by: Bupropion HCl (Wellbutrin-Sr) 150 mg PO QAM [facility] Stop: 01/29/19 15:59 Last Admin: 12/31/18 08:06 Dose: 150 mg Documented by: Cyanocobalamin (Vitamin B-12) 1,000 mcg IM Q30D [facility] Stop: 01/28/19 12:29 Last Admin: 12/29/18 13:01 Dose: 1,000 mcg Documented by: Digoxin (Lanoxin) 0.125 mg PO DAILY@1600 [facility] Stop: 01/30/19 15:59 Enoxaparin Sodium (Lovenox) 60 mg SQ Q12H [facility] Stop: 01/28/19 13:59 Last Admin: 12/31/18 05:55 Dose: 60 mg Documented by: Fluticasone Propionate (Flonase) 2 sprays NA DAILY [facility] Stop: 01/26/19 08:59 Last Admin: 12/31/18 08:07 Dose: 2 sprays Documented by: Guaifenesin (Organidin Nr) 400 mg PO Q6H PRN PRN Reason: Mucous Stop: 01/28/19 12:10 Levofloxacin/Dextrose (Levaquin/D5w) 750 mg in 150 mls @ 100 mls/hr IV DAILY@1100 [facility] Stop: 01/01/19 12:29 Last Infusion: 12/30/18 13:49 Dose: Infused Documented by: Furosemide 20 mg/ Syringe 2 mls @ 4 mls/min IV QAM [facility] Stop: 01/31/19 08:59 Loperamide HCl (Imodium) 2 mg PO TIDM [facility] Stop: 01/29/19 16:59 Last Admin: 12/31/18 08:07 Dose: 2 mg Documented by: Metoprolol Tartrate (Lopressor) 12.5 mg PO Q6 [facility] Stop: 01/29/19 17:59 Last Admin: 12/31/18 05:56 Dose: Not Given Documented by: Multivitamins/Minerals (Multivitamin W/ Minerals Tab) 1 tab PO DAILY JOANN Stop: 01/29/19 08:59 Last Admin: 12/31/18 08:11 Dose: 1 tab Documented by: Mupirocin (Bactroban 2%) 1 appln EXT BID JOANN Stop: 01/26/19 08:59 Last Admin: 12/31/18 08:08 Dose: 1 appln Documented by: Ondansetron HCl (Zofran) 4 mg IV Q6H PRN PRN Reason: Nausea Stop: 01/26/19 00:00 Tiotropium [place] (Spiriva) 1 puffs INH DAILY JOANN Stop: 01/29/19 08:59 Last Admin: 12/31/18 08:07 Dose: 1 puffs Documented by: Vitamin D (Vitamin D3) 6,000 units PO DAILY JOANN Stop: 01/29/19 08:59 Last Admin: 12/31/18 08:10 Dose: 6,000 units Documented by: PG Care Time/CCT Total # of Minutes Spent Total Time Spent with Patient: Total time spent is greater than 50% in coordination of care (as documented) at patient's floor/unit and/or counseling patient:
[2018-12-31] MEDS: LEVOFLOXACIN/D5W 750 MG/150 ML BAG IV SCH (11:03)
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
[2018-12-31] MEDS: HYDROCODONE/ACETAMINOPHEN 7.5/325MG TAB PO PRN ×3 (14:18→23:37)
--- NOTE | 2018-12-31 16:55 | Progress Note ---
DATE: 12/31/2018 Mr. Ferrara is close to baseline. Saturations are 99% on 3 liters. He does have peripheral edema. He has edema in his upper extremities and his lower extremities. He is completely intact neurologically, although his legs are weak. He is growing out pseudomonas, but this should not be treated. It is not a pathogen. It has colonized his wound. I inspected his Eloesser flap today and it does have some nonviable tissue superiorly and inferiorly, but he has granulation tissue around the bronchopleural fistula. I do not think this is causing him a problem currently. I would continue to try and keep his caloric intake up. I am still not sure what caused this acute process which he presented with, but he appears much better now. JACQUE
[2018-12-31] MEDS: DIGOXIN 0.125 MG TAB PO SCH (17:16)
[2018-12-31] MEDS: ALBUTEROL 0.083% NEBU SOLN 3 ML VIAL INH PRN (23:48)
[2019-01-01] MEDS ORDERED: COLLAGENASE OINT 30 GM TUBE EXT ONE (04:00)
[2019-01-01] MEDS: HYDROCODONE/ACETAMINOPHEN 7.5/325MG TAB PO PRN ×3 (05:45→20:54)
[2019-01-01] MEDS: ENOXAPARIN INJ 60 MG/0.6 ML SYR SQ SCH ×2 (05:45→17:15)
[2019-01-01] MEDS: METOPROLOL TARTRATE 25 MG TAB PO SCH ×3 (05:45→17:14)
[2019-01-01] MEDS: ALBUT/IPRATROP 3MG/0.5MG NEB 3 ML VIAL NEB SCH ×5 (07:02→22:24)
[2019-01-01 07:21] LABS: Basophils # (auto) 0.02 K/uL (0-0.2); Basophils % (auto) 0.3 %; Eosinophils # (auto) 0.23 K/uL (0-0.5); Eosinophils % (auto) 3.7 %; Hematocrit (blood only) 31.7 % (42-52); Hemoglobin 8.8 g/dL (14.0-18.0); Immature Granulocytes # (auto) 0.03 K/uL (0.00-0.02); Immature Granulocytes % (auto) 0.5 %; Lymphocytes # (auto) 0.61 K/uL (1.2-3.4); Lymphocytes % (auto) 9.8 %; Mean Corpuscular Hemoglobin 26.6 pg (25-34); Mean Corpuscular Hgb Conc 27.8 g/dL (32-36); Mean Corpuscular Volume 95.8 fL (80-100); Mean Platelet Volume 9.8 fL (7.4-10.4); Monocytes # (auto) 0.98 K/uL (0.11-0.59); Monocytes % (auto) 15.8 %; Neutrophils # (auto) 4.34 K/uL (1.4-6.5); Neutrophils % (auto) 69.9 %; Platelet Count 282 K/uL (130-400); RDW Coefficient of Variation 17.3 % (11.5-14.5); RDW Standard Deviation 59.5 fL (36.4-46.3); Red Blood Count 3.31 M/uL (4.7-6.1); White Blood Count 6.21 K/uL (4.8-10.8)
[2019-01-01 08:23] LABS: BUN Creatinine Ratio 45.2 (10-20); Calcium 8.6 mg/dl (8.5-10.1); Creatinine Clr Calc Pharmacy 170.6 ml/min; Est GFR (African American) 144.6; Est GFR (Non-African American) 124.8; Ferritin 25.6 ng/ml (8-388); Magnesium 1.9 mg/dl (1.8-2.4); Potassium 3.8 mmol/L (3.5-5.1)
[2019-01-01] MEDS ORDERED: POTASSIUM CHLORIDE 20 MEQ TABCR PO STA (08:32)
[2019-01-01 08:49] LABS: Folate (Folic Acid) 15.62 ng/ml (>5.38)
[2019-01-01] MEDS: LOPERAMIDE HCL 2 MG CAP PO SCH ×3 (08:59→17:13)
[2019-01-01] MEDS: MUPIROCIN 2% OINT 22 GM TUBE EXT SCH ×2 (08:59→20:56)
[2019-01-01] MEDS: FLUTICASONE PROPIONATE NA SPR 16 GM BTL SCH (09:00)
[2019-01-01] MEDS ORDERED: MAGNESIUM SULFATE / D5W 1 GM/100 ML BAG IV ONE (09:00)
[2019-01-01] MEDS: FUROSEMIDE 20 MG in SYRINGE 0 ML IV SCH (09:01)
[2019-01-01] MEDS: CEROVITE ADV FORMULA TAB PO SCH (09:05)
[2019-01-01] MEDS: CHOLECALCIFEROL 1,000 UNITS 25 MCG TAB PO SCH (09:06)
[2019-01-01] MEDS: BUDESONIDE/FORMOTEROL FUMARATE 160/4.5 60 PUFFS/INHALER INH SCH ×2 (09:06→20:56)
[2019-01-01] MEDS: BuPROPion SR 150 MG TABCR PO SCH (09:07)
[2019-01-01] MEDS ORDERED: IRON SUCROSE 100 MG in 0.9 % SODIUM CHLORIDE 100 ML IV SCH (09:15)
[2019-01-01] MEDS: ACETIC ACID 0.25% IRRIG SOLN 1000 ML PLCT IR SCH (09:42)
[2019-01-01] MEDS: TIOTROPIUM BROMIDE 5 PUFF/90 MCG INH INH SCH (10:26)
--- NOTE | 2019-01-01 10:37 | Progress Note ---
DATE: 01/01/2019 Mr. Ferrara was seen today on 01/01/2019. He looks better. He is complaining of some pain in his supraspinatus area. There is no fluctuance, erythema and he stated "muscle spasm." A Lidoderm patch was placed which did not help. I closely inspected his wound. He still has some superior and inferior nonviable tissue. Some of this is actually bone. It is rib inferiorly. This is some distance away from his bronchopleural fistula, which has granulation tissue around it and is a pinpoint opening. We have been using acetic acid, wet to dry with Kerlix for months now. I switched him over today to Santyl, which is the collagenase and should help with debriding of this nonviable tissue. I would like to use that while he is here, but I would not send him home with that. We will see how it looks in the morning. Otherwise, I think he looks good. We are going to place some Voltaren gel on his affected area above the wound.
[2019-01-01] MEDS: DICLOFENAC SOD 1% GEL 100 GM TUBE EXT SCH ×2 (11:23→17:17)
[2019-01-01] MEDS: LEVOFLOXACIN/D5W 750 MG/150 ML BAG IV SCH (11:23)
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
[2019-01-01] MEDS: DIGOXIN 0.125 MG TAB PO SCH (17:13)
[2019-01-01] MEDS: POTASSIUM CHLORIDE 10 MEQ TABCR PO SCH (22:32)
[2019-01-02] MEDS: DICLOFENAC SOD 1% GEL 100 GM TUBE EXT SCH ×4 (00:02→17:42)
[2019-01-02] MEDS: METOPROLOL TARTRATE 25 MG TAB PO SCH ×5 (00:03→23:59)
[2019-01-02] MEDS: HYDROCODONE/ACETAMINOPHEN 7.5/325MG TAB PO PRN ×4 (05:41→23:57)
[2019-01-02] MEDS: ENOXAPARIN INJ 60 MG/0.6 ML SYR SQ SCH ×2 (05:43→17:41)
[2019-01-02] MEDS: ALBUT/IPRATROP 3MG/0.5MG NEB 3 ML VIAL NEB SCH ×4 (07:22→18:51)
[2019-01-02] MEDS: CEROVITE ADV FORMULA TAB PO SCH (07:54)
[2019-01-02] MEDS: LOPERAMIDE HCL 2 MG CAP PO SCH ×3 (07:54→17:41)
[2019-01-02] MEDS: CHOLECALCIFEROL 1,000 UNITS 25 MCG TAB PO SCH (07:55)
[2019-01-02] MEDS: POTASSIUM CHLORIDE 10 MEQ TABCR PO SCH ×2 (07:55→20:48)
[2019-01-02] MEDS: BuPROPion SR 150 MG TABCR PO SCH (07:55)
[2019-01-02] MEDS: FLUTICASONE PROPIONATE NA SPR 16 GM BTL SCH (07:56)
[2019-01-02] MEDS: MUPIROCIN 2% OINT 22 GM TUBE EXT SCH ×2 (07:56→20:46)
[2019-01-02] MEDS: BUDESONIDE/FORMOTEROL FUMARATE 160/4.5 60 PUFFS/INHALER INH SCH ×2 (07:56→20:51)
[2019-01-02] MEDS: TIOTROPIUM BROMIDE 5 PUFF/90 MCG INH INH SCH (07:57)
[2019-01-02] MEDS ORDERED: IRON SUCROSE 100 MG in 0.9 % SODIUM CHLORIDE 100 ML IV SCH (08:00)
[2019-01-02 08:24] LABS: BUN Creatinine Ratio 51.8 (10-20); Blood Urea Nitrogen 16 mg/dl (7-18); Chloride 98 mmol/L (98-107); Creatinine Clr Calc Pharmacy 203.2 ml/min; Est GFR (African American) > 150.0; Est GFR (Non-African American) 134.5; Glucose 85 mg/dl (70-99); Magnesium 2.1 mg/dl (1.8-2.4); Potassium 4.3 mmol/L (3.5-5.1); Sodium 141 mmol/L (136-145)
[2019-01-02 08:32] LABS: Carbon Dioxide 47 mmol/L (21-32)
[2019-01-02] MEDS: FUROSEMIDE 20 MG in SYRINGE 0 ML IV SCH (08:37)
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
[2019-01-02] MEDS: ACETIC ACID 0.25% IRRIG SOLN 1000 ML PLCT IR SCH (09:41)
--- NOTE | 2019-01-02 09:59 | Progress Note ---
DATE: 01/02/2019 Mr. Ferrara looking better by the day. I inspected his wound and it actually looks better with the Santyl. He did not have pain that some patients can with this agent. We are going to continue this for the time being. He does have green drainage. He does have two species of pseudomonas; however, this should not be treated systemically. He is not infected from this. He has colonization and the ultrasonic cleaner the wound is less colonized he will be. We will continue to use the enzymatic agent until his discharge. We will switch him back to wet to dries with acetic acid at that time.
[2019-01-02] MEDS: MEGESTROL ACETATE SUSP 400 MG/10 ML UDC PO SCH ×2 (12:51→20:51)
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
--- NOTE | 2019-01-02 13:53 | Cardiology Progress Note ---
Date of Service January 02, 2019 Assessment & Plan (1) Atrial fibrillation with RVR: Ventricular response seems adequately controlled on metoprolol tartrate 12.5 mg q.i.d. and digoxin 0.125 milligrams daily. Is currently on Lovenox 60 mg twice daily. Could consider use of a DOAC. (2) Aortic stenosis: Echocardiogram on December 10 noted mild aortic stenosis. (3) Edema, peripheral: Continue intravenous Lasix at 20 mg daily. (4) Chronic respiratory failure with hypoxia and hypercapnia: Slow improvement. (5) Cardiomyopathy: Ejection fraction echocardiogram performed December 10 was 45-50 percent. (6) Ventricular tachycardia: Suspect his dysrhythmia last evening did represent ventricular tachycardia, however, this could also be explained by atrial fibrillation with aberrancy. Would simply continue beta-blockade. Subjective The patient is resting comfortably in bed without complaints of chest pain, dyspnea, or palpitations. His daughter is at the bedside. Physical Exam Physical Exam: In general is well-developed male lying supine in bed without complaints. HEENT exam is negative. Neck is supple with full carotid upstrokes. No obvious bruits. Jugular is pressure is flat at 90 degrees. Cardiovascular exam reveals irregular regular rhythm with a 2/6 crescendo decrescendo systolic murmur heard loudest at the base. Lungs note distant breath sounds but no rales. Abdomen is soft. Extremities reveal 1+ pretibial edema bilaterally. Results & Data Vital Signs (Past 12 Hours) Vital Signs Temp Pulse Pulse Resp BP BP Pulse Ox 01/02/19 12:00 37.4 C 114 H 20 L 113/66 97 01/02/19 10:59 94 H 18 98 01/02/19 10:31 36.6 C 94 H 20 122/69 94 01/02/19 09:48 108 H 20 114/68 01/02/19 07:40 36.6 C 106 H 22 121/67 98 01/02/19 07:22 82 20 98 01/02/19 04:17 36.6 C 91 H 18 119/65 100 Laboratory Results CBC notes a hemoglobin of 8.8, adequate 31.7, white count 6.2, and platelet count [id number]. Electrolytes notice sodium 141, potassium 4.3, chloride 98, bicarb 47, BUN 16, creatinine 0.3, and magnesium level of 2.1. 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 There is a 28 beat run of a wide complex tachycardia at 8:30 last evening. This is somewhat irregular. PG Care Time/CCT Total # of Minutes Spent Total Time Spent with Patient: Total time spent is greater than 50% in scheduling coordinator rdination of care (as documented) at patient's floor/unit and/or counseling patient:
[2019-01-02] MEDS: DIGOXIN 0.125 MG TAB PO SCH (15:30)
[2019-01-02] MEDS ORDERED: FUROSEMIDE 20 MG in SYRINGE 0 ML IV ONE (19:30)
[2019-01-03] MEDS: DICLOFENAC SOD 1% GEL 100 GM TUBE EXT SCH ×4 (05:38→19:31)
[2019-01-03] MEDS: METOPROLOL TARTRATE 25 MG TAB PO SCH ×3 (05:39→19:30)
[2019-01-03 05:46] LABS: Basophils # (auto) 0.02 K/uL (0-0.2); Basophils % (auto) 0.3 %; Eosinophils # (auto) 0.22 K/uL (0-0.5); Eosinophils % (auto) 3.3 %; Hematocrit (blood only) 33.9 % (42-52); Hemoglobin 9.3 g/dL (14.0-18.0); Immature Granulocytes # (auto) 0.02 K/uL (0.00-0.02); Immature Granulocytes % (auto) 0.3 %; Lymphocytes % (auto) 7.6 %; Mean Corpuscular Hemoglobin 26.6 pg (25-34); Mean Corpuscular Hgb Conc 27.4 g/dL (32-36); Mean Corpuscular Volume 97.1 fL (80-100); Mean Platelet Volume 9.1 fL (7.4-10.4); Monocytes # (auto) 1.18 K/uL (0.11-0.59); Monocytes % (auto) 17.9 %; Neutrophils # (auto) 4.64 K/uL (1.4-6.5); Neutrophils % (auto) 70.6 %; Platelet Count 297 K/uL (130-400); RDW Coefficient of Variation 16.9 % (11.5-14.5); RDW Standard Deviation 59.5 fL (36.4-46.3); Red Blood Count 3.49 M/uL (4.7-6.1); White Blood Count 6.58 K/uL (4.8-10.8)
[2019-01-03 06:44] LABS: BUN Creatinine Ratio 46.9 (10-20); Blood Urea Nitrogen 15 mg/dl (7-18); Calcium 8.8 mg/dl (8.5-10.1); Carbon Dioxide 48 mmol/L (21-32); Chloride 94 mmol/L (98-107); Creatinine Clr Calc Pharmacy 188.4 ml/min; Est GFR (African American) > 150.0; Glucose 92 mg/dl (70-99); Potassium 4.1 mmol/L (3.5-5.1); Sodium 141 mmol/L (136-145)
[2019-01-03] MEDS: ALBUT/IPRATROP 3MG/0.5MG NEB 3 ML VIAL NEB SCH ×4 (07:00→19:48)
[2019-01-03] MEDS: CHOLECALCIFEROL 1,000 UNITS 25 MCG TAB PO SCH (07:58)
[2019-01-03] MEDS: LOPERAMIDE HCL 2 MG CAP PO SCH ×3 (07:59→16:10)
[2019-01-03] MEDS: FUROSEMIDE 20 MG in SYRINGE 0 ML IV SCH (07:59)
[2019-01-03] MEDS: TIOTROPIUM BROMIDE 5 PUFF/90 MCG INH INH SCH (07:59)
[2019-01-03] MEDS: CEROVITE ADV FORMULA TAB PO SCH (07:59)
[2019-01-03] MEDS: BuPROPion SR 150 MG TABCR PO SCH (07:59)
[2019-01-03] MEDS: POTASSIUM CHLORIDE 10 MEQ TABCR PO SCH ×2 (07:59→19:32)
[2019-01-03] MEDS: MEGESTROL ACETATE SUSP 400 MG/10 ML UDC PO SCH ×2 (08:00→19:33)
[2019-01-03] MEDS: MUPIROCIN 2% OINT 22 GM TUBE EXT SCH ×2 (08:00→19:32)
[2019-01-03] MEDS: APIXABAN 5 MG TABLET PO SCH ×2 (08:00→19:31)
[2019-01-03] MEDS: BUDESONIDE/FORMOTEROL FUMARATE 160/4.5 60 PUFFS/INHALER INH SCH ×2 (08:00→19:32)
[2019-01-03] MEDS: FLUTICASONE PROPIONATE NA SPR 16 GM BTL SCH (08:01)
--- NOTE | 2019-01-03 08:42 | Cardiology Progress Note ---
Date of Service January 03, 2019 Assessment & Plan (1) Atrial fibrillation with RVR: (2) Aortic stenosis: (3) Edema, peripheral: (4) Chronic respiratory failure with hypoxia and hypercapnia: (5) SOB (shortness of breath): (6) Wide-complex tachycardia: (7) Cardiomyopathy: ASSESSMENT/PLAN: 1. Acute on Chronic respiratory failure/shortness of breath: He is being followed by other services for his pulmonary issues. He also has COPD. Continues to have third spacing. Labs are not azotemic despite some gentle diuresis. He did receive a total of 40 mg of Lasix yesterday with better output. He has received IV fluids throughout his hospital stay (was positive 6.4L) and remains 3.97 L positive for the hospital stay. Continue diuresis. Would aim for a goal of around 1 L negative or more if tolerated throughout the day. Other respiratory issues as per primary service and other providers. Bicarb level remains elevated and has been so prior to diuresis. Will give 1 dose of acetazolamide while diuresing. 2. Atrial fibrillation with rapid ventricular response: Will continue digoxin with 0.125 mg p.o. daily. Digoxin level tomorrow. Increase metoprolol to 25 mg q.6 hours. Continue anticoagulation if no contraindications. 3. Aortic stenosis: Non severe. Can follow as an outpatient. 4. Cardiomyopathy: Has had a history of mildly reduced LV systolic function to low-normal systolic function. No changes. He does not carry a history of heart failure. His edema occurred while hospitalized and is likely iatrogenic and also due to hypoalbuminemia. 5. Edema: He has received IV fluids and was positive 6.4 L. He is also hypoalbuminemic. He appears to be third spacing. Gentle diuresis as above. Would try to keep I&Os negative. 6. Wide complex tachycardia: Had an episode over the weekend, which was nonsustained. No recurrence. Beta-nikole increased as above. VT versus aberrant conduction. 7. Disposition: I will be away from the hospital tomorrow. 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 Webb for any questions or concerns. Subjective Shortness of breath remains. He does not believe it is improving much. He denies chest pain, syncope, near-syncope, palpitations. He is unaware of his ed maryan has improved. He continues to struggle eating due to dyspnea. He is trying to drink as boost. He was out of bed in a chair yesterday and seemed to enjoy that. Review of systems: As above. Physical Exam Physical Exam: Gen.: Appears chronically ill. No acute distress. Alert. HEENT: Anicteric sclera. Neck: No JVD. Cardiac: Irregularly irregular. Normal S1-S2. 2/6 early peaking systolic ejection murmur. No rubs, or gallops. Pulmonary: Very little lung sounds noted bilaterally, with most prominent breath sounds noted in the right upper lung. Abdomen: Soft, no significant tenderness, nondistended, with normoactive bowel sounds. No bruits noted. Extremities: 2+ radial pulses bilaterally. 2+ posterior tibialis pulses bilaterally. 2+ bilateral lower extremity edema to the knees with 1+ edema above the knees. 2+ left upper extremity edema. 1+ distal right upper extremity edema. No cyanosis. Psychiatric: Affect appears appropriate. Results & Data Vital Signs (Past 12 Hours) Vital Signs Temp Pulse Resp BP Pulse Ox 01/03/19 07:35 35.9 C L 95 H 20 107/60 99 01/03/19 03:42 36.8 C 97 H 24 126/68 99 01/02/19 23:47 37.1 C 118 H 20 123/66 98 Laboratory Results Laboratory Results - last 24 hr 01/03/19 01/03/19 05:25 05:25 WBC 6.58 RBC 3.49 L Hgb 9.3 L Hct 33.9 L MCV 97.1 MCH 26.6 MCHC 27.4 L RDW Std Deviation 59.5 H RDW Coeff of Eric 16.9 H Plt Count 297 MPV 9.1 Immature Gran % (Auto) 0.3 Neut % (Auto) 70.6 Lymph % (Auto) 7.6 [place] % (Auto) 17.9 Eos % (Auto) 3.3 Baso % (Auto) 0.3 Immature Gran # (Auto) 0.02 Neut # (Auto) 4.64 Lymph # (Auto) 0.50 L [place] # (Auto) 1.18 H Eos # (Auto) 0.22 Baso # (Auto) 0.02 Sodium 141 Potassium 4.1 Chloride 94 L Carbon Dioxide 48 H* Anion Gap -1.0 L BUN 15 Creatinine 0.32 L Est Cr Clr Drug Dosing 188.4 Est GFR ( Amer) > 150.0 Est GFR (Non-Af Amer) 131.0 BUN/Creatinine Ratio 46.9 H Glucose 92 Calcium 8.8 Magnesium 2.0 Diagnostic Findings Telemetry personally reviewed: Atrial fibrillation, with rapid ventricular response at times. Medications Administered Current Inpatient Medications Hydrocodone Bitart/Acetaminophen ([place] 7.5/325mg) 1 tab PO Q4H PRN PRN Reason: Pain Stop: 01/12/19 20:41 Last Admin: 01/02/19 23:57 Dose: 1 tab Documented by: Acetic Acid (Acetic Acid 0.25%) 1 appln IR DAILY JOANN Stop: 01/26/19 08:59 Last Admin: 01/02/19 09:41 Dose: Not Given Documented by: Albuterol (Ventolin Hfa) 2 puffs INH Q4H PRN PRN Reason: Shortness Of Breath Stop: 01/26/19 00:00 Albuterol (Duoneb) 3 ml NEB QIDR JOANN Stop: 01/26/19 06:59 Last Admin: 01/03/19 07:00 Dose: 3 ml Documented by: Albuterol (Ventolin 0.083% 2.5mg/3ml) 2.5 mg INH Q4H PRN PRN Reason: Shortness Of Breath Stop: 01/26/19 00:00 Last Admin: 12/31/18 23:48 Dose: 2.5 mg Documented by: Apixaban (Eliquis) 5 mg PO BID JOANN Stop: 02/02/19 08:59 Last Admin: 01/03/19 08:00 Dose: 5 mg Documented by: Budesonide/Formoterol Fumarate (Symbicort 160mcg/4.5mcg) 2 puffs INH BID JOANN Stop: 01/26/19 08:59 Last Admin: 01/03/19 08:00 Dose: 2 puffs Documented by: Bupropion HCl (Wellbutrin-Sr) 150 mg PO QAM JOANN Stop: 01/29/19 15:59 Last Admin: 01/03/19 07:59 Dose: 150 mg Documented by: Cyanocobalamin (Vitamin B-12) 1,000 mcg IM Q30D JOANN Stop: 01/28/19 12:29 Last Admin: 12/29/18 13:01 Dose: 1,000 mcg Documented by: Diclofenac Sodium (Voltaren 1% Top) 4 gm EXT Q6 JOANN Stop: 01/31/19 11:59 Last Admin: 01/03/19 05:38 Dose: 4 gm Documented by: Digoxin (Lanoxin) 0.125 mg PO DAILY@1600 JOANN Stop: 01/30/19 15:59 Last Admin: 01/02/19 15:30 Dose: 0.125 mg Documented by: Fluticasone Propionate (Flonase) 2 sprays NA DAILY JOANN Stop: 01/26/19 08:59 Last Admin: 01/03/19 08:01 Dose: 2 sprays Documented by: Guaifenesin (Organidin Nr) 400 mg PO Q6H PRN PRN Reason: Mucous Stop: 01/28/19 12:10 Furosemide 20 mg/ Syringe 2 mls @ 4 mls/min IV QAM JOANN Stop: 01/31/19 08:59 Last Admin: 01/03/19 07:59 Dose: 4 mls/min Documented by: Acetazolamide 250 mg/ Syringe 2.5 mls @ 5 mls/min IV ONE ONE Stop: 01/03/19 08:52 Loperamide HCl (Imodium) 2 mg PO TIDM JOANN Stop: 01/29/19 16:59 Last Admin: 01/03/19 07:59 Dose: 2 mg Documented by: Megestrol Acetate (Megace) 400 mg PO BID [facility] Stop: 02/01/19 12:14 Last Admin: 01/03/19 08:00 Dose: 400 mg Documented by: Metoprolol Tartrate (Lopressor) 25 mg PO Q6 [facility] Stop: 02/02/19 11:59 Multivitamins/Minerals (Multivitamin W/ Minerals Tab) 1 tab PO DAILY JOANN Stop: 01/29/19 08:59 Last Admin: 01/03/19 07:59 Dose: 1 tab Documented by: Mupirocin (Bactroban 2%) 1 appln EXT BID [facility] Stop: 01/26/19 08:59 Last Admin: 01/03/19 08:00 Dose: 1 appln Documented by: Ondansetron HCl (Zofran) 4 mg IV Q6H PRN PRN Reason: Nausea Stop: 01/26/19 00:00 Potassium Chloride (Klor-Con M10) 10 meq PO BID JOANN Stop: 01/31/19 21:59 Last Admin: 01/03/19 07:59 Dose: 10 meq Documented by: Tiotropium [place] (Spiriva) 1 puffs INH DAILY JOANN Stop: 01/29/19 08:59 Last Admin: 01/03/19 07:59 Dose: 1 puffs Documented by: Vitamin D (Vitamin D3) 6,000 units PO DAILY JOANN Stop: 01/29/19 08:59 Last Admin: 01/03/19 07:58 Dose: 6,000 units Documented by: PG Care Time/CCT Total # of Minutes Spent Total Time Spent with Patient: Total time spent is greater than 50% in coordination of care (as documented) at patient's floor/unit and/or counseling patient:
[2019-01-03] MEDS ORDERED: acetaZOLAMIDE 250 MG in SYRINGE 0 ML IV ONE (08:51)
[2019-01-03] MEDS: ACETIC ACID 0.25% IRRIG SOLN 1000 ML PLCT IR SCH (12:11)
--- NOTE | 2019-01-03 12:13 | Progress Note ---
DATE: 01/03/2019 Mr. Ferrara was seen today. His wound has responded nicely to the Santyl enzymatic agent. It is better. It is clean as I have seen it since his surgery. It is unclear to me whether his bronchopleural fistula is still patent. It is a pinpoint opening and I see no air coming out. I discussed this case with Dr. Pizano and I think that nighttime BiPAP or CPAP to get his CO2 down would be a good therapeutic intervention. He is still a bit hesitant, but states that he will try it. In the meantime, we are going to continue the Santyl while he is here. It is noticeable that the amount of green drainage from his pseudomonas colonization has decreased dramatically over the last 48 hours.
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
[2019-01-03 15:31] LABS: Base Excess ABG 17.7 mEq/L (-9-1.8); HCO3 ABG 50 mmol/L (19-24); Oxygen Saturation ABG 98.5 % (90-95); PCO2 ABG 123 mmHg (35-46); PO2 ABG 178 mm/Hg (80-95); pH ABG 7.23 (7.35-7.45)
[2019-01-03 15:41] LABS: Allen Test Pos (Pos)
[2019-01-03] MEDS: HYDROCODONE/ACETAMINOPHEN 7.5/325MG TAB PO PRN (16:10)
[2019-01-03] MEDS: DIGOXIN 0.125 MG TAB PO SCH (16:10)
[2019-01-04] MEDS: METOPROLOL TARTRATE 25 MG TAB PO SCH ×4 (00:34→17:18)
[2019-01-04] MEDS: DICLOFENAC SOD 1% GEL 100 GM TUBE EXT SCH ×4 (00:34→19:03)
[2019-01-04 01:43] LABS: Allen Test Pos (Pos); HCO3 ABG 46 mmol/L (19-24); Oxygen Saturation ABG 94.1 % (90-95); PCO2 ABG 118 mmHg (35-46); PO2 ABG 86 mm/Hg (80-95); pH ABG 7.21 (7.35-7.45)
[2019-01-04] MEDS ORDERED: ONDANSETRON INJ 2 MG/ML 2 ML VIAL IV ONE (01:55)
[2019-01-04] MEDS ORDERED: MoRPHine SULFATE 2 MG/ML CARP IV ONE (01:55)
[2019-01-04 02:05] LABS: Hematocrit (blood only) 36.2 % (42-52); Hemoglobin 9.8 g/dL (14.0-18.0); Mean Corpuscular Hemoglobin 26.7 pg (25-34); Mean Corpuscular Hgb Conc 27.1 g/dL (32-36); Mean Corpuscular Volume 98.6 fL (80-100); Mean Platelet Volume 8.9 fL (7.4-10.4); Platelet Count 361 K/uL (130-400); RDW Coefficient of Variation 16.7 % (11.5-14.5); RDW Standard Deviation 59.2 fL (36.4-46.3); Red Blood Count 3.67 M/uL (4.7-6.1); White Blood Count 9.24 K/uL (4.8-10.8)
[2019-01-04 02:10] LABS: BUN Creatinine Ratio 45.6 (10-20); Calcium 9.4 mg/dl (8.5-10.1); Creatinine Clr Calc Pharmacy 154.6 ml/min; Est GFR (Non-African American) 120.8; Potassium 4.2 mmol/L (3.5-5.1)
[2019-01-04] MEDS: ALBUT/IPRATROP 3MG/0.5MG NEB 3 ML VIAL NEB SCH ×4 (07:10→20:17)
--- NOTE | 2019-01-04 08:27 | Surgery Progress Note ---
Date of Service January 04, 2019 Assessment & Plan (1) Bronchopleural fistula: -Eloessar flap performed: -will continue dressing changes/wound packing daily -wound unpacked and Santyl placed in wound, which was then repacked with kerlix and secured with ABD pad and medipore tape -continue attempts to optimize nutrition to promote wound healing -discussed with hospitalist: -concern noted for hypercapnea off BiPAP -repeat ABG planned for this am -they are planning on discussing further options with pulmonary medicine -cardiology assisting with rhythm issue as pt. had wide complex tachycardia last weekend as well a a-fib with RVR -will continue to follow along with you while pt. is hospitlaized Subjective Pt. currently wearing BiPAP which limits subjective data. He appears awake and alert and expresses some discomfort with BiPAP mask and expresses some chest discomfort. Discussed with RN and hospitalist--pt. did not wear BiPAP for large part of yesterday and last night resulting in hypercapnea. Pt. eventually agreed to wear BiPAP and became more alert after several hours of this. Physical Exam Physical Exam: Wound examined--packing removed which had some yellow exudate/drainage. Audible air leak not readily audible. Granulation tissue noted in wound bed. Skin edges have minimal erythema. Constitutional: + thin Respiratory: Absent BS on left; BS are present on right and appear to be decreased at base Cardiovascular: Rate/Rhythm: regular rate and + tachycardic Neurologic: Pt. is able to move all extremities and follow simple commands & cooperate with dressing change; no focal deficits noted Results & Data Vital Signs (Past 12 Hours) Vital Signs Temp Pulse Pulse Resp BP BP Pulse Ox 01/04/19 07:48 36.6 C 120 H 27 H 125/63 97 01/04/19 07:15 98 H 98 H 28 H 99 01/04/19 06:05 89/68 L 01/04/19 04:15 88 24 94 01/04/19 03:26 37.1 C 98 H 24 91/69 L 98 01/04/19 00:45 88 27 H 93 01/03/19 23:45 36.7 C 100 H 24 107/67 100 PG Care Time/CCT Total # of Minutes Spent Total Time Spent with Patient: Total time spent is greater than 50% in coordination of care (as documented) at patient's floor/unit and/or counseling patient:
[2019-01-04] MEDS: BuPROPion SR 150 MG TABCR PO SCH (08:28)
[2019-01-04] MEDS: CHOLECALCIFEROL 1,000 UNITS 25 MCG TAB PO SCH (08:28)
[2019-01-04] MEDS: FUROSEMIDE 20 MG in SYRINGE 0 ML IV SCH (08:28)
[2019-01-04] MEDS: LOPERAMIDE HCL 2 MG CAP PO SCH ×3 (08:29→16:39)
[2019-01-04] MEDS: CEROVITE ADV FORMULA TAB PO SCH (08:29)
[2019-01-04] MEDS: MEGESTROL ACETATE SUSP 400 MG/10 ML UDC PO SCH ×2 (08:29→19:03)
[2019-01-04] MEDS: POTASSIUM CHLORIDE 10 MEQ TABCR PO SCH ×2 (08:29→19:04)
[2019-01-04] MEDS: APIXABAN 5 MG TABLET PO SCH ×2 (08:29→19:04)
[2019-01-04] MEDS: ACETIC ACID 0.25% IRRIG SOLN 1000 ML PLCT IR SCH (08:30)
[2019-01-04] MEDS: TIOTROPIUM BROMIDE 5 PUFF/90 MCG INH INH SCH (08:30)
[2019-01-04] MEDS: FLUTICASONE PROPIONATE NA SPR 16 GM BTL SCH (08:31)
[2019-01-04] MEDS: BUDESONIDE/FORMOTEROL FUMARATE 160/4.5 60 PUFFS/INHALER INH SCH (08:32)
[2019-01-04] MEDS: MUPIROCIN 2% OINT 22 GM TUBE EXT SCH ×2 (08:32→19:05)
[2019-01-04 08:57] LABS: Base Excess ABG 19.5 mEq/L (-9-1.8); HCO3 ABG 49 mmol/L (19-24); Oxygen Saturation ABG 95.8 % (90-95); PCO2 ABG 88 mmHg (35-46); PO2 ABG 94 mm/Hg (80-95); pH ABG 7.36 (7.35-7.45)
[2019-01-04 08:59] LABS: Allen Test Pos (Pos)
--- NOTE | 2019-01-04 15:11 | Pulmonology Progress Note ---
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 He has already been intubated once during this hospitalization for hypercarbic respiratory failure and was to be using BiPAP on the floor however apparently the patient has refused BiPAP stating the mask makes him feel uncomfortable. Hi s level of consciousness is diminished secondary to hypercarbia. Recommendations: 1. Acute on chronic hypoxemic and hypercarbic respiratory failure: I had a discussion with Dr. Amaro as well as with the patient's daughter at the bedside. Options at this point time would be to aggressively pursue noninvasive positive pressure ventilation in the hopes that we can reset the patient and get him back to his stable PCO2 in the 50s to 60s. I suspect he is decompensated due to deconditioning, his acute illness, and progressive neuromuscular weakness associated with his medical conditions in the setting of a solitary lung with underlying obstructive lung disease. If the patient refuses noninvasive positive pressure ventilation, the only other option at this point time would be to consider tracheostomy. This would allow the patient to go on and off the ventilator as needed. If we pursue that route, I would recommend a percutaneous feeding tube as well to provide the patient adequate nutrition to allow for wound healing and improvement in his respiratory status. I think he is deconditioned enough that this will likely be a prolonged course. I suspect recovery will likely be on the order of weeks to months. After consideration, the daughter has requested that BiPAP be reapplied. If the patient's mental status improves enough that he can participate in the conversation, we can d iscuss with him. If he elects to continue to refuse noninvasive positive pressure ventilation and/or intubation, consideration for a complete transition to palliative care would be appropriate. A follow-up blood gas will be ordered by the hospitalist several hours after BiPAP to ensure we are trending in the appropriate direction. 2. Severe peripheral edema with protein calorie malnutrition: I suspect the patient's oral intake is currently inadequate to provide adequate support. He will likely require additional nutritional support. Consider checking pre- albumin and dietary consultation with calorie counts. 3. COPD: The patient does not appear overtly bronchospastic currently. Cathie nue therapies although his mental status likely precludes the ability to participate in metered-dose inhalers. We will transition to nebulized therapies. We will continue to follow. Should the patient deteriorate and failed noninvasive positive pressure ventilation care unit for consideration of intubation. If he is reintubated, I would recommend tracheostomy unless we are to consider formal palliative care measures. (2) COPD (chronic obstructive pulmonary disease): (3) Bronchopleural fistula: Subjective Asked by CT surgery to reevaluate this patient. The patient had been seen previously by Dr. Harding for obstructive lung disease and hypercapnic respiratory failure. The patient is currently undergoing treatment for a complicated pleural space infection and has Eloesser flap in place. He apparently had been refusing noninvasive positive pressure ventilation at night and during the day and has had intermittent episodes of hypercarbia with decreasing levels of consciousness. I evaluated the patient at bedside. His daughter is present. The patient apparently according to Dr. Amaro who is also at the bedside was using BiPAP last night and was awake alert and interactive this morning however during the day his mental status has waned. He is currently somewhat somnolent. He does arouse to verbal and tactile stimulus but quickly drifts off again. His PCO2 has been elevated. He is not overtly bronchospastic. I did review his prior imaging including a CT scan which demonstrates emphysematous changes within the right remaining lung and the Eloesser cavity in the left pleural space. Review of Systems Review of Systems: Unobtainable due to reduced consciousness Physical Exam Constitutional: + cachectic, + altered mental status and + lethargic Neck: Deviation of the trachea to the left Respiratory: Absent breath sounds on the left. Diminished on the right. No wheezing Cardiovascular: Rate/Rhythm: + irregularly irregular Heart Sounds: normal S1 and normal S2; no murmur Extremities: + edema Gastrointestinal (Abdomen): normal bowel sounds, soft, nontender, no hepatosplenomegaly Skin: no rashes, warm and dry Results & Data Vital Signs (Past 12 Hours) Vital Signs Temp Pulse Pulse Resp BP BP Pulse Ox 01/04/19 11:42 36.7 C 109 H 28 H 119/66 97 01/04/19 11:06 119 H 26 H 97 01/04/19 07:48 36.6 C 120 H 27 H 125/63 97 01/04/19 07:15 98 H 98 H 28 H 99 01/04/19 06:05 89/68 L 01/04/19 04:15 88 24 94 01/04/19 03:26 37.1 C 98 H 24 91/69 L 98 Laboratory Results 01/04/19 01:25 01/04/19 01:25 12/26/18 12/27/18 12/27/18 20:32 05:43 10:06 ABG pH 7.35 ABG pCO2 90 H ABG pO2 86 ABG HCO3 48 H ABG O2 Saturation 95.4 H ABG Base Excess 18.6 H VBG pH 7.22 L 7.24 L VBG pCO2 123 H 117 H VBG pO2 53 36 VBG HCO3 49 49 VBG O2 Saturation 85.6 67.3 VBG Base Excess 17.2 16.6 12/27/18 12/28/18 12/29/18 16:02 05:02 04:29 ABG pH ABG pCO2 ABG pO2 ABG HCO3 ABG O2 Saturation ABG Base Excess VBG pH 7.59 H 7.47 H 7.34 L VBG pCO2 45 52 H 76 H VBG pO2 59 44 83 VBG HCO3 43 37 40 VBG O2 Saturation 93.5 71.1 94.2 VBG Base Excess 18.8 11.8 12.3 01/03/19 01/03/19 01/04/19 14:18 15:15 01:25 ABG pH Cancelled 7.23 L 7.21 L ABG pCO2 Cancelled 123 H 118 H ABG pO2 Cancelled 178 H 86 ABG HCO3 Cancelled 50 H 46 H ABG O2 Saturation Cancelled 98.5 H 94.1 ABG Base Excess Cancelled 17.7 H 14.0 H VBG pH VBG pCO2 VBG pO2 VBG HCO3 VBG O2 Saturation VBG Base Excess 01/04/19 08:41 ABG pH 7.36 ABG pCO2 88 H ABG pO2 94 ABG HCO3 49 H ABG O2 Saturation 95.8 H ABG Base Excess 19.5 H VBG pH VBG pCO2 VBG pO2 VBG HCO3 VBG O2 Saturation VBG Base Excess Diagnostic Findings Patient's prior CT scan of the chest was independently reviewed. It demonstrates centrilobular and paraseptal emphysematous changes throughout the remaining right lung. No focal airspace opacities identified. There are some pulmonary nodules identified which appear to be deep in size. No suspicious adenopathy. The patient is status post pneumonectomy on the left. The Eloesser flap is visualized with packing in the pleural space. Shift of the mediastinal structures is noted. PG Care Time/CCT Total # of Minutes Spent Total Time Spent with Patient: Total time spent is greater than 50% in coordination of care (as documented) at patient's floor/unit and/or counseling patient:
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
[2019-01-04 16:19] LABS: Base Excess VBG 20.4 mEq/L; Oxygen Saturation VBG 94.6 %; pH VBG 7.3 (7.36-7.41)
[2019-01-04] MEDS: ACETAMINOPHEN 325 MG TAB PO PRN (16:37)
[2019-01-04] MEDS: DIGOXIN 0.125 MG TAB PO SCH (16:38)
[2019-01-04] MEDS: BUDESONIDE 0.5 MG/2 ML VIAL (PULMICORT) NEB SCH (20:17)
[2019-01-04] MEDS: FORMOTEROL 20 MCG/2 ML VIAL NEB SCH (20:17)
[2019-01-05] MEDS: METOPROLOL TARTRATE 25 MG TAB PO SCH ×3 (00:05→13:35)
[2019-01-05] MEDS: DICLOFENAC SOD 1% GEL 100 GM TUBE EXT SCH ×5 (00:05→23:32)
[2019-01-05 05:54] LABS: Base Excess VBG 21.2 mEq/L; Oxygen Saturation VBG 77.1 %; pH VBG 7.29 (7.36-7.41)
[2019-01-05 06:09] LABS: Hemoglobin 9.9 g/dL (14.0-18.0); Mean Corpuscular Hgb Conc 27.5 g/dL (32-36); Mean Corpuscular Volume 98.1 fL (80-100); Mean Platelet Volume 9.2 fL (7.4-10.4); Platelet Count 366 K/uL (130-400); RDW Coefficient of Variation 16.8 % (11.5-14.5); RDW Standard Deviation 59.6 fL (36.4-46.3); Red Blood Count 3.67 M/uL (4.7-6.1); White Blood Count 7.26 K/uL (4.8-10.8)
[2019-01-05 06:49] LABS: Albumin Globulin Ratio 0.6 (0.9-2); Albumin Level 2.2 gm/dl (3.4-5.0); BUN Creatinine Ratio 46.6 (10-20); Bilirubin,Total 0.2 mg/dl (0.2-1); Calcium 9.8 mg/dl (8.5-10.1); Creatinine Clr Calc Pharmacy 151.9 ml/min; Est GFR (African American) 138.5; Est GFR (Non-African American) 119.5; Magnesium 2.1 mg/dl (1.8-2.4); Phosphorus 2.2 mg/dl (2.5-4.9); Potassium 4.4 mmol/L (3.5-5.1); Total Protein 6.2 gm/dl (6.4-8.2)
[2019-01-05] MEDS: BUDESONIDE 0.5 MG/2 ML VIAL (PULMICORT) NEB SCH ×2 (07:09→19:35)
[2019-01-05] MEDS: FORMOTEROL 20 MCG/2 ML VIAL NEB SCH ×2 (07:09→19:36)
[2019-01-05] MEDS: ALBUT/IPRATROP 3MG/0.5MG NEB 3 ML VIAL NEB SCH ×5 (07:09→23:53)
--- NOTE | 2019-01-05 07:11 | Ultrasound Report ---
LEFT UPPER EXTREMITY VENOUS DOPPLER ULTRASOUND CLINICAL HISTORY: left upper extremity swelling COMPARISON STUDY: No previous studies for comparison. FINDINGS: This exam was compromised by suboptimal penetration as well as IV site and bandaging. Howev er, no thrombus was identified within the left internal jugular, subclavian, brachial, basilic, cepha lic or radial veins. The ulnar vein and axillary vein were obscured on this exam. IMPRESSION: Technically difficult exam but no deep venous thrombus within the left upper extremity i dentified. Electronically signed by: Rodrick Moses M.D. 01/05/2019 7:10 AM
[2019-01-05] MEDS: LOPERAMIDE HCL 2 MG CAP PO SCH ×3 (08:48→16:15)
[2019-01-05] MEDS: CHOLECALCIFEROL 1,000 UNITS 25 MCG TAB PO SCH (08:48)
[2019-01-05] MEDS: CEROVITE ADV FORMULA TAB PO SCH (08:48)
[2019-01-05] MEDS: APIXABAN 5 MG TABLET PO SCH ×2 (08:49→20:57)
[2019-01-05] MEDS: BuPROPion SR 150 MG TABCR PO SCH (08:49)
[2019-01-05] MEDS: TIOTROPIUM BROMIDE 5 PUFF/90 MCG INH INH SCH (08:49)
[2019-01-05] MEDS: POTASSIUM CHLORIDE 10 MEQ TABCR PO SCH ×2 (08:49→20:56)
[2019-01-05] MEDS: FUROSEMIDE 20 MG in SYRINGE 0 ML IV SCH (08:49)
[2019-01-05] MEDS: MEGESTROL ACETATE SUSP 400 MG/10 ML UDC PO SCH ×2 (08:49→20:57)
[2019-01-05] MEDS: MUPIROCIN 2% OINT 22 GM TUBE EXT SCH ×2 (08:50→20:56)
[2019-01-05] MEDS: FLUTICASONE PROPIONATE NA SPR 16 GM BTL SCH (08:51)
--- NOTE | 2019-01-05 09:08 | Pulmonology Progress Note ---
Date of Service January 05, 2019 Assessment & Plan (1) Chronic respiratory failure with hypoxia and hypercapnia: Impression: 73-year-old male with history of traumatic pneumonectomy now with infection of the pleural space status post Eloesser procedure. He has already been intubated once during this hospitalization for hypercarbic respiratory failure and was to be using BiPAP on the floor however apparently the patient has refused BiPAP stating the mask makes him feel uncomfortable. Hi s level of consciousness is diminished secondary to hypercarbia. Recommendations: 1. Acute on chronic hypoxemic and hypercarbic respiratory failure: I think the patient's hypercarbic respiratory failure is multifactorial due to combinations of solitary lung and underlying obstructive lung disease in the existing lung. His baseline CO2 levels are likely in the 70s to 80s based on his current pH. Therapy ideally would be nocturnal positive airway pressure. I met with the patient this morning. He is awake and eating breakfast. We discussed BiPAP again and he states he wants to think about it. He does not appear willing to discuss tracheostomy which would be the long-term plan if he is unwilling to be compliant with positive airway pressure. 2. Severe peripheral edema with protein calorie malnutrition: I suspect the patient's oral intake is currently inadequate to provide adequate support. He will likely require additional nutritional support. Pre-albumin is decreased down to 18 from 25 last month. Recommend nutrition consultation with calorie counts and consideration for supplemental nocturnal tube feeding if appropriate. 3. COPD: The patient does not appear overtly bronchospastic currently. Continue nebulized therapies. We will continue to follow. Should the patient deteriorate and failed noninvasive positive pressure ventilation care unit for consideration of i ntubation. If he is reintubated, I would recommend tracheostomy unless we are to consider formal palliative care measures. Not many good options at this point. (2) COPD (chronic obstructive pulmonary disease): (3) Bronchopleural fistula: Review of Systems Review of Systems: Unobtainable due to reduced consciousness Physical Exam Constitutional: + cachectic, + altered mental status and + lethargic Cardiovascular: Rate/Rhythm: + irregularly irregular Heart Sounds: normal S1 and normal S2; no murmur Extremities: + edema Gastrointestinal (Abdomen): normal bowel sounds, soft, nontender, no hepatosplenomegaly Skin: no rashes, warm and dry Results & Data Vital Signs (Past 12 Hours) Vital Signs Temp Pulse Pulse Pulse Resp BP BP 01/05/19 07:48 36.6 C 89 31 H 108/55 L 01/05/19 07:09 80 16 01/05/19 05:23 100 H 22 01/05/19 03:57 36.6 C 93 H 22 112/71 01/05/19 03:24 100 H 30 H 01/05/19 01:25 100 H 28 H 01/05/19 00:06 110 H 24 141/65 H 01/04/19 23:34 101 H 18 Pulse Ox 01/05/19 07:48 98 01/05/19 07:09 99 01/05/19 05:23 95 01/05/19 03:57 95 01/05/19 03:24 98 01/05/19 01:25 96 01/05/19 00:06 94 01/04/19 23:34 91 Laboratory Results 01/05/19 05:39 01/05/19 05:39 12/26/18 12/27/18 12/27/18 20:32 05:43 10:06 ABG pH 7.35 ABG pCO2 90 H ABG pO2 86 ABG HCO3 48 H ABG O2 Saturation 95.4 H ABG Base Excess 18.6 H VBG pH 7.22 L 7.24 L VBG pCO2 123 H 117 H VBG pO2 53 36 VBG HCO3 49 49 VBG O2 Saturation 85.6 67.3 VBG Base Excess 17.2 16.6 12/27/18 12/28/18 12/29/18 16:02 05:02 04:29 ABG pH ABG pCO2 ABG pO2 ABG HCO3 ABG O2 Saturation ABG Base Excess VBG pH 7.59 H 7.47 H 7.34 L VBG pCO2 45 52 H 76 H VBG pO2 59 44 83 VBG HCO3 43 37 40 VBG O2 Saturation 93.5 71.1 94.2 VBG Base Excess 18.8 11.8 12.3 01/03/19 01/03/19 01/04/19 14:18 15:15 01:25 ABG pH Cancelled 7.23 L 7.21 L ABG pCO2 Cancelled 123 H 118 H ABG pO2 Cancelled 178 H 86 ABG HCO3 Cancelled 50 H 46 H ABG O2 Saturation Cancelled 98.5 H 94.1 ABG Base Excess Cancelled 17.7 H 14.0 H VBG pH VBG pCO2 VBG pO2 VBG HCO3 VBG O2 Saturation VBG Base Excess 01/04/19 01/04/19 01/05/19 08:41 16:09 05:39 ABG pH 7.36 ABG pCO2 88 H ABG pO2 94 ABG HCO3 49 H ABG O2 Saturation 95.8 H ABG Base Excess 19.5 H VBG pH 7.30 L 7.29 L VBG pCO2 107 H 113 H VBG pO2 85 60 VBG HCO3 51 53 VBG O2 Saturation 94.6 77.1 VBG Base Excess 20.4 21.2 Diagnostic Findings No new films PG Care Time/CCT Total # of Minutes Spent Total Time Spent with Patient: Total time spent is greater than 50% in coordination of care (as documented) at patient's floor/unit and/or counseling patient:
[2019-01-05] MEDS: ACETIC ACID 0.25% IRRIG SOLN 1000 ML PLCT IR SCH (13:35)
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
[2019-01-05] MEDS: ACETAMINOPHEN 325 MG TAB PO PRN (16:14)
[2019-01-05] MEDS: METOPROLOL TARTRATE 1 MG/ML VIAL IV SCH ×3 (16:14→23:30)
[2019-01-05] MEDS: DIGOXIN 0.125 MG TAB PO SCH (16:15)
[2019-01-06] MEDS: METOPROLOL TARTRATE 1 MG/ML VIAL IV SCH ×4 (03:16→16:57)
[2019-01-06] MEDS: DICLOFENAC SOD 1% GEL 100 GM TUBE EXT SCH ×3 (05:09→18:13)
[2019-01-06] MEDS: ALBUT/IPRATROP 3MG/0.5MG NEB 3 ML VIAL NEB SCH ×4 (05:29→21:26)
[2019-01-06 05:57] LABS: Base Excess VBG 5.8 mEq/L; Oxygen Saturation VBG 93.4 %; pH VBG 7.29 (7.36-7.41)
[2019-01-06 05:59] LABS: Hematocrit (blood only) 35.4 % (42-52); Hemoglobin 9.6 g/dL (14.0-18.0); Mean Corpuscular Hemoglobin 26.8 pg (25-34); Mean Corpuscular Hgb Conc 27.1 g/dL (32-36); Mean Corpuscular Volume 98.9 fL (80-100); Mean Platelet Volume 9.3 fL (7.4-10.4); Platelet Count 384 K/uL (130-400); RDW Coefficient of Variation 16.9 % (11.5-14.5); RDW Standard Deviation 60.4 fL (36.4-46.3); Red Blood Count 3.58 M/uL (4.7-6.1); White Blood Count 6.96 K/uL (4.8-10.8)
[2019-01-06 06:40] LABS: BUN Creatinine Ratio 53.5 (10-20); Calcium 9.5 mg/dl (8.5-10.1); Creatinine Clr Calc Pharmacy 184.1 ml/min; Est GFR (African American) 149.9; Est GFR (Non-African American) 129.3; Phosphorus 2.3 mg/dl (2.5-4.9); Potassium 4.1 mmol/L (3.5-5.1)
[2019-01-06] MEDS: FORMOTEROL 20 MCG/2 ML VIAL NEB SCH ×2 (06:55→21:26)
[2019-01-06] MEDS: BUDESONIDE 0.5 MG/2 ML VIAL (PULMICORT) NEB SCH ×2 (06:55→21:26)
--- NOTE | 2019-01-06 09:00 | Progress Note ---
DATE: 01/06/2019 Mr. Ferrara was seen today on 01/06/2019. He is a bit lethargic this morning. He is able to talk. He is sitting up eating breakfast, but he is more lethargic than his baseline. This is probably due to CO2 narcosis. The patient has been evaluated by Dr. Duran and I agree with his assessment. His wound looks very good. In fact, his Eloesser flap looks better today than I have seen it since we first performed this back in August. It is unclear to me whether the bronchopleural fistula is actually persistent. If it is, it is very small. We will continue the Santyl while he is here. Unfortunately, this will have very little to do with the fact that he appears to be approaching end of life from his respiratory status. Palliative care is involved. JACQUE
[2019-01-06] MEDS: MEGESTROL ACETATE SUSP 400 MG/10 ML UDC PO SCH (09:21)
[2019-01-06] MEDS: MUPIROCIN 2% OINT 22 GM TUBE EXT SCH ×2 (09:22→21:10)
[2019-01-06] MEDS: APIXABAN 5 MG TABLET PO SCH (09:24)
[2019-01-06] MEDS: POTASSIUM CHLORIDE 10 MEQ TABCR PO SCH (09:24)
[2019-01-06] MEDS: CHOLECALCIFEROL 1,000 UNITS 25 MCG TAB PO SCH (09:25)
[2019-01-06] MEDS: TIOTROPIUM BROMIDE 5 PUFF/90 MCG INH INH SCH (09:25)
[2019-01-06] MEDS: FLUTICASONE PROPIONATE NA SPR 16 GM BTL SCH (09:25)
[2019-01-06] MEDS: CEROVITE ADV FORMULA TAB PO SCH (09:25)
[2019-01-06] MEDS: BuPROPion SR 150 MG TABCR PO SCH (09:25)
[2019-01-06] MEDS: FUROSEMIDE 20 MG in SYRINGE 0 ML IV SCH (09:26)
[2019-01-06] MEDS: LOPERAMIDE HCL 2 MG CAP PO SCH ×3 (09:26→18:13)
[2019-01-06] MEDS: COLLAGENASE OINT 30 GM TUBE EXT SCH (09:27)
[2019-01-06] MEDS: ACETIC ACID 0.25% IRRIG SOLN 1000 ML PLCT IR SCH (10:31)
[2019-01-06] MEDS ORDERED: POTASSIUM PHOS 3 MMOL/1 ML INFUSION IV STA (12:29)
[2019-01-06] MEDS ORDERED: POTASSIUM PHOSPHATE 21 MMOL in SODIUM CHLORIDE 0.9% 500 ML IV ONE (12:45)
[2019-01-06] MEDS: MoRPHine SULFATE 2 MG/ML CARP IV PRN ×4 (13:10→23:03)
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
[2019-01-06] MEDS: DIGOXIN 0.125 MG TAB PO SCH (18:13)
[2019-01-07] MEDS: DICLOFENAC SOD 1% GEL 100 GM TUBE EXT SCH ×4 (00:07→18:04)
[2019-01-07] MEDS: MoRPHine SULFATE 2 MG/ML CARP IV PRN ×13 (03:04→20:58)
[2019-01-07] MEDS: BUDESONIDE 0.5 MG/2 ML VIAL (PULMICORT) NEB SCH ×2 (06:55→19:39)
[2019-01-07] MEDS: ALBUT/IPRATROP 3MG/0.5MG NEB 3 ML VIAL NEB SCH ×4 (06:55→19:40)
[2019-01-07] MEDS: FORMOTEROL 20 MCG/2 ML VIAL NEB SCH (06:55)
[2019-01-07] MEDS: FUROSEMIDE 20 MG in SYRINGE 0 ML IV SCH (08:35)
[2019-01-07] MEDS: LOPERAMIDE HCL 2 MG CAP PO SCH ×3 (08:45→18:03)
[2019-01-07] MEDS: ACETIC ACID 0.25% IRRIG SOLN 1000 ML PLCT IR SCH (08:45)
[2019-01-07] MEDS: MUPIROCIN 2% OINT 22 GM TUBE EXT SCH (08:45)
[2019-01-07] MEDS: COLLAGENASE OINT 30 GM TUBE EXT SCH (08:46)
[2019-01-07] MEDS: TIOTROPIUM BROMIDE 5 PUFF/90 MCG INH INH SCH (08:46)
--- NOTE | 2019-01-07 09:26 | Palliative Care Consultation ---
Date of Consultation January 07, 2019 Assessment & Plan (1) Goals of care, counseling/discussion: -Patient was placed on comfort measures only yesterday per his own wishes. Patient made the decision that he did not want to wear bipap any more. Was okay with allowing nature to take its course. -Visited with patient, his daughter Audra, son and [id number]. Patient is drowsy/lethargic ,but did wake and able to answer questions. -Family feeling conflicted that patient was actually somewhat improved from last evening, as they thought he would not make it through the night. Family was wondering if they "gave up too soon." Support provided and patient reiterated that he did not want to have the bipap placed again, does not want intubation or trach, etc. Family's questions/concerns addressed and answered. They are feeling better. Encouraged them to enjoy the time they had with the patient while he is still able to communicate. -Patient is requiring frequent IV morphine for SOB and pain "all over." I did increase frequency of 2mg IV to Q1h PRN. I anticipate patient's IV morphine needs to continue. Patient could potentially be a candidate for [facility] hospice. Patient's daughter stated that if patient ever became stable enough to take home, she would want to do so. Personally, I foresee patient declining rather quickly and not being able to leave the hospital. -He is on comfort measures only. Being transferred out of PCU. Will see how patient does over the next 24-48 hours. If he is lingering, would involve hospice agency on Thursday to evaluate for [facility] hospice. (2) Atrial fibrillation: (3) Severe protein-calorie malnutrition: (4) Chronic respiratory failure with hypoxia and hypercapnia: (5) Bronchopleural fistula: (6) Anxiety: History of Present Illness Attending Physician: Clayton Amaro MD Allergies Allergy/AdvReac Type Severity Reaction Status Date / Time vancomycin Allergy Severe Anaphylaxis Verified 12/23/18 11:26 animal dander Allergy Mild CONGESTION, Verified 12/23/18 11:26 STUFFINESS, SNEEZING paroxetine Allergy Mild RASH Verified 12/23/18 11:26 fluconazole [From Diflucan] AdvReac Intermediate Dizziness Verified 12/23/18 11:26 amoxicillin AdvReac Rash Verified 12/23/18 11:26 Home Medications Home Medications Medication Instructions Recorded Confirmed Type Centrum 1 tab PO DAILY 07/18/18 12/26/18 History aspirin [Aspirin Low Dose] 81 mg PO QAM 07/18/18 12/26/18 History fluticasone propionate 2 spray INTRANASAL DAILY 07/18/18 12/26/18 History magnesium 250 mg PO DAILY 07/18/18 12/26/18 History mupirocin 1 applic TOPICAL BID 07/18/18 12/26/18 History albuterol sulfate 2 puff INHALATION Q4H PRN 09/27/18 12/26/18 History bupropion HCl [Wellbutrin SR] 150 mg PO QAM 09/27/18 12/26/18 History cholecalciferol (vitamin D3) 6,000 unit PO DAILY 09/27/18 12/26/18 History [Vitamin D3] cyanocobalamin (vitamin B-12) 1,000 mcg IM MONTHLY 09/27/18 12/26/18 History zinc sulfate 220 mg (50 mg) capsule 220 mg PO DAILY #30 cap 11/18/18 12/26/18 Rx hydrocodone 7.5 mg-acetaminophen 1 tab PO Q4H PRN 12/21/18 12/26/18 History 325 mg tablet acetic acid 100 ml IRRIGATION DIRECTED 12/26/18 12/26/18 History albuterol sulfate 2.5 mg INHALATION Q4H PRN 12/26/18 12/26/18 History budesonide-formoterol 2 puff INHALATION BID 12/26/18 12/26/18 History guaifenesin 400 mg PO Q6H PRN 12/26/18 12/26/18 History hydrochlorothiazide 25 mg PO DAILY 12/26/18 12/26/18 History megestrol 400 mg PO BID 12/26/18 12/26/18 History omeprazole 20 mg PO QAM 12/26/18 12/26/18 History potassium chloride 20 meq PO BID 12/26/18 12/26/18 History tiotropium bromide 1 cap INHALATION DAILY 12/26/18 12/26/18 History warfarin 1.25 mg PO DAILY 12/28/18 12/28/18 History Patient History Medical History Malabsorption syndrome (Acute) Incisional hernia (Acute) Dilated aortic root (Acute) COPD with emphysema (Chronic) Severe, on 3L O2 continuous. Admitted to [facility] 09/10-09/16 with exacerbation + pneumonia. Anxiety (Acute) Acquired deviated nasal septum (Acute) BPH (benign prostatic hyperplasia) GERD (gastroesophageal reflux disease) Aortic stenosis Mild by 2018 echo Bicuspid aortic valve Hypertension (Chronic) Anemia Exposure to Agent [place] History of recent hospitalization Admitted [facility] 09/10-09/18 for hemoptysis 2/2 L bronchopleural fistula, pneumonia, COPD exacerbation. L Eloesser flap/EBUS/bronch by Dr. Pettit 09/14. Treated with IV ABX and discharged on Augmention On home oxygen therapy 3L VIA NC CONT. 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: No Beliefs That Will Affect Care: None marital status: Current Living Situation: Alone Current Living Situation Comment: one story house alone Other Information That Helps Us Care for You: No Feels Safe at Home: Yes Safety Concerns: Feels Safe At This Time Smoking Status: Former smoker Tobacco Type: cigarettes ; Do You Dip or Chew Tobacco: No ; Second Hand Exposure: No ; Tobacco Cessation Education Requested by Patient: No Hx Alcohol Use: No Hx Substance Use: No Review of Systems Review of Systems: Unobtainable due to cognitive status Physical Exam Constitutional: + ill appearing and + thin ENMT: external ear and nose normal, oropharynx normal Neck: normal visual inspection Respiratory: + labored breathing; not tachypneic Auscultation: + diminished lung sounds and + rhonchi Cardiovascular: Rate/Rhythm: regular rhythm and + tachycardic Gastrointestinal (Abdomen): Inspection/Auscultation: abdomen normal to inspection Neurologic: moves all extremities and awake Psychiatric: Orientation: oriented to person and oriented to place; + not alert (lethargic and drowsy) Insight: + limited insight Results & Data Vital Signs (Past 12 Hours) Vital Signs Pulse Resp Pulse Ox 01/07/19 06:55 118 H 20 94 PG Care Time/CCT Total # of Minutes Spent Total Time Spent with Patient: Total time spent is greater than 50% in coordination of care (as documented) at patient's floor/unit and/or counseling patient:
[2019-01-07] MEDS ORDERED: ATROPINE SULFATE 1% OP SOLN 5 ML BTL SL PRN (09:33)
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
--- NOTE | 2019-01-07 13:41 | Progress Note ---
DATE: 01/07/2019 Mr. Roque Ferrara has now been made comfort measures only. He does not want the BiPAP put back on. We are going to continue the Santyl while he is here in the wound. Ironically, the wound is very clean; however, he appears to be at end of life.
--- NOTE | 2019-01-07 14:33 | Palliative Care Progress Note ---
Date of Service January 07, 2019 Assessment & Plan (1) Goals of care, counseling/discussion: -Patient was placed on comfort measures only yesterday per his own wishes. Patient made the decision that he did not want to wear bipap any more. Was okay with allowing nature to take its course. -Visited with patient, his daughter Audra, son and [id number]. Patient is drowsy/lethargic ,but did wake and able to answer questions. -Family feeling conflicted that patient was actually somewhat improved from last evening, as they thought he would not make it through the night. Family was wondering if they "gave up too soon." Support provided and patient reiterated that he did not want to have the bipap placed again, does not want intubation or trach, etc. Family's questions/concerns addressed and answered. They are feeling better. Encouraged them to enjoy the time they had with the patient while he is still able to communicate. -Patient is requiring frequent IV morphine for SOB and pain "all over." I did increase frequency of 2mg IV to Q1h PRN. I anticipate patient's IV morphine nee ds to continue. Patient could potentially be a candidate for [facility] hospice. Patient's daughter stated that if patient ever became stable enough to take home, she would want to do so. Personally, I foresee patient declining rather quickly and not being able to leave the hospital. -He is on comfort measures only. Being transferred out of PCU. Will see how patient does over the next 24-48 hours. If he is lingering, would involve hospice agency on Thursday to evaluate for [facility] hospice. (2) Atrial fibrillation: (3) Severe protein-calorie malnutrition: (4) Chronic respiratory failure with hypoxia and hypercapnia: (5) Bronchopleural fistula: (6) Anxiety: Subjective Patient lethargic/drowsy. C/o pain "all over". Falls asleep frequently during exam. Daughter, son, and [id number] at bedside. long discussions about end of life. Review of Systems Review of Systems: Unobtainable due to cognitive status Physical Exam Constitutional: + ill appearing and + thin ENMT: external ear and nose normal, oropharynx normal Neck: normal visual inspection Respiratory: + labored breathing; not tachypneic Auscultation: + diminished lung sounds and + rhonchi Cardiovascular: Rate/Rhythm: regular rhythm and + tachycardic Gastrointestinal (Abdomen): Inspection/Auscultation: abdomen normal to inspection Neurologic: moves all extremities and awake Psychiatric: Orientation: oriented to person and oriented to place; + not alert (lethargic and drowsy) Insight: + limited insight Results & Data Vital Signs (Past 12 Hours) Vital Signs Pulse Pulse Resp BP Pulse Ox 01/07/19 10:53 123 H 22 93 01/07/19 10:52 119/68 93 01/07/19 06:55 118 H 20 94 Time Spent Midlevel 45 minutes with >50% of the time spent at bedside with patient and family discussing EOL issues and ASSOCIATE DIRECTOR OF BIOSTATISTICS.
[2019-01-07] MEDS: DIGOXIN 0.125 MG TAB PO SCH (18:03)
[2019-01-07] MEDS ORDERED: FORMOTEROL 20 MCG/2 ML VIAL NEB SCH (19:00)
[2019-01-07] MEDS ORDERED: LORazepam 0.5 MG/1 ML VIAL IV PRN (20:44)
--- NOTE | 2019-01-08 16:44 | Death Summary ---
Date of Service January 07, 2019 Pronouncement Note Date and Time of Date of : 01/07/19 Time of : 21:52 PCOD Preliminary cause of : Respiratory failure Contributing Factors (1) Goals of care, counseling/discussion: (2) Atrial fibrillation: (3) Severe protein-calorie malnutrition: (4) Chronic respiratory failure with hypoxia and hypercapnia: (5) Bronchopleural fistula: (6) Anxiety: Additional Data Attending/PCP notified?: Yes Attending physician: Clayton Amaro MD Was code activated?: No
== END 2019-01-07 21:52 | disposition expired | DRG 208 ==
LOC: ED 19:40 → 2S 22:54 → SUATTDRO 22:54 → 2S 12-27 → 1E 12-27 10:47 → 2S 12-29 16:39 → 2E 12-29 18:23 → 4W 01-07 13:25